=== PATIENT | male | born 1950 | race Caucasian/White ===

== ENCOUNTER 2023-10-20 10:54 | Outpatient (OUT) | payer MEDICARE, SELFPAY ==
--- NOTE | 2023-10-20 11:55 | XR_ITS ---
The [address] [address] Patient Name: TOMAS CHÁVEZ MRN: [id number] date: 1950 Sex: M Assigned Patient Location: [facility] Current Patient Location: Accession/Order Number: [id number] Exam Date: 10/20/2023 11:50 Report Date: 10/21/2023 09:54 At the request of: KEN SILVA Procedure: XR chest 2V PROCEDURE: XR chest 2V DATE: 10/20/2023 10:50 AM CDT COMPARISONS: None. CLINICAL INDICATION: 73 years Male Preop exam FINDINGS: The heart is upper normal in size accentuated in size somewhat by the elevated right hemidiaphragm. The pulmonary vasculature does not appear congested. There is moderate elevation the right hemidiaphragm with some right infrahilar atelectasis. The lungs are otherwise clear. There is no evidence of pleural effusion or pneumothorax. XR/XR chest 2V IMPRESSION: 1. No previous radiographs for comparison 2. Elevated right hemidiaphragm with associated atelectasis 3. Heart upper normal in size. Electronically authenticated by: RICKIE ARVIZU Date: 10/21/2023 09:54
--- NOTE | 2023-10-20 12:05 | P.GSHP_ITS ---
History of Present Illness History of Present Illness Chief complaint: elevated psa Narrative: Patient presents for preadmission testing. The patient states he had an elevated PSA. He states he does have frequency with urination and an intermittent weak urine stream. He denies dysuria, hematuria, abdominal pain, nausea, vomiting, or any other complaints. Review of Systems ROS Narrative REVIEW OF SYSTEMS: Negative except as stated in HPI, ten or more systems reviewed. Constitutional: No fever, chills, weakness ENT: No sore throat or epistaxis Cardiovascular: No edema, chest pain, palpitations, or activity intolerance Respiratory: No shortness of breath, cough, or wheezing Musculoskeletal: No joint pain or swelling Gastrointestinal: No abdominal pain, constipation, diarrhea, or vomiting Genitourinary: No dysuria or hematuria Neurological: No numbness, tingling, weakness, or headache Psychiatric: No mood changes PFSH PFS Medical History (Updated 10/20/23 @ 11:37 by Janet Elliott NP) Coronary artery disease ?I25.10 - Atherosclerotic heart disease of [place] coronary artery without angina pectoris (ICD-10) Arthritis ?M19.90 - Unspecified osteoarthritis, unspecified site (ICD-10) Heartburn ?R12 - Heartburn (ICD-10) Heart murmur ?R01.1 - Cardiac murmur, unspecified (ICD-10) Hypertension ?I10 - Essential (primary) hypertension (ICD-10) Myocardial infarction ?I21.9 - Acute myocardial infarction, unspecified (ICD-10) High cholesterol ?E78.00 - Pure hypercholesterolemia, unspecified (ICD-10) Diabetes ?E11.9 - Type 2 diabetes mellitus without complications (ICD-10) BPH (benign prostatic hyperplasia) ?N40.0 - Benign prostatic hyperplasia without lower urinary tract symptoms (ICD-10) Elevated PSA ?R97.20 - Elevated prostate specific antigen [PSA] (ICD-10) Hypothyroidism ?E03.9 - Hypothyroidism, unspecified (ICD-10) Surgical History (Updated 10/20/23 @ 11:37 by Janet Elliott NP) History of tonsillectomy and adenoidectomy ?Z90.89 - Acquired absence of other organs (ICD-10) H/O angioplasty (1996) ?Z98.62 - Peripheral vascular angioplasty status (ICD-10) History of cardiac catheterization ?Z98.890 - Other specified postprocedural states (ICD-10) History of total hip arthroplasty ?Z96.649 - Presence of unspecified artificial hip joint (ICD-10) Family History (Updated 10/20/23 @ 11:37 by Janet Elliott NP) Other Family history of hypertension Multiple myeloma Social History (Updated 10/20/23 @ 11:29 by Janet Elliott NP) Within the past year, how often did you have a drink containing alcohol: 4 or more times a week Within the past year, how many standard drinks containing alcohol did you have on a typical day: 1 or 2 Total score: 0 Score interpretation: A score less than 4 is consistent with normal alcohol consumption. 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 Highest level of school completed/degree received: high school graduate Meds Home Medications and Allergies Home Medications ?Medication ?Instructions ?Recorded ?Confirmed ?Type amlodipine 5 mg tablet 5 mg PO DAILY 10/20/23 10/20/23 History aspirin 325 mg capsule 325 mg PO DAILY 10/20/23 10/20/23 History atorvastatin 20 mg tablet 20 mg PO DAILY 10/20/23 10/20/23 History cholecalciferol (vitamin D3) 125 5,000 unit PO DAILY 10/20/23 10/20/23 History mcg (5,000 unit) capsule hydroxyzine HCl 25 mg tablet 25 mg PO QPM 10/20/23 10/20/23 History insulin aspart U-100 100 unit/mL 1 sliding scale dose subcut TID 10/20/23 10/20/23 History (3 mL) subcutaneous pen (Novolog FlexPen U-100 Insulin aspart) insulin detemir U-100 100 unit/mL unit subcut BID 10/20/23 History (3 mL) subcutaneous pen (Levemir FlexPen) levothyroxine 75 mcg tablet 75 mcg PO DAILY 10/20/23 10/20/23 History lisinopril 20 1 tab PO BID 10/20/23 10/20/23 History mg-hydrochlorothiazide 12.5 mg tablet magnesium oxide 400 mg (241.3 mg 400 mg PO BID 10/20/23 10/20/23 History magnesium) tablet metoprolol tartrate 50 mg tablet 50 mg PO Q12H 10/20/23 10/20/23 History montelukast 10 mg tablet 10 mg PO DAILY 10/20/23 10/20/23 History multivitamin (Daily Multi-Vitamin 1 tab PO DAILY 10/20/23 10/20/23 History tablet) nitroglycerin 0.4 mg sublingual 0.4 mg sublingual Q5M 10/20/23 10/20/23 History tablet trazodone 50 mg tablet 50 mg PO QPM 10/20/23 10/20/23 History Allergies Allergy/AdvReac Type Severity Reaction Status Date / Time No Known Drug Allergies Allergy Verified 10/20/23 11:16 Exam Narrative Exam Narrative: Constitutional: Awake, alert, comfortable, well-appearing, nontoxic, interactive, vital signs as charted Head: Normocephalic, atraumatic Neck: Supple, normal appearance, normal range of motion, no meningeal signs, no lymphadenopathy Respiratory: No respiratory distress, breath sounds clear Cardiovascular: Regular rate and rhythm, strong and regular heart tones Abdomen: Nontender, normal bowel sounds, soft, no CVA tenderness Musculoskeletal: Normal gait, no swelling or edema Skin: No rashes or induration, no lesions, only visible skin inspected Neuro: No neurological deficits, normal sensation Psychiatric: Oriented ?3, normal affect Assessment and Plan Assessment and Plan (1) Elevated PSA: (2) BPH (benign prostatic hyperplasia): Plan MRI fusion transperineal prostate biopsy scheduled with Dr. Arguello November 03, 2023.
[2023-10-20 14:05] LABS: Basophils Absolute Auto 0.1 10^3/uL (0.0-0.1); Basophils Percent Auto 0.7 % (0.2-2.0); Eosinophils Absolute Auto 0.2 10^3/uL (0.0-0.7); Eosinophils Percent Auto 2.6 % (0.9-7.0); Hematocrit 41.3 % (42.0-54.0); Hemoglobin 13.5 g/dL (14.0-18.0); Lymphocytes Absolute Auto 1.2 10^3/uL (1.2-3.8); Lymphocytes Percent Auto 17.8 % (20.5-60.0); Mean Corpuscular HGB Conc 32.7 g/dL (29.9-35.2); Mean Corpuscular Hemoglobin 29.2 pg (25.9-34.0); Mean Corpuscular Volume 89.2 fL (80.0-94.0); Mean Platelet Volume 10.5 fL (9.5-13.5); Monocytes Absolute Auto 0.7 10^3/uL (0.3-0.8); Monocytes Percent Auto 10.7 % (1.7-12.0); Neutrophils Absolute Auto 4.7 10^3/uL (1.4-6.5); Neutrophils Percent Auto 68.2 % (43.0-75.0); Platelet Count 233 10^3/uL (150-450); Red Blood Count 4.63 10^6/uL (4.70-6.10); Red Cell Distribution Width 14.3 % (11.0-15.0); White Blood Count 6.9 10^3/uL (4.0-11.0)
[2023-10-20 14:58] LABS: INR 1.04; Partial Thromboplastin Time 25.9 sec (22.3-36.2)
== END 2023-10-20 10:55 | disposition home or self-care (01) ==
LOC: PST 10:59
PROVIDERS: PCP Family Medicine; Visit Provider Urology
DX: Z01.810 Encounter for preprocedural cardiovascular examination (principal); Z01.812 Encounter for preprocedural laboratory examination; Z01.818 Encounter for other preprocedural examination; R97.20 Elevated prostate specific antigen [PSA]; N40.1 Benign prostatic hyperplasia with lower urinary tract symptoms
CPT/HCPCS: 71046; 80048; 85025; 85610; 85730; G0463

== ENCOUNTER 2023-11-03 06:53 | Day surgery (SDC) | payer MEDICARE, SELFPAY ==
[2023-10-20 11:59] VITALS: BP 158/84; PULSE 56; TEMP 36.3; O2SAT 98; BMI 32.5
--- OUTSIDE RECORDS SUMMARY | 2023-11-03 06:56 | XMS_ITS | CCD ---
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 Odilon Barrientos Attending Ashley Kessler, Dr. Odilon Barrientos Referring Liliamva Teto Landaverde Primary Care Chaitanya Kessler, Dr. Odilon Barrientos Attending Ashley Kessler, Dr. Odilon Barrientos Referring Liliamva ilTeto Morales DO Primary Care Provider Teto Shea DO Unavailable [phone] Teto Shea DO Primary Care Provider Teto SHEA Primary Care Physician [phone] Teto Shea DO Primary Care Provider Teto Shea DO Unavailable ODILON KESSLER Attending Unavailable TETO SHEA Primary Care LORI Bueno Referring Unavailable TETO SHEA Primary Care Unavailable Teto Shea DO Primary Care Provider KEKE HERNANDEZ Attending Unavailable TETO SHEA Primary Care Unavailable KEKE HERNANDEZ Referring Unavailable TETO SHEA Primary Care Unavailable KEKE HERNANDEZ Attending Unavailable TETO SHEA Primary Care Unavailable TETO SHEA Primary Care Unavailable KEKE HERNANDEZ Referring Unavailable LOUISEMORALESLEXUS Attending Unavailable MONSE, TETO Arias Primary Care Unavailable MONSE, TETO Arias Primary Care Unavailable NOLAN GARCIA Referring Unavailable MONSE, TETO Arias Primary Care Unavailable LORI ANSARI Referring Unavailable Sabrina Arguello Attending Unavailable Sabrina Arguello Admitting Unavailable Sabrina Arguello Attending Unavailable Sabrina Arguello Admitting Unavailable Sabrina Arguello Attending Unavailable Brayan DSOUZA Admitting Unavailable Brayan DSOUZA Attending Unavailable Sabrina Arguello Attending Unavailable Sabrina Arguello Attending Unavailable Sabrina Arguello Admitting Unavailable Sabrina Arguello Attending Unavailable DO Teto Shea Primary Care Provider MD Sabrina Arguello Attending Provider Sabrina Arguello Admitting Unavailable Sabrina Arguello Attending Unavailable Teto Shea Primary Care Unavailable Medications Current Medications Medication Drug Class(es) Dates Sig (Normalized) Sig (Original) acetaminophen 500 mg oral tablet (18 sources) Start: 04-18-2019 take 2 tablets by mouth every eight hours acetaminophen (TYLENOL) 500 mg tablet Take 2 tablets by mouth every 8 hours. 0 04/18/2019 Active Comment on above: Take 2 tablets by mo [facility] every 8 hours. ALPRAZolam 0.25 mg oral tablet (1 source) Benzodiazepine Start: 08-04-2018 Alprazolam Active 0.25 MG PO EVERY 12-24 HOURS 15 August 04, 2018 12:00am amLODIPine 5 mg oral tablet (20 sources) Dihydropyridine Calcium Channel Marlene Start: 08-04-2018 take 1 tablet by mouth twice daily amLODIPine 5 mg Tab 5 mg = 1 tab(s), Oral, BID, # 180 tab(s), Refills(s) 1, Pharmacy: [id number], 178, cm, 02/12/22 8:19:00 EST, Height/Length Dosing, 107.8, kg, 02/12/22 8:19:00 EST, Weight Dosing Start Date: 04/02/22 Status: Ordered Comment on above: Take 5 mg by mouth t wice daily. aspirin 325 mg delayed release oral tablet (20 sources) Platelet Aggregation Inhibitor, Nonsteroidal Anti-inflammatory Drug Start: 04-18-2019 take 1 tablet by mouth twice daily aspirin, enteric coated (ASPIRIN, ENTERIC COATED) 325 mg EC tablet TAKE 1 TABLET BY MOUTH TWICE DAILY. 84 tablet 0 04/18/2019 Active Start: 08-03-2018 take 1 tablet by allison th once daily Aspirin (Aspir-81) 81 mg Tablet,Delayed Release (Dr/Ec) Active 81 MG PO Daily August 03, 2018 12:00am Start: 08-24-2009 take 1 tablet by allison th once daily aspirin 325 mg oral tablet 325 mg = 1 tab(s), Oral, Daily, Refills(s) 0 Start Date: 08/24/09 Status: Ordered Comment on above: TAKE 1 TABLET BY ALLISON TH TWICE DAILY. atorvastatin 10 mg oral tablet (20 sources) HMG-CoA Reductase Inhibitor Start: 9 take 2 tablets by mouth once daily Atorvastatin (Lipitor) 10 mg Tablet Active 20 MG PO Daily August 03, 2018 12:00am Start: 08-24-2009 take 1 tablet by allison th once daily at bedtime Lipitor 20 mg Tab 20 mg = 1 tab(s), Oral, Once a day (at bedtime), # 90 tab(s), Refills(s) 1, Pharmacy: [id number], 178, cm, 02/12/22 8:19:00 EST, Height/Length Dosing, 107.8, kg, 02/12/22 8:19:00 EST, Weight Dosing Start Date: 04/02/22 Status: Ordered Comment on above: Take 20 mg by mouth once daily. Blood-Glucose Meter,Continuous (FREESTYLE MAKAYLA 3 READER) misc (4 sources) Start: 07-28-2023 Blood-Glucose Meter,Continuous (FREESTYLE MAKAYLA 3 READER) misc Dispense one reader kit. E11.9, multiple insulin injections. 1 Each 0 07/28/2023 Active Start: 07-15-2023 End: 07-28-2023 Blood-Glucose Meter,Continuo us (FREESTYLE MAKAYLA 3 READER) misc Dispense one reader kit. E11.9, multiple insulin injections. 1 Each 0 07/15/2023 07/28/2023 Discontinued Start: 07-15-2023 Blood-Glucose Meter,Continuous (FREESTYLE MAKAYLA 3 READER) misc Dispense one reader kit. E11.9, multiple insulin injections. 1 Each 0 07/15/2023 Active Blood-Glucose Sensor (FREEST YLE MAKAYLA 3 SENSOR) santino (11 sources) Start: 07-28-2023 Blood-Glucose Sensor (FREESTYLE MAKAYLA 3 SENSOR) santino Change sensor every 14 days. USE FOR CONTINUOUS GLUCOSE MONITORING. Multiple insulin injections. E11.9 6 Each 3 07/28/2023 Active Start: 07-15-2023 End: 07-28-2023 Blood-Glucose Sensor (FREEST YLE MAKAYLA 3 SENSOR) santino Change sensor every 14 days. USE FOR CONTINUOUS GLUCOSE MONITORING. Multiple insulin injections. E11.9 6 Each 3 07/15/2023 07/28/2023 Discontinued Start: 07-15-2023 Blood-Glucose Sensor (FREESTYLE MAKAYLA 3 SENSOR) santino Change sensor every 14 days. USE FOR CONTINUOUS GLUCOSE MONITORING. Multiple insulin injections. E11.9 6 Each 3 07/15/2023 Active Start: 05-28-2022 End: 01-14-2023 Blood-Glucose Sensor (FREEST YLE MAKAYLA 3 SENSOR) santino Change sensor every 14 days. USE FOR CONTINOUS GLUCOSE MONITORING. MULTIPLE INSULIN INJECTIONS. E11.9 PeerReach 7 Each 3 05/28/2022 01/14/2023 Discontinued Start: 05-28-2022 Blood-Glucose Sensor (FREESTYLE MAKAYLA 3 SENSOR) santino Change sensor every 14 days. USE FOR CONTINOUS GLUCOSE MONITORING. MULTIPLE INSULIN INJECTIONS. E11.9 [employer]ach 7 Each 3 05/28/2022 Active Comment on above: Change sensor every 14 days. USE FOR CONTINOUS GLUCOSE MONITORING. MULTIPLE INSULIN INJECTIONS. E11.9 [employer]ach cholecalciferol 0.125 mg oral tablet (20 sources) Vitamin D Start: 08-03-2018 cholecalciferol (VITAMIN D-3) 5,000 unit tab Take by mouth once daily. 0 08/10/2018 Active Vitamin D3 125 M CG (5000 UT) Oral Capsule TAKE DIRECTED. Quantity: 0 Refills: 0 Ordered: 24-Oct-2021 DO Active Comment on above: Take by mouth once d aily. diazePAM 10 mg oral tablet (1 source) Benzodiazepine Start: 10-07-2023 Valium 10 mg Tab 10 mg = 1 tab(s), Oral, As Directed, PRN for anxiety, Take 30 minutes prior to MRI for anxiety/claustrophob ia, # 1 tab(s), Refills(s) 0, Pharmacy: [facility] #[id number], 178, cm, 10/07/23 8:08:00 EDT, Height/Length Dosing, 105.1, kg, 10/07/23 8:08:00 EDT, Weight Dosing Start Date: 10/07/23 Status: Ordered flash glucose sensor (FREESTYLE MAKAYLA 2 SENSOR) kit (6 sources) Start: 01-14-2023 flash glucose sensor (FREESTYLE MAKAYLA 2 SENSOR) kit Change sensor every 14 days. USE FOR CONTINUOUS GLUCOSE MONITORING. Multiple insulin injections. E11.9 7 Each 3 01/14/2023 Active Comment on above: Change sensor every 14 days. USE FOR CONTINUOUS GLUCOSE MONITORING. Multiple insulin injections. E11.9 hydroCHLOROthiazide 12.5 mg / lisinopril 20 mg oral tablet (20 sources) Thiazide Diuretic, Angiotensin Converting Enzyme Inhibitor Start: 08-25-2021 End: 08-20-2022 hydrochlorothiazide- lisinopril 25 mg-20 mg Tab 1 tab(s), Oral, BID for 90 day(s), 180 tab(s), Refill(s) 3, [facility] #[id number], 178, cm, 02/18/21 10:27:00 EST, Height/Length Dosing, 105.1, kg, 02/18/21 10:27:00 EST, Weight Dosing Start Date: 08/25/21 Stop Date: 08/20/22 Status: Ordered Start: 03-27-2019 take 1 tablet by allison th once daily hydrochlorothiazide-lisinopril 12.5 mg-2 0 mg Tab tab(s), Oral, Daily, Refill(s) 0 Start Date: 02/12/22 Status: Ordered Start: 08-03-2018 take 2 tablets by mouth twice daily Lisinopril-Hydrochlorothiazide Active 2 TAB PO Twice daily August 03, 2018 12:00am Comment on above: Take 1 tablet by allison th once daily. Takes 1 tablet twice a day hydrOXYzine (1 source) Antihistamine Start: hydrOXYzine 25 mg Start Date: 10/07/23 Status: Ordered ibuprofen 200 mg oral tablet (20 sources) Nonsteroidal Anti-inflammatory Drug Start: 9 take 1 tablet by mouth every six hours Ibuprofen (Advil) 200 mg Tablet Active 200 MG PO Q6H August 03, 2018 12:00am take 1 tablet by allison th once daily as needed ibuprofen (ADVIL) 200 mg tablet Take 200 mg by mouth as needed. Take 1-2 tabs 1-2x daily as needed 0 Active Advil 200 MG Ora l Tablet as needed Quantity: 0 Refills: 0 Ordered: 24-Oct-2021 DO Active Comment on above: Take 200 mg by mouth as needed. Take 1-2 tabs 1-2x daily as needed 3 ml insulin aspart, human 100 unt/ml pen injector (20 sources) Insulin Analog Start: 02-26-2023 insulin aspart U-100 (NOVOLOG FLEXPEN U-100 INSULIN) 100 unit/mL (3 mL) Indications: Controlled type 2 diabetes mellitus without complication, with long-term current use of insulin (HCC) Inject 6 units breakfast, 8-10 with lunch 18 with dinner and (4 units with nightly bowl of ice cream) 45 mL 3 02/26/2023 Active Start: 01-14-2023 End: 01-14-2023 insulin aspart U-100 (NOVOLO G FLEXPEN U-100 INSULIN) 100 unit/mL (3 mL) Inject 6 units breakfast, 8-10 with lunch 18 with dinner and (4 units with nightly bowl of ice cream) 45 mL 3 01/14/2023 Active Start: 08-29-2022 End: 01-14-2023 insulin aspart U-100 (NOVOLO G FLEXPEN U-100 INSULIN) 100 unit/mL (3 mL) Indications: Controlled type 2 diabetes mellitus without complication, with long-term current use of insulin (HCC) Inject 10 units breakfast, 14 with lunch 16 with dinner and (4 units with nightly bowl of ice cream). TDD~ 34 units. DX: E11.9, insulin dependent. 15 mL 3 08/29/2022 01/14/2023 Discontinued Start: 05-28-2022 End: 01-14-2023 insulin aspart U-100 (NOVOLO G FLEXPEN U-100 INSULIN) 100 unit/mL (3 mL) Inject 8 units breakfast, 12 with lunch 16 with dinner and (4 units with nightly bowl of ice cream) 15 Each 3 08/29/2022 01/14/2023 Discontinued (Adjust Sig - Block E-Cancel) Start: 02-15-2022 End: 05-28-2022 insulin aspart U-100 (NOVOLO G FLEXPEN U-100 INSULIN) 100 unit/mL (3 mL) Inject 10 units breakfast, 14 with lunch 16 with dinner and (4 units with nightly bowl of ice cream) 15 Each 3 02/15/2022 05/28/2022 Discontinued (Adjust Sig - Block E-Cancel) Start: 10-06-2021 End: 02-13-2022 insulin aspart U-100 (NOVOLO G FLEXPEN U-100 INSULIN) 100 unit/mL (3 mL) Inject 10 units breakfast, 14 with lunch 16 with dinner and (4 units with nightly bowl of ice cream) 15 Each 3 11/27/2021 02/13/2022 Discontinued Start: 05-15-2021 End: 10-04-2021 insulin aspart U-100 (NOVOLO G FLEXPEN U-100 INSULIN) 100 unit/mL (3 mL) Inject 10 units breakfast, 14 with lunch 16 with dinner 15 Pen 3 05/15/2021 10/04/2021 Discontinued Start: 10-18-2020 apply 10 [IU] by sub cutaneous injection once daily at breakfast as needed, then apply 14 [IU] by subcutaneous injection at lunch as needed, then apply 16 [IU] by subcutaneous injection once daily as needed, then apply 4 [IU] by subcutaneous injection once daily as needed, then apply 44 [IU] by subcutaneous injection once daily as needed NovoLOG FlexPen 100 units/mL injectable solution Inject 10 units sub-q daily at breakfast, inject 14 units sub-q with lunch & inject 16 units sub- daily with dinnerand 4 units with nightly bowel of ice cream plus Sliding Scale as needed ( 44 units daily) Start Date: 10/18/20 Status: Ordered Start: 10-18-2020 inject 4 [IU] by sub cutaneous injection once daily at breakfast as needed, then inject 8 [IU] by subcutaneous injection at lunch as needed, then inject 10 [IU] by subcutaneous injection once daily at dinner as needed, then inject 35 [IU] by subcutaneous injection once daily as needed NovoLOG FlexPen 100 units/mL injectable solution Inject 4 units sub-q daily at breakfast, inject 8 units sub-q with lunch & inject 10 units sub- daily with dinner plus Sliding Scale as needed ( 35 units daily) Start Date: 10/18/20 Status: Ordered Start: 08-03-2018 Insulin Aspart U-100 (Novolog Flexpen U-100 Insulin) 100 unit/mL (3 mL) Insulin Pen Active 0 unit SUBCUT Three times daily August 03, 2018 12:00am NovoLOG 100 UNIT /ML Injection Solution as directed Quantity: 0 Refills: 0 Ordered: 24-Oct-2021 DO Active Comment on above: Inject 10 units becca kfast, 14 with lunch 16 with dinner Inject 10 units becca kfast, 14 with lunch 16 with dinner and (4 units with nightly bowl of ice cream) Inject 8 units break fast, 12 with lunch 16 with dinner and (4 units with nightly bowl of ice cream) Inject 10 units becca kfast, 14 with lunch 16 with dinner and (4 units with nightly bowl of ice cream). TDD~ 34 units. DX: E11.9, insulin dependent. Inject 6 units break fast, 8-10 with lunch 18 with dinner and (4 units with nightly bowl of ice cream) 3 ml insulin detemir 100 unt/ml pen injector (20 sources) Insulin Analog Start: inject 62 [IU] by subcutaneous injection once daily in the morning, then inject 60 [IU] by subcutaneous injection in the evening insulin detemir U-100 (LEVEMIR FLEXPEN) 100 unit/mL (3 mL) injection pen Indications: Controlled type 2 diabetes mellitus without complication, with long-term current use of insulin (HCC) INJECT 62 UNITS SUB-Q DAILY IN THE MORNING AND INJECT 60 UNITS IN THE EVENING 120 mL 3 09/16/2023 Active Start: 01-14-2023 End: 09-16-2023 insulin detemir U-100 (LEVEM IR FLEXTOUCH U-100 INSULIN) 100 unit/mL (3 mL) injection pen inject 62 units SUBCUTANEOUSLY IN THE MORNING and 60 IN THE EVENING 120 mL 3 07/15/2023 09/16/2023 Discontinued Start: 04-07-2022 End: 01-14-2023 insulin detemir U-100 (LEVEM IR FLEXTOUCH U-100 INSULIN) 100 unit/mL (3 mL) injection pen inject 64 units SUBCUTANEOUSLY IN THE MORNING and 66 IN THE EVENING 120 mL 3 01/04/2023 01/14/2023 Discontinued (Adjust Sig - Block E-Cancel) Start: 10-06-2021 insulin detemi r U-100 (LEVEMIR) 100 unit/mL (3 mL) injection pen Inject 64 units in am and 66 units at night 20 Pen 3 10/06/2021 Active Start: 05-15-2021 End: 10-04-2021 insulin detemir U-100 (LEVEM IR) 100 unit/mL (3 mL) injection pen Inject 64 units in am and 66 units at night 20 Pen 3 05/15/2021 10/04/2021 Discontinued Start: 09-21-2018 inject 64 [IU] by carreon bcutaneous injection in the morning, then inject 66 [IU] by subcutaneous injection twice daily at bedtime Levemir FlexTouch 100 units/mL subcutaneous solution 64 unit(s) in AM and 66 units at HS, SubCutaneous, BID, # 15 mL, Refills(s) 3, Pharmacy: [id number] Start Date: 09/21/18 Status: Ordered Start: 09-21-2018 Levemir FlexTo uch 100 units/mL subcutaneous solution 70 unit(s), SubCutaneous, Bedtime, # 4 box(es), Refills(s) 3, Pharmacy: [id number] Start Date: 09/21/18 Status: Ordered Start: 08-03-2018 Insulin Detemi r U-100 (Levemir Flextouch U100 Insulin) 100 unit/mL (3 mL) Insulin Pen Active 72 UNIT SUBCUT Twice daily August 03, 2018 12:00am Levemir 100 UNIT /ML Subcutaneous Solution as directed Quantity: 0 Refills: 0 Ordered: 24-Oct-2021 DO Active Comment on above: Inject 64 units in a m and 66 units at night inject 64 units SUBC UTANEOUSLY IN THE MORNING and 66 IN THE EVENING inject 62 units SUBC UTANEOUSLY IN THE MORNING and 64 IN THE EVENING levothyroxine sodium 0.075 mg oral tablet (20 sources) l-Thyroxine Start: 12-18-19 End: 06-09-19 24 take 1 tablet by mouth once daily levothyroxine (SYNTHROID) 75 mcg tablet Indications: Unspecified hypothyroidism take 1 tablet by mouth daily 90 tablet 3 06/09/2023 Active Start: 05-28-2022 take 1 tablet by allison once daily levothyroxine (SYNTHROID) 75 mcg tablet Take 1 tablet by mouth once daily. 30 tablet 5 05/28/2022 Active Start: 02-12-2022 levothyroxine 75 mcg, Daily, 2 tabs on Wednesday and ., Refills(s) 0 Start Date: 02/12/22 Status: Ordered Start: 02-12-2022 levothyroxine 50 mcg, Daily, 2 tabs on Wednesday and ., Refills(s) 0 Start Date: 02/12/22 Status: Ordered Start: 05-15-2021 End: 05-28-2022 levothyroxine (SYNTHROID) 50 mcg tablet Take 1 tab daily EXCEPT Wed and take 2 tabs. 38 tablet 11 11/27/2021 05/28/2022 Discontinued Start: 10-18-2020 take 1 tablet by allison th once daily before breakfast levothyroxine 25 mcg (0.025 mg) Tab TAKE 1 TABLET BY MOUTH EVERY DAY before breakfast on empty stomach Start Date: 10/18/20 Status: Ordered Comment on above: Take 1 tablet by allison once daily. Take 1 tab daily EXC EPT Wed and take 2 tabs. take 1 tablet by allison th daily magnesium oxide 400 mg oral tablet (20 sources) Start: 10-07-2023 take 1 tablet by mouth twice daily magnesium oxide 400 mg Tab 400 mg = 1 tab(s), Oral, BID Start Date: 10/07/23 Status: Ordered Start: 03-27-2019 take 1 capsule by mo [facility] twice daily magnesium oxide 400 mg magnesium cap Take 1 capsule by mouth twice daily. 0 03/27/2019 Active Start: 08-04-2018 End: 08-21-2022 take 1 tablet by mouth twice daily magnesium oxide 400 mg Tab 400 mg = 1 tab(s), Oral, BID, X 90 day(s), # 180 tab(s), Refills(s) 3, Pharmacy: [id number], 178, cm, 02/18/21 10:27:00 EST, Height/Length Dosing, 105.1, kg, 02/18/21 10:27:00 EST, Weight Dosing Start Date: 08/26/21 Stop Date: 08/21/22 Status: Ordered Comment on above: Take 1 capsule by [facility] twice daily. metoprolol tartrate 50 mg oral tablet (20 sources) beta-Adrenergic Marlene Start: 04-02-2022 Metoprolol tartrate 50 mg Tab 25 mg = 0.5 tab(s), Oral, BID, # 90 tab(s), Refills(s) 1, Pharmacy: [id number], 178, cm, 02/12/22 8:19:00 EST, Height/Length Dosing, 107.8, kg, 02/12/22 8:19:00 EST, Weight Dosing Start Date: 04/02/22 Status: Ordered Start: 08-26-2021 Metoprolol tar trate 50 mg Tab 25 mg = 0.5 tab(s), Oral, BID, # 90 tab(s), Refills(s) 1, Pharmacy: [id number], 178, cm, 02/18/21 10:27:00 EST, Height/Length Dosing, 105.1, kg, 02/18/21 10:27:00 EST, Weight Dosing Start Date: 08/26/21 Status: Ordered Start: 08-04-2018 take 25 mg by mouth twice daily Metoprolol Tartrate Active 25 MG PO Twice daily 60 August 04, 2018 12:00am Start: 08-03-2018 End: 08-04-2018 take 50 mg by mouth twice daily Metoprolol Tartrate Discontinued 50 MG PO Twice daily August 03, 2018 12:00am August 04, 2018 4:48pm Start: 08-24-2009 metoprolol tar trate, short acting, (LOPRESSOR) 50 mg tablet Take by mouth twice daily. 0 08/24/2009 Active Comment on above: Take by mouth twice daily. montelukast 10 mg oral tablet (20 sources) Leukotriene Receptor Antagonist Start: 0 take 1 tablet by mouth once daily in the evening Montelukast (Singulair) 10 mg Tablet Active 10 MG PO Every evening August 03, 2018 12:00am Comment on above: Take 10 mg by mouth daily at bedtime. Multiple Vitamins Tab (8 sources) Start: 0 take 1 tablet by mouth once daily Multiple Vitamins Tab 1 tab(s), Oral, Daily, Refill(s) 0 Start Date: 08/24/09 Status: Ordered Start: 08-24-2009 Multiple Vitam ins Tab 1 tab(s), Oral, Daily, 0 Start Date: 08/24/09 Status: Ordered Multivit, Min No.92-[id number] (1 source) Start: 08-03-2018 take 1 tablet by mouth once daily Multivit, Min No.88-Fpuw-Vnlhr Active 1 TAB PO Daily August 03, 2018 12:00am multivit-min/ferrous fumarate (MULTI VITAMIN ORAL) (18 sources) Start: 08-03-2018 multivit-min/ferrous fumarate (MULTI VITAMIN ORAL) Take by mouth once daily. 0 08/03/2018 Active Comment on above: Take by mouth once d aily. nitroglycerin 0.4 mg sublingual tablet (20 sources) Nitrate Vasodilator Start: 08-24-2009 Nitroglycerin Active 0.4 MG SUBLINGUAL every 5 to 15 minutes August 03, 2018 12:00am Comment on above: Dissolve 0.4 mg unde r the tongue as needed. omeprazole 40 mg delayed release oral capsule (8 sources) Proton Pump Inhibitor Start: 09-12-2019 omeprazole 40 mg Cap-DR 40 mg = 1 cap(s), Oral, Daily, on for 2 weeks daily then wean over the following 2 weeks., # 30 cap(s), Refills(s) 0, Pharmacy: [id number], 178, cm, 09/12/19 10:32:00 EDT, Height/Length Measured, 102.1, kg, 09/12/19 10:32:00 EDT, Weight Measured Start Date: 09/12/19 Status: Ordered traZODone hydrochloride 50 mg oral tablet (20 sources) Serotonin Reuptake Inhibitor Start: 04-02-2022 traZODONE 50 mg Tab 25 mg = 0.5 tab(s), Oral, Once a day (at bedtime), # 45 tab(s), Refills(s) 1, Pharmacy: [facility], 178, cm, 02/12/22 8:19:00 EST, Height/Length Dosing, 107.8, kg, 02/12/22 8:19:00 EST, Weight Dosing Start Date: 04/02/22 Status: Ordered Start: 08-26-2021 traZODONE 50 m g Tab 25 mg = 0.5 tab(s), Oral, Once a day (at bedtime), # 45 tab(s), Refills(s) 1, Pharmacy: [id number], 178, cm, 02/18/21 10:27:00 EST, Height/Length Dosing, 105.1, kg, 02/18/21 10:27:00 EST, Weight Dosing Start Date: 08/26/21 Status: Ordered Start: 11-28-2018 traZODone (BAY YREL) 50 mg tablet Take by mouth daily at bedtime. 0 11/28/2018 Active take 0.5 tablet by m outh at bedtime traZODone HCl - 50 MG Oral Tablet TAKE 1/2 TABLET AT BEDTIME. Quantity: 0 Refills: 0 Ordered: 24-Oct-2021 DO Active Comment on above: Take by mouth daily at bedtime. vit A/vit C/bioflav/Zn/Herb25 (ECHINACEA ACZ ORAL) (18 sources) vit A/vit C/bioflav/Zn/Herb25 (ECHINACEA ACZ ORAL) Take by mouth. 0 Active Comment on above: Take by mouth. Completed/Discontinued Medications Medication Drug Class(es) Dates Sig (Normalized) Sig (Original) flash glucose scanning reader (FREESTYLE MAKAYLA 14 DAY READER) (6 sources) Start: 07-15-2021 End: 05-28-2022 flash glucose scanning reader (FREESTYLE MAKAYLA 14 DAY READER) Dispense one reader kit. E11.9 - multiple insulin injections, checks blood sugar 4x daily 1 Each 0 07/15/2021 05/28/2022 Discontinued Start: 07-15-2021 flash glucose scanning reader (FREESTYLE MAKAYLA 14 DAY READER) Dispense one reader kit. E11.9 - multiple insulin injections, checks blood sugar 4x daily 1 Each 0 07/15/2021 Active Comment on above: Dispense one reader kit. E11.9 - multiple insulin injections, checks blood sugar 4x daily flash glucose scanning reader (FREESTYLE MAKAYLA 14 DAY READER) [facility] [place] (1 source) Start: 03-28-2019 flash glucose scanning reader (FREESTYLE MAKAYLA 14 DAY READER) [facility] [place] Dispense one reader kit. E11.9 - multiple insulin injections, checks blood sugar 4x daily 1 Each 0 03/28/2019 Active Comment on above: Dispense one reader kit. E11.9 - multiple insulin injections, checks blood sugar 4x daily flash glucose sensor (FREESTYLE MAKAYLA 14 DAY SENSOR) kit (7 sources) Start: 07-15-2021 End: 05-28-2022 flash glucose sensor (FREESTYLE MAKAYLA 14 DAY SENSOR) kit Change sensor every 14 days E11.9 - multiple insulin injections, checks blood sugar 4x daily 6 Each 3 07/15/2021 05/28/2022 Discontinued Start: 07-15-2021 flash glucose sensor (FREESTYLE MAKAYLA 14 DAY SENSOR) kit Change sensor every 14 days E11.9 - multiple insulin injections, checks blood sugar 4x daily 6 Each 3 07/15/2021 Active Start: 08-08-2019 flash glucose sensor (FREESTYLE MAKAYLA 14 DAY SENSOR) kit Change sensor every 14 days E11.9 - multiple insulin injections, checks blood sugar 4x daily 6 Each 3 08/08/2019 Active Comment on above: Change sensor every 14 days E11.9 - multiple insulin injections, checks blood sugar 4x daily Mens Multi Vitamin & Mineral TABS (3 sources) Mens Multi Vitamin & Mineral TABS TAKE 1 TABLET DAILY. Quantity: 0 Refills: 0 Ordered: 24-Oct-2021 DO Active Vitamin D3 5000 intl units oral capsule (8 sources) Start: 08-10-2018 take 1 capsule by mouth once daily at mealtime Vitamin D3 5000 intl units oral capsule 5,000 [employer] t = 1 cap(s), Oral, Daily, with food, # 100 cap(s), Refills(s) 0 Start Date: 08/10/18 Status: Ordered Problems Active Problems Problem Classification Problem Date Documented Date Episodic/Chronic Abdominal pain (1 source) Epigastric pain; Translations: [Epigastric pain] Onset: 09-29-2023 Episodic Anxiety disorders (8 sources) Anxiety disorder 10-20-2020 Chronic Cardiac dysrhythmias (5 sources) Atrial fibrillation; Translations: [Atrial fibrillation] 02-17-2023 Chronic Cardiac dysrhythmias (2 sources) Palpitations; Translations: [Palpitations] 02-17-2023 Episodic Coronary atherosclerosis and other heart disease (20 sources) Coronary arteriosclerosis; Translations: [Coronary atherosclerosis of unspecified type of vessel, [place] or graft] Onset: 04-17-2019 04-17-2019 Chronic Coronary atherosclerosis and other heart disease (2 sources) Coronary angioplasty status; Translations: [Coronary angioplasty status] Onset: 02-03-2023 Episodic Diabetes mellitus without complication (20 sources) Diabetes mellitus; Translations: [Diabetes mellitus without mention of complication, type II or unspecified type, not stated as uncontrolled] Onset: 04-17-2019 04-17-2019 Chronic Disorders of lipid metabolism (20 sources) Hyperlipidemia; Translations: [Other and unspecified hyperlipidemia] Onset: 04-17-2019 04-17-2019 Chronic Essential hypertension (20 sources) Benign essential hypertension; Translations: [Benign essential hypertension] Onset: 04-17-2019 04-17-2019 Chronic Genitourinary symptoms and ill-defined conditions (8 sources) Poor stream of urine 02-13-2020 Episodic Hyperplasia of prostate (11 sources) Benign prostatic hypertrophy with outflow obstruction; Translations: [Benign prostatic hyperplasia with lower urinary tract symptoms] Onset: 09-16-2021 01-31-2019 Chronic Nutritional deficiencies (9 sources) Vitamin D deficiency; Translations: [Vitamin D deficiency, unspecified] Onset: 02-12-2022 08-10-2018 Chronic Osteoarthritis (20 sources) Osteoarthritis of right hip joint; Translations: [Unilateral primary osteoarthritis, right hip] Onset: 04-17-2019 04-17-2019 Chronic Other aftercare (2 sources) Long-term current use of aspirin; 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] Onset: 04-08-2023 Episodic Other aftercare (1 source) retirement (current) use of insulin; Translations: [Controlled type 2 diabetes mellitus without complication, with long-term current use of insulin (HCC)] Onset: 07-09-2023 Episodic Other connective tissue disease (18 sources) History of repair of hip joint; Translations: [Presence of right artificial hip joint] Onset: 05-10-2019 05-10-2019 Chronic Other connective tissue disease (8 sources) Olecranon bursitis 09-22-2018 Episodic Other connective tissue disease (1 source) Pain in right lower leg; Translations: [Pain in right lower leg] Onset: 03-09-2023 Episodic Other diseases of kidney and ureters (2 sources) Urinary tract obstruction; Translations: [Other obstructive and reflux uropathy] Onset: 09-11-2021 Episodic Other liver diseases (1 source) Abnormal levels of other serum enzymes; Translations: [Abnormal levels of other serum enzymes] Onset: 09-29-2023 Episodic Other male genital disorders (5 sources) Male erectile dysfunction, unspecified; Translations: [Erectile dysfunction] Onset: 04-08-2023 Chronic Other nutritional; endocrine; and metabolic disorders (5 sources) Obesity; Translations: [Obesity, unspecified] Onset: 02-12-2022 Chronic Other nutritional; endocrine; and metabolic disorders (19 sources) Obese class I; Translations: [Obesity, unspecified] Onset: 04-14-2019 04-14-2019 Chronic Other nutritional; endocrine; and metabolic disorders (3 sources) Body mass index 30+ - obesity 04-08-2023 Chronic Other screening for suspected conditions (not mental disorders or infectious disease) (17 sources) Raised prostate specific antigen; Translations: [Elevated prostate specific antigen [PSA]] Onset: 09-16-2021 12-21-2018 Episodic Residual codes; unclassified (9 sources) Sleep disorder; Translations: [Sleep disorder, unspecified] Onset: 02-12-2022 08-10-2018 Episodic Residual codes; unclassified (1 source) Refused procedure - parent's wish; Translations: [Procedure and treatment not carried out because of patient's decision for unspecified reasons] Onset: 02-12-2022 Episodic Spondylosis; intervertebral disc disorders; other back problems (8 sources) Spinal stenosis of lumbar region 12-26-2018 Episodic Thyroid disorders (16 sources) Hypothyroidism; Translations: [Hypothyroidism, unspecified] Onset: 02-12-2022 10-20-2020 Chronic Unclassified (8 sources) Colon cancer screening declined 09-12-2019 Unclassified (8 sources) Long-term current use of aspirin 02-13-2020 Unclassified (3 sources) Non-smoker 04-08-2023 Unclassified (1 source) Acute cough; Translations: [Acute cough] Onset: 03-30-2023 Past or Other Problems Problem Classification Problem Date Documented Date Episodic/Chronic Diabetes mellitus with complications (9 sources) Type II diabetes mellitus uncontrolled; Translations: [Type 2 diabetes mellitus with peripheral angiopathy] Onset: 02-12-2022 Resolved: 08-10-2018 09-22-2018 Chronic Immunity disorders (8 sources) Primary immune deficiency disorder Resolved: 08-10-2018 08-10-2018 Chronic Malaise and fatigue (18 sources) Asthenia; Translations: [Weakness] Onset: 04-20-2019 04-20-2019 Episodic Other circulatory disease (1 source) Other specified symptoms and signs involving the circulatory and respiratory systems; Translations: [Other specified symptoms and signs involving the circulatory and respiratory systems] Onset: 03-30-2023 Episodic Other nervous system disorders (18 sources) Abnormal gait; Translations: [Unspecified abnormalities of gait and mobility] Onset: 04-20-2019 04-20-2019 Episodic Other nutritional; endocrine; and metabolic disorders (8 sources) Hypolipidemia Resolved: 08-10-2018 09-22-2018 Chronic Unclassified (8 sources) Without (attribute) 08-24-2009 Unclassified (3 sources) Never smoked tobacco; Translations: [Never a smoker] Results Test Name Value Interpretation Reference Range Facility MR prostate wo/w conon 10-26 MR prostate wo/w con [facility] [place] [address] MRI Report Signed Patient: Tomas Martinez MR#: [id number] : 1950 Acct:[id number] Age/Sex: 73 / M ADM Date: 10/26/23 Loc: Room: Type: [facility] Attending Dr: Sabrina Arguello MD Copies to: Sabrina Arguello MD Ordering Provider: Sabrina Arguello MD Date of Service: 10/26/23 MR/MR prostate wo/w con: R97.20 EXAMINATION: MR prostate wo/w con HISTORY: Elevated PSA. COMPARISON: NONE TECHNIQUE: Multiparametric imaging of the prostate gland was performed with IV contrast. FINDINGS: The examination is suboptimal due to blooming artifact from the patient's right hip prosthesis. Prostate Dimensions: 6.3 x 4.7 x 5.9 cm. Prostate Volume: 91 mL. Peripheral Zone: Heterogenous inT2 signal suggestive of prior prostatitis. A focal area of T2 hypointensity is seen involving the posterior aspect of the left peripheral zone at the level of the mid gland measuring 6 x 6 mm with associated restricted diffusion and low ADC value. No gross extracapsular extension is seen. Please see series 4 image 15, series 650 image 14 and series 600 image 14. Central/Transitional Zone: BPH changes. Seminal Vesicles: Unremarkable Neurovascular bundles: Unremarkable. Lymphadenopathy: No evidence of lymphadenopathy. Bladder: No focal lesion. Bowel: Diverticulosis. Peritoneal Cavity: No free fluid. Bones: No suspicious bony lesion. Presumed partially visualized left hip joint effusion versus iliopsoas bursitis. MR/MR prostate wo/w con IMPRESSION: 1. Suboptimal evaluation due to blooming artifact from the patient's right hip prosthesis. 2. A focal area of T2 hypointensity is seen involving the posterior aspect of the left peripheral zone at the level of the mid gland measuring 6 x 6 mm with associated restricted diffusion and low ADC value. No gross extracapsular extension is seen. Please see series 4 image 15, series 650 image 14 and series 600 image 14. PI-RADS 4. Targeting of this area on biopsy is recommended. 3. Presumed partially visualized left hip joint effusion versus iliopsoas bursitis. Impression dictated by: Pola Chong Jr., D.ORaf10/27/2023 12:20 PM Dictation Location: [place] [address] Transcribed By: [facility] 10/27/23 1220 Dictated By: Pola Chong Jr, DO 10/27/23 1214 Signed By: 10/27/23 1220 Normal [facility] ISTAT XRay CREon 10-26-2023 ISTAT GFR > 60.0 Normal [facility] Comment on above: Result Comment: PERF ORMED BY: [place] [address] PATHOLOGIST LABEL PRESS OPERATOR JOEY JERONIMO M.D. Performed By: #### I SCRE #### [address] No Panel InformationOrdered By: Sabrina Arguello on 10-26-2023 Bedside Estimated GFR (eGFR) > 60.0 [facility] Whole blood creatinine measu rementOrdered By: Sabrina Arguelol on 10-26-2023 Creatinine [Mass/Vol] 0.9 mg/dL Normal 0.6-1.3 [facility] Comment on above: ER/ESD physician is notified/shown all ISTAT results.Critical values may be confirmed by laboratory testing ifdeemed necessary by ER attending doctor. Result Comment: ER/E SD physician is notified/shown all ISTAT results. Critical values may be confirmed by laboratory testing if deemed necessary by ER attending doctor. Performed By: #### I SCRE #### [address] Comprehensive Metabolic Pane kenneth 10-11-2023 Albumin [Mass/Vol] 3.8 g/dL Normal 3.5-4.6 [facility] Comment on above: Performed By: #### C MP #### [facility] [address] [place] [address] ALP [Catalytic activity/Vol] 207 U/L Critically high 35-104 [facility] Comment on above: Performed By: #### C MP #### [facility] [address] [place] [address] ALT [Catalytic activity/Vol] 65 U/L Critically high 0-41 [facility] Comment on above: Performed By: #### C MP #### [facility] [address] [place] [address] Anion gap [Moles/Vol] 9 mmol/L Normal 9-15 [facility] Comment on above: Performed By: #### C MP #### [facility] [address] [place] [address] AST [Catalytic activity/Vol] 34 U/L Normal 0-40 [facility] Comment on above: Performed By: #### C MP #### [facility] [address] [place] [address] Bilirubin [Mass/Vol] 0.9 mg/dL Critically high 0.2-0.7 [facility] Comment on above: Performed By: #### C MP #### [facility] [address] [place] [address] Calcium [Mass/Vol] 9.8 mg/dL Normal 8.5-9.9 [facility] Comment on above: Performed By: #### C MP #### [facility] [address] [place] [address] Chloride [Moles/Vol] 103 mmol/L Normal 95-107 [facility] Comment on above: Performed By: #### C MP #### [facility] [address] [place] [address] CO2 [Moles/Vol] 30 mmol/L Normal 20-31 [facility] Comment on above: Performed By: #### C MP #### [facility] [address] [place] [address] Creatinine [Mass/Vol] 0.96 mg/dL Normal 0.70-1.20 [facility] Comment on above: Performed By: #### C MP #### [facility] [address] [place] [address] GFR 82.4 Normal >60 [facility] Comment on above: Result Comment: Carla atric calculator link https://www.kidney.org/professionals/kdoqi/gfr_calculatorped Effective Dec 08, 2021 These results are not intended for use in patients <18 years of age. eGFR results are calculated without a race factor using the 2020 CKD-EPI equation. Careful clinical correlation is recommended, particularly when comparing to results calculated using previous equations. The CKD-EPI equation is less accurate in patients with extremes of muscle mass, extra-renal metabolism of creatinine, excessive creatinine ingestion, or following therapy that affects renal tubular secretion. Performed By: #### C MP #### [facility] [address] [place] [address] Globulin (S) [Mass/Vol] 3.2 g/dL Normal 2.3-3.5 [facility] Comment on above: Performed By: #### C MP #### [facility] [address] [place] [address] Glucose [Mass/Vol] 139 mg/dL Critically high 70-99 M [facility] Comment on above: Performed By: #### C MP #### [facility] [address] [place] [address] Potassium [Moles/Vol] 4.7 mmol/L Normal 3.4-4.9 [facility] Comment on above: Performed By: #### C MP #### [facility] [address] [place] [address] Protein [Mass/Vol] 7.0 g/dL Normal 6.3-8.0 [facility] Comment on above: Performed By: #### C MP #### [facility] [address] [place] [address] Sodium [Moles/Vol] 142 mmol/L Normal 135-144 [facility] Comment on above: Performed By: #### C MP #### [facility] [address] [place] [address] Urea nitrogen [Mass/Vol] 21 mg/dL Normal 8-23 [facility] Comment on above: Performed By: #### C MP #### [facility] [address] [place] [address] Urology Office/Clinic Noteon 10-07-2023 Urology Office/Clinic Note Urology Office/Clinic Note Chief Complaint 6 month with PSA HPI Staff 72 year old male here for 6 month F/U. Previous DX: elevated PSA, BPH w/LUTS, ED and aspirin long-term use. PSA: 04/01/19 - 4.8 & 19% 02/11/21 - 5.0 & 22% 09/11/21 - 4.8 & 21% 11/03/22 - 5.7 & 20% 10/05/23 - 8.6 & 14% Dysuria: no Incomplete bladder emptying: no Hematuria: no Frequency: 2-3 hours Urgency: no Nocturia: 2x's Stream: occasionally weak Post void dripping: no Wearing pads/ Depends: no Urge incontinence: no Stress incontinence: no Incontinence without Sensory Awareness: no Abdominal pain: no Flank pain: no History of Present Illness Tests reviewed: reviewed UA and PSA. I have reviewed the previous health record information and history for this patient from Dr. Arguello. I have reviewed and verified the staff HPI to be accurate for this encounter. Review of Systems PHQ Score Initial Depression Screen Score: 0 SCORE ROS - Provider Constitutional: denies weight loss, denies hot flashes. Eyes: denies eye problems. Gastrointestinal: denies nausea, denies vomiting. Cardiovascular: denies chest pain or angina. Integumentary: no dryness Musculoskeletal: denies musculoskeletal symptoms. ENMT: denies otolaryngeal symptoms. Respiratory: no shortness of breath. Heme/Lymph: denies easy bleeding tendency, denies easy bruising tendency. Psychiatric: no confusion, no anxiety. Genitourinary: See HPI. Physical Exam Vitals & Measurements HT: 70 in HT: 178 cm WT: 105.1 kg WT: 231.22 lb BMI: 33.17 General Appearance: alert, no distress, well nourished, well developed male. Assessment/Plan Tomas is a 72 yo male here for 6 month follow up for history of elevated PSA. Former RWR pt. Hx of MT 27 years ago. ASA. 1. Elevated PSA (R97.20: Elevated prostate specific antigen [PSA]) Denies family hx of prostate, colon or breast cancer. PSA: 04/01/19 - 4.8 & 19% 02/11/21 - 5.0 & 22% 09/11/21 - 4.8 & 21% 11/03/22 - 5.7 & 20% 10/05/23 - 8.6 & 14% He has an elevated PSA, which could indicate prostate cancer, prostate infection, prostate inflammation without infection, prostate manipulation, or benign prostate enlargement (BPH). The importance of the rate of PSA rise has also been discussed. The options for management have been discussed, including prostate biopsy versus close monitoring of the PSA over time. Due to rise and lower % free, recommending prostate MRI and prostate biopsy. Advised pt that regardless of MRI results, will still proceed with biopsy due to unfavorable PSA. We discussed risks of MRI fusion prostate biopsy approaches including transrectal and transperineal. Risks of the procedure were discussed to include but not be limited to bleeding, pain, infection (higher, including sepsis with transrectal approach), difficulties with urination, injury to the urethra, prostate or bladder or surrounding tissues, injury from positioning on the table, swelling and bruising of the skin, and need for further procedures. Pt elects to transperineal approach, hx hip replacement, takes prophy abx for dental procedures, would like to minimize infection risk -Will schedule Prostate MRI (Valium sent to pt's pharmacy for pt's claustrophobia) -Will schedule transperineal prostate biopsy +/- MRI fusion based on MRI results. The procedural risks, benefits, details, and treatment alternatives have been discussed with the patient. These include minimal to severe bleeding, infection, blood in the semen, inability to urinate, and severe infection requiring hospitalization and IV antibiotics, among others. Full informed consent has been obtained. Will order Mac anesthesia. 2. BPH with obstruction/lower urinary tract symptoms (N40.1: Benign prostatic hyperplasia with lower urinary tract symptoms) ESTELA 04/08/23: moderately enlarged, no nodules. IPSS 5 (5). Not taking any BPH meds. UA today is negative for blood or infections. No urinary complaints today. CT 09/29/[address] [facility] for urologic issues 3. Erectile dysfunction (N52.9: Male erectile dysfunction, unspecified) MACARENA 2 (11). Declined tx at last OV. 4. Aspirin long-term use (Z79.82: retirement (current) use of aspirin) Hx of MT 27 years ago. ASA. Elevated risk for periop complications. Follow-up With When Contact Information Sabrina Arguello MD, URL, URO Additional Instructions: Sched MRI & TRUS Bx Patient Education Transurethral Resection of the Prostate, Care After Transurethral Resection of the Prostate Prostate Cancer Screening Vaibhav He, personally scribed for Dr. Arguello on 10/07/2023 08:47:58. . Documentation recorded by the Vaibhav do , accurately reflects the services(s) I performed and decisions made by me. Authenticated by Dr. Arguello on 10/07/2023 09:23:41. Problem List/Past Medical History Ongoing Anxiety Aspirin long-term use BMI 34.0-34.9,adult BPH with obstruction/ (more content not included)... Normal [place] Comment on above: Result Comment: Elec tronically Signed By: Sabrina Arguello MD\.br\Date and Time Signed: 10/07/23 09:24 EDT\.br\Electronically Co-Signed By: Vaibhav Ware\.br\Date and Time Co-Signed: 10/07/23 08:48 EDT CHEMISTRYOrdered By: SYSTEM SYSTEM on 10-05-2023 Free PSA [Mass/Vol] 1.2 ng/mL Invalid Interpretation Code [facility] Comment on above: Interpretive Data: T he concentration of free PSA and total PSA determined with assays from different manufacturers can vary due to differences in assay methods and specificity. Values obtained with different arcade technician's assays cannot be used interchangeably. The methodology used to obtain this result was chemiluminescence using [employer]'s Access Hybritech PSA reagent and Access Hybritech free PSA reagent. Free PSA/Total PSA [Mass fraction] 14.0 % Low >=25.0% [facility] Prostate specific Ag [Mass/Vol] 8.6 ng/mL High 0.1 - 3.5 ng/mL [facility] Comment on above: Interpretive Data: T he concentration of PSA determined by different manufacturers can vary due to differences in assay methods and reagent specificity. Values obtained from different assay methods cannot be used interchangeably. The methodology used for this result was chemiluminescence using [employer]'s Access Hybritech PSA reagent. Hepatitis Acute Panelon 09-06 Hep A Ab,IgM Non-Reactive Normal NR [facility] Comment on above: Result Comment: Perf ormed at [facility], [address] [place] [address] . Hep B Core Ab,IgM Non-Reactive Normal NR [facility] Hep B Surf Ag Non-Reactive Normal NR [facility] Hep C Ab Non-Reactive Normal NR [facility] Comment on above: Result Comment: The hepatitis C procedure used in our laboratory is a Chemiluminescent test specific for three recombinant HCV antigens. A negative anti-HCV result indicates that the antibodies to hepatitis C virus are not present at this time. Individuals with reactive anti-HCV should be considered infected and infectious until proven otherwise. Confirmation of all equivocal or reactive results is recommended by ordering HCV RNA by PCR. CBC With Platelet and Differ entialon 09-29-2023 Basophils (Bld) [#/Vol] 0.0 10*3/uL Normal 0.0-0.2 [facility] Comment on above: Performed By: #### C BCWD #### [facility] [address] [place] [address] Basophils/100 WBC (Bld) 0.1 % Normal [facility] Comment on above: Performed By: #### C BCWD #### [facility] [address] [place] [address] Eosinophils (Bld) [#/Vol] 0.0 10*3/uL Normal 0.0-0.7 [facility] Comment on above: Performed By: #### C BCWD #### [facility] [address] [place] [address] Eosinophils/100 WBC (Bld) 0.0 % Normal [facility] Comment on above: Performed By: #### C BCWD #### [facility] [address] [place] [address] Erythrocyte distribution width (RBC) [Ratio] 14.3 % Normal 11.5-14.5 [facility] Comment on above: Performed By: #### C BCWD #### [facility] [address] [place] [address] Hematocrit (Bld) [Volume fraction] 42.9 % Normal 42.0-52.0 [facility] Comment on above: Performed By: #### C BCWD #### [facility] [address] [place] [address] Hemoglobin (Bld) [Mass/Vol] 14.1 g/dL Normal 14.0-18.0 [facility] Comment on above: Performed By: #### C BCWD #### [facility] [address] [place] [address] Lymphocytes (Bld) [#/Vol] 0.3 10*3/uL Low 1.0-4.8 [facility] Comment on above: Performed By: #### C BCWD #### [facility] [address] [place] [address] Lymphocytes/100 WBC (Bld) 1.6 % Normal [facility] Comment on above: Performed By: #### C BCWD #### [facility] [address] [place] [address] MCH (RBC) [Entitic mass] 28.7 pg Normal 27.0-31.3 [facility] Comment on above: Performed By: #### C BCWD #### [facility] [address] [place] [address] MCHC 32.9 % Low 33.0-37.0 [facility] Comment on above: Performed By: #### C BCWD #### [facility] [address] [place] [address] MCV (RBC) [Entitic vol] 87.4 fL Normal 79.0-92.2 [facility] Comment on above: Performed By: #### C BCWD #### [facility] [address] [place] [address] Monocytes (Bld) [#/Vol] 1.1 10*3/uL Critically high 0.2-0.8 [facility] Comment on above: Performed By: #### C BCWD #### [facility] [address] [place] [address] Monocytes/100 WBC (Bld) 6.7 % Normal [facility] Comment on above: Performed By: #### C BCWD #### [facility] [address] [place] [address] Neutrophils (Bld) [#/Vol] 15.0 10*3/uL Critically high 1.4-6.5 [facility] Comment on above: Performed By: #### C BCWD #### [facility] [address] [place] [address] Neutrophils/100 WBC (Bld) 91.2 % Normal [facility] Comment on above: Performed By: #### C BCWD #### [facility] [address] [place] [address] Platelets (Bld) [#/Vol] 254 10*3/uL Normal 130-400 [facility] Comment on above: Performed By: #### C BCWD #### [facility] [address] [place] [address] RBC (Bld) [#/Vol] 4.91 10*6/uL Normal 4.70-6.10 [facility] Comment on above: Performed By: #### C BCWD #### [facility] [address] [place] [address] WBC (Bld) [#/Vol] 16.4 10*3/uL Critically high 4.8-10.8 [facility] Comment on above: Performed By: #### C BCWD #### [facility] [address] [place] [address] CT ABDOMEN PELVIS W IV CONTR Shahid 09-29-2023 CT ABDOMEN PELVIS W IV CONTRAST EXAM: CT Abdomen and Pelvis With Intravenous Contrast EXAM DATE/TIME: 09/29/2023 6:37 pm CLINICAL HISTORY: ORDERING SYSTEM PROVIDED HISTORY: RUQ abd pain TECHNOLOGIST PROVIDED HISTORY: Additional Contrast?->None Reason for exam:->RUQ abd pain Decision Support Exception - unselect if not a suspected or confirmed emergency medical condition->Emergency Medical Condition (MA) What reading provider will be dictating this exam?->CRC TECHNIQUE: Axial computed tomography images of the abdomen and pelvis with intravenous contrast. This CT exam was performed using one or more of the following dose reduction techniques: automated exposure control, adjustment of the mA and/or kV according to patient size, and/or use of iterative reconstruction technique. COMPARISON: No relevant prior studies available. FINDINGS: Lung bases: No acute findings. No mass. No consolidation. Mediastinum: Calcified right hilar and subcarinal lymph nodes suggesting prior granulomatous disease. ABDOMEN: Liver: Scattered small calcified granulomas within the liver. Gallbladder and bile ducts: There may be some minimal debris within the dependent gallbladder but otherwise no CT evidence of cholecystitis. No ductal dilation. Pancreas: No acute findings. No mass. No ductal dilation. Spleen: Calcified granulomas within an otherwise unremarkable appearing spleen are noted. Adrenals: No acute findings. No mass. Kidneys and ureters: No acute findings. No solid mass. No hydronephrosis. Stomach and bowel: Diverticulosis without evidence of definite acute diverticulitis. Otherwise nonspecific bowel gas pattern. No obstruction. PELVIS: Appendix: A normal appearing appendix is noted. Bladder: No acute findings. No mass. Reproductive: Unremarkable as visualized. ABDOMEN and PELVIS: Intraperitoneal space: No acute findings. No free air. No significant fluid collection. Bones/joints: Right hip prosthesis with artifact obscuring the adjacent structures. Multilevel degenerative changes of the spine. No definite acute bony abnormality is noted. No dislocation. Soft tissues: Fat containing left inguinal hernia. Increased density in the immediately subdermal subcutaneous fat the lateral aspect of the mid to lower abdomen bilaterally. This could be related to sites of subcutaneous injection though cellulitis or other etiology is not excluded. Vasculature: Scattered calcified atherosclerotic plaque is noted within the arterial system. No abdominal aortic aneurysm. Lymph nodes: See above. IMPRESSION: 1. There may be some minimal debris within the dependent gallbladder but otherwise no CT evidence of cholecystitis. 2. Diverticulosis without evidence of definite acute diverticulitis. Otherwise nonspecific bowel gas pattern. 3. A normal appearing appendix is noted. 4. Fat containing left inguinal hernia. 5. Increased density in the immediately subdermal subcutaneous fat the lateral aspect of the mid to lower abdomen bilaterally. This could be related to sites of subcutaneous injection though cellulitis or other etiology is not excluded. 6. Otherwise no acute pathology noted. Interpreted by: Harshal Pandey MD Signed by: Harshal Pandey MD 09/29/23 Final result Normal [facility] Comprehensive Metabolic Pane kenneth 09-29-2023 Albumin [Mass/Vol] 3.8 g/dL Normal 3.5-4.6 [facility] Comment on above: Performed By: #### C MP #### [facility] [address] [place] [address] ALP [Catalytic activity/Vol] 468 U/L Critically high 35-104 [facility] Comment on above: Performed By: #### C MP #### [facility] [address] [place] [address] ALT [Catalytic activity/Vol] 660 U/L Critically high 0-41 [facility] Comment on above: Performed By: #### C MP #### [facility] [address] [place] [address] Anion gap [Moles/Vol] 10 mmol/L Normal 9-15 [facility] Comment on above: Performed By: #### C MP #### [facility] [address] [place] [address] AST [Catalytic activity/Vol] 564 U/L Critically high 0-40 [facility] Comment on above: Performed By: #### C MP #### [facility] [address] [place] [address] Bilirubin [Mass/Vol] 2.7 mg/dL Critically high 0.2-0.7 [facility] Comment on above: Performed By: #### C MP #### [facility] [address] [place] [address] Calcium [Mass/Vol] 10.0 mg/dL Critically high 8.5-9.9 M [facility] Comment on above: Performed By: #### C MP #### [facility] [address] [place] [address] Chloride [Moles/Vol] 101 mmol/L Normal 95-107 [facility] Comment on above: Performed By: #### C MP #### [facility] [address] [place] [address] CO2 [Moles/Vol] 28 mmol/L Normal 20-31 [facility] Comment on above: Performed By: #### C MP #### [facility] [address] [place] [address] Creatinine [Mass/Vol] 0.84 mg/dL Normal 0.70-1.20 [facility] Comment on above: Performed By: #### C MP #### [facility] [address] [place] [address] GFR >90.0 Normal >60 [facility] Comment on above: Result Comment: Carla atric calculator link https://www.kidney.org/professionals/kdoqi/gfr_calculatorped Effective Dec 08, 2021 These results are not intended for use in patients <18 years of age. eGFR results are calculated without a race factor using the 2020 CKD-EPI equation. Careful clinical correlation is recommended, particularly when comparing to results calculated using previous equations. The CKD-EPI equation is less accurate in patients with extremes of muscle mass, extra-renal metabolism of creatinine, excessive creatinine ingestion, or following therapy that affects renal tubular secretion. Performed By: #### C MP #### [facility] [address] [place] [address] Globulin (S) [Mass/Vol] 3.1 g/dL Normal 2.3-3.5 [facility] Comment on above: Performed By: #### C MP #### [facility] [address] [place] [address] Glucose [Mass/Vol] 225 mg/dL Critically high 70-99 M [facility] Comment on above: Performed By: #### C MP #### [facility] [address] [place] [address] Potassium [Moles/Vol] 4.5 mmol/L Normal 3.4-4.9 [facility] Comment on above: Performed By: #### C MP #### [facility] [address] [place] [address] Protein [Mass/Vol] 6.9 g/dL Normal 6.3-8.0 [facility] Comment on above: Performed By: #### C MP #### [facility] [address] [place] [address] Sodium [Moles/Vol] 139 mmol/L Normal 135-144 [facility] Comment on above: Performed By: #### C MP #### [facility] [address] [place] [address] Urea nitrogen [Mass/Vol] 21 mg/dL Normal 8-23 [facility] Comment on above: Performed By: #### C MP #### [facility] [address] [place] [address] Lactic Acidon 09-29-2023 Lactate [Moles/Vol] 1.7 mmol/L Normal 0.5-2.2 [facility] Comment on above: Performed By: #### L ACID #### [facility] [address] [place] [address] Lipaseon 09-29-2023 Lipase [Catalytic activity/Vol] 13 U/L Normal 12-95 [facility] Comment on above: Performed By: #### L IPAS #### [facility] [address] [place] [address] POCT Venouson 09-29-2023 Creatinine [Mass/Vol] 1.0 mg/dL Normal 0.8-1.3 [facility] Comment on above: Performed By: #### P SAMUEL #### [facility] [address] [place] [address] GFR 79 Normal >60 [facility] Comment on above: Result Comment: Carla atric calculator link https://www.kidney.org/professionals/kdoqi/gfr_calculatorped Effective Dec 08, 2021 These results are not intended for use in patients <18 years of age. eGFR results are calculated without a race factor using the 2020 CKD-EPI equation. Careful clinical correlation is recommended, particularly when comparing to results calculated using previous equations. The CKD-EPI equation is less accurate in patients with extremes of muscle mass, extra-renal metabolism of creatinine, excessive creatinine ingestion, or following therapy that affects renal tubular secretion. Performed By: #### P SAMUEL #### [facility] [address] [place] [address] POC Performed on SEE BELOW Normal [facility] Comment on above: Result Comment: Perf ormed on POC Performed By: #### P SAMUEL #### [facility] [address] [place] [address] POC Sample Type SAMUEL Normal [facility] Comment on above: Performed By: #### P SAMUEL #### [facility] [address] [place] [address] Partial Thromboplastin Timeo n 09-29-2023 aPTT Coag (Bld) [Time] 24.2 s Low 24.4-36.8 [facility] Comment on above: Result Comment: Effe ctive 01/10/2020: Heparin Therapeutic Range: 64.0 ? 98.0 seconds. Performed By: #### P TT #### [facility] [address] [place] [address] Prothrombin Timeon 4 INR Coag (PPP) [Relative time] 1.1 {INR} Normal [facility] Comment on above: Performed By: #### P T #### [facility] [address] [place] [address] PT Coag (PPP) [Time] 14.3 s Normal 12.3-14.9 [facility] Comment on above: Performed By: #### P T #### [facility] [address] [place] [address] Type and Screen Capture 3 sc rn cellon 09-29-2023 Type and Screen Capture 3 scrn cell PATIENT: SAIRA MARIN LOC: [facility] BILL# : [id number] : 1950 SEX: M ORDERED BY: ORDERED : 09/29/2023 17:07 COLLECTED: 09/29/2023 17:13 ORDER : [id number] RECEIVED : 09/29/2023 17:18 TEST NAME RESULT UNITS RANGES ABN FL ST ABORH Capture A NEG F Antibody 3 Cell Scrn Captu NEG F Normal [facility] Comment on above: Performed By: #### T S3C #### [facility] [address] [place] [address] US GALLBLADDER RUQon 024 US GALLBLADDER RUQ EXAMINATION: RIGHT UPPER QUADRANT ULTRASOUND 09/29/2023 1:09 pm COMPARISON: None. HISTORY: ORDERING SYSTEM PROVIDED HISTORY: Epigastric pain TECHNOLOGIST PROVIDED HISTORY: This procedure can be scheduled via [employer]. Reason for exam:->episgastric pain What reading provider will be dictating this exam?->CRC FINDINGS: Study is limited due to patient body habitus, bowel gas and acoustical windows. LIVER: The liver demonstrates normal generalized echogenicity without evidence of mass. BILIARY SYSTEM: Gallbladder is normal. There is no wall thickening, stones or pericholecystic fluid. Sonographic Jhaveri sign is negative. There are multiple linear train track echogenic foci within the liver which may reflect dilated intrahepatic bile ducts.. Common bile duct is distended measuring 10 mm. RIGHT KIDNEY: The right kidney is grossly unremarkable without evidence of hydronephrosis. It measures 12.7 x 5.7 cm PANCREAS: Not well visualized. OTHER: No evidence of right upper quadrant ascites. IMPRESSION: 1. Multiple train track linear echogenic foci within the liver which may reflect dilated intrahepatic bile ducts. Common bile duct is distended measuring [address] scan upper abdomen without and post contrast 2. No evidence of cholelithiasis or acute cholecystitis. Interpreted by: Robert Kaur MD Signed by: Robert Kaur MD 09/29/23 Final result Normal [facility] Comprehensive Metabolic Pane l Fastingon 07-30-2023 Albumin [Mass/Vol] 3.8 g/dL Normal 3.5-4.6 [facility] Comment on above: Performed By: #### C MPF #### [facility] [address] [place] [address] ALP [Catalytic activity/Vol] 133 U/L Critically high 35-104 [facility] Comment on above: Performed By: #### C MPF #### [facility] [address] [place] [address] ALT [Catalytic activity/Vol] 64 U/L Critically high 0-41 [facility] Comment on above: Performed By: #### C MPF #### [facility] [address] [place] [address] Anion gap [Moles/Vol] 6 mmol/L Low 9-15 [facility] Comment on above: Performed By: #### C MPF #### [facility] [address] [place] [address] AST [Catalytic activity/Vol] 30 U/L Normal 0-40 [facility] Comment on above: Performed By: #### C MPF #### [facility] [address] [place] [address] Bilirubin [Mass/Vol] 0.7 mg/dL Normal 0.2-0.7 [facility] Comment on above: Performed By: #### C MPF #### [facility] [address] [place] [address] Calcium [Mass/Vol] 9.6 mg/dL Normal 8.5-9.9 [facility] Comment on above: Performed By: #### C MPF #### [facility] [address] [place] [address] Chloride [Moles/Vol] 103 mmol/L Normal 95-107 [facility] Comment on above: Performed By: #### C MPF #### [facility] [address] [place] [address] CO2 [Moles/Vol] 32 mmol/L Critically high 20-31 [facility] Comment on above: Performed By: #### C MPF #### [facility] [address] [place] [address] Creatinine [Mass/Vol] 0.89 mg/dL Normal 0.70-1.20 [facility] Comment on above: Performed By: #### C MPF #### [facility] [address] [place] [address] GFR 89.5 Normal >60 [facility] Comment on above: Result Comment: Carla atric calculator link https://www.kidney.org/professionals/kdoqi/gfr_calculatorped Effective Dec 08, 2021 These results are not intended for use in patients <18 years of age. eGFR results are calculated without a race factor using the 2020 CKD-EPI equation. Careful clinical correlation is recommended, particularly when comparing to results calculated using previous equations. The CKD-EPI equation is less accurate in patients with extremes of muscle mass, extra-renal metabolism of creatinine, excessive creatinine ingestion, or following therapy that affects renal tubular secretion. Performed By: #### C MPF #### [facility] [address] [place] [address] Globulin (S) [Mass/Vol] 3.0 g/dL Normal 2.3-3.5 [facility] Comment on above: Performed By: #### C MPF #### [facility] [address] [place] [address] Glucose [Mass/Vol] 157 mg/dL Critically high 70-99 M [facility] Comment on above: Performed By: #### C MPF #### [facility] [address] [place] [address] Potassium [Moles/Vol] 4.6 mmol/L Normal 3.4-4.9 [facility] Comment on above: Performed By: #### C MPF #### [facility] [address] [place] [address] Protein [Mass/Vol] 6.8 g/dL Normal 6.3-8.0 [facility] Comment on above: Performed By: #### C MPF #### [facility] [address] [place] [address] Sodium [Moles/Vol] 141 mmol/L Normal 135-144 [facility] Comment on above: Performed By: #### C MPF #### [facility] [address] [place] [address] Urea nitrogen [Mass/Vol] 20 mg/dL Normal 8-23 [facility] Comment on above: Performed By: #### C MPF #### [facility] [address] [place] [address] ALBUMIN/CREATININE RATIO, UR INEon 07-09-2023 Albumin DL <= 20 mg/L (U) [Mass/Vol] mg/dL Normal [facility] Comment on above: Order Comment: Speci men Type: BLOOD SPECIMEN Ordering Facility: [facility] Address: [address] [place] [address] Performed By: #### 3 024-7, LIPNF, 14903-0, 6-3 #### [facility] CLIA [id number] [address] [place] [address] [place] Albumin/Creatinine (U) [Mass ratio] <7 Normal <30 [facility] Comment on above: Order Comment: Speci men Type: BLOOD SPECIMEN Ordering Facility: [facility] Address: [address] [place] [address] Result Comment: Adul t Male and Female Nephrotic Criteria: <30 mg/g is considered normal to mildly increased 30-300 mg/g is considered moderately increased >300 mg/g is considered severely increased KDIGO. (2013). KDIGO 2012 Clinical Practice Guideline for the Evaluation and Management of Chronic Kidney Disease. Official Journal of the International Society of Nephrology, 3(1), 1-150. Performed By: #### 3 024-7, LIPNF, 44592-2, 6-3 #### [facility] CLIA [id number] [address] [place] [address] [place] Creatinine (U) [Mass/Vol] 164.0 mg/dL Normal 20.0-300.0 [facility] Comment on above: Order Comment: Speci men Type: BLOOD SPECIMEN Ordering Facility: [facility] Address: [address] [place] [address] Performed By: #### 3 024-7, LIPNF, 21842-1, 6-3 #### [facility] CLIA [id number] [address] [place] [address] [place] Comprehensive metabolic 2000 panelon 07-09-2023 Albumin [Mass/Vol] 3.6 g/dL Low 3.9-4.9 [facility] Comment on above: Order Comment: Speci men Type: BLOOD SPECIMEN Ordering Facility: [facility] Address: [address] [place] [address] Performed By: #### 3 024-7, LIPNF, 66707-2, 6-3 #### [facility] CLIA [id number] [address] [place] [address] [place] ALP [Catalytic activity/Vol] 204 U/L High 38-113 [facility] Comment on above: Order Comment: Speci men Type: BLOOD SPECIMEN Ordering Facility: [facility] Address: [address] [place] [address] Performed By: #### 3 024-7, LIPNF, 99076-1, 6-3 #### [facility] CLIA [id number] [address] [place] [address] [place] ALT [Catalytic activity/Vol] 287 U/L High 10-54 [facility] Comment on above: Order Comment: Speci men Type: BLOOD SPECIMEN Ordering Facility: [facility] Address: [address] [place] [address] Performed By: #### 3 024-7, LIPNF, 45389-1, 6-3 #### [facility] CLIA [id number] [address] [place] [address] [place] Anion gap [Moles/Vol] 10 mmol/L Normal 9-18 [facility] Comment on above: Order Comment: Speci men Type: BLOOD SPECIMEN Ordering Facility: [facility] Address: [address] [place] [address] Performed By: #### 3 024-7, LIPNF, 77066-5, 6-3 #### [facility] CLIA [id number] [address] [place] [address] [place] AST [Catalytic activity/Vol] 69 U/L High 14-40 [facility] Comment on above: Order Comment: Speci men Type: BLOOD SPECIMEN Ordering Facility: [facility] Address: [address] [place], [place] [address] Performed By: #### 3 024-7, LIPNF, 06322-7, 3016-3 #### [facility] CLIA [id number] [address] [place] [address] [place] Bilirubin [Mass/Vol] 0.7 mg/dL Normal 0.2-1.3 [facility] Comment on above: Order Comment: Speci men Type: BLOOD SPECIMEN Ordering Facility: [facility] Address: [address] [place] [address] Performed By: #### 3 024-7, LIPNF, 00704-7, 3016-3 #### [facility] CLIA [id number] [address] [place] [address] [place] Calcium [Mass/Vol] 9.6 mg/dL Normal 8.5-10.2 [facility] Comment on above: Order Comment: Speci men Type: BLOOD SPECIMEN Ordering Facility: [facility] Address: [address] [place] [address] Performed By: #### 3 024-7, LIPNF, 15744-9, 3016-3 #### [facility] CLIA [id number] [address] [place] [address] [place] Chloride [Moles/Vol] 106 mmol/L High 97-105 [facility] Comment on above: Order Comment: Speci men Type: BLOOD SPECIMEN Ordering Facility: [facility] Address: [address] [place] [address] Performed By: #### 3 024-7, LIPNF, 64872-3, 3016-3 #### [facility] CLIA [id number] [address] [place] [address] [place] CO2 [Moles/Vol] 29 mmol/L Normal 22-30 [facility] Comment on above: Order Comment: Speci men Type: BLOOD SPECIMEN Ordering Facility: [facility] Address: [address] [place] [address] Performed By: #### 3 024-7, LIPNF, 66488-4, 6-3 #### [facility] CLIA [id number] [address] [place] [address] [place] Creatinine [Mass/Vol] 0.98 mg/dL Normal 0.73-1.22 [facility] Comment on above: Order Comment: Annmarie donohue Type: BLOOD SPECIMEN Ordering Facility: [facility] Address: [address] [place] [address] Performed By: #### 3 024-7, LIPASTRID, 86662-0, 3015-3 #### [facility] CLIA [id number] [address] [place] [address] [place] Creatinine and Glomerular filtration rate.predicted panel (S/P/Bld) 81 mL/min/1.73m??? Normal >=60 [facility] Comment on above: Order Comment: Annmarie donohue Type: BLOOD SPECIMEN Ordering Facility: [facility] Address: [address] [place] [address] Result Comment: Laquita mated Glomerular Filtration Rate (eGFR) is calculated using the 2020 CKD-EPI creatinine equation. This equation utilizes serum creatinine, sex, and age as parameters. The creatinine assay has traceable calibration to isotope dilution-mass spectrometry. Refer to KDIGO guidelines for clinical interpretation. In patients with unstable renal function, e.g. those with acute kidney injury, the eGFR may not accurately reflect actual GFR. Performed By: #### 3 024-7, LIPASTRID, 82323-7, 3015-3 #### [facility] CLIA [id number] [address] [place] [address] [place] Glucose [Mass/Vol] 125 mg/dL High 74-99 [facility] Comment on above: Order Comment: Annmarie donohue Type: BLOOD SPECIMEN Ordering Facility: [facility] Address: [address] [place] [address] Result Comment: The [place] Diabetes Association (ADA) provides guidance for cutoff values for fasting glucose and random glucose. The ADA defines fasting as no caloric intake for at least 8 hours. Fasting plasma glucose results between 100 to 125 mg/dL indicate increased risk for diabetes (prediabetes). Fasting plasma glucose results greater than or equal to 126 mg/dL meet the criteria for diagnosis of diabetes. In the absence of unequivocal hyperglycemia, results should be confirmed by repeat testing. In a patient with classic symptoms of hyperglycemia or hyperglycemic crisis, random plasma glucose results greater than or equal to 200 mg/dL meet the criteria for diagnosis of diabetes. Reference: Standards of Medical Care in Diabetes 2016, [place] [employer]. Diabetes Care. 2016.39(Suppl 1). Performed By: #### 3 024-7, LIPNF, 87111-5, 3016-3 #### [facility] CLIA [id number] [address] [place] [address] [place] Potassium [Moles/Vol] 4.4 mmol/L Normal 3.7-5.1 [facility] Comment on above: Order Comment: Speci men Type: BLOOD SPECIMEN Ordering Facility: [facility] Address: [address] [place] [address] Performed By: #### 3 024-7, LIPNF, 35438-0, 3016-3 #### [facility] CLIA [id number] [address] [place] [address] [place] Protein [Mass/Vol] 6.2 g/dL Low 6.3-8.0 [facility] Comment on above: Order Comment: Speci men Type: BLOOD SPECIMEN Ordering Facility: [facility] Address: [address] [place] [address] Performed By: #### 3 024-7, LIPNF, 03790-2, 3016-3 #### [facility] CLIA [id number] [address] [place] [address] [place] Sodium [Moles/Vol] 145 mmol/L High 136-144 [facility] Comment on above: Order Comment: Speci men Type: BLOOD SPECIMEN Ordering Facility: [facility] Address: [address] [place] [address] Performed By: #### 3 024-7, LIPNF, 74054-1, 3 #### [facility] CLIA [id number] [address] [place] [address] [place] Urea nitrogen [Mass/Vol] 24 mg/dL Normal 9-24 [facility] Comment on above: Order Comment: Annmarie donohue Type: BLOOD SPECIMEN Ordering Facility: [facility] Address: [address] [place] [address] Performed By: #### 3 024-7, MICAELA, , 3 #### [facility] CLIA [id number] [address] [place] [address] [place] HbA1c (Bld)on 07-09-2023 Average glucose Estimated from glycated hemoglobin (Bld) [Mass/Vol] 171 mg/dL Normal [facility] Comment on above: Order Comment: [facility] Type: BLOOD SPECIMEN Ordering Facility: [facility] Address: [address] [place] [address] Result Comment: eAG: (Estimated average glucose) is a calculated value from HgbA1c and is customer success representative of the average blood glucose level in the last 2-3 month period. Performed By: #### 3 024-7, MICAELA, , 3015-05 #### [facility] CLIA [id number] [address] [place] [address] [place] HbA1c (Bld) [Mass fraction] 7.6 % High 4.3-5.6 [facility] Comment on above: Order Comment: Annmarie donohue Type: BLOOD SPECIMEN Ordering Facility: [facility] Address: [address] [place] [address] Result Comment: Amer [place] Diabetes Association guidelines indicate that patients with HgbA1c in the range 5.7-6.4% are at increased risk for development of diabetes, and intervention by lifestyle modification may be beneficial. HgbA1c greater or equal to 6.5% is considered diagnostic of diabetes. Performed By: #### 3 024-7, LIPASTRID, 61694-9, 3 #### [facility] CLIA [id number] [address] [place] [address] [place] LIPID PANEL, NONFASTINGon Cholesterol [Mass/Vol] 103 mg/dL Normal <200 [facility] Comment on above: Order Comment: Speci men Type: BLOOD SPECIMEN Ordering Facility: [facility] Address: [address] [place] [address] Result Comment: <200 mg/dL, Desirable 200-239 mg/dL, Borderline high >239 mg/dL, High Performed By: #### 3 024-7, LIPNF, 64753-7, 3016-3 #### [facility] CLIA [id number] [address] [place] [address] [place] HDL CHOLESTEROL, NF 29 mg/dL Low >39 [facility] Comment on above: Order Comment: Speci men Type: BLOOD SPECIMEN Ordering Facility: [facility] Address: [address] [place] [address] Result Comment: 40-5 9 mg/dL, Acceptable >59 mg/dL, High: Negative risk factor for coronary heart disease <40 mg/dL, Low: Positive risk factor for coronary heart disease Performed By: #### 3 024-7, LIPNF, 68527-3, 3016-3 #### [facility] CLIA [id number] [address] [place] [address] [place] LDL CHOLESTEROL, NF 45 mg/dL Normal <100 [facility] Comment on above: Order Comment: Speci men Type: BLOOD SPECIMEN Ordering Facility: [facility] Address: [address] [place] [address] Result Comment: <100 mg/dL, Optimal 100-129 mg/dL, Near optimal/above optimal 130-159 mg/dL, Borderline high 160-189 mg/dL, High >189 mg/dL, Very high Secondary prevention optimal LDL Cholesterol levels are recommended to be < 70 mg/dL Performed By: #### 3 024-7, LIPNF, 17113-4, 3016-3 #### [facility] CLIA [id number] [address] [place] [address] [place] LDL/HDL RATIO, NF 1.55 mg/dL Normal <2.54 [facility] Comment on above: Order Comment: Annmarie donohue Type: BLOOD SPECIMEN Ordering Facility: [facility] Address: [address] [place] [address] Result Comment: Yasmin myles: 1. National Cholesterol Education Program ATP III Guideline At-A-Glance Quick Desk Reference: National Heart, Lung, and Blood [place]. National Institutes of Health. 2001: NIH Publication No. 01-3305. 2. An International Atherosclerosis Society position paper: global recommendations for the management of dyslipidemia: executive summary, Atherosclerosis. 2014: 232(2):410-413. Performed By: #### 3 024-7, LIPNF, 58488-1, 3015-3 #### [facility] CLIA [id number] [address] [place] [address] [place] NON HDL CHOL, NF 74 mg/dL Normal <130 [facility] Comment on above: Order Comment: Annmarie donohue Type: BLOOD SPECIMEN Ordering Facility: [facility] Address: [address] [place] [address] Result Comment: <130 mg/dL, Optimal 130-159 mg/dL, Near optimal/above optimal 160-189 mg/dL, Borderline high 190-219 mg/dL, High >219 mg/dL, Very high Secondary prevention optimal non HDL Cholesterol levels are recommended to be <100 mg/dL Performed By: #### 3 024-7, LIPNF, 19269-7, 6-3 #### [facility] CLIA [id number] [address] [place] [address] [place] T CHOL/HDL RATIO NF 3.55 mg/dL Normal <5.10 [facility] Comment on above: Order Comment: Annmarie donohue Type: BLOOD SPECIMEN Ordering Facility: [facility] Address: [address] [place] [address] Performed By: #### 3 024-7, LIPNF, 70108-5, 6-3 #### [facility] CLIA [id number] [address] [place] [address] [place] TRIGLYCERIDES, NF 146 mg/dL Normal <150 [facility] Comment on above: Order Comment: Speci men Type: BLOOD SPECIMEN Ordering Facility: [facility] Address: [address] [place] [address] Result Comment: <150 mg/dL, Normal 150-199 mg/dL, Borderline high 200-499 mg/dL, High >499 mg/dL, Very high Performed By: #### 3 024-7, LIPNF, 15970-1, 3016-3 #### [facility] CLIA [id number] [address] [place] [address] [place] VLDL CHOLESTEROL, NF 29 mg/dL Normal <30 [facility] Comment on above: Order Comment: Speci men Type: BLOOD SPECIMEN Ordering Facility: [facility] Address: [address] [place] [address] Performed By: #### 3 024-7, LIPNF, 76697-8, 3016-3 #### [facility] CLIA [id number] [address] [place] [address] [place] T4 Free SerPl-mCncon 024 Free T4 [Mass/Vol] 1.1 ng/dL Normal 0.9-1.7 [facility] Comment on above: Order Comment: Speci men Type: BLOOD SPECIMEN Ordering Facility: [facility] Address: [address] [place] [address] Performed By: #### 3 024-7, LIPNF, 21088-1, 3016-3 #### [facility] CLIA [id number] [address] [place] [address] [place] TSH SerPl-aCncon 07-09-2023 TSH Qn 1.790 m[IU]/L Normal 0.270-4.200 [facility] Comment on above: Order Comment: Speci men Type: BLOOD SPECIMEN Ordering Facility: [facility] Address: [address] [place] [address] Performed By: #### 3 024-7, LIPNF, 77770-7, 3016-3 #### [facility] CLIA [id number] [address] [place] [address] [place] [address] [place] Screenson 04-09-2023 Screens [id number]#1.00 TIFF Normal [place] Screens [id number] 50 [id number]#1.00 TIFF Normal [place] Ambulatory Visit Summaryon 0 04-08-2023 Ambulatory Visit Summary TOMAS MARTINEZ :1950 Visit Date:04/08/2023 Ambulatory Visit Instructions Your Diagnosis Elevated PSA BPH with obstruction/lower urinary tract symptoms Aspirin long-term use Erectile dysfunction Your Care Team Attending Physician - Sabrina Arguello MD Primary Care Physician - Teto SHEA DO This Is Your Medications List Contact prescribing physician if questions or concerns amlodipine (amLODIPine 5 mg Tab) aspirin (aspirin 325 mg oral tablet) atorvastatin (Lipitor 20 mg Tab) cholecalciferol (Vitamin D3 5000 intl units oral capsule) hydrochlorothiazide-li sinopril (hydrochlorothiazide-l isinopril 12.5 mg-20 mg Tab) insulin aspart (NovoLOG FlexPen 100 units/mL injectable solution) insulin detemir (Levemir FlexTouch 100 units/mL subcutaneous solution) levothyroxine metoprolol (Metoprolol tartrate 50 mg Tab) montelukast (Singulair 10 mg Tab) multivitamin (Multiple Vitamins Tab) nitroglycerin (nitroglycerin 0.4 mg sublingual Tab) omeprazole (omeprazole 40 mg Cap-DR) trazodone (traZODONE 50 mg Tab) Procedures Performed Hip replacement (04/17/2018), Tonsil (1953), Angioplasty. Discharge Vitals Heart Rate (Peripheral) 61 Blood Pressure 126/65 Height 178.0 cm Height 70 in Weight 105.1 kg Weight 231.22 lb BMI 33.17 What to do next Scheduled Follow-Up Appointments 2023 8:00 AM EDT With: Sabrina Arguello MD Where: [facility] Ambulatory Visit Summary TOMAS MARTINEZ :1950 Visit Date:04/08/2023 Ambulatory Visit Instructions Your Diagnosis Elevated PSA BPH with obstruction/lower urinary tract symptoms Aspirin long-term use Erectile dysfunction Your Care Team Attending Physician - Sabrina Arguello MD Primary Care Physician - Teto SHEA DO This Is Your Medications List Contact prescribing physician if questions or concerns amlodipine (amLODIPine 5 mg Tab) aspirin (aspirin 325 mg oral tablet) atorvastatin (Lipitor 20 mg Tab) cholecalciferol (Vitamin D3 5000 intl units oral capsule) hydrochlorothiazide-li sinopril (hydrochlorothiazide-l isinopril 12.5 mg-20 mg Tab) insulin aspart (NovoLOG FlexPen 100 units/mL injectable solution) insulin detemir (Levemir FlexTouch 100 units/mL subcutaneous solution) levothyroxine metoprolol (Metoprolol tartrate 50 mg Tab) montelukast (Singulair 10 mg Tab) multivitamin (Multiple Vitamins Tab) nitroglycerin (nitroglycerin 0.4 mg sublingual Tab) omeprazole (omeprazole 40 mg Cap-DR) trazodone (traZODONE 50 mg Tab) Procedures Performed Hip replacement (04/17/2018), Tonsil (1953), Angioplasty. Discharge Vitals Heart Rate (Peripheral) 61 Blood Pressure 126/65 Height 178.0 cm Height 70 in Weight 105.1 kg Weight 231.22 lb BMI 33.17 What to do next Scheduled Follow-Up Appointments 2023 8:00 AM EDT With: Sabrina Arguello MD Where: [facility] Patient Educationon 04-08-19 Patient Education Oncology Prostate Cancer Screening Prostate cancer screening is testing that is done to check for the presence of prostate cancer in men. The prostate gland is a walnut-sized gland that is located below the bladder and in front of the rectum in males. The function of the prostate is to add fluid to semen during ejaculation. Prostate cancer is one of the most common types of cancer in men. Who should have prostate cancer screening? Screening recommendations vary based on age and other risk factors, as well as between the professional organizations who make the recommendations. In general, screening is recommended if: ? You are age 50 to 70 and have an average risk for prostate cancer. You should talk with your health care provider about your need for screening and how often screening should be done. Because most prostate cancers are slow growing and will not cause , screening in this age group is generally reserved for men who have a 10- to 15-year life expectancy. ? You are younger than age 50, and you have these risk factors: ? Having a father, brother, or uncle who has been diagnosed with prostate cancer. The risk is higher if your family member's cancer occurred at an early age or if you have multiple family members with prostate cancer at an early age. ? Being a male who is Black or is of [place] or sub-Saharan descent. In general, screening is not recommended if: ? You are younger than age 40. ? You are between the ages of 40 and 49 and you have no risk factors. ? You are 70 years of age or older. At this age, the risks that screening can cause are greater than the benefits that it may provide. If you are at high risk for prostate cancer, your health care provider may recommend that you have screenings more often or that you start screening at a younger age. How is screening for prostate cancer done? The recommended prostate cancer screening test is a blood test called the prostate-specific antigen (PSA) test. PSA is a protein that is made in the prostate. As you age, your prostate naturally produces more PSA. Abnormally high PSA levels may be caused by: ? Prostate cancer. ? An enlarged prostate that is not caused by cancer (benign prostatic hyperplasia, or BPH). This condition is very common in older men. ? A prostate gland infection (prostatitis) or urinary tract infection. ? Certain medicines such as male hormones (like testosterone) or other medicines that raise testosterone levels. A rectal exam may be done as part of prostate cancer screening to help provide information about the size of your prostate gland. When a rectal exam is performed, it should be done after the PSA level is drawn to avoid any effect on the results. Depending on the PSA results, you may need more tests, such as: ? A physical exam to check the size of your prostate gland, if not done as part of screening. ? Blood and imaging tests. ? A procedure to remove tissue samples from your prostate gland for testing (biopsy). This is the only way to know for certain if you have prostate cancer. What are the benefits of prostate cancer screening? ? Screening can help to identify cancer at an early stage, before symptoms start and when the cancer can be treated more easily. ? There is a small chance that screening may lower your risk of dying from prostate cancer. The chance is small because prostate cancer is a slow-growing cancer, and most men with prostate cancer from a different cause. What are the risks of prostate cancer screening? The main risk of prostate cancer screening is diagnosing and treating prostate cancer that would never have caused any symptoms or problems. This is called overdiagnosisand overtreatment. PSA screening cannot tell you if your PSA is high due to cancer or a different cause. A prostate biopsy is the only procedure to diagnose prostate cancer. Even the results of a biopsy may not tell you if your cancer needs to be treated. Slow-growing prostate cancer may not need any treatment other than monitoring, so diagnosing and treating it may cause unnecessary stress or other side effects. Questions to ask your health care provider ? When should I start prostate cancer screening? ? What is my risk for prostate cancer? ? How often do I need screening? ? What type of screening tests do I need? ? How do I get my test results? ? What do my results mean? ? Do I need treatment? Where to find more information ? The [place] Cancer Society: www.cancer.org ? [place] [employer]: www.auanet.org Contact a health care provider if: ? You have difficulty urinating. ? You have pain when you urinate or ejaculate. ? You have blood in your urine or semen. ? You have pain in your back or in the area of your prostate. Summary ? Prostate cancer is a common type of cancer in men. The prostate gland is located below the bladder and in front of the rectum. This gland adds flu (more content not included)... Normal Raman [facility] Urology Office/Clinic Noteon 04-08-2023 Urology Office/Clinic Note Chief Complaint 19 month fu HPI Staff Previous Dr. Dsouza patient. 72 year old male here for 1 year follow up with psa Previous Dx:Bph with luts, Elevated psa Current psa 5.7 and 20.0% from 11/03/22 Previously 4.8 and 21% on 09/11/21 Dysuria: no Incomplete bladder emptying: no Hematuria:no Frequency: no Urgency: no Nocturia: 1x Stream: good stream Leaking: no Post void dripping: no Wearing pads/ Depends:no Urge incontinence: no Stress incontinence: no Incontinence without Sensory Awareness: no Abdominal pain: no Flank pain: no Sexual complaints: no History of Present Illness Tests reviewed: Reviewed UA & PSA FT, external notes I have reviewed the previous health record information and history for this patient from Dr. Dsouza and external provider PCP I have reviewed and verified the staff HPI to be accurate for this encounter. There have been no associated fever, chills, flank pain, or blood in the urine. Denies any urinary infections since last encounter. Review of Systems PHQ Score Initial Depression Screen Score: 0 SCORE ROS - Provider Constitutional: denies weight loss, denies hot flashes. Eyes: denies eye problems. Gastrointestinal: denies nausea, denies vomiting. Cardiovascular: denies chest pain or angina. Integumentary: no dryness Musculoskeletal: denies musculoskeletal symptoms. ENMT: denies otolaryngeal symptoms. Respiratory: no shortness of breath. Heme/Lymph: denies easy bleeding tendency, denies easy bruising tendency. Psychiatric: no confusion, no anxiety. Genitourinary: See HPI Physical Exam Vitals & Measurements HR: 61(Peripheral) BP: 126/65 HT: 70 in HT: 178.0 cm WT: 105.1 kg WT: 231.22 lb BMI: 33.17 General Appearance: alert, no distress, well nourished, well developed male. Genitourinary: Flank Pain: none. Bladder: nonpalpable. Prostate: moderately enlarged, no nodules, nontender, smooth, symmetric Assessment/Plan Tomas is a 72 yo male here for 1 year follow up. Former RWR pt. Hx of MT 27 years ago. ASA. Portions of this record may have been created with voice recognition artificial intelligence software, specifically Nintu Oy, Wedivite and or [employer]. Substitutions may have occurred due to the inherent limitations of voice recognition and artificial intelligence software. 1. Elevated PSA (R97.20: Elevated prostate specific antigen [PSA]) PSA: 04/01/19 - 4.8 & 19% 02/11/21 - 5.0 & 22% 09/11/21 - 4.8 & 21% 11/03/22 - 5.7 & 20% Small rise in PSA, favorable percent free. No prior bx's or MRIs. Denies family hx of prostate, colon or breast cancer. Today I reviewed the patients past history including voiding symptoms, PSA history and any prior prostate biopsy information that is available. We discussed the controversies that exist in the field of PSA based cancer testing and the absence of exact correlation of PSA data to the presence or absence of prostate cancer on biopsy. I discussed the production of PSA by the prostate gland as well as common causes of elevated serum PSA including infection, inflammation, BPH and prostate cancer. He understood that his PSA level may also be falsely elevated due to any manipulation/instrumen tation around the time of a PSA draw. I discussed the absolute value of PSA as well as PSA velocity and age specific PSA and the implications with the patient. The OP risk calculator estimates his risk of prostate cancer to be 15% including a 3% risk of clinically significant cancer risk. I gave the patient management options moving forward and explained the risks/benefits of each one: -Continue monitoring PSA with repeat in 6-12 months -Obtain additional biomarkers such as select MDX -Obtain prostate MRI to evaluate for suspicious lesions. He understands MRIs may miss malignancy in 12-16% of patients. ESTELA benign. Plan: -Repeat PSA FT in 6 months, obtain MRI prostate if PSA continues to rise -The patient was urged not to ride his bike, masturbate, have sex or undergo a ESTELA for at least 4 days prior to any repeat PSA testing. -Follow up in 6 months 2. BPH with obstruction/lower urinary tract symptoms (N40.1: Benign prostatic hyperplasia with lower urinary tract symptoms) IPSS 5 (3) Not taking any BPH meds. UA today negative. Denies urinary changes or concerns. ESTELA: moderately enlarged, no nodules. -Continue symptomatic monitoring 3. Aspirin long-term use (Z79.82: retirement (current) use of aspirin) Hx of MT 27 years ago. ASA. Elevated risk for periop complications. 4. Erectile dysfunction (N52.9: Male erectile dysfunction, unspecified) MACARENA 11 Discussed risk/ benefits of treatment options for ED. Nitroglycerin is on pt's med list, however pt states he has never taken it. Discussed the risk of taking Nitro and oral ED meds. Taking Metoprolol -contribute to ED along with cardiovascular health -Heart healthy lifestyle -Declines tx at this time I spent 30 minutes today with the p (more content not included)... Normal [place] Comment on above: Result Comment: Elec tronically Signed By: Sabrina Arguello MD\.br\Date and Time Signed: 04/08/23 12:46 EST\.br\Electronically Co-Signed By: Tram Smith\.br\Date and Time Co-Signed: 04/08/23 12:31 EST XR CHEST (2 VW)on 03-30-2023 XR CHEST (2 VW) EXAMINATION: TWO XRAY VIEWS OF THE CHEST 03/30/2023 10:37 am COMPARISON: None. HISTORY: ORDERING SYSTEM PROVIDED HISTORY: Chest congestion, Acute cough TECHNOLOGIST PROVIDED HISTORY: Reason for exam:->rule out pneumonia What reading provider will be dictating this exam?->CRC FINDINGS: The lungs are without acute focal process. There is no effusion or pneumothorax. The cardiomediastinal silhouette is without acute process. The osseous structures are without acute process. Small calcified granuloma right lower lung. IMPRESSION: No acute process. Mild cardiomegaly. Mildly elevated right hemidiaphragm. Interpreted by: Thom Ro MD Signed by: Thom Ro MD 03/30/23 Final result Normal [facility] 01-15-2023 [facility] Telephone (STED) TOMAS MARTINEZ ([id number]) 1950 M Date Time Provider Department 01/15/23 KEKE HERNANDEZ During your visit today, we recorded the following information about you: Sal Smith MA 01/15/2023 1:22 PM Signed Printed last office notes and faxed to [facility] so they could complete processing the order. BELEN Frias Klaudia, OCCA 04/21/2023 1:36 PM Addendum Sent to scanning the CGM request from [facility] which was faxed back to them on 01/15/2023. SHANTA Panda Allergies As of Date: 01/15/2023 (No Known Allergies) Date Reviewed: 08/08/2019 Reviewed by: Laura Catalan (Rn), RN - Fully Assessed Reason for Visit: [facility] Order [Other] Cmt: Makayla 2 Prescriptions as of 04/21/2023 - insulin aspart U-100 (NOVOLOG FLEXPEN U-100 INSULIN) 100 unit/mL (3 mL) Inject 6 units breakfast, 8-10 with lunch 18 with dinner and (4 units with nightly bowl of ice cream) - insulin detemir U-100 (LEVEMIR FLEXTOUCH U-100 INSULIN) 100 unit/mL (3 mL) injection pen inject 62 units SUBCUTANEOUSLY IN THE MORNING and 64 IN THE EVENING - flash glucose sensor (PFI AcquisitionSTYLE MAKAYLA 2 SENSOR) kit Change sensor every 14 days. USE FOR CONTINUOUS GLUCOSE MONITORING. Multiple insulin injections. E11.9 - Insulin [place], Disposable, (BD ULTRAFINE III MINI PEN) 31 gauge x 3/16 USE WITH INSULIN PENS 5 TIMES DAILY. E11.9 - levothyroxine (SYNTHROID) 75 mcg tablet Take 1 tablet by mouth once daily. - acetaminophen (TYLENOL) 500 mg tablet Take 2 tablets by mouth every 8 hours. - aspirin, enteric coated (ASPIRIN, ENTERIC COATED) 325 mg EC tablet TAKE 1 TABLET BY MOUTH TWICE DAILY. - vit A/vit C/bioflav/Zn/Herb25 (ECHINACEA ACZ ORAL) Take by mouth. - lisinopril-hydrochloro thiazide (PRINZIDE,ZESTORETIC) 20-12.5 mg per tablet Take 1 tablet by mouth once daily. Takes 1 tablet twice a day - magnesium oxide 400 mg magnesium cap Take 1 capsule by mouth twice daily. - multivit-min/ferrous fumarate (MULTI VITAMIN ORAL) Take by mouth once daily. - metoprolol tartrate, short acting, (LOPRESSOR) 50 mg tablet Take by mouth twice daily. - cholecalciferol (VITAMIN D-3) 5,000 unit tab Take by mouth once daily. - atorvastatin (LIPITOR) 20 mg tablet Take 20 mg by mouth once daily. - montelukast (SINGULAIR) 10 mg tablet Take 10 mg by mouth daily at bedtime. - nitroglycerin sublingual (NITROQUICK) 0.4 mg SL tablet Dissolve 0.4 mg under the tongue as needed. - traZODone (DESYREL) 50 mg tablet Take by mouth daily at bedtime. - ibuprofen (ADVIL) 200 mg tablet Take 200 mg by mouth as needed. Take 1-2 tabs 1-2x daily as needed - amLODIPine (NORVASC) 5 mg tablet Take 5 mg by mouth twice daily. Problem List As Of Date 01/15/2023 Noted Resolved Obesity, Class I, BMI 30-34.9 [E66.9] 04/14/2019 Diabetes mellitus, insulin dependent (IDDM), co*04/17/2019 Primary osteoarthritis of right hip [M16.11] 04/17/2019 CAD (coronary artery disease) [I25.10] 04/17/2019 History of MT (myocardial infarction) [I25.2] 04/17/2019 HTN (hypertension) [I10] 04/17/2019 HLD (hyperlipidemia) [E78.5] 04/17/2019 Abnormality of gait [R26.9] 04/20/2019 Weakness [R53.1] 04/20/2019 Status post right hip replacement [Z96.641] 05/10/2019 Encounter Status:Closed by SAL SMITH on 01/15/23 Normal [facility] ALBUMIN/CREAT RATIO RND URojuanita 11-06-2022 Albumin DL <= 20 mg/L (U) [Mass/Vol] mg/dL Normal [facility] Comment on above: Order Comment: Speci men Type: URINE SPECIMEN Ordering Facility: [facility] Address: [address] [place] [address] Performed By: #### U ACR #### [facility] CLIA [id number] [address] [facility] [id number] [address] [place] Albumin/Creatinine (U) [Mass ratio] <7 Normal <30 [facility] Comment on above: Order Comment: Speci men Type: URINE SPECIMEN Ordering Facility: [facility] Address: [address] [place] [address] Result Comment: Adul t Male and Female Nephrotic Criteria: <30 mg/g is considered normal to mildly increased 30-300 mg/g is considered moderately increased >300 mg/g is considered severely increased KDIGO. (2013). KDIGO 2012 Clinical Practice Guideline for the Evaluation and Management of Chronic Kidney Disease. Official Journal of the International Society of Nephrology, 3(1), 1-150. Performed By: #### U ACR #### [facility] CLIA [id number] [address] [place] [address] [place] Creatinine (U) [Mass/Vol] 172.3 mg/dL Normal 20.0-300.0 [facility] Comment on above: Order Comment: Speci men Type: URINE SPECIMEN Ordering Facility: [facility] Address: [address] [place] [address] Performed By: #### U ACR #### [facility] CLIA [id number] [address] [place] [address] [place] Comprehensive metabolic 2000 panelon 11-06-2022 Albumin [Mass/Vol] 3.8 g/dL Low 3.9-4.9 [facility] Comment on above: Order Comment: Speci men Type: BLOOD SPECIMEN Ordering Facility: [facility] Address: [address] [place] [address] Performed By: #### 3 016-3, 57328-7, 3024-7, LIPNF #### [facility] CLIA [id number] [address] [place] [address] [place] ALP [Catalytic activity/Vol] 72 U/L Normal 38-113 [facility] Comment on above: Order Comment: Speci men Type: BLOOD SPECIMEN Ordering Facility: [facility] Address: [address] [place] [address] Performed By: #### 3 016-3, 91064-0, 3024-7, LIPNF #### [facility] CLIA [id number] [address] [place] [address] [place] ALT [Catalytic activity/Vol] 30 U/L Normal 10-54 [facility] Comment on above: Order Comment: Speci men Type: BLOOD SPECIMEN Ordering Facility: [facility] Address: [address] [place], [place] [phone] Performed By: #### 3 016-3, 31187-0, 3024-7, LIPNF #### [facility] CLIA [id number] [facility] [place] [address] [place] Anion gap [Moles/Vol] 10 mmol/L Normal 9-18 [facility] Comment on above: Order Comment: Speci men Type: BLOOD SPECIMEN Ordering Facility: [facility] Address: [address] [place] [address] Performed By: #### 3 016-3, 10040-7, 302-7, LIPNF #### [facility] CLIA [id number] [address] [place] [address] [place] AST [Catalytic activity/Vol] 33 U/L Normal 14-40 [facility] Comment on above: Order Comment: Speci men Type: BLOOD SPECIMEN Ordering Facility: [facility] Address: [address] [place] [address] Performed By: #### 3 016-3, 55049-0, 302-7, LIPNF #### [facility] CLIA [id number] [address] [place] [address] [place] Bilirubin [Mass/Vol] 1.1 mg/dL Normal 0.2-1.3 [facility] Comment on above: Order Comment: Speci men Type: BLOOD SPECIMEN Ordering Facility: [facility] Address: [address] [place] [address] Performed By: #### 3 016-3, 64324-6, 3024-7, LIPNF #### [facility] CLIA [id number] [address] [place] [address] [place] Calcium [Mass/Vol] 9.9 mg/dL Normal 8.5-10.2 [facility] Comment on above: Order Comment: Speci men Type: BLOOD SPECIMEN Ordering Facility: [facility] Address: [address] [place] [address] Performed By: #### 3 016-3, 47387-7, 3024-7, LIPNF #### [facility] CLIA [id number] [address] [place] [address] [place] Chloride [Moles/Vol] 99 mmol/L Normal 97-105 [facility] Comment on above: Order Comment: Speci men Type: BLOOD SPECIMEN Ordering Facility: [facility] Address: [address] [place] [address] Performed By: #### 3 016-3, 47148-1, 302-7, LIPNF #### [facility] CLIA [id number] [address] [place] [address] [place] CO2 [Moles/Vol] 29 mmol/L Normal 22-30 [facility] Comment on above: Order Comment: Speci men Type: BLOOD SPECIMEN Ordering Facility: [facility] Address: [address] [place] [address] Performed By: #### 3 016-3, 80835-0, 302-7, LIPNF #### [facility] CLIA [id number] [address] [place] [address] [place] Creatinine [Mass/Vol] 0.95 mg/dL Normal 0.73-1.22 [facility] Comment on above: Order Comment: Speci men Type: BLOOD SPECIMEN Ordering Facility: [facility] Address: [address] [place], [place] [phone] Performed By: #### 3 016-3, 30373-0, 3024-7, LIPNF #### [facility] CLIA [id number] [address] [place] [address] [place] Creatinine and Glomerular filtration rate.predicted panel (S/P/Bld) 84 mL/min/1.73m??? Normal >=60 [facility] Comment on above: Order Comment: Annmarie donohue Type: BLOOD SPECIMEN Ordering Facility: [facility] Address: [address] [place], [place] [id number] Result Comment: Laquita mated Glomerular Filtration Rate (eGFR) is calculated using the 2020 CKD-EPI creatinine equation. This equation utilizes serum creatinine, sex, and age as parameters. The creatinine assay has traceable calibration to isotope dilution-mass spectrometry. Refer to KDIGO guidelines for clinical interpretation. In patients with unstable renal function, e.g. those with acute kidney injury, the eGFR may not accurately reflect actual GFR. Performed By: #### 3 016-3, 55198-1, 3024-7, LIPNF #### [facility] CLIA [id number] [address] [place] [address] [place] Glucose [Mass/Vol] 242 mg/dL High 74-99 [facility] Comment on above: Order Comment: Annmarie donohue Type: BLOOD SPECIMEN Ordering Facility: [facility] Address: [address] [place], [place] [phone] Result Comment: The [place] Diabetes Association (ADA) provides guidance for cutoff values for fasting glucose and random glucose. The ADA defines fasting as no caloric intake for at least 8 hours. Fasting plasma glucose results between 100 to 125 mg/dL indicate increased risk for diabetes (prediabetes). Fasting plasma glucose results greater than or equal to 126 mg/dL meet the criteria for diagnosis of diabetes. In the absence of unequivocal hyperglycemia, results should be confirmed by repeat testing. In a patient with classic symptoms of hyperglycemia or hyperglycemic crisis, random plasma glucose results greater than or equal to 200 mg/dL meet the criteria for diagnosis of diabetes. Reference: Standards of Medical Care in Diabetes 2016, [place] Diabetes Association. Diabetes Care. 2016.39(Suppl 1). Performed By: #### 3 016-3, 05714-6, 3024-7, LIPNF #### [facility] CLIA [id number] [address] [place] [id number] [place] Potassium [Moles/Vol] 4.5 mmol/L Normal 3.7-5.1 [facility] Comment on above: Order Comment: Speci men Type: BLOOD SPECIMEN Ordering Facility: [facility] Address: [address] [place] [address] Performed By: #### 3 016-3, 31755-0, 3024-7, LIPNF #### [facility] CLIA [id number] [address] [place] [address] [place] Protein [Mass/Vol] 6.6 g/dL Normal 6.3-8.0 [facility] Comment on above: Order Comment: Speci men Type: BLOOD SPECIMEN Ordering Facility: [facility] Address: [address] [place] [address] Performed By: #### 3 016-3, 21746-6, 3024-7, LIPNF #### [facility] CLIA [id number] [address] [place] [address] [place] Sodium [Moles/Vol] 138 mmol/L Normal 136-144 [facility] Comment on above: Order Comment: Speci men Type: BLOOD SPECIMEN Ordering Facility: [facility] Address: [address] [place] [address] Performed By: #### 3 016-3, 80118-8, 3024-7, LIPNF #### [facility] CLIA [id number] [address] [place] [address] [place] Urea nitrogen [Mass/Vol] 24 mg/dL Normal 9-24 [facility] Comment on above: Order Comment: Speci men Type: BLOOD SPECIMEN Ordering Facility: [facility] Address: [address] [place] [address] Performed By: #### 3 016-3, 81398-9, 3024-7, LIPNF #### [facility] CLIA [id number] [address] [place] [address] [place] HbA1c (Bld)on 11-06-2022 Average glucose Estimated from glycated hemoglobin (Bld) [Mass/Vol] 166 mg/dL Normal [facility] Comment on above: Order Comment: Annmarie donohue Type: BLOOD SPECIMEN Ordering Facility: [facility] Address: [address] [place] [address] Result Comment: eAG: (Estimated average glucose) is a calculated value from HgbA1c and is customer success representative of the average blood glucose level in the last 2-3 month period. Performed By: #### 5 5454-3 #### [facility] CLIA [id number] [address] [place] [address] [place] HbA1c (Bld) [Mass fraction] 7.4 % High 4.3-5.6 [facility] Comment on above: Order Comment: Annmarie donohue Type: BLOOD SPECIMEN Ordering Facility: [facility] Address: [address] [place] [address] Result Comment: [place] Diabetes Association guidelines indicate that patients with HgbA1c in the range 5.7-6.4% are at increased risk for development of diabetes, and intervention by lifestyle modification may be beneficial. HgbA1c greater or equal to 6.5% is considered diagnostic of diabetes. Performed By: #### 5 5454-3 #### [facility] CLIA [id number] [address] [place] LIPID PANEL, NONFASTINGon Cholesterol [Mass/Vol] 101 mg/dL Normal <200 [facility] Comment on above: Order Comment: Annmarie donohue Type: BLOOD SPECIMEN Ordering Facility: [facility] Address: [address] [place] [address] Result Comment: <200 mg/dL, Desirable 200-239 mg/dL, Borderline high >239 mg/dL, High Performed By: #### 3 016-3, 81948-7, 3024-7, LIPNF #### [facility] CLIA [id number] [address] [place] HDL CHOLESTEROL, NF 33 mg/dL Low >39 [facility] Comment on above: Order Comment: Pasqualeree donohue Type: BLOOD SPECIMEN Ordering Facility: [facility] Address: [address] [place] [address] Result Comment: 40-5 9 mg/dL, Acceptable >59 mg/dL, High: Negative risk factor for coronary heart disease <40 mg/dL, Low: Positive risk factor for coronary heart disease Performed By: #### 3 016-3, 82486-7, 302-7, LIPNF #### [facility] CLIA [id number] [address] [place] [address] LDL CHOLESTEROL, NF 54 mg/dL Normal <100 [facility] Comment on above: Order Comment: Annmarie charanjit Type: BLOOD SPECIMEN Ordering Facility: [facility] Address: [address] [place] [address] Result Comment: <100 mg/dL, Optimal 100-129 mg/dL, Near optimal/above optimal 130-159 mg/dL, Borderline high 160-189 mg/dL, High >189 mg/dL, Very high Secondary prevention optimal LDL Cholesterol levels are recommended to be < 70 mg/dL Performed By: #### 3 016-3, 70527-3, 302-7, LIPNF #### [facility] CLIA [id number] [address] [place] [address] LDL/HDL RATIO, NF 1.64 mg/dL Normal <2.54 [facility] Comment on above: Order Comment: Pasqualeree donohue Type: BLOOD SPECIMEN Ordering Facility: [facility] Address: [address] [place] [address] Result Comment: Refe rence: 1. National Cholesterol Education Program ATP III Guideline At-A-Glance Quick Desk Reference: National Heart, Lung, and Blood [place]. National Institutes of Health. 2001: NIH Publication No. 01-3305. 2. An International Atherosclerosis Society position paper: global recommendations for the management of dyslipidemia: executive summary, Atherosclerosis. 2014: 232(2):410-413. Performed By: #### 3 016-3, 23752-2, 302-7, LIPNF #### [facility] CLIA [id number] [address] [place] [address] [place] NON HDL CHOL, NF 68 mg/dL Normal <130 [facility] Comment on above: Order Comment: Speci men Type: BLOOD SPECIMEN Ordering Facility: [facility] Address: [address] [place] [address] Result Comment: <130 mg/dL, Optimal 130-159 mg/dL, Near optimal/above optimal 160-189 mg/dL, Borderline high 190-219 mg/dL, High >219 mg/dL, Very high Secondary prevention optimal non HDL Cholesterol levels are recommended to be <100 mg/dL Performed By: #### 3 016-3, 29900-9, 7, LIPNF #### [facility] CLIA [id number] [address] [place] [address] [place] T CHOL/HDL RATIO NF 3.06 mg/dL Normal <5.10 [facility] Comment on above: Order Comment: Speci men Type: BLOOD SPECIMEN Ordering Facility: [facility] Address: [address] [place] [address] Performed By: #### 3 016-3, 49382-9, 7, LIPNF #### [facility] CLIA [id number] [address] [place] [address] [place] TRIGLYCERIDES, NF 72 mg/dL Normal <150 [facility] Comment on above: Order Comment: Speci men Type: BLOOD SPECIMEN Ordering Facility: [facility] Address: [address] [place] [address] Result Comment: <150 mg/dL, Normal 150-199 mg/dL, Borderline high 200-499 mg/dL, High >499 mg/dL, Very high Performed By: #### 3 016-3, 74483-2, 7, LIPNF #### [facility] CLIA [id number] [address] [place] [address] [place] VLDL CHOLESTEROL, NF 14 mg/dL Normal <30 [facility] Comment on above: Order Comment: Speci men Type: BLOOD SPECIMEN Ordering Facility: [facility] Address: [address] [place] [address] Performed By: #### 3 016-3, 48004-1, 3024-7, LIPNF #### [facility] CLIA [id number] [address] [place] [address] [place] T4 Free SerPl-mCncon 023 Free T4 [Mass/Vol] 1.3 ng/dL Normal 0.9-1.7 [facility] Comment on above: Order Comment: Speci men Type: BLOOD SPECIMEN Ordering Facility: [facility] Address: [address] [place] [address] Performed By: #### 3 016-3, 64133-1, 3024-7, LIPNF #### [facility] CLIA [id number] [address] [place] [address] [place] TSH SerPl-aCncon 11-06-2022 TSH Qn 1.500 m[IU]/L Normal 0.270-4.200 [facility] Comment on above: Order Comment: Speci men Type: BLOOD SPECIMEN Ordering Facility: [facility] Address: [address] [place] [address] Performed By: #### 3 016-3, 88679-9, 3024-7, LIPNF #### [facility] CLIA [id number] [address] [place] [address] [place] CHEMISTRYOrdered By: SYSTEM SYSTEM on 11-03-2022 Free PSA [Mass/Vol] 1.1 ng/mL Invalid Interpretation Code [facility] Free PSA/Total PSA [Mass fraction] 20.0 % Low >=25.0% [facility] Prostate specific Ag [Mass/Vol] 5.7 ng/mL High 0.1 - 3.5 ng/mL [facility] Consent for Treatmenton 10-07 Consent for Treatment [id number] 3080 [id number]#1.0 0CD:127 Normal [facility] PSA Free & Totalon 3 Free PSA [Mass/Vol] 1.1 ng/mL Invalid Interpretation Code [facility] Comment on above: Result Comment: The concentration of free PSA and total PSA determined with assays from different manufacturers can vary due to differences in assay methods and specificity. Values obtained with different arcade technician's assays cannot be used interchangeably. The methodology used to obtain this result was chemiluminescence using [employer]'s Access Hybritech PSA reagent and Access Hybritech free PSA reagent. Performed By: #### 1 [id number] #### [facility] [address] [place] [address] Free PSA/Total PSA [Mass fraction] 20.0 % Low >=25.0 [facility] Comment on above: Result Comment: The percentage of free PSA is lower in serum samples from patients with prostate cancer than in serum samples from patients with normal prostate or benign disease. Low percentages of free PSA are established as indicators of prostate cancer. The 25% free PSA cutoff detected 95% of cancers while avoiding 20% of Unnecessary biopsies. EDER, 1998; 279:1542-7 Performed By: #### 1 [id number] #### [facility] [address] [place] [address] Prostate specific Ag [Mass/Vol] 5.7 ng/mL High 0.1-3.5 [facility] Comment on above: Result Comment: The concentration of PSA determined by different manufacturers can vary due to differences in assay methods and reagent specificity. Values obtained from different assay methods cannot be used interchangeably. The methodology used for this result was chemiluminescence using [employer]'s Access Hybritech PSA reagent. Performed By: #### 1 [id number] #### [facility] [address] [place] [address] Henry 09-15-2022 CHIO Telephone (AMBROSE) TOMAS MARTINEZ ([id number]) 1950 M Date Time Provider Department 09/15/22 KEKE HERNANDEZ During your visit today, we recorded the following information about you: Kallie Meyers MA 09/15/2022 12:19 PM Signed Received Certificate of Medical Necessity Order form from [facility] for Freestyle Makayla 2 Sensor kit. Faxed completed and signed forms and last visit luciebrett. Received confirmation fax and placed in file. BELEN Wahl Kathy, MA 10/23/2022 12:17 PM Signed Sent to scanning request for CGM supplies Sabrina Huerta MA Allergies As of Date: 09/15/2022 (No Known Allergies) Date Reviewed: 08/08/2019 Reviewed by: Laura Catalan (Rn), RN - Fully Assessed Reason for Visit: [facility] Order form [Other] Cmt: Freestyle Makayla 2 Prescriptions as of 10/23/2022 - insulin aspart U-100 (NOVOLOG FLEXPEN U-100 INSULIN) 100 unit/mL (3 mL) Inject 8 units breakfast, 12 with lunch 16 with dinner and (4 units with nightly bowl of ice cream) - insulin aspart U-100 (NOVOLOG FLEXPEN U-100 INSULIN) 100 unit/mL (3 mL) Inject 10 units breakfast, 14 with lunch 16 with dinner and (4 units with nightly bowl of ice cream). TDD~ 34 units. DX: E11.9, insulin dependent. - levothyroxine (SYNTHROID) 75 mcg tablet Take 1 tablet by mouth once daily. - Blood-Glucose Sensor (FREESTYLE MAKAYLA 3 SENSOR) santino Change sensor every 14 days. USE FOR CONTINOUS GLUCOSE MONITORING. MULTIPLE INSULIN INJECTIONS. E11.9 [employer] SUPPLY [employer] Water - insulin detemir U-100 (LEVEMIR FLEXTOUCH U-100 INSULIN) 100 unit/mL (3 mL) injection pen inject 64 units SUBCUTANEOUSLY IN THE MORNING and 66 IN THE EVENING - Insulin [place], Disposable, (BD ULTRAFINE III MINI PEN) 31 gauge x 3/16 USE WITH INSULIN PENS 5 TIMES DAILY. E11.9 - aspirin, enteric coated (ASPIRIN, ENTERIC COATED) 325 mg EC tablet TAKE 1 TABLET BY MOUTH TWICE DAILY. - acetaminophen (TYLENOL) 500 mg tablet Take 2 tablets by mouth every 8 hours. - vit A/vit C/bioflav/Zn/Herb25 (ECHINACEA ACZ ORAL) Take by mouth. - lisinopril-hydrochloro thiazide (PRINZIDE,ZESTORETIC) 20-12.5 mg per tablet Take 1 tablet by mouth once daily. Takes 1 tablet twice a day - magnesium oxide 400 mg magnesium cap Take 1 capsule by mouth twice daily. - multivit-min/ferrous fumarate (MULTI VITAMIN ORAL) Take by mouth once daily. - metoprolol tartrate, short acting, (LOPRESSOR) 50 mg tablet Take by mouth twice daily. - cholecalciferol (VITAMIN D-3) 5,000 unit tab Take by mouth once daily. - atorvastatin (LIPITOR) 20 mg tablet Take 20 mg by mouth once daily. - montelukast (SINGULAIR) 10 mg tablet Take 10 mg by mouth daily at bedtime. - nitroglycerin sublingual (NITROQUICK) 0.4 mg SL tablet Dissolve 0.4 mg under the tongue as needed. - traZODone (DESYREL) 50 mg tablet Take by mouth daily at bedtime. - ibuprofen (ADVIL) 200 mg tablet Take 200 mg by mouth as needed. Take 1-2 tabs 1-2x daily as needed - amLODIPine (NORVASC) 5 mg tablet Take 5 mg by mouth twice daily. Problem List As Of Date 09/15/2022 Noted Resolved Obesity, Class I, BMI 30-34.9 [E66.9] 04/14/2019 Diabetes mellitus, insulin dependent (IDDM), co*04/17/2019 Primary osteoarthritis of right hip [M16.11] 04/17/2019 CAD (coronary artery disease) [I25.10] 04/17/2019 History of MT (myocardial infarction) [I25.2] 04/17/2019 HTN (hypertension) [I10] 04/17/2019 HLD (hyperlipidemia) [E78.5] 04/17/2019 Abnormality of gait [R26.9] 04/20/2019 Weakness [R53.1] 04/20/2019 Status post right hip replacement [Z96.641] 05/10/2019 Encounter Status:Closed by KALLIE MEYERS on 09/15/22 Normal [facility] CHEMISTRYOrdered By: SYSTEM SYSTEM on 03-04-2022 AST [Catalytic activity/Vol] 30 [iU]/d Normal 5 - 43 Int._Unit/L [facility] Cholesterol in HDL [Mass/Vol] 33 mg/dL Invalid Interpretation Code [facility] Cholesterol in LDL [Mass/Vol] 57 mg/dL Normal <=129mg/dL [facility] Cholesterol in VLDL [Mass/Vol] 10 mg/dL Normal 7 - 40 mg/dL [facility] Triglyceride [Mass/Vol] 50 mg/dL Normal <=149mg/dL [facility] Laboratory - Chemistry and C hemistry - challengeOrdered By: SYSTEM SYSTEM on 03-04-2022 Cholesterol [Mass/Vol] 106 mg/dL below low threshold 120-200 [facility] Laboratory - Chemistry and C hemistry - challengeon 03-04-2022 Cholesterol [Mass/Vol] 57 mg/dL Normal <=129 [facility] y 250 DO Work Phone: Cholesterol in LDL [Mass/Vol] 10 mg/dL Normal 7-40 [facility] DO Work Phone: No Panel Informationon 03-04 30 {Int._Unit/L} Normal 5-43 [facility] y 250 DO Work Phone: 50 mg/dL Normal <=149 [facility] y 250 DO Work Phone: 33 mg/dL [facility] 250 DO Work Phone: Comment on above: HDL > or equal to 60 mg/dL: Low cardiovascular riskHDL < 40 mg/dL : High cardiovascular risk Office Visit (Cardiology)on 01-22-2022 Follow-up visit Diagnoses/Problems Assessed History of MT (myocardial infarction) (412) (I25.2) Diabetes mellitus (250.00) (E11.9) Atrial fibrillation (427.31) (I48.91) Essential hypertension, benign (401.1) (I10) ASHD (arteriosclerotic heart disease) (414.00) (I25.10) History of PTCA (V45.82) (Z98.61) Never a smoker Class 1 obesity with body mass index (BMI) of 34.0 to 34.9 in adult (278.00,V85.34) (E66.9,Z68.34) Orders ASHD (arteriosclerotic heart disease) Renew: Aspirin 325 MG Oral Tablet Delayed Release; 1 daily Class 1 obesity with body mass index (BMI) of 34.0 to 34.9 in adult Healthy Weight Tips; Status:Complete - Retrospective Authorization; Done: 22Jan2022 AST; Status:Active - Retrospective Authorization; Requested for:22Jan2022; Some eating tips that can help you lose weight.; Status:Complete - Retrospective Authorization; Done: 22Jan2022 Lipid Panel; Status:Active - Retrospective Authorization; Requested for:22Jan2022; Essential hypertension, benign Renew: Metoprolol Tartrate 50 MG Oral Tablet; TAKE 1 TABLET TWICE DAILY Hyperlipidemia Renew: Atorvastatin Calcium 20 MG Oral Tablet; TAKE 1 TABLET DAILY SocHx: Never a smoker Tobacco Use Screening; Status:Complete; Done: 22Jan2022 Patient Instructions Please bring all medicines, vitamins, and herbal supplements with you when you come to the office. Prescriptions will not be filled unless you are compliant with your follow up appointments or have a follow up appointment scheduled as per instruction of your physician. Refills should be requested at the time of your visit. Follow up in 1 year with labs Chief Complaint TMOAS MARTINEZ is being seen for a 3 month follow-up of. 71-year-old gentleman returns for follow-up and is doing very well. He had inferior MT back in 1996 with revascularization, stress testing last year was normal. He has underlying diabetes and essential hypertension. He remains asymptomatic, with no hospitalizations or nitrate usage. Recommendations, obtain lipid panel we will follow-up in 1 year Surgical History Problems Denied: History of Complete colonoscopy History of Hip replacement History of Percutaneous transluminal coronary angioplasty History of Tonsillectomy Current Meds Medication NameInstruction Advil 200 MG Oral Tabletas needed amLODIPine Besylate 5 MG Oral TabletTAKE 1 TABLET TWICE DAILY. Aspirin 325 MG Oral Tablet Delayed Release1 daily Atorvastatin Calcium 20 MG Oral TabletTAKE 1 TABLET DAILY. Levemir 100 UNIT/ML Subcutaneous Solutionas directed Levothyroxine Sodium 50 MCG Oral TabletTAKE 1 TABLET DAILY. except on Mondays and take 2 tablets on those days Lisinopril-hydroCHLORO thiazide 20-25 MG Oral TabletTAKE 1 TABLET TWICE DAILY. Magnesium Oxide 400 MG CAPS1 tab twice daily Mens Multi Vitamin AND Mineral TABSTAKE 1 TABLET DAILY. Metoprolol Tartrate 50 MG Oral TabletTAKE 1 TABLET TWICE DAILY. Nitroglycerin 0.4 MG Sublingual Tablet SublingualDISSOLVE 1 TABLET UNDER THE TONGUE NEEDED FOR CHEST PAIN. NovoLOG 100 UNIT/ML Injection Solutionas directed Singulair 10 MG Oral TabletTAKE 1 TABLET AT BEDTIME. traZODone HCl - 50 MG Oral TabletTAKE 1/2 TABLET AT BEDTIME. Vitamin D3 125 MCG (5000 UT) Oral CapsuleTAKE DIRECTED. Patient did not bring medication list or bottles. Updated verbally with patient Allergies Medication No Known Drug Allergies Recorded By: Ayla Steele; 12/02/2020 11:55:10 AM Social History Problems Consumes alcohol (V49.89) (Z78.9) GLASS OF WINE DAILY Daily caffeine consumption 1/2 A POP A DAY Never a smoker No illicit drug use Review of Systems Constitutional: not feeling tired. Cardiovascular: no intermittent leg claudication and as noted in HPI. Respiratory: no cough and no shortness of breath. Gastrointestinal: no change in bowel habits and no blood in stools. Integumentary: no skin rashes. Neurological: no seizures and no frequent falls. All other systems have been reviewed and are negative for complaint. Vitals Vital Signs Recorded: 22Jan2022 08:58AM Heart Rate60, L Radial [id number], LUE, Sitting [id number], LUE, Sitting Height5 ft 10 in [id number] lb 2 oz BMI Unfxiuvkvd29.17 kg/m2 BSA Calculated2.25 Tobacco Useb) No Falls Screening (Age 18+)a) No falls within the last year Physical Exam Constitutional: alert and in no acute distress. Neck: neck is supple, symmetric, trachea midline, no masses and no thyromegaly . Pulmonary: no increased work of breathing or signs of respiratory distress and lungs clear to auscultation. Cardiovascular: carotid pulses 2+ bilaterally with no bruit , JVP was normal, no thrills , regular rhythm, normal S1 and S2, no murmurs , pedal pulses 2+ bilaterally and no edema . Abdomen: abdomen non-tender, no masses and no hepatomegaly . Skin: skin warm and dry, normal skin turgor . Psychiatric judgment and insight is normal and oriented to person, place and time . Signatures (more content not included)... Normal [employer] Tobacco Screening.on 022 Fall risk assessment a) No falls within the last year [facility] DO Work Phone: Tobacco use status CP b) No [facility] DO Work Phone: Office Visit (Cardiology)on 10-24-2021 Follow-up visit Patient Instructions Please bring all medicines, vitamins, and herbal supplements with you when you come to the office. Prescriptions will not be filled unless you are compliant with your follow up appointments or have a follow up appointment scheduled as per instruction of your physician. Refills should be requested at the time of your visit. Patient was not seen today and did rescheduled his office visit due to Dr. Odilon Kessler DO having an emergency case at [facility]. Chief Complaint TOMAS MARTINEZ is being seen for an annual follow-up of. Surgical History Problems Denied: History of Complete colonoscopy History of Hip replacement History of Percutaneous transluminal coronary angioplasty History of Tonsillectomy Current Meds Medication NameInstruction Advil 200 MG Oral Tabletas needed amLODIPine Besylate 5 MG Oral TabletTAKE 1 TABLET TWICE DAILY. Aspirin 325 MG Oral Tablet Delayed Release1 daily Atorvastatin Calcium 20 MG Oral TabletTAKE 1 TABLET DAILY. Levemir 100 UNIT/ML Subcutaneous Solutionas directed Levothyroxine Sodium 50 MCG Oral TabletTAKE 1 TABLET DAILY. Lisinopril-hydroCHLORO thiazide 20-25 MG Oral TabletTAKE 1 TABLET TWICE DAILY. Magnesium Oxide 400 MG CAPS1 tab twice daily Mens Multi Vitamin AND Mineral TABSTAKE 1 TABLET DAILY. Metoprolol Tartrate 50 MG Oral TabletTAKE 1 TABLET TWICE DAILY. Nitroglycerin 0.4 MG Sublingual Tablet SublingualDISSOLVE 1 TABLET UNDER THE TONGUE NEEDED FOR CHEST PAIN. NovoLOG 100 UNIT/ML Injection Solutionas directed Singulair 10 MG Oral TabletTAKE 1 TABLET AT BEDTIME. traZODone HCl - 50 MG Oral TabletTAKE 1/2 TABLET AT BEDTIME. Vitamin D3 125 MCG (5000 UT) Oral CapsuleTAKE DIRECTED. Patient did not bring medication list or bottles. Updated verbally with patient Allergies Medication No Known Drug Allergies Recorded By: Ayla Steele; 12/02/2020 11:55:10 AM Social History Problems Consumes alcohol (V49.89) (Z72.89) GLASS OF WINE DAILY Daily caffeine consumption 1/2 A POP A DAY Never a smoker No illicit drug use Review of Systems Constitutional: not feeling tired. Cardiovascular: no intermittent leg claudication and as noted in HPI. Respiratory: no cough and no shortness of breath. Gastrointestinal: no change in bowel habits and no blood in stools. Integumentary: no skin rashes. Neurological: no seizures and no frequent falls. All other systems have been reviewed and are negative for complaint. Vitals Vital Signs Recorded: 24Oct2021 09:21AM Heart Rate60, R Radial Nwipmvte748, RUE, Sitting Ghtmruzjv99, RUE, Sitting Height5 ft 10 in Hhcaqt697 lb BMI Nsyajaidua53.43 kg/m2 BSA Calculated2.23 Tobacco Useb) No PHQ-2 #1. Over the last 2 weeks have you felt down, depressed or hopeless? (If yes, answer PHQ-9 below)No PHQ-2 #2. Over the last 2 weeks have you felt little interest or pleasure in doing things? (If yes, answer PHQ-9 below)No Falls Screening (Age 18+)a) No falls within the last year Signatures Electronically signed by : Odilon Kessler DO; Oct 24 2021 11:13AM EST Normal [employer] Tobacco Screening.on 022 Adult depression screening assessment No [facility] DO Work Phone: Fall risk assessment a) No falls within the last year [facility] DO Work Phone: Tobacco use status CP b) No [facility] DO Work Phone: CHEMISTRYOrdered By: SYSTEM SYSTEM on 09-11-2021 Free PSA [Mass/Vol] 1.0 ng/mL Invalid Interpretation Code [facility] Remisol Free PSA/Total PSA [Mass fraction] 21.0 % Low >=25.0% [facility] Remisol Prostate specific Ag [Mass/Vol] 4.8 ng/mL High 0.1 - 3.5 ng/mL [facility] Remisol Cardiac Stress Teston 2020 Cardiac Stress Test [address], [address], [place] [address] Exercise Stress Test Patient Name: TOMAS MARTINEZ Ordering Physician: [id number] Odilon Kessler DO Study Date: 12/17/2020 Reading Physician: [id number] Odilon Kessler DO MRN/PID: [id number] Supervising Physician: Accession/Order#: [id number] Referring Physician: Teto Shea MD Date of : 1950 PCP: Gender: M Fellow: Height: 70.00 cm Nurse: Enriqueta Valentine RN Weight: 109.00 kg High Speed Warper Tender: Enriqueta Valentine RN BSA: 1.15 m2 Technologist: BMI: 222.45 kg/m2 Additional Staff: Age: 70 years cc report to: Patient Location: cc report to: [id number] Odilon Kessler DO Study Type: Cardiac Stress Test Diagnosis/ICD: I25.10-Atherosclerotic heart disease; I25.2-Old myocardial infarction; I25.5-Ischemic cardiomyopathy Indication: Cardiomyopathy Procedure/CPT: Stress Test Supervision-[id number] Falls Risk: Low: Patient has low risk for sustaining a fall; environmental safety interventions in place. Study Details: Correct procedure and correct patient verified with ID Band checked. Patient History: Coronary artery disease, dyslipidemia and atrial fibrillation. Allergies: None. Patient Performance: The peak heart rate achieved was 113 bpm, which was 76 % of the age predicted target heart rate of 148 bpm. The resting blood pressure was 144/70 mmHg with a heart rate of 69 bpm. The standing blood pressure was 134/74 mmHg with a heart rate of 80 bpm. The patient's functional capacity was average. The patient developed no symptoms during the stress exam. The blood pressure response was normal. The test was terminated due to: fatigue. Baseline ECG: Resting ECG showed normal sinus rhythm with prior inferior infarct, prior septal infarct and prior lateral infarct. Baseline ECG reveals sinus rhythm with previous inferior and anteroseptal Q wave infarction pattern and intraventricular conduction delay consistent with abnormal baseline ECG. Stress ECG: Stress ECG showed normal sinus rhythm, with sinus tachycardia. Stress Stage Data: + +--- +------+-------+ HR Sys BP Milligan BP + +--- +------+-------+ Baseline Resting 69 144 70 + +--- +------+-------+ Baseline Standing 80 134 74 + +--- +------+-------+ Stage I 97 150 70 + +--- +------+-------+ Stage II 107 154 70 + +--- +------+-------+ Stage III 113 + +--- +------+-------+ + +---+---- --+-------+ HR Sys BP Milligan BP + +---+---- --+-------+ Recovery I 110 170 64 + +---+---- --+-------+ Recovery II 95 160 70 + +---+---- --+-------+ Recovery III 83 140 74 + +---+---- --+-------+ Recovery IV 75 130 78 + +---+---- --+-------+ Summary: 1. 1. Nondiagnostic graded exercise stress test due to baseline ECG abnormalities and inadequate heart rate response to exercise. 2. 2. Good workload capacity. 3. 3. No clinical evidence of angina. [id number] Odilon Kessler DO Electronically signed on 01/07/2021 at 5:52:41 PM Final Normal [facility] Cardiac Stress Test [facility] [place] [facility] [place] Work Phone: Basic Metabolic Panlon 04-18 Anion gap [Moles/Vol] 8 mmol/L Low 9-18 [facility] Calcium [Mass/Vol] 8.9 mg/dL Normal 8.5-10.2 [facility] Chloride [Moles/Vol] 98 mmol/L Normal 97-105 [facility] CO2 [Moles/Vol] 29 mmol/L Normal 22-30 [facility] Creatinine [Mass/Vol] 0.79 mg/dL Normal 0.73-1.22 [facility] eGFR- Amer. >60 Normal [facility] GFR/1.73 sq M predicted among non-blacks MDRD (S/P/Bld) [Vol rate/Area] mL/min/{1.73_m2} Normal [facility] Comment on above: Result Comment: eGFR (Estimated GFR) Units of measure: mL/min/1.73 meters squared eGFR is derived from the reexpressed MDRD Study equation using the following parameters: serum creatinine, age, gender and race. The creatinine assay has been calibrated to be traceable to IDMS. An eGFR <60 mL/min/1.73m2 for >3 months is consistent with chronic kidney disease. Refer to KDOQI guidelines for clinical interpretation. In patients with unstable renal function, e.g. those with acute kidney injury, the eGFR may not accurately reflect actual GFR. Glucose [Mass/Vol] 173 mg/dL High 74-99 [facility] Comment on above: Result Comment: The [place] Diabetes Association (ADA) provides guidance for cutoff values for fasting glucose and random glucose. The ADA defines fasting as no caloric intake for at least 8 hours. Fasting plasma glucose results between 100 to 125 mg/dL indicate increased risk for diabetes (prediabetes). Fasting plasma glucose results greater than or equal to 126 mg/dL meet the criteria for diagnosis of diabetes. In the absence of unequivocal hyperglycemia, results should be confirmed by repeat testing. In a patient with classic symptoms of hyperglycemia or hyperglycemic crisis, random plasma glucose results greater than or equal to 200 mg/dL meet the criteria for diagnosis of diabetes. Reference: Standards of Medical Care in Diabetes 2016, [place] [employer] Association. Diabetes Care. 2016.39(Suppl 1). Potassium [Moles/Vol] 4.3 mmol/L Normal 3.7-5.1 [facility] Sodium [Moles/Vol] 135 mmol/L Low 136-144 [facility] Urea nitrogen [Mass/Vol] 16 mg/dL Normal 9-24 [facility] CBCon 04-18-2019 Absolute nRBC <0.01 Normal <0.01 [facility] Erythrocyte distribution width (RBC) [Ratio] 13.9 % Normal 11.5-15.0 [facility] Hematocrit (Bld) [Volume fraction] 36.6 % Low 39.0-51.0 [facility] Hemoglobin (Bld) [Mass/Vol] 11.9 g/dL Low 13.0-17.0 [facility] MCH (RBC) [Entitic mass] 28.9 pG Normal 26.0-34.0 [facility] MCHC (RBC) [Mass/Vol] 32.5 g/dL Normal 30.5-36.0 [facility] MCV (RBC) [Entitic vol] 88.8 fL Normal 80.0-100.0 [facility] Platelet mean volume (Bld) [Entitic vol] 10.1 fL Normal 9.0-12.7 [facility] l Platelets (Bld) [#/Vol] 198 10*3/uL Normal 150-400 [facility] RBC (Bld) [#/Vol] 4.12 10*6/uL Low 4.20-6.00 [facility] WBC (Bld) [#/Vol] 9.90 10*3/uL Normal 3.70-11.00 [facility] NURSING PROGon 04-18-2019 NURSING PROG HNO ID: [id number] Author: Anum (Rn) Rani RN Service: Nursing Author Type: Registered Nurse Type: Nursing Progress Note Filed: 04/18/2019 12:34 PM Note Text: Nursing Progress Note Patient Name: Tomas Martinez Patient Location: -/ __ Daily Note:assumed care of pt, pt awake alert x 3, up in chair, medicated for pain 06/15, applied desiree hose, fresh ice pack applied, call light in reach will continue to monitor pt [id number] discharge instructions completed with pt and , pt medicated for pain has 1 hour ride home, eating lunch now This note was completed by: Anum Saravia RN [facility] PLAN OF CAREon 04-18-2019 PLAN OF CARE HNO ID: [id number] Author: Parvin Pak (Oil Change Technician) Service: ? Author Type: Bulb Sorter Type: Plan of Care Filed: 04/18/2019 3:06 PM Note Text: PHARMACY BEDSIDE DELIVERY SERVICE Patient Name: Tomas Martinez The marked outpatient medications were Filled at: [facility] and delivered to the patient's bedside to patient Medication List START taking these medications acetaminophen 500 mg tablet Commonly known as: TYLENOL Take 2 tablets by mouth every 8 hours. aspirin, enteric coated 325 mg EC tablet Commonly known as: ASPIRIN, ENTERIC COATED Take 1 tablet by mouth twice daily. Replaces: aspirin 325 mg tablet X docusate sodium 100 mg capsule Commonly known as: COLACE Take 1 capsule by mouth twice daily. X oxyCODONE IR 5 mg immediate release tablet Commonly known as: ROXICODONE Take 1-2 tablets by mouth every 4 hours as needed for up to 7 days. CONTINUE taking these medications AdviL 200 mg tablet Generic drug: ibuprofen amLODIPine 5 mg tablet Commonly known as: NORVASC ECHINACEA ACZ ORAL FREESTYLE MAKAYLA 14 DAY READER Misc Generic drug: flash glucose scanning reader Dispense one reader kit. E11.9 - multiple insulin injections, checks blood sugar 4x daily FREESTYLE MAKAYLA 14 DAY SENSOR Kit Generic drug: flash glucose sensor Change sensor every 14 days E11.9 - multiple insulin injections, checks blood sugar 4x daily insulin detemir U-100 100 unit/mL injection Commonly known as: LEVEMIR U-100 INSULIN 64 Units twice daily. Take 72 units BID Taking differently: takes 64 units in am and 66 units at night insulin lispro 100 unit/mL Inpn Commonly known as: HumaLOG KwikPen Insulin Inject 4 Units subcutaneously daily with breakfast AND 8 Units daily with lunch AND 8 Units daily with dinner. Take 8 units TID at meals Taking 4 units with breakfast and 8 units adjusted on a sliding scale with lunch and dinner. LIPITOR 20 mg tablet Generic drug: atorvastatin lisinopril-hydrochloro thiazide 20-12.5 mg per tablet Commonly known as: PRINZIDE,ZESTORETIC Take 1 tablet by mouth once daily. Takes 1 tablet twice a day magnesium oxide 400 mg magnesium Cap Take 1 capsule by mouth twice daily. metoprolol tartrate (short acting) 50 mg tablet Commonly known as: LOPRESSOR montelukast 10 mg tablet Commonly known as: SINGULAIR MULTI VITAMIN ORAL nitroglycerin sublingual 0.4 mg SL tablet Commonly known as: NITROQUICK traZODone 50 mg tablet Commonly known as: DESYREL Vitamin D-3 5,000 unit Tab Generic drug: cholecalciferol You might also be taking other medications not listed above. If you have questions about any of your other medications, talk to the person who prescribed them or your Primary Care Provider. STOP taking these medications aspirin 325 mg tablet Replaced by: aspirin, enteric coated 325 mg EC tablet Parvin Pak ([employer]) PAGER: dennis April 18, 2019 3:06 PM [facility] PLAN OF CARE HNO ID: [id number] Author: Parvin [employer]) Service: ? Author Type: Bulb Sorter Type: Plan of Care Filed: 04/18/2019 11:43 AM Note Text: Pharmacy Discharge Medication Service: This patient has elected to receive their discharge prescriptions through the [facility] Bedside Prescription Delivery program. The prescriptions are currently being processed. A follow-up note will be entered once the prescriptions have been filled and delivered to the patient. Please contact me with any questions or updates to the patient's discharge medications. Parvin Pak ([employer]) DCT Contact Info: [facility] PLAN OF CARE HNO ID: [id number] Author: Parvin [employer]) Service: ? Author Type: Bulb Sorter Type: Plan of Care Filed: 04/18/2019 11:43 AM Note Text: SUPERVISOR VENDOR QUALITY BEDSIDE DELIVERY SURVEY 1. Patient to use [facility] Bedside Delivery - YES Insurance Information as follows: 2. Insurance card on file - YES 3. Credit card for payment - NO Normal [facility] PROGRESSon 04-18-2019 PROGRESS HNO ID: [id number] Author: Rahat Briones Service: ? Author Type: Physician Publication Specialist Type: Progress Notes Filed: 04/18/2019 9:22 AM Note Text: ORTHOPAEDIC POSTOP PROGRESS NOTE SERVICE DATE: 04/18/2019 SERVICE TIME: 9:21 AM Subjective Patient states that they are comfortable Well Controlled hip pain. Mild incisional pain. No fevers or chills. No chest pain. No shortness of breath. No numbness or paresthesias. Objective VITAL SIGNS: BP 125/62 Pulse 75 Temp 36.8 ?C (98.2 ?F) (Oral) Resp 16 Ht 177.8 cm (5' 10 ) Wt 103.1 kg (227 lb 4.7 oz) SpO2 94% BMI 32.61 kg/m? INTAKE AND OUTPUT: Intake/Output Summary (Last 24 hours) at 04/18/2019 0921 Last data filed at 04/18/2019 0800 Gross per 24 hour Intake 1800 ml Output 1450 ml Net 350 ml PHYSICAL EXAMINATION: Right Lower Extremity: Dorsalis pedis pulses palpable. Posterior tibial pulses palpable. Dorsi flexion 5/5. Plantar flexion 5/5. Extensor hallucis extension: 5/5. Sensory intact to light touch L1-S1. Dressing clean, dry and intact. Surgical site no drainage and Aquacell intact. Calves soft and non tender, Vera's is negative. Problem Review and Assessment: Patient monitored, no new events overnight. LABS: Recent Labs 04/18/19 0411 04/17/19 1131 HB 11.9* 12.8* HCT 36.6* 38.8* DATA: Diagnostic tests reviewed for today's visit: Most recent labs and imaging results. Assessment/Plan S/P Procedure(s) (LRB): ARTHROPLASTY HIP (Right) on 04/17/2019 POSTOP PLAN: Physical Therapy evaluation DVT prophylaxis: with aspirin, additional anticoagulant is contraindicated due to bleeding risk, Graduated compression stockings (GCS) and Intermittent pneumatic compression device (IPCD) Pain control-oxy ir Discussed with the patient the benefits and risks regarding opioid pain medication. This patient underwent major orthopedic surgery which will require the dose of daily narcotic pain medication to exceed the 30 MED/day regulation and non-opioid pain medication alone will not be enough to control pain in the immediate post operative period. This patient will require 1-2 tablets every 4-6 hours short-term postoperatively (7 days) for pain control. Will taper as tolerated thereafter. Case Management for discharge planning-plan for DC home today with [facility] if independent with physical therapy ACTIVE PROBLEM LIST Obesity, Class I, Bmi 30-34.9 Diabetes Mellitus, Insulin Dependent (Iddm), Controlled (Hcc) Primary Osteoarthritis of Right Hip Cad (Coronary Artery Disease) History of MT (Myocardial Infarction) Htn (Hypertension) Hld (Hyperlipidemia) Medication and Non-Pharmacologic VTE Prophylaxis/Anticoagul ants 04/17/19 1145 pneumatic compression stockings ([place]) 04/17/19 1145 graduated compression stockings ([place] 04/17/19 1145 graduated compression stockings ([place] 04/17/19 1145 activity - mobilize patient ([place]) VTE Prophylaxis: VTE prophylaxis appropriate POST OPERATIVE COMPLICATIONS: Complicated by: uneventful/none SIGNATURE: Rahat Briones PA-C PATIENT NAME: Tomas Martinez DATE: April 18, 2019 TIME: 9:21 AM PAGER/CONTACT #: ETX#[id number] [facility] THERAPY NTon 04-18-2019 THERAPY NT HNO ID: [id number] Author: Enriqueta (Zehra/L) Marshall Service: Occupational Therapy Author Type: Occupational Therapist Type: Therapy (PT/OT/Speech/Resp) Filed: 04/18/2019 3:01 PM Note Text: Occupational Therapy Evaluation SERVICE DATE: 04/18/2019 SERVICE TIME: 1007 to 1102 ROOM: [place] [address] Recommended Discharge Disposition: Home Recommended Discharge Equipment: No equipment needs anticipated OT Recommendations to Nursing: To Bathroom for ADL?s /and or Toileting;OOB for meals;With assist of 1 person Equipment: Standard Walker OT 6 Clicks Score: 23 Precautions/Activity Restrictions: Total Hip Replacement;Hip Precautions - Posterior Dislocation;Weight Bearing Restrictions(S/P R SARITA ([place])) Extremity With Weight Bearing Restricted: Right Lower Extremity Right Lower Extremity Weight Bearing Status: WBAT Total Hip Replacement Precautions: Posterior ASSESSMENT: Pt. Presents with impaired balance, strength, activity tolerance, ADLs and mobility/transfers. Pt. Moving well during session. Pt. Required Min A for LB dressing and SBA for functional transfers/mobility. Pt. Will have support from upon DC. Pt's present during session and appears to be supportive. Pt. Denies any homegoing concerns at this time. Instructed pt to ambulate once every hour when awake. Pt. Is safe and cleared from OT standpoint to go home, when cleared by medical. Patient Disposition at Start of Session: OOB in Chair;Call Vanessa in Reach;SCDs;Family Present(pt's and two dtrs present) Patient Disposition at End of Session: OOB in Chair;Call Vanessa in Reach;SCDs;Family Present(pt's and two daughters present) Tolerated Full Session Occupational Therapy Problem List: Impaired Self Care;Decreased Activity Tolerance;Decreased Range Of Motion;Decreased Strength;Functional Mobility Impairment;Balance Impaired Patient /Caregiver Goals: Go Home Goals for Plan of Care: PLAN: Treatment Frequency (times per week): Discontinue Therapy Services Reasons Therapy Services Discontinued: Discharged from facility Plan of Care developed with: Patient;Family(pt's and two dtrs present) TREATMENT INTERVENTIONS: Therapy Diagnosis: Reduced mobility-other;Decreas ed activities of daily living (ADL);Muscle Weakness (generalized);Unsteadi ness on feet;General symptoms and signs-other Interventions Provided: Evaluation;Self Shelter Management (74551) $ Evaluation-Low (51347) Billed Units: 1 unit Self Shelter Management (58763) Treatment Minutes: 38 3 units Skilled Intervention(s): Provided cuing for hand/oral hygiene including brushing hair, brushing teeth and washing hands while standing at sink. Cuing required for safety and sequencing. Pt completed toileting task while standing at toilet in bathroom. Cuing required for safety, sequencing and clothing management. Provided instruction, cuing and facilitation for upper body dressing including safety and to don/doff UB clothing while sitting. Provided instruction, cuing and facilitation for lower body dressing including sequencing (with cues for technique of donning clothing onto the surgical lower extremity first and to doff last.). Educated pt. In importance of threading LB clothing while sitting down and then standing to pull up LB clothing with solid surface directly behind them (a chair or EOB for example). Also educated pt on importance of not twisting surgical leg to don/doff LB clothing. Pt verbalized understanding. Instructions and demonstration with a information assoc, sock aide, dressing stick and long handled shoe horn were used to gonzalez/doff socks, underwear and pants. Instructions were given to wear shoes/slippers/socks over desiree hose when ambulating to prevent slipping. Patient was instructed in use of long handled sponge for safe independent LB bathing. Pt educated on safe household mobility with use of SW. Cuing required for safety, sequencing and hand placement. Educated pt. On hip precautions, including WB status; explanation and demonstration. Pt. Verbalized understanding. Educated pt. In hip precautions, relating to: -functional transfers (use of leg airline operations agent to assist surgical leg in/out of bed, pushing up from stable surfaces, reaching back for stable surface when sitting, and to sleep on pt.'s back) -dressing (threading surgical leg first when donning LB clothing, using AE as needed and to not cross legs when getting dressed) -self care (using recommended method when transferring into and out of tub/shower, benefit of tub or shower seat/bench w/ leg airline operations agent, importance of grab bars and not bathing alone) -toileting (sitting on elevated toilet seat, and supporting self during transfers w/ stable surface close by) -proper technique for transferring into and out of a car (sliding seat all the way back and reclining seat all the way back to increase space in order to clear the dashboard along w/ proper adherence to surgical precautions) -home management (sliding items across countertop instead of carrying items, standing directly in front of the object while holding onto stable surface when reaching for items, not picking up items from low surfaces, not carrying items while using walker, use of a walker bag and not leaving throw rugs on the floor). Explanation, demonstration and handout provided. Pt. Verbalized understanding. Education provided for role of Occupational Therapy including POC and discharge planning. Education in importance of functional mobility and transfers and participation in ADL activities for increased independence for safe discharge. Pt. Verbalized understanding. ?? Education provided to call for assistance when needing to get up with call vanessa and phone within patients reach. Pt. Verbalized understanding. Total Timed Code Treatment Minutes: 38 Total Treatment Time (minutes): 55 SUBJECTIVE: Current Hospital Course: Chart reviewed; Pt with increased R hip pain/weakness and elected to have R SARITA 04/17 (SALIMA) Reason for Occupational Therapy Consult: s/p R SARITA Relevant Past Medical History: CAD, DM, OA, spinal stenosis Patient Report: I am much better than I was yesterday. Pt pleasant, agreeable to participation in therapy. 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 OBJECTIVE: Cognition/Communicatio n Deficits Responsiveness: Alert;Awake Follows Commands: 3-step Commands CURRENT FUNCTIONAL STATUS: Current Activities of Daily Living Assist Level Feeding Set Up Grooming Stand By Assistance(while standing at sink) Bathing Upper Body Set Up(seated) Bathing Lower Body Stand By Assistance Dressing Upper Body Set Up(seated) Dressing Lower Body Minimal Assistance(with LB AE) Toileting Stand By Assistance Instrumental Activities of Daily Living Assist Level Meal/Beverage Prep Light Cleaning Laundry Medication Management with Strategies Functional Mobility Assist Level Rolling Supine to Sit Sit to Supine Scooting Sit to Stand Stand By Assistance Stand to Sit Stand By Assistance Bed to Chair Toilet/Commode Functional Mobility Stand By Assistance Standard Walker Additional personnel present during visit: Nichol Zambrano I reviewed and agree with the documentation corresponding to this therapy visit. SIGNATURE: Enriqueta Marshall OT/Aneta DATE: April 18, 2019 TIME: 3:00 PM Please see discipline specific clinical documentation flowsheet for complete details for this therapy evaluation/treatment. SIGNATURE: Hugo Quintanilla/ZEHRA PATIENT NAME: Tomas Martinez DATE: April 18, 2019 TIME: 1:34 PM [facility] THERAPY NT HNO ID: [id number] Author: Sandy New (Pt) James Service: Physical Therapy Author Type: Physical Therapist Type: Therapy (PT/OT/Speech/Resp) Filed: 04/18/2019 3:53 PM Note Text: Physical Therapy Treatment SERVICE DATE: 04/18/2019 SERVICE TIME: 909 to 949 ROOM: [place] [id number] Recommended Discharge Disposition: Outpatient Physical Therapy Recommended Discharge Equipment: No equipment needs anticipated PT Recommendations to Nursing: Ambulate with device;To bathroom;In halls;OOB for Meals;With assist of 1 person Device: Standard Walker PT 6 Clicks Score: 24 Precautions/Activity Restrictions: Total Hip Replacement;Hip Precautions - Posterior Dislocation;Weight Bearing Restrictions(S/P R SARITA ([place])) Extremity With Weight Bearing Restricted: Right Lower Extremity Right Lower Extremity Weight Bearing Status: WBAT Total Hip Replacement Precautions: Posterior ASSESSMENT : Patient presents with decreased ROM, strength, and mobility s/p R SARITA. Pt was issued a total joint packet and instructed on anti-embolics. Pt was instructed on HEP including supine and seated exercises to be completed on their own 2x/day as tolerated. Instructed pt on bed mobility from the R side using a sheet or their non-operative LE to A themselves and patient was able to complete SBA in and out of bed using the sheet. Pt was able to ambulate with STEP-TO gait using a SW with SBA- VC to keep R LE from ER and closer to midline. Pt was also instructed on steps using 1 HR and cane and was able to demonstrate with SBA. Pt was encouraged to get up and ambulate every hour on their own once at home. Pt is cleared for DC home from PT standpoint with OP PT once cleared by medical. Patient Disposition at Start of Session: OOB in Chair Patient Disposition at End of Session: OOB in Chair Tolerated Full Session Physical Therapy Problem List: Functional Mobility Impairment;Decreased Strength;Balance Impaired;Decreased Range Of Motion Patient /Caregiver Goals: Go Home Goals for Plan of Care: Able to perform HEP with: Supervision Transfer supine to/from sit with: Stand By Assistance Transfer sit to/from stand with: Stand By Assistance Ambulate with: Stand By Assistance Distance: 100 Device: Standard Walker Ambulate up and down steps with: Stand By Assistance Number of steps: 4 Device: Rail;Cane ROM: 0-90 R hip Progress Toward Goals: Progressing as expected Rehab Potential: Good PLAN: Treatment Frequency (times per week): 7 Current admission Treatment Interventions: Education;Joint Mobility;Strengthening ;Functional Mobility Training Plan of Care developed with: Patient TREATMENT INTERVENTIONS: Therapy Diagnosis: Reduced mobility-other Interventions Provided: Gait Training (41935);Therapeutic Exercise (88894) Therapeutic Exercise (04572) Treatment Minutes: 20 2 units Skilled Intervention(s): Instruction in therapeutic exercise Verbal and tactile cuing provided Pt performed in supine position: AP, QS, GS x 10 B LE, pt instructed to do every hour while awake on their own. HS, HIP ABD X10 B LE Pt instructed on using a sheet to A with R . Instructed pt on using a plastic bag to A R LE with sliding. Pt performed in seated position: LAQ X10 B LE All exercises are to be completed at home 3x/day, 2 sets for 10 Instructed patient in supine to sit pushing with upper extremities to sit up Instructed patient in sit to supine using safe, effective technique Instructed pt on bed mobility from the R side using a sheet or their non-operative LE to A themselves and patient was able to complete with SBA in and out of bed. Gait Training (99224) Treatment Minutes: 20 1 unit Skilled Intervention(s): Instruction in sit to stand technique with proper hand placement and body positioning at edge of bed/chair, Instruction in stand to sit technique with LE's touching chair/bed and reaching back for surface, Instruction in sequencing, gait pattern, Instruction in correction of gait deviations and Instruction in use of equipment, cues for sequence and pattern Total Timed Code Treatment Minutes: 40 Total Treatment Time (minutes): 40 SUBJECTIVE: Current Hospital Course: Chart reviewed and no significant medical updates relevant to therapy were noted Reason for Physical Therapy Consult : s/p R SARITA Relevant Past Medical History: CAD, DM, OA, spinal stenosis Patient Report: Pt in the chair I feel better today Home Environment Patient Lives With: Spouse Assistance Available: 24 Hour(spouse off this week, normally works WED/WED) Entry To Home: Stairs;With Rail Number Of Stairs Into Home: 4 Number Of Stairs To Bed/Bath: 1ST FLOOR bed and bath Tub/Shower Type: WIS- with grab bar, built in seats Laundry: 1st floor Equipment Owned: Cane;Standard Walker;Sock Aide;[employer];Long Handled Shoe Horn;Long Handled Sponge;Grab Bars-Shower;Elevated Toilet Seat Prior Functional Level: Within Functional Limits Prior Functional Level Comments: IND ADLs and amb with cane, + drive, 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 OBJECTIVE: CURRENT FUNCTIONAL STATUS: Current Functional Mobility Assist Level Additional Information Rolling Supine to Sit Stand By Assistance(HOB flat, OOB to R using sheet to A R LE) Sit to Supine Stand By Assistance(HOB flat, into bed on R using sheet to A R LE) Scooting Contact Guard Assistance Sit to Stand Stand By Assistance Stand to Sit Stand By Assistance Bed to Chair Toilet/Commode Gait Stand By Assistance Gait Device: Standard Walker Gait Distance (feet): 100X2 Stairs Stand By Assistance Stairs Device: Rail;Cane Number of Stairs: 4 Curb Step Car Transfer Gait Deviations Right Lower Extremity: Weight bearing decreased;Stance time decreased;Heel strike during initial stance decreased;Push-off during terminal stance decreased JH-HLM: 7: Walk 25 feet or more Please see discipline specific clinical documentation flowsheet for complete details for this therapy evaluation/treatment. SIGNATURE: Sandy Ramirez, PT PATIENT NAME: Tomas Martinez DATE: April 18, 2019 TIME: 3:48 PM [facility] ANES PRE-OPon 04-17-2019 ANES PRE-OP HNO ID: [id number] Author: Amol Paulson Service: ? Author Type: Physician Type: Anesthesia Preprocedure Evaluation Filed: 04/17/2019 7:09 AM Note Text: ANESTHESIOLOGY DAY OF SURGERY NOTE : 1950 Procedure(s) (LRB): ARTHROPLASTY HIP (Right) Surgeon(s): Jim Borrego Estimated body mass index is 33.09 kg/m? as calculated from the following: Height as of 03/31/19: 177.8 cm (5' 10 ). Weight as of 03/31/19: 104.6 kg (230 lb 9.6 oz). Most recent hematocrit and potassium results: Hematocrit 42.9 03/31/2019 Potassium 4.6 03/31/2019 Relevant Problems No relevant active problems I - PHYSICAL EVALUATION AIRWAY Patient intubated: No. Mallampati: II. TM distance: >3 FB. Neck ROM: full. Mouth opening: adequate. Short neck: no. DENTAL Normal dental observations. Dental findings: teeth intact. Additional exam findings: no. II - ANESTHESIA PLAN ASA Score: 3 Anesthetic plan: spinal. Anesthetic plan additional comments: + MAC Sedation. Monitoring plan: Standard ASA. Postoperative analgesic plan: parenteral or oral opioids. Anesthetic Risks, Benefits, Alternatives, Personnel Discussed. Consent obtained from: patient. Patient / Surrogate agrees to blood products: blood products not planned NPO Status: adequate. Significant changes in the patient condition since the History and Physical, not otherwise documented in primary service progress note: no. Potential Anesthesia issues that may suggest increased risk of complications or contractions to planned procedure: none. I have interviewed and examined the patient. I have reviewed the medical record and/or the pre-anesthesia evaluation, pertinent labs, and test results. This contains updated information obtained within 48 hours of Surgery/Procedure. 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 Last discharge within 30 days: No Advance Directive: Health LiteracyHow often do you need to have someone help you when you read instructions, pamphlets, or other written material from your doctor or pharmacy? : 1 - Never How confident are you filling out medical forms by yourself?: 1 - Extremely If Patient scores > 3 on either question, the following interventions were put into place:: Patient did not score > 3 on either question. Prior to Admission: Baseline Mental Status: Alert AND Oriented Prior to this illness, has anyone described the patient having any of the following behaviors? Not Applicable Relationship of the information to the patient:: Self Functional Status: Independent Equipment Prior to Admission: Walker SOCIAL: Living Arrangements: Home Financial Resources: RetiredPrimary Contact: Extended Emergency Contact Information Primary Emergency Contact: maxien martinez Mobile Relation: Spouse Supportive Patient Contact:: Yes Contact Resources: Family Social Needs Food insecurity Worry: Not on file Inability: Not on file Resources Needed: No Social Needs Financial resource strain: Not on file n/a Social Needs Transportation needs Medical: Not on file Non-medical: Not on file Caregiver AssessmentCaregiver is ready, willing and able to meet the patient's needs as recommended by the inter-professional team:: Yes Does the patient have an acute stroke diagnosis, or has the patient had a stroke during this admission?: No Family Name/Phone: Natalie () Patient's perception of need for this admission: Admitted for scheduled ortho surgery Medication Adherance I am convinced of the importance of my prescription medication: 0 - Agree Completely I worry that my prescription medication will do more harm than good to me : 0 - Diagree Completely I feel financially burdened by my [id number] expenses for my prescription medication:: 0 - Diagree Completely Risk Score: 0 Patient is categorized as: Low risk < 2 Are you interested in bedside delivery of your medications? Yes Is Patient Psychosocially Complex?: No ASSESSMENT AND PLAN: Medical Needs: Psychosocial Needs: Psychosocial Needs: None FREEDOM OF CHOICE EXPLAINED: POTENTIAL TRANSITION PLANS Pt is a 68 yo male admitted to the hospital for scheduled ortho surgery. Pt lives with his in their home in [place]. He is scheduled for out patient therapy at the [place] office first visit is 04/20 at 9:45 am Pt does not anticipate any additional dc needs at this time SIGNATURE: CAROLYNN Jackson PATIENT NAME: Tomas Martinez DATE: April 17, 2019 TIME: 3:34 PM PAGER/CONTACT #: [phone] Normal [facility] CBCon 04-17-2019 Absolute nRBC <0.01 Normal <0.01 [facility] Erythrocyte distribution width (RBC) [Ratio] 13.8 % Normal 11.5-15.0 [facility] Hematocrit (Bld) [Volume fraction] 38.8 % Low 39.0-51.0 [facility] Hemoglobin (Bld) [Mass/Vol] 12.8 g/dL Low 13.0-17.0 [facility] MCH (RBC) [Entitic mass] 29.1 pG Normal 26.0-34.0 [facility] MCHC (RBC) [Mass/Vol] 33.0 g/dL Normal 30.5-36.0 [facility] MCV (RBC) [Entitic vol] 88.2 fL Normal 80.0-100.0 [facility] Platelet mean volume (Bld) [Entitic vol] 9.9 fL Normal 9.0-12.7 [facility] l Platelets (Bld) [#/Vol] 221 10*3/uL Normal 150-400 [facility] RBC (Bld) [#/Vol] 4.40 10*6/uL Normal 4.20-6.00 [facility] WBC (Bld) [#/Vol] 10.63 10*3/uL Normal 3.70-11.00 [facility] CONSULTon 04-17-2019 CONSULT HNO ID: [id number] Author: Heidi Esposito, PETRA Service: Hospital Medicine Author Type: Nurse Practitioner Type: Consults Filed: 04/17/2019 1:39 PM Note Text: DEPARTMENT OF HOSPITAL MEDICINE INITIAL CONSULT SERVICE DATE: 04/17/2019 SERVICE TIME: 1:31 PM Primary Care Physician: Teto Shea DO NIGHT AND WEEKEND COVERAGE: Days: [phone], please page me for patient issues. Nights: [phone], please page [facility] Hospitalist Night coverage pager [phone] REASON FOR CONSULT: Medical Management REQUESTING PHYSICIAN: Dr. Jim Borrego Subjective CHIEF COMPLAINT: Right hip pain HPI: This is a 68 year old male with a past medical history of DM, CAD, OA (right hip), and spinal stenosis who presents post-op day #0, right total hip replacement. Patient reports that his right hip pain has been present for years ; it was affecting his ADLs. He was taking advil for the pain prior to his procedure today. Patient denies pain at present. He is anxious to get out of bed and work with PT. He denies any fever, chills, or shortness of breath. Is the Patient Experiencing Pain: No: 0 on a scale of 0 to 10 PAST MEDICAL HISTORY Diagnosis Date - CAD (coronary artery disease) Dr. Checo BEAVERS - DM (diabetes mellitus) (HCC) - Nocturia frequent urination - OA (osteoarthritis) Rt hip - Sleep disorder - Spinal stenosis Multiple levels PAST SURGICAL HISTORY Procedure Laterality Date - ANGIOPLASTY - PAST SURGICAL HISTORY OF 195 tonsil FAMILY HISTORY Problem Relation Age of Onset - other (lymphoma) Father Social History Tobacco Use - Smoking status: Never Smoker - Smokeless tobacco: Never Used Substance Use Topics - Alcohol use: Yes Alcohol/week: 5.0 standard drinks Types: 2 Mixed Drinks per week Comment: 2/week - Drug use: Not on file MEDICATIONS: Reviewed vit A/vit C/bioflav/Zn/Herb25 (ECHINACEA ACZ ORAL), Take by mouth., Disp: , Rfl: , Past Week at Unknown time flash glucose sensor (FREESTYLE MAKAYLA 14 DAY SENSOR) kit, Change sensor every 14 days E11.9 - multiple insulin injections, checks blood sugar 4x daily, Disp: 6 Each, Rfl: 3, Unknown at Unknown time flash glucose scanning reader (FREESTYLE MAKAYLA 14 DAY READER) [facility] [place], Dispense one reader kit. E11.9 - multiple insulin injections, checks blood sugar 4x daily, Disp: 1 Each, Rfl: 0, Unknown at Unknown time insulin detemir U-100 (LEVEMIR U-100 INSULIN) 100 unit/mL injection, 64 Units twice daily. Take 72 units BID Taking differently: takes 64 units in am and 66 units at night, Disp: , Rfl: , 04/16/2019 at 2300 lisinopril-hydrochloro thiazide (PRINZIDE,ZESTORETIC) 20-12.5 mg per tablet, Take 1 tablet by mouth once daily. Takes 1 tablet twice a day, Disp: , Rfl: , 04/16/2019 insulin lispro (HUMALOG KWIKPEN INSULIN) 100 unit/mL inpn, Inject 4 Units subcutaneously daily with breakfast AND 8 Units daily with lunch AND 8 Units daily with dinner. Take 8 units TID at meals Taking 4 units with breakfast and 8 units adjusted on a sliding scale with lunch and dinner., Disp: , Rfl: , 04/16/2019 magnesium oxide 400 mg magnesium cap, Take 1 capsule by mouth twice daily., Disp: , Rfl: , Past Week at Unknown time multivit-min/ferrous fumarate (MULTI VITAMIN ORAL), Take by mouth once daily., Disp: , Rfl: , Past Week at Unknown time aspirin 325 mg tablet, Take by mouth once daily., Disp: , Rfl: , Past Week at Unknown time metoprolol tartrate, short acting, (LOPRESSOR) 50 mg tablet, Take by mouth twice daily., Disp: , Rfl: , 04/17/2019 at Unknown time cholecalciferol (VITAMIN D-3) 5,000 unit tab, Take by mouth once daily., Disp: , Rfl: , Past Week at Unknown time atorvastatin (LIPITOR) 20 mg tablet, Take 20 mg by mouth once daily., Disp: , Rfl: , 04/16/2019 at 2100 montelukast (SINGULAIR) 10 mg tablet, Take 10 mg by mouth daily at bedtime., Disp: , Rfl: , 04/16/2019 nitroglycerin sublingual (NITROQUICK) 0.4 mg SL tablet, Dissolve 0.4 mg under the tongue as needed., Disp: , Rfl: , Unknown at Unknown time traZODone (DESYREL) 50 mg tablet, Take by mouth daily at bedtime., Disp: , Rfl: , 04/16/2019 ibuprofen (ADVIL) 200 mg tablet, Take 200 mg by mouth as needed. Take 1-2 tabs 1-2x daily as needed, Disp: , Rfl: , Past Week at Unknown time amLODIPine (NORVASC) 5 mg tablet, Take 5 mg by mouth twice daily., Disp: , Rfl: , 04/17/2019 at 600 Current Facility-Administered Medications Medication Dose Route Frequency - lactated ringers infusion 100 mL/hr INTRAVENOUS CONTINUOUS - NaCl 0.9% 2-10 mL 2-10 mL INTRAVENOUS q 12 H - morphine 2 mg injection 2 mg INTRAVENOUS q 2 H PRN - oxyCODONE IR 5-10 mg tab(s) (ROXICODONE) 5-10 mg ORAL q 3 H PRN - oxyCODONE IR 5 mg tab(s) (ROXICODONE) 5 mg ORAL q 6 H PRN - acetaminophen 1,000 mg tab(s) (TYLENOL) 1,000 mg ORAL q 8 H - ondansetron 4 mg tab(s) (ZOFRAN) 4 mg ORAL q 6 H PRN Or - ondansetron (PF) 4 mg injection (ZOFRAN) 4 mg INTRAVENOUS q 6 H PRN - [START ON 04/18/2019] magnesium hydroxide 400 mg/5 mL 30 mL (MOM) 30 mL ORAL DAILY PRN - [START ON 04/19/2019] bisacodyl EC 10 mg tab(s) (DULCOLAX) 10 mg ORAL DAILY - diphenhydrAMINE 25 mg (BENADRYL) 25 mg ORAL q 4 H PRN - aluminum-magnesium hydroxide-simethicone 200-200-20 mg/5 mL 30 mL (MAALOX,MYLANTA,MAG-AL PLUS) 30 mL ORAL q 2 H PRN - [START ON 04/18/2019] ascorbic acid (vitamin C) 500 mg tab(s) (VITAMIN C) 500 mg ORAL BID w MEALS - [START ON 04/18/2019] docusate sodium 100 mg cap(s) (COLACE) 100 mg ORAL BID - ceFAZolin iv piggyback 2 g in D5W (iso-osmotic) 100 mL (ANCEF) 2 g INTRAVENOUS q 8 H - [START ON 04/18/2019] aspirin, enteric coated 325 mg tab(s) 325 mg ORAL BID - [START ON 04/18/2019] lisinopril-hydrochloro thiazide 20-12.5 mg 1 tablet (PRINZIDE,ZESTORETIC) 1 tablet ORAL DAILY - atorvastatin 20 mg tab(s) (LIPITOR) 20 mg ORAL DAILY - metoprolol tartrate (short acting) 25 mg tab(s) (LOPRESSOR) 25 mg ORAL BID - amLODIPine 5 mg tab(s) (NORVASC) 5 mg ORAL BID - [START ON 04/18/2019] insulin glargine 64 Units pen (long acting) (LANTUS SOLOSTAR, BASAGLAR KWIKPEN) 64 Units SUBCUTANEOUS DAILY (8 AM) - insulin glargine 66 Units pen (long acting) (LANTUS SOLOSTAR, BASAGLAR KWIKPEN) 66 Units SUBCUTANEOUS AT BEDTIME - [START ON 04/18/2019] insulin lispro 4 Units injection (rapid acting) (HumaLOG) 4 Units SUBCUTANEOUS DAILY WITH BREAKFAST - insulin lispro 8 Units injection (rapid acting) (HumaLOG) 8 Units SUBCUTANEOUS DAILY wLUNCH - insulin lispro 8 Units injection (rapid acting) (HumaLOG) 8 Units SUBCUTANEOUS DAILY wDINNER - montelukast 10 mg tab(s) (SINGULAIR) 10 mg ORAL AT BEDTIME - traZODone 25 mg tab(s) (DESYREL) 25 mg ORAL AT BEDTIME - dextrose 40 % 15 g 15 g ORAL PRN Or - glucagon 1 mg injection (GLUCAGEN) 1 mg INTRAMUSCULAR PRN Or - dextrose 50% in water 25 mL syringe 12.5 g INTRAVENOUS PRN - insulin lispro injection (rapid acting) (HumaLOG) SUBCUTANEOUS w MEALS - insulin lispro injection (rapid acting) (HumaLOG) SUBCUTANEOUS AT BEDTIME . ALLERGIES No Known Allergies REVIEW OF SYSTEMS: JEWEL HOLE ROUGH OPENER: no history of JEWEL HOLE ROUGH OPENER disease RESP: no history of pulmonary disease CARD: history of CAD, HTN, HLD GI: no history of GI disease RENAL: no history of renal disease ENDO: history of diabetes without secondary complications HEME: no history of hematologic disease RHEUM: no history of rheumatologic disease PSYCHIATRIC: no history of psychiatric disease Objective PHYSICAL EXAM: BP 141/69 Pulse 71 Temp (Src) 97.7 (Oral) Resp 16 Ht 5' 10 (1.78m) Wt 227 lb 4.7 oz (103.1kg) SpO2 92% BMI 32.61 kg/(m2). O2 Therapy: Room Air, Liters: 6 Physical Exam Performed: GENERAL: Alert, appears WDWN in no acute distress, cooperative. HEAD: Normocephalic, atraumatic. EYES: PERRLA, EOMI NECK: No jugulovenous distention, supple BACK: Back symmetric, normal curvature, ROM normal, no CVAT. LUNGS: Lungs clear to auscultation, no adventitious lung sounds. Good diaphragmatic excursion CARDIAC: Normal S1 and S2; no rubs, murmurs, or gallops ABDOMEN: Abdomen soft, non-distended, non-tender, BS present x 4. No masses or organomegaly EXTREMITIES: Initial post-op dressing to right lateral hip; CDI. Trev wrap to RLE. LLE with DESIREE hose present. Good capillary refill. NEURO: Alert and oriented x3. Grossly normal cognition, motor function, and cranial nerves II-XII intact. Gait normal. Sensation grossly intact. Normal strength UE + LE. PULSES: 2+ radial, 2+ dorsalis pedis Lines, Drains, and Airways Line Peripheral 04/17/19 Short Left Wrist 20 Gauge less than 1 day Reviewed lines and needs to be continued: REASONS: Intravenous fluids and Intravenous antibiotics DATA: Diagnostic tests reviewed for today's visit: Most recent labs and imaging results. Impression/Recommendat ions Principal Problem: Primary osteoarthritis of right hip POA: Unknown Assessment AND Plan: S/P Right total hip replacement - post-op day #0 No pain at present -IVF per primary team -IV cefazolin per primary team -Pain management per primary team -Bowel regimen per primary team -DVT prophylaxis (ASA, early ambulation, and IPCs) per primary team -PT eval and treat Active Problems: Obesity, Class I, BMI 30-34.9 POA: Unknown Assessment AND Plan: F/U with PCP as outpatient Diabetes mellitus, insulin dependent (IDDM), controlled (HCC) POA: Unknown Assessment AND Plan: Chronic On lantus: 64 units in AM and 66 units HS Humalog 4 units with breakfast, 8 units with lunch and dinner plus SSI Some recent hypoglycemic events; patient gets weak and shaky -Continue lantus -Continue meal time humalog with SSI-Scale 1 -Hypoglycemic protocol -AC/HS accuchecks -HH/CC diet CAD (coronary artery disease) POA: Unknown History of MT (myocardial infarction) POA: Unknown Assessment AND Plan: Takes 325 mg ASA daily; increased to BID by surgical team for prophylaxis Continue home dose statin and BB HTN (hypertension) POA: Unknown Assessment AND Plan: Chronic Patient Vitals for the past 24 hrs: BP 04/17/19 1142 141/69 04/17/19 1120 141/75 04/17/19 1110 150/81 04/17/19 1100 158/79 04/17/19 1050 140/79 04/17/19 1037 139/76 04/17/19 0711 139/67 -Continue home medications HLD (hyperlipidemia) POA: Unknown Assessment AND Plan: Chronic -Continue home medications Resolved Problems: * No resolved hospital problems. * VTE PROPHYLAXIS: Pneumatic Compression Device, Early Ambulation and Other ASA, per primary team Disposition: Home Plan of care discussed with: Provider, RN, Patient SIGNATURE: Heidi Esposito APRN.CNP PATIENT NAME: Tomas Martinez DATE: April 17, 2019 TIME: 1:31 PM PAGER/CONTACT #: [phone] [facility] Confirm Blood Typeon 020 ABO/RH(D) Negative [facility] NURSING PROGon 04-17-2019 NURSING PROG HNO ID: [id number] Author: Ashley LewisRn) PETRA Gann Service: ? Author Type: Registered Nurse Type: Nursing Progress Note Filed: 04/17/2019 2:23 PM Note Text: Nursing Progress Note Patient Name: Tomas Martinez Patient [facility]: [facility] __ Transfer Note: Patient transferred into room/unit 519 in stable condition. Actions taken: No futher actions taken at this time. Will continue to monitor and check with patient. Patient belongings with patient. This note was completed by: Ashley Gann RN [facility] OPERATIVE NOon 04-17-2019 OPERATIVE NO HNO ID: [id number] Author: Jim Borrego Service: Orthopaedic Surgery Author Type: Physician Type: Operative Report Filed: 04/17/2019 10:20 AM Note Text: [facility] OPERATIVE REPORT PATIENT NAME: Tomas Martinez AGE: [age] year old LOG ID: [id number] Surgery Date: 04/17/2019 SURGEON: Jim Borrego MD SENIOR COST ANALYST: Adriana Diehl PA-C, SA, her assistance consisted of assistance with retraction, positioning and closing of the wound No resident physicians were available to participate in the case. PROCEDURE: RIGHT TOTAL HIP REPLACEMENT Procedure(s) (LRB): ARTHROPLASTY HIP (Right) Anesthesia: Spinal Preop Diagnosis: Pre-Op Diagnosis Codes: * Primary osteoarthritis of right hip [M16.11] * Hip arthritis [M16.10] Postop Diagnosis: Same as Pre-Op Diagnosis Codes: * Primary osteoarthritis of right hip [M16.11] * Hip arthritis [M16.10] BMI: Estimated body mass index is 33.09 kg/m? as calculated from the following: Height as of 03/31/19: 177.8 cm (5' 10 ). Weight as of 03/31/19: 104.6 kg (230 lb 9.6 oz). OPERATIVE INDICATIONS: This is a 68 year old year old male with osteoarthritis of the right hip. He was having severe pain in the groin/thigh. Nonoperative management has been exhausted. The decision was made to proceed with a right total hip arthroplasty. Risks, benefits, and alternatives were discussed. He expressed understanding and consented to the procedure as outlined above. The patient was seen by [facility] Medicine for pre-operative optimization. Yesi-operative blood management and the potential for blood transfusion were discussed with risks and options clearly outlined. The patient has consented to the use of banked allogenic blood if medically necessary. IMPLANTS: [employer]edic[employer] Caddies Total Hip System SIZE TYPE Acetabulum 58mm Trident 2 Screws 0 Polyethylene 46mm Dual mobility Femur 5 standard Accolade 2 Femoral Head 28 Metal OPERATIVE FINDINGS: There was complete loss of cartilaginous surface from the femoral head and acetabular surface with lipping osteophytes. OPERATIVE PROCEDURE: The patient was identified and brought into the Operating Room by the anesthesia and nursing team. Anesthesia was successfully performed. The patient was then positioned supine on the operating room table with a bump under the right hip. Intravenous antibiotic prophylaxis dosing was confirmed. The right lower extremity was then prepped and draped in the usual sterile fashion with Chloraprep scrub. Tranexamic acid was given for blood conservation. A surgical time-out was performed immediately preceding the incision with all personnel in the operating room; the patient identity was again confirmed, the surgical site and extremity were identified and confirmed, X-rays were reviewed, and availability of the appropriate surgical equipment was established. The hip was approached through a modified Acuna-Garcia approach. Dissection was carried down onto the anterior hip capsule, which was opened in an H fashion and excised. The neck of the femur was identified. Large osteophytes were osteotomized and removed from the anterior portion of the acetabulum. We then osteotomized the neck of the femur at a 45- degree angle of the AP plane approximately half a fingerbreadth above the lesser trochanter. The head was then brought out in pieces. We then did a total capsulectomy along with a release of the short external rotators allowing us to expose the acetabulum in our standard 4 quadrant retraction method. We reamed the acetabulum to a 58 mm size. We got into good cancellous bone with good circumferential cortical bone. We removed osteophytes from the rim of the acetabulum. A 58 mm shell Trident 2 cup was then put into the acetabulum at a 60-degree angle to the AP plane with 15 degrees of anteversion. The hip was then adducted and externally rotated and the proximal femur was brought into the wound and we rasped the stem of the femur to size 5. A Accolade 2 stem was tapped into place with excellent fit. We chose a -4 neck and a 28 mm inner diameter, and a 46 mm outer diameter poly ball. The hip was reduced, we had excellent abductor and iliopsoas tone. Wound was then copiously irrigated. We injected circumferentially about the incisional area with our Exparel pericapsular block. Instrument and sponge count was completed and confirmed correct. The would was then closed in layers and a sterile dressing was applied. The patient was stable to PACU. POSTOPERATIVE MANAGEMENT: Patient is weightbearing as tolerated. They will receive appropriate DVT prophylaxis, appropriate pain medications and 24 hours of appropriate antibiotic for infection prophylaxis. SPECIMENS: The femoral head, neck and synovium. EBL: 50 cc DRAINS: None. COUNTS: Correct. COMPLICATIONS: None. Operative Time: * Missing case tracking time(s) * Incision Start: 8:34 AM Incision Stop: 10:19 AM SIGNATURE: Jim Borrego II, MD DATE: April 17, 2019 TIME: 9:48 AM [facility] PROGRESSon 04-17-2019 PROGRESS HNO ID: [id number] Author: Sudhakar Lew () Anant CRUZ Service: Radiology Author Type: Bulb Sorter Type: Progress Notes Filed: 04/17/2019 11:10 AM Note Text: Radiology Service Progress Note PATIENT NAME: Tomas Martinez DATE OF SERVICE: April 17, 2019 TIME: 11:10 AM PATIENT IDENTITY VERIFICATION COMPLETED USING TWO (2) IDENTIFIERS: Name and Date of confirmed by patient verbally and Name and Date of confirmed by identification band. PATIENT GENDER DATA: Male PATIENT RELEVANT IMPLANT DATA REVIEWED: Not Applicable RADIOLOGY DEPARTMENT: General X-ray: Exam(s) Completed: Pelvis X-Ray: Pelvis General AP PERIPHERAL IV DATA: Not applicable SIGNED BY: RT Miranda II April 17, 2019 11:10 AM [facility] PT EDon 04-17-2019 PT ED HNO ID: [id number] Author: Nancy (Rn) Trish RN Service: Nursing Author Type: Registered Nurse Type: Patient Education Filed: 04/17/2019 7:16 AM Note Text: PRE OP LEARNING ASSESSMENT PROCEDURE/SURGERY: SURGERY: right hip surgery READINESS TO LEARN COGNITIVE ABILITY: Alert and oriented MOTIVATION TO LEARN: Eager FAMILY SUPPORT: High - Very involved in pt care PATIENT LEARNS BEST BY: Verbal Instruction FACTORS AFFECTING LEARNING: None PHYSICAL LIMITATIONS AFFECTING LEARNING: None Electronically Signed By: Nancy Chambers, RN In Department: [facility] SURGERY Normal [facility] SURGICAL PATHOLOGYon 020 SURGICAL PATHOLOGY Specimen originated from [facility] Specimen #: [id number] Submitting Physician: JIM BORREGO M.D. FINAL DIAGNOSIS Right femoral head, arthroplasty - Degenerative joint disease. JDR/klw/04/19/2019 Rudy Palacio M.D. (Electronic Signature) _ SPECIMEN SUBMITTED A: RIGHT HIP FEMORAL HEAD CLINICAL DATA PRIMARY OSTEOARTHRITIS OF RIGHT HIP HIP ARTHRITIS GROSS DESCRIPTION A. Received in formalin, labeled right femoral head is a femoral head measuring 5.5 x 5.0 x 3.0 cm. The articular surface shows areas of cartilage roughening, eburnation and osteophyte formation. The femoral head is cut with a band saw revealing heard trabecular bone beneath the areas of eburnation. Additionally submitted are multiple irregular fragments of brown-greene tissue and bone measuring 9.5 x 9.5 x 2.5 cm in aggregate. [employer]frame [employer] Mechanic sections are submitted in one cassette following decalcification. KSZ/glwaldo 04/17/2019 Gross examination performed at [facility], [address] [place] [id number] Date of Report: 04/20/2019 Date of Procedure: 04/17/2019 Date of Receipt: 04/17/2019 Submitted by: JIM BORREGO M.D. Location: [facility] Diagnostic interpretation performed at [facility], [address] [place], [place] [id number]. CLIA Number: [id number] Normal [facility] Reference Lab Comment on above: Performed By: #### S #### See report for performing lab information. THERAPY NTon 04-17-2019 THERAPY NT HNO ID: [id number] Author: Sandy New (Pt) James Service: Physical Therapy Author Type: Physical Therapist Type: Therapy (PT/OT/Speech/Resp) Filed: 04/17/2019 3:28 PM Note Text: Physical Therapy Evaluation SERVICE DATE: 04/17/2019 SERVICE TIME: 1325 to 1405 ROOM: [place] [address] Recommended Discharge Disposition: Outpatient Physical Therapy Recommended Discharge Equipment: No equipment needs anticipated PT Recommendations to Nursing: Ambulate with device;To bathroom;In halls;OOB for Meals;With assist of 1 person Device: Standard Walker PT 6 Clicks Score: 18 Precautions/Activity Restrictions: Total Hip Replacement;Hip Precautions - Posterior Dislocation;Weight Bearing Restrictions(S/P R SARITA (Salima)) Extremity With Weight Bearing Restricted: Right Lower Extremity Right Lower Extremity Weight Bearing Status: WBAT Total Hip Replacement Precautions: Posterior ASSESSMENT : Patient presents with decreased ROM, strength, and mobility s/p R SARITA. 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 Reviewed hip precautions- pt able to recall 2/3 on his own. Pt was issued a total joint packet and instructed on anti-embolics and supine exercises. Pt with difficulty lifting his R LE on his own today, able to use a sheet to A with bed mobility and exercises. CGA for transfers and amb ~80 ft with SW, no LOB or dizziness reported. Pt plans to return home with OP PT. Plan to progress ambulation and practice steps as pt is able to tolerate. Patient Disposition at Start of Session: Supine in Bed;Bed Alarm Patient Disposition at End of Session: OOB in Chair Tolerated Full Session Physical Therapy Problem List: Functional Mobility Impairment;Decreased Strength;Balance Impaired;Decreased Range Of Motion Patient /Caregiver Goals: Go Home Goals for Plan of Care: Able to perform HEP with: Supervision Transfer supine to/from sit with: Stand By Assistance Transfer sit to/from stand with: Stand By Assistance Ambulate with: Stand By Assistance Distance: 100 Device: Standard Walker Ambulate up and down steps with: Stand By Assistance Number of steps: 4 Device: Rail;Cane ROM: 0-90 R hip Rehab Potential: Good PLAN: Treatment Frequency (times per week): 7 Current admission Treatment Interventions: Education;Strengthenin g;Functional Mobility Training Plan of Care developed with: Patient TREATMENT INTERVENTIONS: Therapy Diagnosis: Reduced mobility-other Interventions Provided: Evaluation;Therapeutic Exercise (09323);Gait Training (95512) $ Evaluation-Low (19951) Billed Units: 1 unit Therapeutic Exercise (95692) Treatment Minutes: 10 1 unit Skilled Intervention(s): Instruction in therapeutic exercise Verbal and tactile cuing provided Pt performed in supine position: AP, QS, GS x 10 B LE, pt instructed to do every hour while awake on their own. HS, HIP ABD X10 B LE Pt instructed on using a sheet to A with R LE Instructed pt on using a plastic bag to A R LE with sliding. Gait Training (70169) Treatment Minutes: 15 1 unit Skilled Intervention(s): Instruction in sit to stand technique with proper hand placement and body positioning at edge of bed/chair, Instruction in stand to sit technique with LE's touching chair/bed and reaching back for surface, Instruction in sequencing, gait pattern, Instruction in correction of gait deviations and Instruction in use of equipment, cues for sequence and pattern Total Timed Code Treatment Minutes: 25 Total Treatment Time (minutes): 40 SUBJECTIVE: Current Hospital Course: Chart reviewed; Pt with increased R hip pain/weakness and elected to have R SARITA 04/17 (SALIMA) Reason for Physical Therapy Consult : s/p R SARITA PAST MEDICAL HISTORY Diagnosis Date - CAD (coronary artery disease) Dr. Checo BEAVERS - DM (diabetes mellitus) ([facility]) - Nocturia frequent urination - OA (osteoarthritis) Rt hip - Sleep disorder - Spinal stenosis Multiple levels Patient Report: Pt in bed, pleasant, no complaints, ready to get out of bed Home Environment Patient Lives With: Spouse Assistance Available: 24 Hour(spouse off this week, normally works TUE/WED) Entry To Home: Stairs;With Rail Number Of Stairs Into Home: 4 Number Of Stairs To Bed/Bath: 1ST FLOOR bed and bath Tub/Shower Type: WIS- with grab bar, built in seats Laundry: 1st floor Equipment Owned: Cane;Standard Walker;Grab Bars-Shower(2 handicapp toilets at home) Prior Functional Level: Within Functional Limits Prior Functional Level Comments: IND ADLs and amb with cane, + drive, 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 OBJECTIVE: CURRENT FUNCTIONAL STATUS: Current Functional Mobility Assist Level Additional Information Rolling Supine to Sit Contact Guard Assistance Sit to Supine Scooting Contact Guard Assistance Sit to Stand Contact Guard Assistance Stand to Sit Contact Guard Assistance Bed to Chair Toilet/Commode Gait Contact Guard Assistance Gait Device: Standard Walker Gait Distance (feet): 80x1, 10x1 Stairs Curb Step Car Transfer Gait Deviations Right Lower Extremity: Weight bearing decreased;Stance time decreased;Heel strike during initial stance decreased;Push-off during terminal stance decreased Range of Motion: WFL Except(R hip AA flexion ~60 deg) Strength: WFL Except(R hip <3/5) -M: 7: Walk 25 feet or more Please see discipline specific clinical documentation flowsheet for complete details for this therapy evaluation/treatment. SIGNATURE: Sandy Ramirez, PT PATIENT NAME: Tomas Martinez DATE: April 17, 2019 TIME: 3:24 PM [facility] XR PELVIS 1V APon 04-17-2019 XR PELVIS 1V AP * * *Final Report* * * DATE OF EXAM: Apr 17 2019 11:10AM VHX 5239 - XR PELVIS 1V AP / PROCEDURE REASON: Post-operative / post-procedure assessment, symptomatic * * * * Physician Interpretation * * * * TECHNIQUE: Portable AP abdomen CLINICAL DATA: Postop. COMPARISON: 12/28/2018. RESULT: There are new postsurgical changes from a right hip arthroplasty. The overall appearance of the prosthesis is satisfactory in this single portable AP examination. There is subcutaneous air. IMPRESSION: Interval right hip arthroplasty. Ambulatory Nurse: SUZANNE Transcribe Date/Time: Apr 17 2019 11:12A Dictated by : BHANU CUMMINGS MD This examination was interpreted and the report reviewed and electronically signed by: BHANU CUMMINGS MD on Apr 17 2019 11:13AM EST [id number] [facility] NURSING PROGon 03-31-2019 NURSING PROG HNO ID: [id number] Author: Brooke (Rn) PETRA Arias Service: Nursing Author Type: Registered Nurse Type: Nursing Progress Note Filed: 04/03/2019 8:32 AM Note Text: PACC Nurse Progress Note History AND Physical: PACC Visit Date: 03-31-2019 Original HANDP Date: N/A ED visit Date: N/A Outside HANDP Scanned Date: N/A Labs Within Last 6 Months: CBC: Date 03-31-2019 BMP/CMP: Date 03-31-2019 HBA1C: Date 03-31-2019 UA: Date 03-31-2019 Urine C+S: Date STAAMP: Date 02-17-19 neg TYPE AND SCREEN: Date 03-31-2019 Imaging Within Last 12 Months: N/A Cardiac Testing: EKG in last 12 Months: Yes: Date: 03-22-2019, Comment: scanned 2019 ECHO is scanned BMI Percentile (PEDS): N/A Risk Assessment: N/A Anesthesia Review: N/A Narrative: N/A Pre-op Considerations: diabetic Chart Check: Completed. Brooke Arias RN March 31, 2019 12:28 PM [facility] Type and SCR (30D)on 020 ABO/RH(D) Negative [facility] HOSPon 02-21-2019 HOSP Patient:Jacki Martinez MRN: Height:5' 10 (1.778 m) Weight:230 lb 9.6 oz (104.599 kg) Outpatient Medications as of 04/17/19: vit A/vit C/bioflav/Zn/Herb25 (ECHINACEA ACZ ORAL) flash glucose sensor (FREESTYLE MAKAYLA 14 DAY SENSOR) kit flash glucose scanning reader (FREESTYLE MAKAYLA 14 DAY READER) misc insulin detemir U-100 (LEVEMIR U-100 INSULIN) 100 unit/mL injection lisinopril-hydrochloro thiazide (PRINZIDE,ZESTORETIC) 20-12.5 mg per tablet insulin lispro (HUMALOG KWIKPEN INSULIN) 100 unit/mL inpn magnesium oxide 400 mg magnesium cap multivit-min/ferrous fumarate (MULTI VITAMIN ORAL) aspirin 325 mg tablet metoprolol tartrate, short acting, (LOPRESSOR) 50 mg tablet cholecalciferol (VITAMIN D-3) 5,000 unit tab atorvastatin (LIPITOR) 20 mg tablet montelukast (SINGULAIR) 10 mg tablet nitroglycerin sublingual (NITROQUICK) 0.4 mg SL tablet traZODone (DESYREL) 50 mg tablet ibuprofen (ADVIL) 200 mg tablet amLODIPine (NORVASC) 5 mg tablet Admission/Clinic Administered Medications as of 04/17/19: lidocaine 10 mg/mL (1 %) 1-2 mg injection (XYLOCAINE) lactated ringers infusion ceFAZolin iv piggyback 2 g in D5W (iso-osmotic) 100 mL (ANCEF) tranexamic acid irrigation 3000 mg in NaCl 0.9% 100 mL (CYKLOKAPRON) Problem List: Obesity, Class I, BMI 30-34.9 [E66.9] Allergies: No Known Allergies Date Verified:04/17/19 Lab Values Lab Value Units Date High Low POTA* 4.6 mmol/L 03/31/2019 5.1 3.7 DAVE* 42.9 % 03/31/2019 51.0 39.0 Progress Notes ([facility]): Dina Brown MAGNETIC OBSERVER 04/12/2019 5:00 PM Signed Pt called Insurance denied makayla sensor Asking what next step is for patient Please call [phone] Ok to leave a message Keke Hernandez APRN.CHIEF CATALYST OPERATOR 04/14/2019 6:46 AM Signed He needs to check his blood sugars 4 times daily, for a period of at least 3 mos and we can try to get FREESTYLE approved again. Gary Garcia Wroten MAGNETIC OBSERVER 04/14/2019 9:18 AM Signed Called contact number and spoke with Tomas. Gave him Keke message in detail and he voiced understanding. Progress Notes ([facility]): Laura Catalan, RN, RN 03/28/2019 4:52 PM Signed Medicare DWO for Freestyle makayla reader and sensor form completed Faxed to [place] [id number] along with TITI note, Rxs, AND pt's demographic info Rec'd faxed confirmation [facility] Vital Signs Date Time Vital Sign Value Performing Clinician Facility 04-08-2023 11:52-0500 Blood Pressure Location Sabrina Lue [facility] 04-08-2023 11:52-0500 Diastolic blood pressure 65 mm[Hg] Sabrina Lue [facility] 04-08-2023 11:52-0500 Heart rate 61 /min Sabrina Lue [facility] 04-08-2023 11:52-0500 Systolic blood pressure 126 mm[Hg] Sabrina Lue [facility] 03-04-2022 12:49-0500 57 1 Teto Shea Work Phone: [facility] 250 DO Work Phone: Comment on above: [facility] 02-12-2022 08:04-0500 Blood Pressure Location Teto [facility] 02-12-2022 08:04-0500 Diastolic blood pressure 76 mm[Hg] [facility] 02-12-2022 08:04-0500 Heart rate 64 /min [facility] 02-12-2022 08:04-0500 Respiratory rate 16 /min [facility] 02-12-2022 08:04-0500 SaO2% (BldA) [Mass fraction] 98 % [facility] 02-12-2022 08:04-0500 Systolic blood pressure 138 mm[Hg] Teto SHEA [facility] [place] 01-22-2022 08:58-0500 Body height 177.8 cm Teto Shea Work Phone: [facility] 250 DO Work Phone: 01-22-2022 08:58-0500 Body mass index (BMI) [Ratio] 34.17 kg/m2 Teto Shea Work Phone: [facility] 250 DO Work Phone: 01-22-2022 08:58-0500 Body surface area Derived from formula 2.25 m2 Teto Shea Work Phone: [facility] 250 DO Work Phone: 01-22-2022 08:58-0500 Body weight 108.02 kg Teto Shea Work Phone: [facility] 250 DO Work Phone: 01-22-2022 08:58-0500 Diastolic blood pressure 68 mm[Hg] Teto Shea Work Phone: [facility] 250 DO Work Phone: 01-22-2022 08:58-0500 Heart rate 60 /min Teto Shea Work Phone: [facility] 250 DO Work Phone: 01-22-2022 08:58-0500 Systolic blood pressure 140 mm[Hg] Teto Shea Work Phone: [facility] 250 DO Work Phone: 10-24-2021 09:21-0400 Body height 177.8 cm Teto Shea Work Phone: [facility] 250 DO Work Phone: 10-24-2021 09:21-0400 Body mass index (BMI) [Ratio] 33.43 kg/m2 Teto Shea Work Phone: [facility] 250 DO Work Phone: 10-24-2021 09:21-0400 Body surface area Derived from formula 2.23 m2 Teto Shea Work Phone: [facility] 250 DO Work Phone: 10-24-2021 09:21-0400 Body weight 105.69 kg Teto Shea Work Phone: [facility] 250 DO Work Phone: 10-24-2021 09:21-0400 Diastolic blood pressure 70 mm[Hg] Teto Shea Work Phone: [facility] 250 DO Work Phone: 10-24-2021 09:21-0400 Heart rate 60 /min Teto Shea Work Phone: [facility] 250 DO Work Phone: 10-24-2021 09:21-0400 Systolic blood pressure 150 mm[Hg] Teto Shea Work Phone: [facility] 250 DO Work Phone: 09-16-2021 10:35-0400 Blood Pressure Location Brayan MEET [facility] 09-16-2021 10:35-0400 Diastolic blood pressure 58 mm[Hg] Brayan DSOUZA [facility] 09-16-2021 10:35-0400 Heart rate 58 /min Brayan RICE [facility] 09-16-2021 10:35-0400 Respiratory rate 16 /min Brayan RICE [facility] 09-16-2021 10:35-0400 Systolic blood pressure 101 mm[Hg] Brayan DSOUZA [facility] Encounters Encounter Date Encounter Type Care Provider Facility Start: 11-03-2023 ambulatory Sabrina M. Lue Facility:[facility] Start: 10-26-2023 End: 10-26-2023 ambulatory DO Teto Shea Work Phone: [facility] Work Phone: Start: 10-26-2023 End: 10-26-2023 Patient encounter procedure DO Teto Monse Work Phone: [facility] [place] Work Phone: Start: 10-07-2023 End: 10-07-2023 ambulatory Sabrina M. Lue Facility:[facility] [place] Start: 10-07-2023 End: 10-07-2023 Patient encounter procedure Sabrina M. Lue [facility] Start: 10-05-2023 End: 10-05-2023 ambulatory Sabrina M. Lue [facility] Start: 10-05-2023 End: 10-05-2023 Patient encounter procedure Sabrina M. Lue [facility] Start: 10-04-2023 ambulatory Sabrina M. Lue Facility:[facility] Start: 09-29-2023 End: 09-29-2023 Emergency department patient visit CLIF GIL [facility] Start: 09-29-2023 End: 10-01-2023 ambulatory TETO SHEA [facility] Start: 09-16-2023 Refill Keke Hernandez EVP [employer]ATEGY.CHIEF CATALYST OPERATOR Work Phone: Endocrinology Comment on above: Refill Request Start: 07-27-2023 ambulatory Keke C Cioce EVP [employer].CHIEF CATALYST OPERATOR Work Phone: Endocrinology Comment on above: Insurance Coverage Start: 07-15-2023 End: 07-15-2023 ambulatory Keke C Cioce EVP [employer]ATEGY.CHIEF CATALYST OPERATOR Work Phone: Endocrinology Comment on above: Controlled type 2 di abetes mellitus without complication, with long-term current use of insulin (HCC) (Primary Dx); Hypothyroidism, unspecified type Start: 07-15-2023 End: 07-15-2023 Telemedicine consultation with patient Keke C Cioce EVP [employer]GY.CHIEF CATALYST OPERATOR Work Phone: Endocrinology Start: 07-09-2023 End: 07-10-2023 ambulatory KEKE C CIOCE Facility:[facility] Start: 06-09-2023 Refill Keke C Cioce EVP [employer].CHIEF CATALYST OPERATOR Work Phone: Endocrinology Comment on above: Refill Request Start: 06-08-2023 Refill Keke C Cioce EVP [employer].CHIEF CATALYST OPERATOR Work Phone: Endocrinology Comment on above: Refill Request Start: 04-08-2023 End: 04-08-2023 ambulatory Sabrina Arguello Facility:[facility] Start: 04-08-2023 End: 04-08-2023 Patient encounter procedure Sabrina Arguello [facility] Start: 03-30-2023 End: 03-30-2023 ambulatory TETO Arias [facility] Start: 03-09-2023 End: 03-12-2023 ambulatory [facility] Start: 02-23-2023 ambulatory Sabrina Arguello Facility:[facility] Start: 02-17-2023 End: 02-17-2023 ambulatory [facility] Ambulatory Start: 01-14-2023 End: 01-14-2023 ambulatory KEKE C CIOCE Facility:[facility] Start: 01-14-2023 End: 01-14-2023 ambulatory Keke C Cioce EVP [employer].CHIEF CATALYST OPERATOR Work Phone: Endocrinology Comment on above: Controlled type 2 di abetes mellitus without complication, with long-term current use of insulin (HCC) (Primary Dx); Hypothyroidism, unspecified type Start: 01-14-2023 End: 01-14-2023 Telemedicine consultation with patient Keke C Cioce EVP [employer]GY.CHIEF CATALYST OPERATOR Work Phone: [facility] Start: 01-04-2023 Refill Keke C Cioce EVP [employer].CHIEF CATALYST OPERATOR Work Phone: Endocrinology Comment on above: Refill Request Start: 11-06-2022 End: 11-07-2022 ambulatory TETO SHEA Facility:[facility] Start: 11-03-2022 End: 11-03-2022 ambulatory Brayan DSOUZA [facility] Start: 11-03-2022 End: 11-03-2022 Patient encounter procedure Brayan DSOUZA [facility] Start: 09-15-2022 Telephone encounter Keke C C ioce EVP [employer].CHIEF CATALYST OPERATOR Work Phone: Endocrinology Comment on above: MCS Order form (Free style Makayla 2 ) Start: 08-28-2022 Refill Keke C Cioce EVP [employer].CHIEF CATALYST OPERATOR Work Phone: Endocrinology Comment on above: Refill Request Start: 08-28-2022 Refill Keke C Cioce EVP [employer].CHIEF CATALYST OPERATOR Work Phone: Endocrinology Comment on above: Refill Request Start: 06-12-2022 Telephone encounter Keke C C ioce EVP [employer]ATEGY.CHIEF CATALYST OPERATOR Work Phone: Endocrinology Comment on above: MSC Request Start: 05-28-2022 End: 05-28-2022 ambulatory Keke C Cioce [employer]P [employer].CHIEF CATALYST OPERATOR Work Phone: Endocrinology Comment on above: Controlled type 2 di abetes mellitus without complication, with long-term current use of insulin (HCC) (Primary Dx); Hypothyroidism, unspecified type Start: 05-28-2022 End: 05-28-2022 Telemedicine consultation with patient Keke C Cioce EVP [employer].CHIEF CATALYST OPERATOR Work Phone: [facility] Start: 04-04-2022 Refill Keke C Cioce EVP [employer].CHIEF CATALYST OPERATOR Work Phone: Endocrinology Comment on above: Refill Request Start: 03-17-2022 Chart Update Teto post Work Phone: [facility] 250 DO Work Phone: Start: 03-04-2022 End: 03-04-2022 Patient encounter procedure ODILON KESSLER [facility] Start: 02-13-2022 Refill Keke C Cioce EVP [employer].CHIEF CATALYST OPERATOR Work Phone: Endocrinology Comment on above: Refill Request Start: 02-12-2022 End: 02-12-2022 Patient encounter procedure Teto SHEA [facility] Start: 02-12-2022 End: 02-12-2022 Well adult monitoring check done Teto SHEA [facility] Start: 01-22-2022 Office outpatient vi sit 15 minutes Teto Shea Work Phone: [facility] 250 DO Work Phone: Start: 01-22-2022 ambulatory Teto Shea Facility: Start: 11-27-2021 End: 11-27-2021 ambulatory Keke Mello Cioce EVP [employer].CHIEF CATALYST OPERATOR Work Phone: Endocrinology Comment on above: Controlled type 2 di abetes mellitus without complication, with long-term current use of insulin (HCC) (Primary Dx); Hypothyroidism, unspecified type Start: 11-27-2021 End: 11-27-2021 Telemedicine consultation with patient Keke C Cioce EVP [employer].CHIEF CATALYST OPERATOR Work Phone: [facility] Start: 10-24-2021 Patient encounter procedure Teto Shea Work Phone: [facility] 250 DO Work Phone: Start: 10-24-2021 ambulatory Teto Friend [place] Facility: Start: 10-04-2021 Refill Keke C Cioce EVP [employer].CHIEF CATALYST OPERATOR Work Phone: Endocrinology Comment on above: Refill Request (leve derick) Start: 09-16-2021 End: 09-16-2021 Patient encounter procedure Brayan DSOUZA [facility] Start: 09-11-2021 End: 09-11-2021 Patient encounter procedure Brayan DSOUZA [facility] Start: 07-15-2021 Telephone encounter Keke Sarkar ioce EVP [employer].CHIEF CATALYST OPERATOR Work Phone: Endocrinology Comment on above: CGM Order ([facility] Diabe lyly Service Makayla) Start: 07-03-2021 Refill Keke Sarkar Cioce EVP [employer].CHIEF CATALYST OPERATOR Work Phone: Endocrinology Comment on above: Refill Request; Refi ll Request Start: 01-08-2021 Chart Update Teto post Work Phone: [facility] 250A [place] Work Phone: Procedures Date Procedure Procedure Detail Performing Clinician Start: 03-31-2019 Antibody screen Start: 04-17-2018 Prosthetic arthropla sty of the hip Brayan DSOUZA Comment on above: Right hip replacemen t by Dr. Marrero with [facility]. Start: 03-08-1955 Tonsillar structure (palatine) (body structure) Brayan MEET History of percutane ous transluminal coronary angioplasty History of PTCA Teto Shea Work Phone: Percutaneous transluminal coronary angioplasty Teto Shea Work Phone: Prosthetic arthropla sty of the hip Teto Shea Work Phone: Repair of blood vessel Augusto DSOUZA Tonsillectomy Teto post Work Phone: Total replacement of hip Gre michelle Shea Work Phone: NEGATED: Highlighted row has not occurred! Total colonoscopy Teto Shea Work Phone: Plan of Treatment Date Care Activity Detail Author Start: 11-13-2031 Urine microalbumin profile [facility] Start: 07-08-2024 Hepatitis B screening Urine Albumin:Creatinine Ratio [facility] Start: 07-08-2024 Hepatitis B surface antibody level LDL Cholesterol [facility] Start: 01-09-2024 Hemoglobin A1c measurement HbA1C [facility] Start: 11-07-2023 Hepatitis B screening Urine Albumin:Creatinine Ratio [facility] Start: 11-07-2023 Hepatitis B surface antibody level LDL Cholesterol [facility] Start: 11-07-2023 Influenza vaccination [facility] Start: 10-26-2023 MR Prostate WO and W contrast IV [facility] Start: 10-26-2023 MR prostate wo/w con MR prostate wo/ w con [facility] Start: 07-07-2023 End: 10-06-2023 ALBUMIN/CREAT RATIO RND UR ALBUMIN/CREAT RATIO RND UR Lab Routine Controlled type 2 diabetes mellitus without complication, with long-term current use of insulin (HCC) Expected: 07/07/2023, Expires: 10/06/2023 [facility] Work Phone: Comment on above: Expected: 07/07/2023 , Expires: 10/06/2023 Start: 07-07-2023 End: 10-06-2023 Comprehensive metabolic 2000 panel - Serum or Plasma COMP METABOLIC PANEL Lab Routine Controlled type 2 diabetes mellitus without complication, with long-term current use of insulin (HCC) Expected: 07/07/2023, Expires: 10/06/2023 [facility] Work Phone: Comment on above: Expected: 07/07/2023 , Expires: 10/06/2023 Start: 07-07-2023 End: 10-06-2023 Hemoglobin A1c in Blood HGB A1C Lab Routine Controlled type 2 diabetes mellitus without complication, with long-term current use of insulin (HCC) Expected: 07/07/2023, Expires: 10/06/2023 [facility] Work Phone: Comment on above: Expected: 07/07/2023 , Expires: 10/06/2023 Start: 07-07-2023 End: 10-06-2023 LIPID PANEL, NONFASTING LIPID PANEL, NONFASTING Lab Routine Controlled type 2 diabetes mellitus without complication, with long-term current use of insulin (HCC) Expected: 07/07/2023, Expires: 10/06/2023 [facility] Work Phone: Comment on above: Expected: 07/07/2023 , Expires: 10/06/2023 Start: 07-07-2023 End: 10-06-2023 Thyrotropin [Units/volume] in Serum or Plasma TSH BLD Lab Routine Controlled type 2 diabetes mellitus without complication, with long-term current use of insulin (HCC) Hypothyroidism, unspecified type Expected: 07/07/2023, Expires: 10/06/2023 [facility] Work Phone: Comment on above: Expected: 07/07/2023 , Expires: 10/06/2023 Start: 07-07-2023 End: 10-06-2023 Thyroxine (T4) free [Mass/volume] in Serum or Plasma T4 FREE/FREE THYROX Lab Routine Controlled type 2 diabetes mellitus without complication, with long-term current use of insulin (HCC) Hypothyroidism, unspecified type Expected: 07/07/2023, Expires: 10/06/2023 [facility] Work Phone: Comment on above: Expected: 07/07/2023 , Expires: 10/06/2023 Start: 05-13-2023 Hepatitis B screening URINE ALBUMIN:CREATININE RATIO [facility] Start: 05-13-2023 Hepatitis B surface antibody level LDL CHOLESTEROL [facility] Start: 05-07-2023 Hemoglobin A1c measurement HbA1C [facility] Start: 05-07-2023 Hemoglobin A1c/Hemoglobin.total in Blood HbA1C [facility] Start: 03-08-2023 Advance Directive Discussion Advance Directive Discussion [facility] Start: 03-08-2023 Behavioral Health Screening Behavioral Health Screening [facility] Start: 03-08-2023 Depression Assessment Depression Ass essment [facility] Start: 01-27-2023 FUV, Provider: Odilon Kessler, Status: Pen, Time: 9:00 AM FUV, Provider: Odilon Kessler, Status: Pen, Time: 9:[address] [facility] 250 DO Work Phone: Start: 11-21-2022 Hepatitis B screening URINE ALBUMIN:CREATININE RATIO [facility] Start: 11-21-2022 Hepatitis B surface antibody level LDL CHOLESTEROL [facility] Start: 11-12-2022 Hemoglobin A1c/Hemoglobin.total in Blood HBA1C [facility] Start: 11-06-2022 End: 01-06-2023 ALBUMIN/CREAT RATIO RND UR ALBUMIN/CREAT RATIO RND UR Lab Routine Controlled type 2 diabetes mellitus without complication, with long-term current use of insulin (HCC) Expected: 11/06/2022, Expires: 01/06/2023 [facility] Work Phone: Comment on above: Expected: 11/06/2022 , Expires: 01/06/2023 Start: 11-06-2022 End: 01-06-2023 Comprehensive metabolic 2000 panel - Serum or Plasma COMP METABOLIC PANEL Lab Routine Controlled type 2 diabetes mellitus without complication, with long-term current use of insulin (HCC) Expected: 11/06/2022, Expires: 01/06/2023 [facility] Work Phone: Comment on above: Expected: 11/06/2022 , Expires: 01/06/2023 Start: 11-06-2022 Covid-19 Vaccine () Covid-19 Vaccine () [facility] Start: 11-06-2022 End: 01-06-2023 Hemoglobin A1c in Blood HGB A1C Lab Routine Controlled type 2 diabetes mellitus without complication, with long-term current use of insulin (HCC) Expected: 11/06/2022, Expires: 01/06/2023 [facility] Work Phone: Comment on above: Expected: 11/06/2022 , Expires: 01/06/2023 Start: 11-06-2022 Influenza vaccination [facility] Start: 11-06-2022 End: 01-06-2023 LIPID PANEL, NONFASTING LIPID PANEL, NONFASTING Lab Routine Controlled type 2 diabetes mellitus without complication, with long-term current use of insulin (HCC) Expected: 11/06/2022, Expires: 01/06/2023 [facility] Work Phone: Comment on above: Expected: 11/06/2022 , Expires: 01/06/2023 Start: 11-06-2022 End: 01-06-2023 Thyrotropin [Units/volume] in Serum or Plasma TSH BLD Lab Routine Controlled type 2 diabetes mellitus without complication, with long-term current use of insulin (HCC) Hypothyroidism, unspecified type Expected: 11/06/2022, Expires: 01/06/2023 [facility] Work Phone: Comment on above: Expected: 11/06/2022 , Expires: 01/06/2023 Start: 11-06-2022 End: 01-06-2023 Thyroxine (T4) free [Mass/volume] in Serum or Plasma T4 FREE/FREE THYROX Lab Routine Controlled type 2 diabetes mellitus without complication, with long-term current use of insulin (HCC) Hypothyroidism, unspecified type Expected: 11/06/2022, Expires: 01/06/2023 [facility] Work Phone: Comment on above: Expected: 11/06/2022 , Expires: 01/06/2023 Start: 05-21-2022 Hemoglobin A1c/Hemoglobin.total in Blood HBA1C [facility] Start: 05-06-2022 End: 07-06-2022 ALBUMIN/CREAT RATIO RND UR ALBUMIN/CREAT RATIO RND UR Lab Routine Controlled type 2 diabetes mellitus without complication, with long-term current use of insulin (HCC) Expected: 05/06/2022, Expires: 07/06/2022 [facility] Work Phone: Comment on above: Expected: 05/06/2022 , Expires: 07/06/2022 Start: 05-06-2022 End: 07-06-2022 Comprehensive metabolic 2000 panel - Serum or Plasma COMP METABOLIC PANEL Lab Routine Controlled type 2 diabetes mellitus without complication, with long-term current use of insulin (HCC) Expected: 05/06/2022, Expires: 07/06/2022 [facility] Work Phone: Comment on above: Expected: 05/06/2022 , Expires: 07/06/2022 Start: 05-06-2022 End: 07-06-2022 Hemoglobin A1c in Blood HGB A1C Lab Routine Controlled type 2 diabetes mellitus without complication, with long-term current use of insulin (HCC) Expected: 05/06/2022, Expires: 07/06/2022 [facility] Work Phone: Comment on above: Expected: 05/06/2022 , Expires: 07/06/2022 Start: 05-06-2022 End: 07-06-2022 LIPID PANEL, NONFASTING LIPID PANEL, NONFASTING Lab Routine Controlled type 2 diabetes mellitus without complication, with long-term current use of insulin (HCC) Expected: 05/06/2022, Expires: 07/06/2022 [facility] Work Phone: Comment on above: Expected: 05/06/2022 , Expires: 07/06/2022 Start: 05-06-2022 End: 07-06-2022 Thyrotropin [Units/volume] in Serum or Plasma TSH BLD Lab Routine Controlled type 2 diabetes mellitus without complication, with long-term current use of insulin (HCC) Hypothyroidism, unspecified type Expected: 05/06/2022, Expires: 07/06/2022 [facility] Work Phone: Comment on above: Expected: 05/06/2022 , Expires: 07/06/2022 Start: 05-06-2022 End: 07-06-2022 Thyroxine (T4) free [Mass/volume] in Serum or Plasma T4 FREE/FREE THYROX Lab Routine Controlled type 2 diabetes mellitus without complication, with long-term current use of insulin (HCC) Hypothyroidism, unspecified type Expected: 05/06/2022, Expires: 07/06/2022 [facility] Work Phone: Comment on above: Expected: 05/06/2022 , Expires: 07/06/2022 Start: 05-01-2022 Hepatitis B screening URINE ALBUMIN:CREATININE RATIO [facility] Start: 03-08-2022 ADVANCE DIRECTIVE DISCUSSION ADVANCE DIRECTIVE DISCUSSION [facility] Start: 03-08-2022 DEPRESSION ASSESSMENT DEPRESSION ASS ESSMENT [facility] Start: 03-05-2022 Glaucoma screening Dilated Retinal E xam [facility] Start: 03-05-2022 Hepatitis C antibody , confirmatory test DILATED RETINAL EXAM [facility] Start: 11-06-2021 Influenza vaccination INFLUENZA (#1) [facility] Start: 10-29-2021 Hemoglobin A1c/Hemoglobin.total in Blood HBA1C [facility] Start: 10-16-2021 FUV, Provider: Odilon Kessler, Status: Pen, Time: 9:15 AM FUV, Provider: Odilon Kessler, Status: Pen, Time: 9:15 AM [place] [id number] Work Phone: Start: 06-25-2021 COVID-19 VACCINE (4 - Booster for Moderna series) COVID-19 VACCINE (4 - Booster for Moderna series) [facility] Start: 04-21-2021 COVID-19 VACCINE (4 - Booster for Moderna series) COVID-19 VACCINE (4 - Booster for Moderna series) [facility] Start: 04-21-2021 COVID-19 VACCINE (6 - Booster for Moderna series) COVID-19 VACCINE (6 - Booster for Moderna series) [facility] Start: 04-21-2021 COVID-19 VACCINE (6 - Moderna series) COVID-19 VACCINE (6 - Moderna series) [facility] Start: 03-08-2021 ADVANCE DIRECTIVE DISCUSSION ADVANCE DIRECTIVE DISCUSSION [facility] Start: 03-08-2021 DEPRESSION ASSESSMENT DEPRESSION ASS ESSMENT [facility] Start: 02-07-2021 3 comp foot exam completed DIABETIC FOOT EXAM [facility] Start: 02-07-2021 BP CONTROLLED (<130/80) BP CONTROLLE D (<130/80) [facility] Start: 02-07-2021 Diabetic foot examination Diabetic Foot Exam [facility] Start: 12-18-2020 Hepatitis B surface antibody level LDL CHOLESTEROL [facility] Start: 08-14-2020 ANNUAL PCP TEAM RECEIVER STOCKER BRITTNEE DISEASE VISIT ANNUAL PCP TEAM CHRONIC DISEASE VISIT [facility] Start: 11-06-2018 Urine microalbumin profile DTAP,TDAP,TD (2 - Td or Tdap) [facility] Start: 12-25-2017 SHINGRIX VACCINE (3 of 3) SHINGRIX VACCINE (3 of 3) [facility] Start: 2008 Hepatitis B Vaccine (1 of 3 - Risk 3-dose series) Hepatitis B Vaccine (1 of 3 - Risk 3-dose series) [facility] Start: 2008 RSV Vaccine (1 - 1-d ose 60+ series) RSV Vaccine (1 - 1-dose 60+ series) [facility] Start: 1993 COLOGUARD (FIT-DNA) COLOGUARD (FIT-D NA) [facility] Start: 1993 Colonoscopy COLONOSCOPY [facility] Start: 1993 COLORECTAL CANCER SCREENING COLORECTAL CANCER SCREENING [facility] Start: [address] COLONOGRAPHY [facility] Start: 1993 FECAL OCCULT BLOOD FECAL OCCULT BLOO D [facility] Start: 1993 Screening for malign ant neoplasm of colon [facility] Start: 1993 SIGMOIDOSCOPY SIGMOIDOSCOPY [facility] Start: 1966 HEPATITIS C SCREENING HEPATITIS C [facility] Start: 1966 Hepatitis C screening Hepatitis C [facility] Start: 1960 Adult depression screening assessment DEPRESSION SCREENING [facility] Start: 1954 PNEUMOCOCCAL: 65+ (1 - PCV) PNEUMOCOCCAL: 65+ (1 - PCV) [facility] Immunizations Immunization Date Immunization Notes Care Provider Michael wagner 01-21-2023 influenza virus vacc ine, unspecified formulation Keke Hernandez APRN.CNP Work Phone: [facility] 01-27-2022 influenza virus vacc ine, unspecified formulation Teto SHEA [facility] [place] Comment on above: Result Comment: 2021: VIS DATE: 10/11/2020 12-31-2021 Fluzone High-Dose Quadrivalent 0.7 ML Intramuscular Suspension Prefilled Syringe Teto Shea Work [facility]: [facility] Work Phone: 12-31-2021 influenza virus vacc ine, unspecified formulation Teto SHEA [facility] 12-23-2021 influenza virus vacc ine, unspecified formulation Teto SHEA [facility] 12-23-2021 influenza, seasonal, injectable Teto Shea Work Phone: [facility] DO Work Phone: Comment on above: Series: 11-12-2021 tetanus toxoid, redu sana diphtheria toxoid, and acellular pertussis vaccine, adsorbed Tteo SHEA [facility] 02-24-2021 Moderna COVID-19 Vac cine 100 MCG/0.5ML Intramuscular Suspension Teto Shea Work Phone: [facility] 01-03-2021 Fluzone High-Dose Quadrivalent 0.7 ML Intramuscular Suspension Prefilled Syringe Tteo Shea Work Phone: [facility] [employer] [facility] [place] Work Phone: 01-03-2021 influenza virus vacc ine, unspecified formulation [facility] 12-20-2020 influenza virus vacc ine, unspecified formulation [facility] Comment on above: Result Comment: 2021: VIS DATE: 10/20/2018 05-30-2020 SARS-CoV-2 (COVID-19 ) mRNA BNT-162b2 pamx [facility] 05-09-2020 SARS-CoV-2 (COVID-19 ) mRNA BNT-162b2 pamx [facility] 04-30-2020 Moderna COVID-19 Vac cine 100 MCG/0.5ML Intramuscular Suspension Teto Hugo Shea Work Phone: [facility] [address] [place] Work Phone: 03-30-2020 Moderna COVID-19 Vac cine 100 MCG/0.5ML Intramuscular Suspension Teto [facility]a [facility] [place] Work Phone: Comment on above: Reason for Medicatio n: Other (see comment) 03-14-2020 influenza virus vacc ine, unspecified formulation [facility] Comment on above: Result Comment: 2021: VIS DATE: 10/20/2018 11-07-2019 influenza virus vacc ine, unspecified formulation [facility] 11-07-2019 influenza, high dose seasonal, preservative-free Teto S Monse Work Phone: [facility] [address] [place] Work Phone: 01-24-2019 influenza virus vacc ine, unspecified formulation [facility] Comment on above: Result Comment: 2021: VIS DATE: 10/20/2018 01-06-2019 influenza virus vacc ine, unspecified formulation Brayan DSOUZA [facility] 12-22-2018 influenza virus vacc ine, unspecified formulation [facility] 12-22-2018 influenza, high dose seasonal, preservative-free Teto S [facility]onse [facility] [place] Work Phone: 12-06-2018 influenza virus vacc ine, unspecified formulation Teto Shea Work Phone: [facility] [employer] [employer] [facility] [place] Work Phone: 01-06-2018 influenza virus vacc ine, unspecified formulation Teto Shea Work Phone: [facility] [place] Work Phone: 12-09-2017 influenza virus vacc ine, unspecified formulation [facility] Comment on above: Result Comment: 2021: VIS DATE: 10/12/2014 01-06-2017 influenza, high dose seasonal, preservative-free Teto Hugo Monse [facility] Work Phone: 12-14-2016 influenza virus vacc ine, unspecified formulation Tetokeiko [facility] Comment on above: Result Comment: 2021: VIS DATE: 10/12/2014 12-25-2015 influenza virus vacc ine, unspecified formulation Tetokeiko [facility] 09-26-2015 pneumococcal conjuga te vaccine, 13 valent Teto S Monse Work Phone: [facility] 250 DO Work Phone: 08-12-2015 pneumococcal conjuga te vaccine, 13 valent [facility]eto [facility] 12-06-2014 influenza virus vacc ine, unspecified formulation Teto S Monse Work [facility]: [facility] Work Phone: 08-02-2014 pneumococcal polysaccharide vaccine, 23 valent Teto [facility] 12-06-2013 influenza virus vacc ine, unspecified formulation Teto Shea Work Phone: [facility] 250 DO Work Phone: 01-05-2013 influenza virus vacc ine, unspecified formulation [facility] 01-05-2013 influenza, seasonal, injectable Teto Shea Work Phone: [facility] [address] [place] Work Phone: 07-18-2012 tetanus toxoid, redu sana diphtheria toxoid, and acellular pertussis vaccine, adsorbed [facility]eto [facility] 12-07-2011 pneumococcal polysaccharide vaccine, 23 valent Teto Shea Work Phone: [place] [address] [place] Work Phone: 08-24-2009 tetanus toxoid, redu sana diphtheria toxoid, and acellular pertussis vaccine, adsorbed Brayan RICE [facility] 2008 pneumococcal polysaccharide vaccine, 23 valent [facility] 01-07-2008 pneumococcal polysaccharide vaccine, 23 valent Teto Shea Work Phone: [place] [address] [place] Work Phone: 12-05-2001 pneumococcal polysaccharide vaccine, 23 valent [facility] 03-09-1981 Td(adult) unspecifie d formulation Teto [facility] 08-06-1970 poliovirus vaccine, unspecified formulation [facility] 09-05-1965 Td(adult) unspecifie d formulation [facility] 05-06-1962 poliovirus vaccine, unspecified formulation [facility] 02-05-1962 poliovirus vaccine, unspecified formulation Teto [facility] 11-06-1961 poliovirus vaccine, unspecified formulation [facility] 08-06-1954 DTaP, unspecified formulation [facility] influenza virus vacc ine, unspecified formulation Teto Shea Work Phone: [facility] 250 DO Work Phone: Comment on above: 2012Dec [id number] 2009 Payers Date Payer Category Payer Self-pay [id number] 2018 Medicare MEDICARE MEDICAR E A AND B [id number] 2018-Present [phone] [place] [address] Medicare [id number] 2018 Medicare MEDICARE MEDICAR E A AND B [id number] 2018-Present [phone] [place] [address] Medicare [id number] 2018 Private Health Insurance [employer] A ETNA MEDICARE SUPPLEMENT [id number] 2018-Present [phone] [place] [id number] Indemnity [id number] 2018 Private Health Insurance [employer] A ETNA MEDICARE SUPPLEMENT [id number] 2018-Present [phone] [place] [id number] Indemnity [id number] 2018 Private Health Insurance [facility] [id number] 2013 Medicare [id number] 1948 Unknown [id number]. 2.356 1948 Unknown [id number] [id number]. 2.356 1948 Unknown [id number] [id number]. 2.1244 1948 Unknown [id number] [id number]. 2.185 1948 Unknown [id number] 2.16.840.1.855659.3.579. 2.182 1948 Unknown [id number] [id number]. 2.182 1948 Unknown [id number] 2.16.840.1.653209.3.579. 2.182 1948 Unknown [id number] [id number]. 2.727 1948 Unknown [id number] 2.16.840.1.917612.3.579. 2.727 1948 Unknown [id number] [id number]. 2.727 1948 Unknown [id number] [id number]. 2.727 1948 Unknown [id number] 2.16.840.1.808612.3.579. 2.727 1948 Unknown [id number] [id number]. 2.727 Unknown Unknown [id number]. 2.531 Social History Date Type Detail Facility Start: 08-08-2019 End: 01-14-2023 No alcohol use No alcohol use [facility] [place] Work Phone: Comment on above: GLASS OF WINE DAILY; 1/2 A POP A DAY; Start: 08-03-2018 End: 01-04-2019 Tobacco smoking status NHIS Never smoked tobacco [facility] Start: 01-04-2019 Tobacco use and exposure Smokeless tobacco non-user [facility] Start: 08-08-2019 Alcohol intake Current drinke r of alcohol (finding) [facility] Start: 03-30-2019 History SDOH Alcohol Comment 2/week [facility] Start: 1950 Sex Assigned At Male [facility] Start: 06-28-2021 End: 07-08-2021 Exposure to SARS-CoV-2 (event) Unable to assess [facility] Tobacco smoking status Never [facility] Start: 04-04-2022 End: 01-14-2023 Sex Assigned At Male [facility] Start: 02-03-2019 Gender identity Identifies as male gender (finding) [facility] Start: 02-03-2019 Sexual orientation Heterosexual (richard lang) [facility] Medical Equipment Procedure Code Equipment Code Equipment Origin al Text Equipment Identifier Dates Liner 46mm F Radha r Acetabular Modular Dual Mobility Primary Hip - [id number] Start: 04-17-2019 Insert Adm Mobil e Bearing Hip Zoroastrianism 52mm 28mm 0d X3 8.9mm Acetabular - [id number] Start: 04-17-2019 Shell Trident Ii 58mm F Tritanium Acetabular 5 Screw Hole Cluster Sterile - [id number] Start: 04-17-2019 Head V40 Lfit 28 mm -4mm Offset Taper Cocr Femoral Primary Hip - [id number] Start: 04-17-2019 Stem Accolade Ii 5 132d Femoral - [id number] Start: 04-17-2019 USE WITH INSULIN PENS 5 TIMES DAILY. E11.9 [id number] Start: 05-15-2021 End: 01-14-2023 Comment on above: USE WITH INSULIN PEN S 5 TIMES DAILY. E11.9 Functional Status Date Assessment Result Facility 10-07-2023 Functional Status N[facility]A [facility]23 Functional Status N/A [facility] 02-12-2022 Functional Status N/A [facility] 09-16-2021 Functional Status N/A [facility] Clinical Notes 07-14-2021 to 10-07-2023 Telephone Encounter - Enriqueta George RN - 09/16/2023 12:16 PM EDTTelephone Encounter - Enriqueta George RN - 09/16/2023 12:16 PM Keke Shields APRN.DANIEL - 07/15/2023 5:00 PM EDTLaboratory Note Date & Type Note Facility 10-07-2023 Hospital Discharge instructions Patient Education 10/07/2023 08:47:04 Transurethral Resection of the Prostate, Care After Transurethral Resection of the Prostate, Care After The following information offers guidance on how to care for yourself after your procedure. Your health care provider may also give you more specific instructions. If you have problems or questions, contact your health care provider. What can I expect after the procedure? After the procedure, it is common to have: Mild pain in your lower abdomen. Soreness or mild discomfort in your penis or when you urinate. This is from having the catheter inserted during the procedure. A sudden urge to urinate (urgency). A need to urinate often. A small amount of blood in your urine. You may notice some small blood clots in your urine. These are normal. Follow these instructions at home: Medicines Take abox-fgd-yojzgei and prescription medicines only as told by your health care provider. If you were prescribed an antibiotic medicine, take it as told by your health care provider. Do not stop taking the antibiotic even if you start to feel better. Activity Rest as told by your health care provider. Avoid sitting for a long time without moving. Get up to take short walks every 1 2 hours. This is important to improve blood flow and breathing. Ask for help if you feel weak or unsteady. You may increase your physical activity gradually as you start to feel better. Do not drive or operate machinery until your health care provider says that it is safe. Do not ride in a car for long periods of time, or as told by your health care provider. Avoid intense physical activity for as long as told by your health care provider. Do not lift anything that is heavier than 10 lb (4.5 kg), or the limit that you are told, until your health care provider says that it is safe. Do not have sex until your health care provider approves. Return to your normal activities as told by your health care provider. Ask your health care provider what activities are safe for you. Preventing constipation You may need to take these actions to prevent or treat constipation: Drink enough fluid to keep your urine pale yellow. Take cheq-xnc-zscbqjp or prescription medicines. Eat foods that are high in fiber, such as beans, whole grains, and fresh fruits and vegetables. Limit foods that are high in fat and processed sugars, such as fried or sweet foods. General instructions Do not strain when you have a bowel movement. Straining may lead to bleeding from the prostate. This may cause blood clots and trouble urinating. Do not use any products that contain nicotine or tobacco. These products include cigarettes, chewing tobacco, and vaping devices, such as e-cigarettes. If you need help quitting, ask your health care provider. If you go home with a tube draining your urine (urinary catheter), care for the catheter as told by your health care provider. Wear compression stockings as told by your health care provider. These stockings help to prevent blood clots and reduce swelling in your legs. Keep all follow-up visits. This is important. Contact a health care provider if: You have signs of infection, such as: ?Fever or chills. ?Urine that smells very bad. ?Swelling around your urethra that is getting worse. ?Swelling in your penis or testicles. You have difficulty urinating. You have pain that gets worse or does not improve with medicine. You have blood in your urine that does not go away after 1 week of resting and drinking more fluids. You have trouble having a bowel movement. You have trouble having or keeping an erection. No semen comes out during orgasm (dry ejaculation). You have a urinary catheter in place, and you have: ?Spasms or pain. ?Problems with your catheter or your catheter is blocked. Get help right away if: You are unable to urinate. You are having more blood clots in your urine instead of fewer. You have: ?Large blood clots. ?A lot of blood in your urine. ?Pain in your back or lower abdomen. You have difficulty breathing or shortness of breath. You develop swelling or pain in your leg. These symptoms may be an emergency. Get help right away. Call 911. Do not wait to see if the symptoms will go away. Do not drive yourself to the hospital. Summary After the procedure, it is common to have a small amount of blood in your urine. Follow restrictions about lifting and sexual activity as told by your health care provider. Ask what activities are safe for you. Keep all follow-up visits. This is important. This information is not intended to replace advice given to you by your health care provider. Make sure you discuss any questions you have with your health care provider. Document Revised: 11/18/2021 Document Reviewed: 11/18/2021 [employer] Patient Education 2022 [email or web address]. 10/07/2023 08:47:03 Transurethral Resection of the Prostate Transurethral Resection of the Prostate Transurethral resection of the prostate (TURP) is the removal, or resection, of part of the prostate tissue. This procedure is done to treat an enlarged prostate gland (benign prostatic hyperplasia). The goal of TURP is to remove enough prostate tissue to allow for a normal flow of urine. The procedure will allow you to empty your bladder more completely when you urinate so that you can urinate less often. In a transurethral resection, a thin telescope with a light, a camera, and an electric cutting edge (resectoscope) is passed through the urethra and into the prostate. The opening of the urethra is at the end of the penis. Tell a health care provider about: Any allergies you have. All medicines you are taking, including vitamins, herbs, eye drops, creams, and drbb-nja-wjnjpac medicines. Any problems you or family members have had with anesthetic medicines. Any bleeding problems you have. Any surgeries you have had. Any medical conditions you have. Any prostate infections you have had. What are the risks? Generally, this is a safe procedure. However, problems may occur, including: Infection. Bleeding. Allergic reactions to medicines. Blood in the urine (hematuria). Damage to nearby structures or organs. Other problems may occur, but they are rare. They include: Dry ejaculation, or having no semen come out during orgasm. Erectile dysfunction, or being unable to have or keep an erection. Scarring that leads to narrowing of the urethra. This narrowing may block the flow of urine. Inability to control when you urinate (incontinence). Deep vein thrombosis. This is a blood clot that can develop in your leg. TURP syndrome. This can happen when you lose too much sodium during or after the procedure. Some signs and symptoms of this condition include: ?Weakness. ?Headaches. ?Nausea or vomiting. ?Muscle cramping. What happens before the procedure? When to stop eating and drinking Follow instructions from your health care provider about what you may eat and drink before your procedure. These may include: 8 hours before your procedure ?Stop eating most foods. Do not eat meat, fried foods, or fatty foods. ?Eat only light foods, such as toast or crackers. ?All liquids are okay except energy drinks and alcohol. 6 hours before your procedure ?Stop eating. ?Drink only clear liquids, such as water, clear fruit juice, black coffee, plain tea, and sports drinks. ?Do not drink energy drinks or alcohol. 2 hours before your procedure ?Stop drinking all liquids. ?You may be allowed to take medicines with small sips of water. If you do not follow your health care provider's instructions, your procedure may be delayed or canceled. Medicines Ask your health care provider about: Changing or stopping your regular medicines. This is especially important if you are taking diabetes medicines or blood thinners. Taking medicines such as aspirin and ibuprofen. These medicines can thin your blood. Do not take these medicines unless your health care provider tells you to take them. Taking vkrl-loi-umblsxh medicines, vitamins, herbs, and supplements. Surgery safety Ask your health care provider what steps will be taken to help prevent infection. These steps may include: Removing hair at the surgery site. Washing skin with a germ-killing soap. Taking antibiotic medicine. General instructions Do not use any products that contain nicotine or tobacco for at least 4 weeks before the procedure. These products include cigarettes, chewing tobacco, and vaping devices, such as e-cigarettes. If you need help quitting, ask your health care provider. If you will be going home right after the procedure, plan to have a responsible adult: ?Take you home from the hospital or clinic. You will not be allowed to drive. ?Care for you for the time you are told. What happens during the procedure? An IV will be inserted into one of your veins. You will be given one or more of the following: ?A medicine to help you relax (sedative). ?A medicine to make you fall asleep (general anesthetic). ?A medicine that is injected into your spine to numb the area below and slightly above the injection site (spinal anesthetic). Your legs will be placed in foot rests (stirrups) so that your legs are apart and your knees are bent. The resectoscope will be passed through your urethra to your prostate. Parts of your prostate will be resected using the cutting edge of the resectoscope. Fluid will be passed to rinse out the cut tissues (irrigation). The resectoscope will be removed. A small, thin tube (catheter) will be passed through your urethra and into your bladder. The catheter will drain urine into a bag outside of your body. The procedure may vary among health care providers and hospitals. What happens after the procedure? Your blood pressure, heart rate, breathing rate, and blood oxygen level will be monitored until you leave the hospital or clinic. You will be given fluids through the IV. The IV will be removed when you start eating and drinking normally. You may have some pain. Pain medicine will be available to help you. You will have a catheter draining your urine. ?You may have blood in your urine. Your catheter may be kept in until your urine is clear. ?Your urinary drainage will be monitored. If necessary, your bladder may be rinsed out (irrigated) through your catheter. You will be encouraged to walk around as soon as possible. You may have to wear compression stockings. These stockings help to prevent blood clots and reduce swelling in your legs. If you were given a sedative during the procedure, it can affect you for several hours. Do not drive or operate machinery until your health care provider says that it is safe. Summary Transurethral resection of the prostate (TURP) is the removal (resection) of part of the prostate tissue. The goal of this procedure is to remove enough prostate tissue to allow for a normal flow of urine. Follow instructions from your health care provider about taking medicines and about eating and drinking before the procedure. This information is not intended to replace advice given to you by your health care provider. Make sure you discuss any questions you have with your health care provider. Document Revised: 11/18/2021 Document Reviewed: 11/18/2021 [employer] Patient Education 2022 [email or web address]. 10/07/2023 08:46:59 Prostate Cancer Screening Prostate Cancer Screening Prostate cancer screening is testing that is done to check for the presence of prostate cancer in men. The prostate gland is a walnut-sized gland that is located below the bladder and in front of the rectum in males. The function of the prostate is to add fluid to semen during ejaculation. Prostate cancer is one of the most common types of cancer in men. Who should have prostate cancer screening? Screening recommendations vary based on age and other risk factors, as well as between the professional organizations who make the recommendations. In general, screening is recommended if: You are age 50 to 70 and have an average risk for prostate cancer. You should talk with your health care provider about your need for screening and how often screening should be done. Because most prostate cancers are slow growing and will not cause , screening in this age group is generally reserved for men who have a 10- to 15-year life expectancy. You are younger than age 50, and you have these risk factors: ?Having a father, brother, or uncle who has been diagnosed with prostate cancer. The risk is higher if your family member's cancer occurred at an early age or if you have multiple family members with prostate cancer at an early age. ?Being a male who is Black or is of [place] or sub-Saharan descent. In general, screening is not recommended if: You are younger than age 40. You are between the ages of 40 and 49 and you have no risk factors. You are 70 years of age or older. At this age, the risks that screening can cause are greater than the benefits that it may provide. If you are at high risk for prostate cancer, your health care provider may recommend that you have screenings more often or that you start screening at a younger age. How is screening for prostate cancer done? The recommended prostate cancer screening test is a blood test called the prostate-specific antigen (PSA) test. PSA is a protein that is made in the prostate. As you age, your prostate naturally produces more PSA. Abnormally high PSA levels may be caused by: Prostate cancer. An enlarged prostate that is not caused by cancer (benign prostatic hyperplasia, or BPH). This condition is very common in older men. A prostate gland infection (prostatitis) or urinary tract infection. Certain medicines such as male hormones (like testosterone) or other medicines that raise testosterone levels. A rectal exam may be done as part of prostate cancer screening to help provide information about the size of your prostate gland. When a rectal exam is performed, it should be done after the PSA level is drawn to avoid any effect on the results. Depending on the PSA results, you may need more tests, such as: A physical exam to check the size of your prostate gland, if not done as part of screening. Blood and imaging tests. A procedure to remove tissue samples from your prostate gland for testing (biopsy). This is the only way to know for certain if you have prostate cancer. What are the benefits of prostate cancer screening? Screening can help to identify cancer at an early stage, before symptoms start and when the cancer can be treated more easily. There is a small chance that screening may lower your risk of dying from prostate cancer. The chance is small because prostate cancer is a slow-growing cancer, and most men with prostate cancer from a different cause. What are the risks of prostate cancer screening? The main risk of prostate cancer screening is diagnosing and treating prostate cancer that would never have caused any symptoms or problems. This is called overdiagnosisand overtreatment. PSA screening cannot tell you if your PSA is high due to cancer or a different cause. A prostate biopsy is the only procedure to diagnose prostate cancer. Even the results of a biopsy may not tell you if your cancer needs to be treated. Slow-growing prostate cancer may not need any treatment other than monitoring, so diagnosing and treating it may cause unnecessary stress or other side effects. Questions to ask your health care provider When should I start prostate cancer screening? What is my risk for prostate cancer? How often do I need screening? What type of screening tests do I need? How do I get my test results? What do my results mean? Do I need treatment? Where to find more information The [place] [employer]: www.cancer.org [place] [employer]: www.auanet.org Contact a health care provider if: You have difficulty urinating. You have pain when you urinate or ejaculate. You have blood in your urine or semen. You have pain in your back or in the area of your prostate. Summary Prostate cancer is a common type of cancer in men. The prostate gland is located below the bladder and in front of the rectum. This gland adds fluid to semen during ejaculation. Prostate cancer screening may identify cancer at an early stage, when the cancer can be treated more easily and is less likely to have spread to other areas of the body. The prostate-specific antigen (PSA) test is the recommended screening test for prostate cancer, but it has associated risks. Discuss the risks and benefits of prostate cancer screening with your health care provider. If you are age 70 or older, the risks that screening can cause are greater than the benefits that it may provide. This information is not intended to replace advice given to you by your health care provider. Make sure you discuss any questions you have with your health care provider. Document Revised: 08/18/2021 Document Reviewed: 08/18/2021 [employer] Patient Education 2022 [id number]. Follow Up Care 04/08/2023 12:34:53 With:Jos AGUILERA, Sabrina Vazquez URAneta, URO Address: When: Unknown Comments:Sched MRI & TRUS Bx [facility] 10-07-2023 Note Patient Education Oncology Prostate Cancer Screening Prostate cancer screening is testing that is done to check for the presence of prostate cancer in men. The prostate gland is a walnut-sized gland that is located below the bladder and in front of the rectum in males. The function of the prostate is to add fluid to semen during ejaculation. Prostate cancer is one of the most common types of cancer in men. Who should have prostate cancer screening? Screening recommendations vary based on age and other risk factors, as well as between the professional organizations who make the recommendations. In general, screening is recommended if: ? You are age 50 to 70 and have an average risk for prostate cancer. You should talk with your health care provider about your need for screening and how often screening should be done. Because most prostate cancers are slow growing and will not cause , screening in this age group is generally reserved for men who have a 10- to 15-year life expectancy. ? You are younger than age 50, and you have these risk factors: ? Having a father, brother, or uncle who has been diagnosed with prostate cancer. The risk is higher if your family member's cancer occurred at an early age or if you have multiple family members with prostate cancer at an early age. ? Being a male who is Black or is of [place] or sub-Saharan descent. In general, screening is not recommended if: ? You are younger than age 40. ? You are between the ages of 40 and 49 and you have no risk factors. ? You are 70 years of age or older. At this age, the risks that screening can cause are greater than the benefits that it may provide. If you are at high risk for prostate cancer, your health care provider may recommend that you have screenings more often or that you start screening at a younger age. How is screening for prostate cancer done? The recommended prostate cancer screening test is a blood test called the prostate-specific antigen (PSA) test. PSA is a protein that is made in the prostate. As you age, your prostate naturally produces more PSA. Abnormally high PSA levels may be caused by: ? Prostate cancer. ? An enlarged prostate that is not caused by cancer (benign prostatic hyperplasia, or BPH). This condition is very common in older men. ? A prostate gland infection (prostatitis) or urinary tract infection. ? Certain medicines such as male hormones (like testosterone) or other medicines that raise testosterone levels. A rectal exam may be done as part of prostate cancer screening to help provide information about the size of your prostate gland. When a rectal exam is performed, it should be done after the PSA level is drawn to avoid any effect on the results. Depending on the PSA results, you may need more tests, such as: ? A physical exam to check the size of your prostate gland, if not done as part of screening. ? Blood and imaging tests. ? A procedure to remove tissue samples from your prostate gland for testing (biopsy). This is the only way to know for certain if you have prostate cancer. What are the benefits of prostate cancer screening? ? Screening can help to identify cancer at an early stage, before symptoms start and when the cancer can be treated more easily. ? There is a small chance that screening may lower your risk of dying from prostate cancer. The chance is small because prostate cancer is a slow-growing cancer, and most men with prostate cancer from a different cause. What are the risks of prostate cancer screening? The main risk of prostate cancer screening is diagnosing and treating prostate cancer that would never have caused any symptoms or problems. This is called overdiagnosisand overtreatment. PSA screening cannot tell you if your PSA is high due to cancer or a different cause. A prostate biopsy is the only procedure to diagnose prostate cancer. Even the results of a biopsy may not tell you if your cancer needs to be treated. Slow-growing prostate cancer may not need any treatment other than monitoring, so diagnosing and treating it may cause unnecessary stress or other side effects. Questions to ask your health care provider ? When should I start prostate cancer screening? ? What is my risk for prostate cancer? ? How often do I need screening? ? What type of screening tests do I need? ? How do I get my test results? ? What do my results mean? ? Do I need treatment? Where to find more information ? The [place] [employer]: www.cancer.org ? [place] [employer]: www.auanet.org Contact a health care provider if: ? You have difficulty urinating. ? You have pain when you urinate or ejaculate. ? You have blood in your urine or semen. ? You have pain in your back or in the area of your prostate. Summary ? Prostate cancer is a common type of cancer in men. The prostate gland is located below the bladder and in front of the rectum. (more content not included)... [place] 09-16-2023 Telephone encounter Note Requester: Pharmacy Patients last Endocrinology visit occurred 07/15/2023. Follow-up evaluation has been established none. Upcoming Endocrinology Appointments - Next 365 Days No appointments to display . Requested Prescriptions Pending Prescriptions Disp Refills insulin detemir U-100 (LEVEMIR FLEXPEN) 100 unit/mL (3 mL) injection pen [Pharmacy Med Name: LEVEMIR FLEXPEN INJECTION 3ML] 120 mL 3 Sig: INJECT 62 UNITS SUB-Q DAILY IN THE MORNING AND INJECT 60 UNITS IN THE EVENING If patient is due for an appointment please route to provider for refill consideration and also to the endo scheduling pool. PSS NOTE: Patient needs scheduled appointment Yes, with Keke Hernandez CNP for follow up for Type 2 diabetes. [facility] 09-16-2023 Miscellaneous Notes Requester: Pharmacy Patients last Endocrinology visit occurred 07/15/2023. Follow-up evaluation has been established none. Upcoming Endocrinology Appointments - Next 365 Days No appointments to display . Requested Prescriptions Pending Prescriptions Disp Refills insulin detemir U-100 (LEVEMIR FLEXPEN) 100 unit/mL (3 mL) injection pen [Pharmacy Med Name: LEVEMIR FLEXPEN INJECTION 3ML] 120 mL 3 Sig: INJECT 62 UNITS SUB-Q DAILY IN THE MORNING AND INJECT 60 UNITS IN THE EVENING If patient is due for an appointment please route to provider for refill consideration and also to the endo scheduling pool. PSS NOTE: Patient needs scheduled appointment Yes, with Keke Hernandez CNP for follow up for Type 2 diabetes. documented in this encounter [facility] 07-28-2023 Telephone encounter Note Patient's request for medication is as follows Requested Prescriptions Signed Prescriptions Disp Refills Blood-Glucose Meter,Continuous (FREESTYLE MAKAYLA 3 READER) misc 1 Each 0 Sig: Dispense one reader kit. E11.9, multiple insulin injections. Blood-Glucose Sensor (FREESTYLE MAKAYLA 3 SENSOR) santino 6 Each 3 Sig: Change sensor every 14 days. USE FOR CONTINUOUS GLUCOSE MONITORING. Multiple insulin injections. E11.9 Order entered - please phone pharmacy and notify patient. Keke Hernandez APRN.CNP [facility] 07-28-2023 Miscellaneous Notes Patient's request for medication is as follows Requested Prescriptions Signed Prescriptions Disp Refills Blood-Glucose Meter,Continuous (FREESTYLE MAKAYLA 3 READER) misc 1 Each 0 Sig: Dispense one reader kit. E11.9, multiple insulin injections. Blood-Glucose Sensor (FREESTYLE MAKAYLA 3 SENSOR) santino 6 Each 3 Sig: Change sensor every 14 days. USE FOR CONTINUOUS GLUCOSE MONITORING. Multiple insulin injections. E11.9 Order entered - please phone pharmacy and notify patient. Keke Hernandez APRN.CNP documented in this encounter [facility] 07-15-2023 Note HNO ID: [id number] Author: KEKE HERNANDEZ APRN.CHIEF CATALYST OPERATOR Service: ? Author Type: Nurse Practitioner Type: Progress Notes Filed: 07/15/2023 17:28 Note Text: VIRTUAL VISIT PROGRESS NOTE This is a virtual visit using [employer] Zoom Video Visit. It required patient-provider interaction for the medical decision making as documented below. I have communicated my name and active licensure. The patient's identity and physical location were verified at the time of this visit. Either the patient or their legal customer success representative has been informed of the risks and benefits of -- and alternatives to -- treatment through a remote evaluation and consents to proceed with the evaluation remotely. DALTON Martinez is a 72 year old male who presents today for blood sugar review, insulin dosing adjust HPI: Diagnosed with diabetes mellitus type II, uncontrolled ~ 2006 Last endocrine OV 01/14/2023 Some elements copied from my note 01/14/2023 which have been updated where appropriate, and all reflect current medical decision making from date of this visit. HPI 01/14/2023 Sts his blood sugars have been variable Noticed 7-9 pm tends to run high 1030-11 am occ low Eats same foods pretty much all the time Walks every day in the morning after waking up Then will eat breakfast Breakfast is 2 slices toast with milk poured and OJ Lunch leftovers from dinner OR lunch meat sandwich 1 piece of bread and 1/2 coke (regular) Dinner: 1/2 regular coke, cheese burgers w airfried lithuanian fries, noodles/potatoes and fruit OR dessert, Or will eat out occ Snacks bowl of ice cream at night HPI 07/15/2023 CURRENT DM MEDS LEVEMIR 62-0-0-64 (pt using 64 BID) HUMALOG 6-(8-10)-18 and 4 units with evening bowl of ice cream 8-12-(14-15) - 4-5 CURRENT THYROID SYNTHROID 75 mcg 1 tab daily SMBG Type of Monitor: Other FREESTYLE MAKAYLA 2 Hypoglycemia: Rare if overcompensates Diet: No specific diet regimen - more veggies, no processed/fried foods Exercise: walking 1 mile to 1-1/2 miles daily DM REVIEW OF SYSTEMS Last Eye Exam : 02/2023 (outside provider) Last Podiatry Exam: Date: 2020 Cardiorespiratory: negative, denies chest pain, pressure Claudication: no Dyslipidemia: Yes, controlled on medication High Blood Pressure: Yes, controlled on medication CURRENT LABS Latest Ref Rng 11/06/2022 07/09/2023 Glucose 74 - 99 mg/dL 125 (H) BUN 9 - 24 mg/dL 24 Creatinine 0.73 - 1.22 mg/dL 0.98 Sodium 136 - 144 mmol/L 145 (H) Potassium 3.7 - 5.1 mmol/L 4.4 Chloride 97 - 105 mmol/L 106 (H) CO2 22 - 30 mmol/L 29 Anion Gap 9 - 18 mmol/L 10 eGFR >=60 mL/min/1.73m? 81 Total Cholesterol, Nonfasting <200 mg/dL 103 Triglycerides, Nonfasting <150 mg/dL 146 HDL Cholesterol, Nonfasting >39 mg/dL 29 (L) LDL Cholesterol, Nonfasting <100 mg/dL 45 Non HDL Cholesterol, Nonfasting <130 mg/dL 74 VLDL Cholesterol, Nonfasting <30 mg/dL 29 Total Chol/HDL Ratio, Nonfasting <5.10 mg/dL 3.55 LDL/HDL Ratio, Nonfasting <2.54 mg/dL 1.55 Creatinine, Ur Random (UCRR) 20.0 - 300.0 mg/dL 164.0 Albumin, Urine Random mg/L <12.0 Albumin/Creat Ratio <30 mg/g <7 Hemoglobin A1C 4.3 - 5.6 % 7.4 (H) 7.6 (H) Estimated Average Glucose mg/dL 166 171 TSH 0.270 - 4.200 mIU/L 1.790 Free T4 0.9 - 1.7 ng/dL 1.1 Legend: (H) High (L) Low Component Latest Ref Rng AND Units 05/12/2022 11/06/2022 Glucose 74 - 99 mg/dL 242 (H) BUN 9 - 24 mg/dL 24 Creatinine 0.73 - 1.22 mg/dL 0.95 Sodium 136 - 144 mmol/L 138 Potassium 3.7 - 5.1 mmol/L 4.5 Chloride 97 - 105 mmol/L 99 CO2 22 - 30 mmol/L 29 Anion Gap 9 - 18 mmol/L 10 eGFR >=60 mL/min/1.73mA? 84 Total Cholesterol, Nonfasting <200 mg/dL 101 Triglycerides, Nonfasting <150 mg/dL 72 HDL Cholesterol, Nonfasting >39 mg/dL 33 (L) LDL Cholesterol, Nonfasting <100 mg/dL 54 Non HDL Cholesterol, Nonfasting <130 mg/dL 68 VLDL Cholesterol, Nonfasting <30 mg/dL 14 Total Chol/HDL Ratio, Nonfasting <5.10 mg/dL 3.06 LDL/HDL Ratio, Nonfasting <2.54 mg/dL 1.64 Creatinine, Ur Random (UCRR) 20.0 - 300.0 mg/dL 172.3 Albumin, Urine Random mg/L <12.0 Albumin/Creat Ratio <30 mg/g <7 Hemoglobin A1C 4.3 - 5.6 % 7.6 (H) 7.4 (H) Estimated Average Glucose mg/dL 171 166 TSH 0.270 - 4.200 mIU/L 2.230 1.500 Free T4 0.9 - 1.7 ng/dL 1.1 1.3 PAST MEDICAL HISTORY Diagnosis Date CAD (coronary artery disease) Dr. Checo BEAVERS DM (diabetes mellitus) (HCC) Nocturia frequent urination OA (osteoarthritis) Rt hip Sleep disorder Spinal stenosis Multiple levels PAST SURGICAL HISTORY Procedure Laterality Date ANGIOPLASTY PAST SURGICAL HISTORY OF 1953 tonsil FAMILY HISTORY Problem Relation Age of Onset other (lymphoma) Father Social History Tobacco Use Smoking status: Never Smokeless tobacco: Never Vaping Use Vaping Use: Never used Substance Use Topics Alcohol use: Yes Alcohol/week: 2.6 standard drinks of alcohol Types: 2 Mixed Drinks per week Comment: 2/week Current Outpat (more content not included)... [facility] 07-15-2023 Note HNO ID: [id number] Author: VEENA MOON MA Service: ? Author Type: Unloader Type: Progress Notes Filed: 07/15/2023 17:28 Note Text: Veena Moon MA [facility] 07-15-2023 History of Present illness Narrative Images from the original note were not included. VIRTUAL VISIT PROGRESS NOTE This is a virtual visit using [employer] Video Visit. It required patient-provider interaction for the medical decision making as documented below. I have communicated my name and active licensure. The patient's identity and physical location were verified at the time of this visit. Either the patient or their legal customer success representative has been informed of the risks and benefits of -- and alternatives to -- treatment through a remote evaluation and consents to proceed with the evaluation remotely. DALTON Martinez is a 72 year old male who presents today for blood sugar review, insulin dosing adjust HPI: Diagnosed with diabetes mellitus type II, uncontrolled ~ 2006 Last endocrine OV 01/14/2023 Some elements copied from my note 01/14/2023 which have been updated where appropriate, and all reflect current medical decision making from date of this visit. HPI 01/14/2023 Sts his blood sugars have been variable Noticed 7-9 pm tends to run high 1030-11 am occ low Eats same foods pretty much all the time Walks every day in the morning after waking up Then will eat breakfast Breakfast is 2 slices toast with milk poured and OJ Lunch leftovers from dinner OR lunch meat sandwich 1 piece of bread and 1/2 coke (regular) Dinner: 1/2 regular coke, cheese burgers w airfried lithuanian fries, noodles/potatoes and fruit OR dessert, Or will eat out occ Snacks bowl of ice cream at night HPI 07/15/2023 CURRENT DM MEDS LEVEMIR 62-0-0-64 (pt using 64 BID) HUMALOG 6-(8-10)-18 and 4 units with evening bowl of ice cream 8-12-(14-15) - 4-5 CURRENT THYROID SYNTHROID 75 mcg 1 tab daily SMBG Type of Monitor: Other FREESTYLE MAKAYLA 2 Hypoglycemia: Rare if overcompensates Diet: No specific diet regimen - more veggies, no processed/fried foods Exercise: walking 1 mile to 1-1/2 miles daily DM REVIEW OF SYSTEMS Last Eye Exam : 02/2023 (outside provider) Last Podiatry Exam: Date: 2020 Cardiorespiratory: negative, denies chest pain, pressure Claudication: no Dyslipidemia: Yes, controlled on medication High Blood Pressure: Yes, controlled on medication CURRENT LABS Latest Ref Rng 11/06/2022 07/09/2023 Glucose 74 - 99 mg/dL 125 (H) BUN 9 - 24 mg/dL 24 Creatinine 0.73 - 1.22 mg/dL 0.98 Sodium 136 - 144 mmol/L 145 (H) Potassium 3.7 - 5.1 mmol/L 4.4 Chloride 97 - 105 mmol/L 106 (H) CO2 22 - 30 mmol/L 29 Anion Gap 9 - 18 mmol/L 10 eGFR >=60 mL/min/1.73m 81 Total Cholesterol, Nonfasting <200 mg/dL 103 Triglycerides, Nonfasting <150 mg/dL 146 HDL Cholesterol, Nonfasting >39 mg/dL 29 (L) LDL Cholesterol, Nonfasting <100 mg/dL 45 Non HDL Cholesterol, Nonfasting <130 mg/dL 74 VLDL Cholesterol, Nonfasting <30 mg/dL 29 Total Chol/HDL Ratio, Nonfasting <5.10 mg/dL 3.55 LDL/HDL Ratio, Nonfasting <2.54 mg/dL 1.55 Creatinine, Ur Random (UCRR) 20.0 - 300.0 mg/dL 164.0 Albumin, Urine Random mg/L <12.0 Albumin/Creat Ratio <30 mg/g <7 Hemoglobin A1C 4.3 - 5.6 % 7.4 (H) 7.6 (H) Estimated Average Glucose mg/dL 166 171 TSH 0.270 - 4.200 mIU/L 1.790 Free T4 0.9 - 1.7 ng/dL 1.1 Legend: (H) High (L) Low Component Latest Ref Rng & Units 05/12/2022 11/06/2022 Glucose 74 - 99 mg/dL 242 (H) BUN 9 - 24 mg/dL 24 Creatinine 0.73 - 1.22 mg/dL 0.95 Sodium 136 - 144 mmol/L 138 Potassium 3.7 - 5.1 mmol/L 4.5 Chloride 97 - 105 mmol/L 99 CO2 22 - 30 mmol/L 29 Anion Gap 9 - 18 mmol/L 10 eGFR >=60 mL/min/1.73m 84 Total Cholesterol, Nonfasting <200 mg/dL 101 Triglycerides, Nonfasting <150 mg/dL 72 HDL Cholesterol, Nonfasting >39 mg/dL 33 (L) LDL Cholesterol, Nonfasting <100 mg/dL 54 Non HDL Cholesterol, Nonfasting <130 mg/dL 68 VLDL Cholesterol, Nonfasting <30 mg/dL 14 Total Chol/HDL Ratio, Nonfasting <5.10 mg/dL 3.06 LDL/HDL Ratio, Nonfasting <2.54 mg/dL 1.64 Creatinine, Ur Random (UCRR) 20.0 - 300.0 mg/dL 172.3 Albumin, Urine Random mg/L <12.0 Albumin/Creat Ratio <30 mg/g <7 Hemoglobin A1C 4.3 - 5.6 % 7.6 (H) 7.4 (H) Estimated Average Glucose mg/dL 171 166 TSH 0.270 - 4.200 mIU/L 2.230 1.500 Free T4 0.9 - 1.7 ng/dL 1.1 1.3 PAST MEDICAL HISTORY Diagnosis Date CAD (coronary artery disease) Dr. Checo [facility]ERS DM (diabetes mellitus) ([facility]) Nocturia frequent urination OA (osteoarthritis) Rt hip Sleep disorder Spinal stenosis Multiple levels PAST SURGICAL HISTORY Procedure Laterality Date ANGIOPLASTY PAST SURGICAL HISTORY OF 89 tonsil FAMILY HISTORY Problem Relation Age of Onset other (lymphoma) Father Social History Tobacco Use Smoking status: Never Smokeless tobacco: Never Vaping Use Vaping Use: Never used Substance Use Topics Alcohol use: Yes Alcohol/week: 2.6 standard drinks of alcohol Types: 2 Mixed Drinks per week Comment: 2/week Current Outpatient Medications Medication Sig levothyroxine (SYNTHROID) 75 mcg tablet take 1 tablet by mouth daily insulin aspart U-100 (NOVOLOG FLEXPEN U-100 INSULIN) 100 unit/mL (3 mL) Inject 6 units breakfast, 8-10 with lunch 18 with dinner and (4 units with nightly bowl of ice cream) insulin detemir U-100 (LEVEMIR FLEXTOUCH U-100 INSULIN) 100 unit/mL (3 mL) injection pen inject 62 units SUBCUTANEOUSLY IN THE MORNING and 64 IN THE EVENING flash glucose sensor (FREESTYLE MAKAYLA 2 SENSOR) kit Change sensor every 14 days. USE FOR CONTINUOUS GLUCOSE MONITORING. Multiple insulin injections. E11.9 Insulin [place], Disposable, (BD ULTRAFINE III MINI PEN) 31 gauge x 3/16 USE WITH INSULIN PENS 5 TIMES DAILY. E11.9 acetaminophen (TYLENOL) 500 mg tablet Take 2 tablets by mouth every 8 hours. aspirin, enteric coated (ASPIRIN, ENTERIC COATED) 325 mg EC tablet TAKE 1 TABLET BY MOUTH TWICE DAILY. vit A/vit C/bioflav/Zn/Herb25 (ECHINACEA ACZ ORAL) Take by mouth. lisinopril-hydrochlorothiazide (PRINZIDE,ZESTORETIC) 20-12.5 mg per tablet Take 1 tablet by mouth once daily. Takes 1 tablet twice a day magnesium oxide 400 mg magnesium cap Take 1 capsule by mouth twice daily. multivit-min/ferrous fumarate (MULTI VITAMIN ORAL) Take by mouth once daily. metoprolol tartrate, short acting, (LOPRESSOR) 50 mg tablet Take by mouth twice daily. cholecalciferol (VITAMIN D-3) 5,000 unit tab Take by mouth once daily. atorvastatin (LIPITOR) 20 mg tablet Take 20 mg by mouth once daily. montelukast (SINGULAIR) 10 mg tablet Take 10 mg by mouth daily at bedtime. nitroglycerin sublingual (NITROQUICK) 0.4 mg SL tablet Dissolve 0.4 mg under the tongue as needed. traZODone (DESYREL) 50 mg tablet Take by mouth daily at bedtime. ibuprofen (ADVIL) 200 mg tablet Take 200 mg by mouth as needed. Take 1-2 tabs 1-2x daily as needed amLODIPine (NORVASC) 5 mg tablet Take 5 mg by mouth twice daily. No current facility-administered medications for this visit. ALLERGIES No Known Allergies REVIEW OF SYSTEMS - POSITIVES IN BOLD GENERAL:No weight loss, malaise or fevers HEENT:Negative for frequent or significant headaches, No changes in hearing or vision, no nose bleeds or other nasal problems NECK:Negative for lumps, goiter, pain and significant neck swelling RESPIRATORY: Negative for cough, hemoptysis, wheezing, COPD, dyspnea or shortness of breath CARDIOVASCULAR: Negative for chest pain, leg swelling, hypertension, CHF or palpitations VIDEO EXAM: (if completed, performed via video enabled technology) GENERAL: alert and appropriate, in no distress and well-hydrated, well nourished SKIN: no rash noted HEAD: normocephalic, no abnormality or lesion noted EYES: PERRL NECK: full ROM, no cervical LNs noted EXTREMITIES: not assessed NEUROLOGIC: no obvious deficit ASSESSMENT: (E11.9, Z79.4) Controlled type 2 diabetes mellitus without complication, with long-term current use of insulin (HCC) (primary encounter diagnosis) Comment: CGM downloaded and reviewed for VV Recommendations per review as follows: Basal to 62, morning 60 in the evening Inject 10 units with BF, 12 units with lunch, 18 units with dinner, (4-5) icecream at night RECOMMEND UPGRADE TO [employer] MAKAYLA 3 reader Discussed elevated AST/ALT and ALK PHOS levels, patient will notify his PCP of his lab results and follow up with him for further assessment for liver. Recommended diet: Low carbohydrate and Low saturated fat, low simple sugar, high fiber diet Exercise minimally 150 minutes per week, increase as tolerated. Adequate hydration - 1/2 body wgt in oz of water daily, unless fluid restriction applies. I instructed the patient to monitor blood sugars 4 times per day If blood sugars are persistently high or low, to call our office. Patient to continue to follow up with his PCP and with other consultants regarding his other medical problems. Plan: COMP METABOLIC PANEL, LIPID PANEL, NONFASTING, ALBUMIN/CREAT RATIO RND UR, HGB A1C, TSH BLD, T4 FREE/FREE THYROX (E03.9) Hypothyroidism, unspecified type Comment: well supplemented per current, no changes Plan: TSH BLD, T4 FREE/FREE THYROX Keke Hernandez CNP Answers submitted by the patient for this visit: Core Review of Systems (Submitted on 07/11/2023) Fever : No Night sweats: No Recent unintentional weight change: No Nasal Congestion: No Hearing Loss: No Vision Disturbance: No A cough: No Difficulty Breathing?: No Chest pain: No Irregular heartbeat: No Leg Swelling: No Nausea: No Diarrhea: No Black tarry stools: No Difficulty Urinating?: No Awaken at Night More Than Once to Urinate?: No Joint pain or stiffness: No Muscle aches: No Leg or Foot Discomfort at Night?: No A rash: No Dizziness: No Headaches: No Memory Loss: No Seizures: No Images from the original note were not included. Veena Moon MA documented in this encounter [facility] 06-08-2023 Miscellaneous Notes Requester: Patient Patients last Endocrinology visit occurred 01/14/2023. Follow-up evaluation has been established Upcoming Endocrinology Appointments - Next 365 Days No appointments to display . Requested Prescriptions Pending Prescriptions Disp Refills levothyroxine (SYNTHROID) 75 mcg tablet 30 tablet 5 Sig: Take 1 tablet by mouth once daily. If patient is due for an appointment please route to provider for refill consideration and also to the endo scheduling pool. PSS NOTE: Patient needs scheduled appointment No Veena Moon MA documented in this encounter [facility] 04-08-2023 Hospital Discharge instructions Patient Education 04/08/2023 12:28:45 Prostate Cancer Screening Prostate Cancer Screening Prostate cancer screening is testing that is done to check for the presence of prostate cancer in men. The prostate gland is a walnut-sized gland that is located below the bladder and in front of the rectum in males. The function of the prostate is to add fluid to semen during ejaculation. Prostate cancer is one of the most common types of cancer in men. Who should have prostate cancer screening? Screening recommendations vary based on age and other risk factors, as well as between the professional organizations who make the recommendations. In general, screening is recommended if: You are age 50 to 70 and have an average risk for prostate cancer. You should talk with your health care provider about your need for screening and how often screening should be done. Because most prostate cancers are slow growing and will not cause , screening in this age group is generally reserved for men who have a 10- to 15-year life expectancy. You are younger than age 50, and you have these risk factors: ?Having a father, brother, or uncle who has been diagnosed with prostate cancer. The risk is higher if your family member's cancer occurred at an early age or if you have multiple family members with prostate cancer at an early age. ?Being a male who is Black or is of [place] or sub-Saharan descent. In general, screening is not recommended if: You are younger than age 40. You are between the ages of 40 and 49 and you have no risk factors. You are 70 years of age or older. At this age, the risks that screening can cause are greater than the benefits that it may provide. If you are at high risk for prostate cancer, your health care provider may recommend that you have screenings more often or that you start screening at a younger age. How is screening for prostate cancer done? The recommended prostate cancer screening test is a blood test called the prostate-specific antigen (PSA) test. PSA is a protein that is made in the prostate. As you age, your prostate naturally produces more PSA. Abnormally high PSA levels may be caused by: Prostate cancer. An enlarged prostate that is not caused by cancer (benign prostatic hyperplasia, or BPH). This condition is very common in older men. A prostate gland infection (prostatitis) or urinary tract infection. Certain medicines such as male hormones (like testosterone) or other medicines that raise testosterone levels. A rectal exam may be done as part of prostate cancer screening to help provide information about the size of your prostate gland. When a rectal exam is performed, it should be done after the PSA level is drawn to avoid any effect on the results. Depending on the PSA results, you may need more tests, such as: A physical exam to check the size of your prostate gland, if not done as part of screening. Blood and imaging tests. A procedure to remove tissue samples from your prostate gland for testing (biopsy). This is the only way to know for certain if you have prostate cancer. What are the benefits of prostate cancer screening? Screening can help to identify cancer at an early stage, before symptoms start and when the cancer can be treated more easily. There is a small chance that screening may lower your risk of dying from prostate cancer. The chance is small because prostate cancer is a slow-growing cancer, and most men with prostate cancer from a different cause. What are the risks of prostate cancer screening? The main risk of prostate cancer screening is diagnosing and treating prostate cancer that would never have caused any symptoms or problems. This is called overdiagnosisand overtreatment. PSA screening cannot tell you if your PSA is high due to cancer or a different cause. A prostate biopsy is the only procedure to diagnose prostate cancer. Even the results of a biopsy may not tell you if your cancer needs to be treated. Slow-growing prostate cancer may not need any treatment other than monitoring, so diagnosing and treating it may cause unnecessary stress or other side effects. Questions to ask your health care provider When should I start prostate cancer screening? What is my risk for prostate cancer? How often do I need screening? What type of screening tests do I need? How do I get my test results? What do my results mean? Do I need treatment? Where to find more information The [place] [employer]: www.cancer.org [place] [employer]: www.auanet.org Contact a health care provider if: You have difficulty urinating. You have pain when you urinate or ejaculate. You have blood in your urine or semen. You have pain in your back or in the area of your prostate. Summary Prostate cancer is a common type of cancer in men. The prostate gland is located below the bladder and in front of the rectum. This gland adds fluid to semen during ejaculation. Prostate cancer screening may identify cancer at an early stage, when the cancer can be treated more easily and is less likely to have spread to other areas of the body. The prostate-specific antigen (PSA) test is the recommended screening test for prostate cancer, but it has associated risks. Discuss the risks and benefits of prostate cancer screening with your health care provider. If you are age 70 or older, the risks that screening can cause are greater than the benefits that it may provide. This information is not intended to replace advice given to you by your health care provider. Make sure you discuss any questions you have with your health care provider. Document Revised: 08/18/2021 Document Reviewed: 08/18/2021 [employer] Patient Education 2022 [id number]. Follow Up Care 09/16/2021 11:06:18 With:Jos AGUILERA, IVY Lezama, URO Address: When: Unknown [facility] 01-14-2023 Note HNO ID: [id number] Author: Keke Hernandez APRN.CHIEF CATALYST OPERATOR Service: ? Author Type: Nurse Practitioner Type: Progress Notes Filed: 01/14/2023 4:49 PM Note Text: VIRTUAL VISIT PROGRESS NOTE This is a virtual visit using [employer] Video Visit. It required patient-provider interaction for the medical decision making as documented below. I have communicated my name and active licensure. The patient's identity and physical location were verified at the time of this visit. Either the patient or their legal customer success representative has been informed of the risks and benefits of -- and alternatives to -- treatment through a remote evaluation and consents to proceed with the evaluation remotely. DALTON Martinez is a 72 year old male who presents today for blood sugar review, insulin dosing adjust HPI: Diagnosed with diabetes mellitus type II, uncontrolled ~ 2006 Last endocrine OV 05/28/2022 Some elements copied from my note 05/28/2022 which have been updated where appropriate, and all reflect current medical decision making from date of this visit. HPI 01/14/2023 Sts his blood sugars have been variable Noticed 7-9 pm tends to run high 1030-11 am occ low Eats same foods pretty much all the time Walks every day in the morning after waking up Then will eat breakfast Breakfast is 2 slices toast with milk poured and OJ Lunch leftovers from dinner OR lunch meat sandwich 1 piece of bread and 1/2 coke (regular) Dinner: 1/2 regular coke, cheese burgers w airfried lithuanian fries, noodles/potatoes and fruit OR dessert, Or will eat out occ Snacks bowl of ice cream at night CURRENT DM MEDS LEVEMIR 64-0-0-66 HUMALOG 8-12-16 and 4 units with evening bowl of ice cream CURRENT THYROID SYNTHROID 50 mcg 1 tab daily SMBG Type of Monitor: Other FREESTYLE MAKAYLA 2 Hypoglycemia: Rare if overcompensates Diet: No specific diet regimen - more veggies, no processed/fried foods Exercise: walking 1 mile to 1-1/2 miles daily DM REVIEW OF SYSTEMS Last Eye Exam : 02/2022 (outside provider) Last Podiatry Exam: Date: 2020 Cardiorespiratory: negative, denies chest pain, pressure Claudication: no Dyslipidemia: Yes, controlled on medication High Blood Pressure: Yes, controlled on medication CURRENT LABS Component Latest Ref Rng AND Units 05/12/2022 11/06/2022 Glucose 74 - 99 mg/dL 242 (H) BUN 9 - 24 mg/dL 24 Creatinine 0.73 - 1.22 mg/dL 0.95 Sodium 136 - 144 mmol/L 138 Potassium 3.7 - 5.1 mmol/L 4.5 Chloride 97 - 105 mmol/L 99 CO2 22 - 30 mmol/L 29 Anion Gap 9 - 18 mmol/L 10 eGFR >=60 mL/min/1.73mA? 84 Total Cholesterol, Nonfasting <200 mg/dL 101 Triglycerides, Nonfasting <150 mg/dL 72 HDL Cholesterol, Nonfasting >39 mg/dL 33 (L) LDL Cholesterol, Nonfasting <100 mg/dL 54 Non HDL Cholesterol, Nonfasting <130 mg/dL 68 VLDL Cholesterol, Nonfasting <30 mg/dL 14 Total Chol/HDL Ratio, Nonfasting <5.10 mg/dL 3.06 LDL/HDL Ratio, Nonfasting <2.54 mg/dL 1.64 Creatinine, Ur Random (UCRR) 20.0 - 300.0 mg/dL 172.3 Albumin, Urine Random mg/L <12.0 Albumin/Creat Ratio <30 mg/g <7 Hemoglobin A1C 4.3 - 5.6 % 7.6 (H) 7.4 (H) Estimated Average Glucose mg/dL 171 166 TSH 0.270 - 4.200 mIU/L 2.230 1.500 Free T4 0.9 - 1.7 ng/dL 1.1 1.3 PAST MEDICAL HISTORY Diagnosis Date CAD (coronary artery disease) Dr. Checo BEAVERS DM (diabetes mellitus) (HCC) Nocturia frequent urination OA (osteoarthritis) Rt hip Sleep disorder Spinal stenosis Multiple levels PAST SURGICAL HISTORY Procedure Laterality Date ANGIOPLASTY PAST SURGICAL HISTORY OF 89 tonsil FAMILY HISTORY Problem Relation Age of Onset other (lymphoma) Father Social History Tobacco Use Smoking status: Never Smokeless tobacco: Never Vaping Use Vaping Use: Never used Substance Use Topics Alcohol use: Yes Alcohol/week: 5.0 standard drinks of alcohol Types: 2 Mixed Drinks per week Comment: 2/week Current Outpatient Medications Medication Sig levothyroxine (SYNTHROID) 75 mcg tablet Take 1 tablet by mouth once daily. insulin aspart U-100 (NOVOLOG FLEXPEN U-100 INSULIN) 100 unit/mL (3 mL) Inject 8 units breakfast, 12 with lunch 16 with dinner and (4 units with nightly bowl of ice cream) insulin aspart U-100 (NOVOLOG FLEXPEN U-100 INSULIN) 100 unit/mL (3 mL) Inject 10 units breakfast, 14 with lunch 16 with dinner and (4 units with nightly bowl of ice cream). TDD~ 34 units. DX: E11.9, insulin dependent. Blood-Glucose Sensor (FREESTYLE MAKAYLA 3 SENSOR) santino Change sensor every 14 days. USE FOR CONTINOUS GLUCOSE MONITORING. MULTIPLE INSULIN INJECTIONS. E11.9 PeerReach insulin detemir U-100 (LEVEMIR FLEXTOUCH U-100 INSULIN) 100 unit/mL (3 mL) injection pen inject 64 units SUBCUTANEOUSLY IN THE MORNING and 66 IN THE EVENING Insulin [place], Disposable, (BD ULTRAFINE III MINI PEN) 31 gauge x 3/16 USE WITH INSULIN PENS 5 TIMES DAILY. E11.9 acetaminophen (TYLENOL) 500 mg tablet Take 2 tablets (more content not included)... [facility] 01-14-2023 Note HNO ID: [id number] Author: Sal Smith MA Service: ? Author Type: Unloader Type: Progress Notes Filed: 01/14/2023 4:49 PM Note Text: Sal Smith MA [facility] 01-14-2023 History of Present illness Narrative Images from the original note were not included. VIRTUAL VISIT PROGRESS NOTE This is a virtual visit using [employer] Zoom Video Visit. It required patient-provider interaction for the medical decision making as documented below. I have communicated my name and active licensure. The patient's identity and physical location were verified at the time of this visit. Either the patient or their legal customer success representative has been informed of the risks and benefits of -- and alternatives to -- treatment through a remote evaluation and consents to proceed with the evaluation remotely. CC Tomas Martinez is a 72 year old male who presents today for blood sugar review, insulin dosing adjust HPI: Diagnosed with diabetes mellitus type II, uncontrolled ~ 2006 Last endocrine OV 05/28/2022 Some elements copied from my note 05/28/2022 which have been updated where appropriate, and all reflect current medical decision making from date of this visit. HPI 01/14/2023 Sts his blood sugars have been variable Noticed 7-9 pm tends to run high 1030-11 am occ low Eats same foods pretty much all the time Walks every day in the morning after waking up Then will eat breakfast Breakfast is 2 slices toast with milk poured and OJ Lunch leftovers from dinner OR lunch meat sandwich 1 piece of bread and 1/2 coke (regular) Dinner: 1/2 regular coke, cheese burgers w airfried lithuanian fries, noodles/potatoes and fruit OR dessert, Or will eat out occ Snacks bowl of ice cream at night CURRENT DM MEDS LEVEMIR 64-0-0-66 HUMALOG 8-12-16 and 4 units with evening bowl of ice cream CURRENT THYROID SYNTHROID 50 mcg 1 tab daily SMBG Type of Monitor: Other FREESTYLE MAKAYLA 2 Hypoglycemia: Rare if overcompensates Diet: No specific diet regimen - more veggies, no processed/fried foods Exercise: walking 1 mile to 1-1/2 miles daily DM REVIEW OF SYSTEMS Last Eye Exam : 02/2022 (outside provider) Last Podiatry Exam: Date: 2020 Cardiorespiratory: negative, denies chest pain, pressure Claudication: no Dyslipidemia: Yes, controlled on medication High Blood Pressure: Yes, controlled on medication CURRENT LABS Component Latest Ref Rng & Units 05/12/2022 11/06/2022 Glucose 74 - 99 mg/dL 242 (H) BUN 9 - 24 mg/dL 24 Creatinine 0.73 - 1.22 mg/dL 0.95 Sodium 136 - 144 mmol/L 138 Potassium 3.7 - 5.1 mmol/L 4.5 Chloride 97 - 105 mmol/L 99 CO2 22 - 30 mmol/L 29 Anion Gap 9 - 18 mmol/L 10 eGFR >=60 mL/min/1.73m 84 Total Cholesterol, Nonfasting <200 mg/dL 101 Triglycerides, Nonfasting <150 mg/dL 72 HDL Cholesterol, Nonfasting >39 mg/dL 33 (L) LDL Cholesterol, Nonfasting <100 mg/dL 54 Non HDL Cholesterol, Nonfasting <130 mg/dL 68 VLDL Cholesterol, Nonfasting <30 mg/dL 14 Total Chol/HDL Ratio, Nonfasting <5.10 mg/dL 3.06 LDL/HDL Ratio, Nonfasting <2.54 mg/dL 1.64 Creatinine, Ur Random (UCRR) 20.0 - 300.0 mg/dL 172.3 Albumin, Urine Random mg/L <12.0 Albumin/Creat Ratio <30 mg/g <7 Hemoglobin A1C 4.3 - 5.6 % 7.6 (H) 7.4 (H) Estimated Average Glucose mg/dL 171 166 TSH 0.270 - 4.200 mIU/L 2.230 1.500 Free T4 0.9 - 1.7 ng/dL 1.1 1.3 PAST MEDICAL HISTORY Diagnosis Date CAD (coronary artery disease) Dr. Checo BE[facility]ERS DM (diabetes mellitus) (HCC) Nocturia frequent urination OA (osteoarthritis) Rt hip Sleep disorder Spinal stenosis Multiple levels PAST SURGICAL HISTORY Procedure Laterality Date ANGIOPLASTY PAST SURGICAL HISTORY OF [age] tonsil FAMILY HISTORY Problem Relation Age of Onset other (lymphoma) Father Social History Tobacco Use Smoking status: Never Smokeless tobacco: Never Vaping Use Vaping Use: Never used Substance Use Topics Alcohol use: Yes Alcohol/week: 5.0 standard drinks of alcohol Types: 2 Mixed Drinks per week Comment: 2/week Current Outpatient Medications Medication Sig levothyroxine (SYNTHROID) 75 mcg tablet Take 1 tablet by mouth once daily. insulin aspart U-100 (NOVOLOG FLEXPEN U-100 INSULIN) 100 unit/mL (3 mL) Inject 8 units breakfast, 12 with lunch 16 with dinner and (4 units with nightly bowl of ice cream) insulin aspart U-100 (NOVOLOG FLEXPEN U-100 INSULIN) 100 unit/mL (3 mL) Inject 10 units breakfast, 14 with lunch 16 with dinner and (4 units with nightly bowl of ice cream). TDD~ 34 units. DX: E11.9, insulin dependent. Blood-Glucose Sensor (FREESTYLE MAKAYLA 3 SENSOR) santino Change sensor every 14 days. USE FOR CONTINOUS GLUCOSE MONITORING. MULTIPLE INSULIN INJECTIONS. E11.9 PeerReach insulin detemir U-100 (LEVEMIR FLEXTOUCH U-100 INSULIN) 100 unit/mL (3 mL) injection pen inject 64 units SUBCUTANEOUSLY IN THE MORNING and 66 IN THE EVENING Insulin [place], Disposable, (BD ULTRAFINE III MINI PEN) 31 gauge x 3/16 USE WITH INSULIN PENS 5 TIMES DAILY. E11.9 acetaminophen (TYLENOL) 500 mg tablet Take 2 tablets by mouth every 8 hours. aspirin, enteric coated (ASPIRIN, ENTERIC COATED) 325 mg EC tablet TAKE 1 TABLET BY MOUTH TWICE DAILY. vit A/vit C/bioflav/Zn/Herb25 (ECHINACEA ACZ ORAL) Take by mouth. lisinopril-hydrochlorothiazide (PRINZIDE,ZESTORETIC) 20-12.5 mg per tablet Take 1 tablet by mouth once daily. Takes 1 tablet twice a day magnesium oxide 400 mg magnesium cap Take 1 capsule by mouth twice daily. multivit-min/ferrous fumarate (MULTI VITAMIN ORAL) Take by mouth once daily. metoprolol tartrate, short acting, (LOPRESSOR) 50 mg tablet Take by mouth twice daily. cholecalciferol (VITAMIN D-3) 5,000 unit tab Take by mouth once daily. atorvastatin (LIPITOR) 20 mg tablet Take 20 mg by mouth once daily. montelukast (SINGULAIR) 10 mg tablet Take 10 mg by mouth daily at bedtime. nitroglycerin sublingual (NITROQUICK) 0.4 mg SL tablet Dissolve 0.4 mg under the tongue as needed. traZODone (DESYREL) 50 mg tablet Take by mouth daily at bedtime. ibuprofen (ADVIL) 200 mg tablet Take 200 mg by mouth as needed. Take 1-2 tabs 1-2x daily as needed amLODIPine (NORVASC) 5 mg tablet Take 5 mg by mouth twice daily. No current facility-administered medications for this visit. ALLERGIES No Known Allergies REVIEW OF SYSTEMS - POSITIVES IN BOLD GENERAL:No weight loss, malaise or fevers HEENT:Negative for frequent or significant headaches, No changes in hearing or vision, no nose bleeds or other nasal problems NECK:Negative for lumps, goiter, pain and significant neck swelling RESPIRATORY: Negative for cough, hemoptysis, wheezing, COPD, dyspnea or shortness of breath CARDIOVASCULAR: Negative for chest pain, leg swelling, hypertension, CHF or palpitations VIDEO EXAM: (if completed, performed via video enabled technology) GENERAL: alert and appropriate, in no distress and well-hydrated, well nourished SKIN: no rash noted HEAD: normocephalic, no abnormality or lesion noted EYES: PERRL NECK: full ROM, no cervical LNs noted EXTREMITIES: not assessed NEUROLOGIC: no obvious deficit ASSESSMENT: (E11.9, Z79.4) Controlled type 2 diabetes mellitus without complication, with long-term current use of insulin (HCC) (primary encounter diagnosis) Comment: CGM DOWNLOADED AND REVIEWED FOR OV Recommendations per review as follows: LEVEMIR 62-0-0-64 NOVOLOG 6 -8- 18 plus 4 units with bowl icecream Recommended diet: Low carbohydrate and Low saturated fat, low simple sugar, high fiber diet Exercise minimally 150 minutes per week, increase as tolerated. Adequate hydration - 1/2 body wgt in oz of water daily, unless fluid restriction applies. I instructed the patient to monitor blood sugars 4 times per day If blood sugars are persistently high or low, to call our office. Patient to continue to follow up with his PCP and with other consultants regarding his other medical problems. Plan: COMP METABOLIC PANEL, LIPID PANEL, NONFASTING, ALBUMIN/CREAT RATIO RND UR, HGB A1C, TSH BLD, T4 FREE/FREE THYROX (E03.9) Hypothyroidism, unspecified type Comment: well supplemented per current, no changes Plan: TSH BLD, T4 FREE/FREE THYROX Keke Hernandez CNP Answers submitted by the patient for this visit: Core Review of Systems (Submitted on 01/10/2023) Fever : No Night sweats: No Recent unintentional weight change: No Nasal Congestion: No Hearing Loss: No Vision Disturbance: No A cough: No Difficulty Breathing?: No Chest pain: No Irregular heartbeat: No Leg Swelling: No Nausea: No Diarrhea: No Black tarry stools: No Difficulty Urinating?: No Awaken at Night More Than Once to Urinate?: No Joint pain or stiffness: No Muscle aches: No Leg or Foot Discomfort at Night?: No A rash: No Dizziness: No Headaches: No Memory Loss: No Seizures: No Images from the original note were not included. Sal Smith MA documented in this encounter [facility] 01-04-2023 Miscellaneous Notes Requester: Patient Patients last Endocrinology visit occurred 05/28/22 Follow-up evaluation has been established Yes Upcoming Endocrinology Appointments - Next 365 Days Visit Type Date Time Department VIDEO SPEC DIRECT SCHED 01/14/2023 4:30 PM [facility] . Requested Prescriptions Pending Prescriptions Disp Refills insulin detemir U-100 (LEVEMIR FLEXTOUCH U-100 INSULIN) 100 unit/mL (3 mL) injection pen 120 mL 3 Sig: inject 64 units SUBCUTANEOUSLY IN THE MORNING and 66 IN THE EVENING Sal Smith MA documented in this encounter [facility] 09-15-2022 Miscellaneous Notes Received Certificate of Medical Necessity Order form from [facility] for Freestyle Makayla 2 Sensor kit. Faxed completed and signed forms and last visit bridgett. Received confirmation fax and placed in file. Kallie Meyers MA documented in this encounter [facility] 08-28-2022 Miscellaneous Notes Requester: Pharmacy Patients last Endocrinology visit occurred 05/28/2022. Follow-up evaluation has been established none. Upcoming Endocrinology Appointments - Next 365 Days No appointments to display . Requested Prescriptions Pending Prescriptions Disp Refills insulin aspart U-100 (NOVOLOG FLEXPEN U-100 INSULIN) 100 unit/mL (3 mL) [Pharmacy Med Name: Novolog Flexpen U-100 Insulin aspart 100 unit/mL (3 mL) subcutaneous] 15 mL 3 Sig: Inject 10 units breakfast, 14 with lunch 16 with dinner and (4 units with nightly bowl of ice cream) If patient is due for an appointment please route to provider for refill consideration and also to the endo scheduling pool. PSS NOTE: Patient needs scheduled appointment Yes, with Keke Hernandez CNP on/after 11/28/2022 for Type 2 diabetes. documented in this encounter [facility] 08-28-2022 Miscellaneous Notes Patients last Endocrinology visit occurred Last encounter Visit on 05/28/2022 (with Keke Hernandez). Follow-up evaluation has been established Upcoming Endocrinology Appointments - Next 365 Days No appointments to display Requested Prescriptions Pending Prescriptions Disp Refills insulin aspart U-100 (NOVOLOG FLEXPEN U-100 INSULIN) 100 unit/mL (3 mL) 15 Each 3 Sig: Inject 8 units breakfast, 12 with lunch 16 with dinner and (4 units with nightly bowl of ice cream) If patient is due for an appointment please route to provider for refill consideration and also to the endo scheduling pool. documented in this encounter [facility] 06-12-2022 Miscellaneous Notes Received a request for last office notes, printed and had sign as Abbe is out today they are needed A.S.AP. to ship his order today. Put signed notes and conformation page in file Sal Smith MA documented in this encounter [facility] 05-28-2022 History of Present illness Narrative TELEPHONE VISIT PROGRESS NOTE This is a virtual visit using SmartCrowdzhart video visit. It required patient-provider interaction for the medical decision making as documented below. I have communicated my name and active licensure. The patient's identity and physical location were verified at the time of this visit. Either the patient or their legal customer success representative has been informed of the risks and benefits of -- and alternatives to -- treatment through a remote evaluation and consents to proceed with the evaluation remotely. Patient could not connect via audio for VV. CONVERTED TO TELEPHONE visit CC oTmas Martinez is a 71 year old male who presents today for blood sugar review, insulin dosing adjust HPI: Diagnosed with diabetes mellitus type II, uncontrolled ~ 2006 Last endocrine OV 11/27/2021 Some elements copied from my note 11/27/2021 which have been updated where appropriate, and all reflect current medical decision making from date of this visit. CURRENT DM MEDS LEVEMIR 64-0-0-66 HUMALOG 10-12-16 and 4 units with evening bowl of ice cream CURRENT THYROID SYNTHROID 50 mcg 1 tab daily SMBG Type of Monitor: Other FREESTYLE MAKAYLA Frequency of Monitorin-8 times a day BG Values: Breakfast: 140-150 Lunch: 70-100 Dinner: 82-140 Bed-time: 130-170 Values over past week: Highest ; Lowest Hypoglycemia: Rare if overcompensates Diet: No specific diet regimen - more veggies, no processed/fried foods Exercise: walking 1 mile to 1-1/2 miles daily DM REVIEW OF SYSTEMS Last Eye Exam : 02/2022 (outside provider) Last Podiatry Exam: Date: 2020 Cardiorespiratory: negative, denies chest pain, pressure Claudication: no Dyslipidemia: Yes, controlled on medication High Blood Pressure: Yes, controlled on medication CURRENT LABS Component Latest Ref Rng & Units 11/21/2021 05/12/2022 Glucose 74 - 99 mg/dL 165 (H) BUN 9 - 24 mg/dL 21 Creatinine 0.73 - 1.22 mg/dL 0.96 Sodium 136 - 144 mmol/L 141 Potassium 3.7 - 5.1 mmol/L 4.4 Chloride 97 - 105 mmol/L 102 CO2 22 - 30 mmol/L 31 (H) Anion Gap 9 - 18 mmol/L 8 (L) eGFR >=60 mL/min/1.73m 83 Total Cholesterol, Nonfasting <200 mg/dL 100 Triglycerides, Nonfasting <150 mg/dL 93 HDL Cholesterol, Nonfasting >39 mg/dL 31 (L) LDL Cholesterol, Nonfasting <100 mg/dL 50 Non HDL Cholesterol, Nonfasting <130 mg/dL 69 VLDL Cholesterol, Nonfasting <30 mg/dL 19 Total Chol/HDL Ratio, Nonfasting <5.10 mg/dL 3.23 LDL/HDL Ratio, Nonfasting <2.54 mg/dL 1.61 Creatinine, Ur Random (UCRR) 20.0 - 300.0 mg/dL 142.4 Albumin, Urine Random mg/L <12.0 Albumin/Creat Ratio <30 mg/g <8 Hemoglobin A1C 4.3 - 5.6 % 7.6 (H) 7.6 (H) Estimated Average Glucose mg/dL 171 171 TSH 0.270 - 4.200 mIU/L 2.230 Free T4 0.9 - 1.7 ng/dL 1.1 PAST MEDICAL HISTORY Diagnosis Date CAD (coronary artery disease) Dr. Checo BE[facility]ERS DM (diabetes mellitus) (HCC) Nocturia frequent urination OA (osteoarthritis) Rt hip Sleep disorder Spinal stenosis Multiple levels PAST SURGICAL HISTORY Procedure Laterality Date ANGIOPLASTY PAST SURGICAL HISTORY OF 1955 tonsil FAMILY HISTORY Problem Relation Age of Onset other (lymphoma) Father Social History Tobacco Use Smoking status: Never Smokeless tobacco: Never Vaping Use Vaping Use: Never used Substance Use Topics Alcohol use: Yes Alcohol/week: 5.0 standard drinks Types: 2 Mixed Drinks per week Comment: 2/week Current Outpatient Medications Medication Sig insulin detemir U-100 (LEVEMIR FLEXTOUCH U-100 INSULIN) 100 unit/mL (3 mL) injection pen inject 64 units SUBCUTANEOUSLY IN THE MORNING and 66 IN THE EVENING insulin aspart U-100 (NOVOLOG FLEXPEN U-100 INSULIN) 100 unit/mL (3 mL) Inject 10 units breakfast, 14 with lunch 16 with dinner and (4 units with nightly bowl of ice cream) levothyroxine (SYNTHROID) 50 mcg tablet Take 1 tab daily EXCEPT Wed and take 2 tabs. flash glucose sensor (FREESTYLE MAKAYLA 14 DAY SENSOR) kit Change sensor every 14 days E11.9 - multiple insulin injections, checks blood sugar 4x daily flash glucose scanning reader (FREESTYLE MAKAYLA 14 DAY READER) Dispense one reader kit. E11.9 - multiple insulin injections, checks blood sugar 4x daily Insulin [place], Disposable, (BD ULTRAFINE III MINI PEN) 31 gauge x 3/16 USE WITH INSULIN PENS 5 TIMES DAILY. E11.9 aspirin, enteric coated (ASPIRIN, ENTERIC COATED) 325 mg EC tablet TAKE 1 TABLET BY MOUTH TWICE DAILY. acetaminophen (TYLENOL) 500 mg tablet Take 2 tablets by mouth every 8 hours. vit A/vit C/bioflav/Zn/Herb25 (ECHINACEA ACZ ORAL) Take by mouth. lisinopril-hydrochlorothiazide (PRINZIDE,ZESTORETIC) 20-12.5 mg per tablet Take 1 tablet by mouth once daily. Takes 1 tablet twice a day magnesium oxide 400 mg magnesium cap Take 1 capsule by mouth twice daily. multivit-min/ferrous fumarate (MULTI VITAMIN ORAL) Take by mouth once daily. metoprolol tartrate, short acting, (LOPRESSOR) 50 mg tablet Take by mouth twice daily. cholecalciferol (VITAMIN D-3) 5,000 unit tab Take by mouth once daily. atorvastatin (LIPITOR) 20 mg tablet Take 20 mg by mouth once daily. montelukast (SINGULAIR) 10 mg tablet Take 10 mg by mouth daily at bedtime. nitroglycerin sublingual (NITROQUICK) 0.4 mg SL tablet Dissolve 0.4 mg under the tongue as needed. traZODone (DESYREL) 50 mg tablet Take by mouth daily at bedtime. ibuprofen (ADVIL) 200 mg tablet Take 200 mg by mouth as needed. Take 1-2 tabs 1-2x daily as needed amLODIPine (NORVASC) 5 mg tablet Take 5 mg by mouth twice daily. No current facility-administered medications for this visit. ALLERGIES No Known Allergies REVIEW OF SYSTEMS - POSITIVES IN BOLD GENERAL:No weight loss, malaise or fevers HEENT:Negative for frequent or significant headaches, No changes in hearing or vision, no nose bleeds or other nasal problems NECK:Negative for lumps, goiter, pain and significant neck swelling RESPIRATORY: Negative for cough, hemoptysis, wheezing, COPD, dyspnea or shortness of breath CARDIOVASCULAR: Negative for chest pain, leg swelling, hypertension, CHF or palpitations VIDEO EXAM: (if completed, performed via video enabled technology) GENERAL: alert and appropriate, in no distress and well-hydrated, well nourished SKIN: no rash noted HEAD: normocephalic, no abnormality or lesion noted EYES: PERRL NECK: full ROM, no cervical LNs noted EXTREMITIES: not assessed NEUROLOGIC: no obvious deficit ASSESSMENT: (E11.9, Z79.4) Controlled type 2 diabetes mellitus without complication, with long-term current use of insulin (HCC) (primary encounter diagnosis) Comment: Per reported blood sugar Recommend 8 units with breakfast, 12 with lunch and 16 with dinner, keep 4 units if having icecream Cont with Levemir 64-0-0-66 Recommended diet: Low carbohydrate and Low saturated fat, low simple sugar, high fiber diet Exercise minimally 150 minutes per week, increase as tolerated. Adequate hydration - 1/2 body wgt in oz of water daily, unless fluid restriction applies. I instructed the patient to monitor blood sugars 4 times per day If blood sugars are persistently high or low, to call our office. Patient to continue to follow up with his PCP and with other consultants regarding his other medical problems. Plan: COMP METABOLIC PANEL, LIPID PANEL, NONFASTING, ALBUMIN/CREAT RATIO RND UR, HGB A1C, TSH BLD, T4 FREE/FREE THYROX (E03.9) Hypothyroidism, unspecified type Comment: recommend increasing to 75 mcg daily tab. Plan: TSH BLD, T4 FREE/FREE THYROX Keke Hernandez CNP TELEPHONE VISIT: 23 minutes spent via telephone visit documented in this encounter [facility] 04-06-2022 Miscellaneous Notes Sent patient a my chart message regarding refills that he should have enough for one year and to check with the pharmacy. Sabrina Huerta MA documented in this encounter [facility] 02-13-2022 Miscellaneous Notes Requester: Patient Patients last Endocrinology visit occurred 11/27/221. Follow-up evaluation has been established none. Requested Prescriptions Pending Prescriptions Disp Refills insulin aspart U-100 (NOVOLOG FLEXPEN U-100 INSULIN) 100 unit/mL (3 mL) 15 Each 3 Sig: Inject 10 units breakfast, 14 with lunch 16 with dinner and (4 units with nightly bowl of ice cream) Please advise. If patient is due for an appointment please route to provider for refill consideration and also to the endo scheduling pool. PSS NOTE: Patient needs scheduled appointment Yes, with Keke hernandez CNP for Type 2 diabetes on/after 05/27/2022 documented in this encounter [facility] 02-12-2022 Hospital Discharge instructions Patient Education 02/12/2022 09:02:51 Preventive Care 65 Years and Older, Male Preventive Care 65 Years and Older, Male Preventive care refers to lifestyle choices and visits with your health care provider that can promote health and wellness. This includes: A yearly physical exam. This is also called an annual well check. Regular dental and eye exams. Immunizations. Screening for certain conditions. Healthy lifestyle choices, such as diet and exercise. What can I expect for my preventive care visit? Physical exam Your health care provider will check: Height and weight. These may be used to calculate body mass index (BMI), which is a measurement that tells if you are at a healthy weight. Heart rate and blood pressure. Your skin for abnormal spots. Counseling Your health care provider may ask you questions about: Alcohol, tobacco, and drug use. Emotional well-being. Home and relationship well-being. Sexual activity. Eating habits. History of falls. Memory and ability to understand (cognition). Work and work environment. What immunizations do I need? Influenza (flu) vaccine This is recommended every year. Tetanus, diphtheria, and pertussis (Tdap) vaccine You may need a Td booster every 10 years. Varicella (chickenpox) vaccine You may need this vaccine if you have not already been vaccinated. Zoster (shingles) vaccine You may need this after age 60. Pneumococcal conjugate (PCV13) vaccine One dose is recommended after age 65. Pneumococcal polysaccharide (PPSV23) vaccine One dose is recommended after age 65. Measles, mumps, and rubella (MMR) vaccine You may need at least one dose of MMR if you were born in 1957 or later. You may also need a second dose. Meningococcal conjugate (MenACWY) vaccine You may need this if you have certain conditions. Hepatitis A vaccine You may need this if you have certain conditions or if you travel or work in places where you may be exposed to hepatitis A. Hepatitis B vaccine You may need this if you have certain conditions or if you travel or work in places where you may be exposed to hepatitis B. Haemophilus influenzae type b (Hib) vaccine You may need this if you have certain conditions. You may receive vaccines as individual doses or as more than one vaccine together in one shot (combination vaccines). Talk with your health care provider about the risks and benefits of combination vaccines. What tests do I need? Blood tests Lipid and cholesterol levels. These may be checked every 5 years, or more frequently depending on your overall health. Hepatitis C test. Hepatitis B test. Screening Lung cancer screening. You may have this screening every year starting at age 55 if you have a 34-bgyh-sasg history of smoking and currently smoke or have quit within the past 15 years. Colorectal cancer screening. All adults should have this screening starting at age 50 and continuing until age 75. Your health care provider may recommend screening at age 45 if you are at increased risk. You will have tests every 1 10 years, depending on your results and the type of screening test. Prostate cancer screening. Recommendations will vary depending on your family history and other risks. Diabetes screening. This is done by checking your blood sugar (glucose) after you have not eaten for a while (fasting). You may have this done every 1 3 years. Abdominal aortic aneurysm (AAA) screening. You may need this if you are a current or former smoker. Sexually transmitted disease (STD) testing. Follow these instructions at home: Eating and drinking Eat a diet that includes fresh fruits and vegetables, whole grains, lean protein, and low-fat dairy products. Limit your intake of foods with high amounts of sugar, saturated fats, and salt. Take vitamin and mineral supplements as recommended by your health care provider. Do not drink alcohol if your health care provider tells you not to drink. If you drink alcohol: ?Limit how much you have to 0 2 drinks a day. ?Be aware of how much alcohol is in your drink. In the [place] one drink equals one 12 oz bottle of beer (355 mL), one 5 oz glass of wine (148 mL), or one 1 oz glass of hard liquor (44 mL). Lifestyle Take daily care of your teeth and gums. Stay active. Exercise for at least 30 minutes on 5 or more days each week. Do not use any products that contain nicotine or tobacco, such as cigarettes, e-cigarettes, and chewing tobacco. If you need help quitting, ask your health care provider. If you are sexually active, practice safe sex. Use a condom or other form of protection to prevent STIs (sexually transmitted infections). Talk with your health care provider about taking a low-dose aspirin or statin. What's next? Visit your health care provider once a year for a well check visit. Ask your health care provider how often you should have your eyes and teeth checked. Stay up to date on all vaccines. This information is not intended to replace advice given to you by your health care provider. Make sure you discuss any questions you have with your health care provider. Document Released: 03/20/2016 Document Revised: 02/16/2019 Document Reviewed: 02/16/2019 [employer] Patient Education 2020 [id number]. 02/12/2022 09:02:49 Preventing Diabetes Mellitus Complications Preventing Diabetes Mellitus Complications You can take action to prevent or slow down problems that are caused by diabetes (diabetes mellitus). Following your diabetes plan and taking care of yourself can reduce your risk of serious or life-threatening complications. What actions can I take to prevent diabetes complications? Manage your diabetes Follow instructions from your health care providers about managing your diabetes. Your diabetes may be managed by a team of health care providers who can teach you how to care for yourself and can answer questions that you have. Educate yourself about your condition so you can make healthy choices about eating and physical activity. Check your blood sugar (glucose) levels as often as directed. Your health care provider will help you decide how often to check your blood glucose level depending on your treatment goals and how well you are meeting them. Ask your health care provider if you should take low-dose aspirin daily and what dose is recommended for you. Taking low-dose aspirin daily is recommended to help prevent cardiovascular disease. Do not use nicotine or tobacco Do not use any products that contain nicotine or tobacco, such as cigarettes and e-cigarettes. If you need help quitting, ask your health care provider. Nicotine raises your risk for diabetes problems. If you quit using nicotine: You will lower your risk for heart attack, stroke, nerve disease, and kidney disease. Your cholesterol and blood pressure may improve. Your blood circulation will improve. Keep your blood pressure under control Your personal target blood pressure is determined based on: Your age. Your medicines. How long you have had diabetes. Any other medical conditions you have. To control your blood pressure: Follow instructions from your health care provider about meal planning, exercise, and medicines. Make sure your health care provider checks your blood pressure at every medical visit. Monitor your blood pressure at home as told by your health care provider. Keep your cholesterol under control To control your cholesterol: Follow instructions from your health care provider about meal planning, exercise, and medicines. Have your cholesterol checked at least once a year. You may be prescribed medicine to lower cholesterol (statin). If you are not taking a statin, ask your health care provider if you should be. Controlling your cholesterol may: Help prevent heart disease and stroke. These are the most common health problems for people with diabetes. Improve your blood flow. Schedule and keep yearly physical exams and eye exams Your health care provider will tell you how often you need medical visits depending on your diabetes management plan. Keep all follow-up visits as directed. This is important so possible problems can be identified early and complications can be avoided or treated. Every visit with your health care provider should include measuring your: ?Weight. ?Blood pressure. ?Blood glucose control. Your A1c (hemoglobin A1c) level should be checked: ?At least 2 times a year, if you are meeting your treatment goals. ?4 times a year, if you are not meeting treatment goals or if your treatment goals have changed. Your blood lipids (lipid profile) should be checked yearly. You should also be checked yearly for protein in your urine (urine microalbumin). If you have type 1 diabetes, get an eye exam 3 5 years after you are diagnosed, and then once a year after your first exam. If you have type 2 diabetes, get an eye exam as soon as you are diagnosed, and then once a year after your first exam. Keep your vaccines current It is recommended that you receive: A flu (influenza) vaccine every year. A pneumonia (pneumococcal) vaccine and a hepatitis B vaccine. If you are age 65 or older, you may get the pneumonia vaccine as a series of two separate shots. Ask your health care provider which other vaccines may be recommended. Take care of your feet Diabetes may cause you to have poor blood circulation to your legs and feet. Because of this, taking care of your feet is very important. Diabetes can cause: The skin on the feet to get thinner, break more easily, and heal more slowly. Nerve damage in your legs and feet, which results in decreased feeling. You may not notice minor injuries that could lead to serious problems. To avoid foot problems: Check your skin and feet every day for cuts, bruises, redness, blisters, or sores. Schedule a foot exam with your health care provider once every year. This exam includes: ?Inspecting of the structure and skin of your feet. ?Checking the pulses and sensation in your feet. Make sure that your health care provider performs a visual foot exam at every medical visit. Take care of your teeth People with poorly controlled diabetes are more likely to have gum (periodontal) disease. Diabetes can make periodontal diseases harder to control. If not treated, periodontal diseases can lead to tooth loss. To prevent this: [place] your teeth twice a day. Floss at least once a day. Visit your dentist 2 times a year. Drink responsibly Limit alcohol intake to no more than 1 drink a day for non women and 2 drinks a day for men. One drink equals 12 oz of beer, 5 oz of wine, or 1 oz of hard liquor. It is important to eat food when you drink alcohol to avoid low blood glucose (hypoglycemia). Avoid alcohol if you: Have a history of alcohol abuse or dependence. Are . Have liver disease, pancreatitis, advanced neuropathy, or severe hypertriglyceridemia. Lessen stress Living with diabetes can be stressful. When you are experiencing stress, your blood glucose may be affected in two ways: Stress hormones may cause your blood glucose to rise. You may be distracted from taking good care of yourself. Be aware of your stress level and make changes to help you manage challenging situations. To lower your stress levels: Consider joining a support group. Do planned relaxation or meditation. Do a hobby that you enjoy. Maintain healthy relationships. Exercise regularly. Work with your health care provider or a mental health professional. Summary You can take action to prevent or slow down problems that are caused by diabetes (diabetes mellitus). Following your diabetes plan and taking care of yourself can reduce your risk of serious or life-threatening complications. Follow instructions from your health care providers about managing your diabetes. Your diabetes may be managed by a team of health care providers who can teach you how to care for yourself and can answer questions that you have. Your health care provider will tell you how often you need medical visits depending on your diabetes management plan. Keep all follow-up visits as directed. This is important so possible problems can be identified early and complications can be avoided or treated. This information is not intended to replace advice given to you by your health care provider. Make sure you discuss any questions you have with your health care provider. Document Released: 11/10/2011 Document Revised: 05/23/2018 Document Reviewed: 11/21/2016 [employer] Patient Education 2020 [email or web address]. 02/12/2022 09:02:46 Obesity, Adult Obesity, Adult Obesity is the condition of having too much total body fat. Being overweight or obese means that your weight is greater than what is considered healthy for your body size. Obesity is determined by a measurement called BMI. BMI is an estimate of body fat and is calculated from height and weight. For adults, a BMI of 30 or higher is considered obese. Obesity can lead to other health concerns and major illnesses, including: Stroke. Coronary artery disease (CAD). Type 2 diabetes. Some types of cancer, including cancers of the colon, breast, uterus, and gallbladder. Osteoarthritis. High blood pressure (hypertension). High cholesterol. Sleep apnea. Gallbladder stones. Infertility problems. What are the causes? Common causes of this condition include: Eating daily meals that are high in calories, sugar, and fat. Being born with genes that may make you more likely to become obese. Having a medical condition that causes obesity, including: ?Hypothyroidism. ?Polycystic ovarian syndrome (PCOS). ?Binge-eating disorder. ?Yadi syndrome. Taking certain medicines, such as steroids, antidepressants, and seizure medicines. Not being physically active (sedentary lifestyle). Not getting enough sleep. Drinking high amounts of sugar-sweetened beverages, such as soft drinks. What increases the risk? The following factors may make you more likely to develop this condition: Having a family history of obesity. Being a woman of descent. Being a man of descent. Living in an area with limited access to: ?Cox, recreation centers, or sidewalks. ?Healthy food choices, such as grocery stores and [employer]. What are the signs or symptoms? The main sign of this condition is having too much body fat. How is this diagnosed? This condition is diagnosed based on: Your BMI. If you are an adult with a BMI of 30 or higher, you are considered obese. Your waist circumference. This measures the distance around your waistline. Your skinfold thickness. Your health care provider may gently pinch a fold of your skin and measure it. You may have other tests to check for underlying conditions. How is this treated? Treatment for this condition often includes changing your lifestyle. Treatment may include some or all of the following: Dietary changes. This may include developing a healthy meal plan. Regular physical activity. This may include activity that causes your heart to beat faster (aerobic exercise) and strength training. Work with your health care provider to design an exercise program that works for you. Medicine to help you lose weight if you are unable to lose 1 pound a week after 6 weeks of healthy eating and more physical activity. Treating conditions that cause the obesity (underlying conditions). Surgery. Surgical options may include gastric banding and gastric bypass. Surgery may be done if: ?Other treatments have not helped to improve your condition. ?You have a BMI of 40 or higher. ?You have life-threatening health problems related to obesity. Follow these instructions at home: Eating and drinking Follow recommendations from your health care provider about what you eat and drink. Your health care provider may advise you to: ?Limit fast food, sweets, and processed snack foods. ?Choose low-fat options, such as low-fat milk instead of whole milk. ?Eat 5 or more servings of fruits or vegetables every day. ?Eat at home more often. This gives you more control over what you eat. ?Choose healthy foods when you eat out. ?Learn to read food labels. This will help you understand how much food is considered 1 serving. ?Learn what a healthy serving size is. ?Keep low-fat snacks available. ?Limit sugary drinks, such as soda, fruit juice, sweetened iced tea, and flavored milk. Drink enough water to keep your urine pale yellow. Do not follow a fad diet. Fad diets can be unhealthy and even dangerous. Physical activity Exercise regularly, as told by your health care provider. ?Most adults should get up to 150 minutes of moderate-intensity exercise every week. ?Ask your health care provider what types of exercise are safe for you and how often you should exercise. Warm up and stretch before being active. Cool down and stretch after being active. Rest between periods of activity. Lifestyle Work with your health care provider and a dietitian to set a weight-loss goal that is healthy and reasonable for you. Limit your screen time. Find ways to reward yourself that do not involve food. Do not drink alcohol if: ?Your health care provider tells you not to drink. ?You are , may be , or are planning to become . If you drink alcohol: ?Limit how much you use to: ?0 1 drink a day for women. ?0 2 drinks a day for men. ?Be aware of how much alcohol is in your drink. In the [place] one drink equals one 12 oz bottle of beer (355 mL), one 5 oz glass of wine (148 mL), or one 1 oz glass of hard liquor (44 mL). General instructions Keep a weight-loss journal to keep track of the food you eat and how much exercise you get. Take trss-xix-rispeqa and prescription medicines only as told by your health care provider. Take vitamins and supplements only as told by your health care provider. Consider joining a support group. Your health care provider may be able to recommend a support group. Keep all follow-up visits as told by your health care provider. This is important. Contact a health care provider if: You are unable to meet your weight loss goal after 6 weeks of dietary and lifestyle changes. Get help right away if you are having: Trouble breathing. Suicidal thoughts or behaviors. Summary Obesity is the condition of having too much total body fat. Being overweight or obese means that your weight is greater than what is considered healthy for your body size. Work with your health care provider and a dietitian to set a weight-loss goal that is healthy and reasonable for you. Exercise regularly, as told by your health care provider. Ask your health care provider what types of exercise are safe for you and how often you should exercise. This information is not intended to replace advice given to you by your health care provider. Make sure you discuss any questions you have with your health care provider. Document Released: 04/01/2005 Document Revised: 10/27/2018 Document Reviewed: 10/27/2018 [employer] Patient Education 2020 [employer] 02/12/2022 09:02:45 Managing Your Hypertension Managing Your Hypertension Hypertension is commonly called high blood pressure. This is when the force of your blood pressing against the [place] of your arteries is too strong. Arteries are blood vessels that carry blood from your heart throughout your body. Hypertension forces the heart to work harder to pump blood, and may cause the arteries to become narrow or stiff. Having untreated or uncontrolled hypertension can cause heart attack, stroke, kidney disease, and other problems. What are blood pressure readings? A blood pressure reading consists of a higher number over a lower number. Ideally, your blood pressure should be below 120/80. The first ( top ) number is called the systolic pressure. It is a measure of the pressure in your arteries as your heart beats. The second ( bottom ) number is called the diastolic pressure. It is a measure of the pressure in your arteries as the heart relaxes. What does my blood pressure reading mean? Blood pressure is classified into four stages. Based on your blood pressure reading, your health care provider may use the following stages to determine what type of treatment you need, if any. Systolic pressure and diastolic pressure are measured in a unit called mm Hg. Normal Systolic pressure: below 120. Diastolic pressure: below 80. Elevated Systolic pressure: 120-129. Diastolic pressure: below 80. Hypertension stage 1 Systolic pressure: 130-139. Diastolic pressure: 80-89. Hypertension stage 2 Systolic pressure: 140 or above. Diastolic pressure: 90 or above. What health risks are associated with hypertension? Managing your hypertension is an important responsibility. Uncontrolled hypertension can lead to: A heart attack. A stroke. A weakened blood vessel (aneurysm). Heart failure. Kidney damage. Eye damage. Metabolic syndrome. Memory and concentration problems. What changes can I make to manage my hypertension? Hypertension can be managed by making lifestyle changes and possibly by taking medicines. Your health care provider will help you make a plan to bring your blood pressure within a normal range. Eating and drinking Eat a diet that is high in fiber and potassium, and low in salt (sodium), added sugar, and fat. An example eating plan is called the DASH (Dietary Approaches to Stop Hypertension) diet. To eat this way: ?Eat plenty of fresh fruits and vegetables. Try to fill half of your plate at each meal with fruits and vegetables. ?Eat whole grains, such as whole wheat pasta, brown rice, or whole grain bread. Fill about one quarter of your plate with whole grains. ?Eat low-fat diary products. ?Avoid fatty cuts of meat, processed or cured meats, and poultry with skin. Fill about one quarter of your plate with lean proteins such as fish, chicken without skin, beans, eggs, and tofu. ?Avoid premade and processed foods. These tend to be higher in sodium, added sugar, and fat. Reduce your daily sodium intake. Most people with hypertension should eat less than 1,500 mg of sodium a day. Limit alcohol intake to no more than 1 drink a day for non women and 2 drinks a day for men. One drink equals 12 oz of beer, 5 oz of wine, or 1 oz of hard liquor. Lifestyle Work with your health care provider to maintain a healthy body weight, or to lose weight. Ask what an ideal weight is for you. Get at least 30 minutes of exercise that causes your heart to beat faster (aerobic exercise) most days of the week. Activities may include walking, swimming, or biking. Include exercise to strengthen your muscles (resistance exercise), such as weight lifting, as part of your weekly exercise routine. Try to do these types of exercises for 30 minutes at least 3 days a week. Do not use any products that contain nicotine or tobacco, such as cigarettes and e-cigarettes. If you need help quitting, ask your health care provider. Control any long-term (chronic) conditions you have, such as high cholesterol or diabetes. Monitoring Monitor your blood pressure at home as told by your health care provider. Your personal target blood pressure may vary depending on your medical conditions, your age, and other factors. Have your blood pressure checked regularly, as often as told by your health care provider. Working with your health care provider Review all the medicines you take with your health care provider because there may be side effects or interactions. Talk with your health care provider about your diet, exercise habits, and other lifestyle factors that may be contributing to hypertension. Visit your health care provider regularly. Your health care provider can help you create and adjust your plan for managing hypertension. Will I need medicine to control my blood pressure? Your health care provider may prescribe medicine if lifestyle changes are not enough to get your blood pressure under control, and if: Your systolic blood pressure is 130 or higher. Your diastolic blood pressure is 80 or higher. Take medicines only as told by your health care provider. Follow the directions carefully. Blood pressure medicines must be taken as prescribed. The medicine does not work as well when you skip doses. Skipping doses also puts you at risk for problems. Contact a health care provider if: You think you are having a reaction to medicines you have taken. You have repeated (recurrent) headaches. You feel dizzy. You have swelling in your ankles. You have trouble with your vision. Get help right away if: You develop a severe headache or confusion. You have unusual weakness or numbness, or you feel faint. You have severe pain in your chest or abdomen. You vomit repeatedly. You have trouble breathing. Summary Hypertension is when the force of blood pumping through your arteries is too strong. If this condition is not controlled, it may put you at risk for serious complications. Your personal target blood pressure may vary depending on your medical conditions, your age, and other factors. For most people, a normal blood pressure is less than 120/80. Hypertension is managed by lifestyle changes, medicines, or both. Lifestyle changes include weight loss, eating a healthy, low-sodium diet, exercising more, and limiting alcohol. This information is not intended to replace advice given to you by your health care provider. Make sure you discuss any questions you have with your health care provider. Document Released: 11/16/2012 Document Revised: 06/16/2019 Document Reviewed: 01/20/2017 [employer] Patient Education 2020 [email or web address]. 02/12/2022 09:02:41 Hypertension, Adult Hypertension, Adult High blood pressure (hypertension) is when the force of blood pumping through the arteries is too strong. The arteries are the blood vessels that carry blood from the heart throughout the body. Hypertension forces the heart to work harder to pump blood and may cause arteries to become narrow or stiff. Untreated or uncontrolled hypertension can cause a heart attack, heart failure, a stroke, kidney disease, and other problems. A blood pressure reading consists of a higher number over a lower number. Ideally, your blood pressure should be below 120/80. The first ( top ) number is called the systolic pressure. It is a measure of the pressure in your arteries as your heart beats. The second ( bottom ) number is called the diastolic pressure. It is a measure of the pressure in your arteries as the heart relaxes. What are the causes? The exact cause of this condition is not known. There are some conditions that result in or are related to high blood pressure. What increases the risk? Some risk factors for high blood pressure are under your control. The following factors may make you more likely to develop this condition: Smoking. Having type 2 diabetes mellitus, high cholesterol, or both. Not getting enough exercise or physical activity. Being overweight. Having too much fat, sugar, calories, or salt (sodium) in your diet. Drinking too much alcohol. Some risk factors for high blood pressure may be difficult or impossible to change. Some of these factors include: Having chronic kidney disease. Having a family history of high blood pressure. Age. Risk increases with age. Race. You may be at higher risk if you are . Gender. Men are at higher risk than women before age 45. After age 65, women are at higher risk than men. Having obstructive sleep apnea. Stress. What are the signs or symptoms? High blood pressure may not cause symptoms. Very high blood pressure (hypertensive crisis) may cause: Headache. Anxiety. Shortness of breath. Nosebleed. Nausea and vomiting. Vision changes. Severe chest pain. Seizures. How is this diagnosed? This condition is diagnosed by measuring your blood pressure while you are seated, with your arm resting on a flat surface, your legs uncrossed, and your feet flat on the floor. The cuff of the blood pressure monitor will be placed directly against the skin of your upper arm at the level of your heart. It should be measured at least twice using the same arm. Certain conditions can cause a difference in blood pressure between your right and left arms. Certain factors can cause blood pressure readings to be lower or higher than normal for a short period of time: When your blood pressure is higher when you are in a health care provider's office than when you are at home, this is called white coat hypertension. Most people with this condition do not need medicines. When your blood pressure is higher at home than when you are in a health care provider's office, this is called masked hypertension. Most people with this condition may need medicines to control blood pressure. If you have a high blood pressure reading during one visit or you have normal blood pressure with other risk factors, you may be asked to: Return on a different day to have your blood pressure checked again. Monitor your blood pressure at home for 1 week or longer. If you are diagnosed with hypertension, you may have other blood or imaging tests to help your health care provider understand your overall risk for other conditions. How is this treated? This condition is treated by making healthy lifestyle changes, such as eating healthy foods, exercising more, and reducing your alcohol intake. Your health care provider may prescribe medicine if lifestyle changes are not enough to get your blood pressure under control, and if: Your systolic blood pressure is above 130. Your diastolic blood pressure is above 80. Your personal target blood pressure may vary depending on your medical conditions, your age, and other factors. Follow these instructions at home: Eating and drinking Eat a diet that is high in fiber and potassium, and low in sodium, added sugar, and fat. An example eating plan is called the DASH (Dietary Approaches to Stop Hypertension) diet. To eat this way: ?Eat plenty of fresh fruits and vegetables. Try to fill one half of your plate at each meal with fruits and vegetables. ?Eat whole grains, such as whole-wheat pasta, brown rice, or whole-grain bread. Fill about one fourth of your plate with whole grains. ?Eat or drink low-fat dairy products, such as skim milk or low-fat yogurt. ?Avoid fatty cuts of meat, processed or cured meats, and poultry with skin. Fill about one fourth of your plate with lean proteins, such as fish, chicken without skin, beans, eggs, or tofu. ?Avoid pre-made and processed foods. These tend to be higher in sodium, added sugar, and fat. Reduce your daily sodium intake. Most people with hypertension should eat less than 1,500 mg of sodium a day. Do not drink alcohol if: ?Your health care provider tells you not to drink. ?You are , may be , or are planning to become . If you drink alcohol: ?Limit how much you use to: ?0 1 drink a day for women. ?0 2 drinks a day for men. ?Be aware of how much alcohol is in your drink. In the [place] one drink equals one 12 oz bottle of beer (355 mL), one 5 oz glass of wine (148 mL), or one 1 oz glass of hard liquor (44 mL). Lifestyle Work with your health care provider to maintain a healthy body weight or to lose weight. Ask what an ideal weight is for you. Get at least 30 minutes of exercise most days of the week. Activities may include walking, swimming, or biking. Include exercise to strengthen your muscles (resistance exercise), such as Pilates or lifting weights, as part of your weekly exercise routine. Try to do these types of exercises for 30 minutes at least 3 days a week. Do not use any products that contain nicotine or tobacco, such as cigarettes, e-cigarettes, and chewing tobacco. If you need help quitting, ask your health care provider. Monitor your blood pressure at home as told by your health care provider. Keep all follow-up visits as told by your health care provider. This is important. Medicines Take piiv-onv-hosyhrg and prescription medicines only as told by your health care provider. Follow directions carefully. Blood pressure medicines must be taken as prescribed. Do not skip doses of blood pressure medicine. Doing this puts you at risk for problems and can make the medicine less effective. Ask your health care provider about side effects or reactions to medicines that you should watch for. Contact a health care provider if you: Think you are having a reaction to a medicine you are taking. Have headaches that keep coming back (recurring). Feel dizzy. Have swelling in your ankles. Have trouble with your vision. Get help right away if you: Develop a severe headache or confusion. Have unusual weakness or numbness. Feel faint. Have severe pain in your chest or abdomen. Vomit repeatedly. Have trouble breathing. Summary Hypertension is when the force of blood pumping through your arteries is too strong. If this condition is not controlled, it may put you at risk for serious complications. Your personal target blood pressure may vary depending on your medical conditions, your age, and other factors. For most people, a normal blood pressure is less than 120/80. Hypertension is treated with lifestyle changes, medicines, or a combination of both. Lifestyle changes include losing weight, eating a healthy, low-sodium diet, exercising more, and limiting alcohol. This information is not intended to replace advice given to you by your health care provider. Make sure you discuss any questions you have with your health care provider. Document Released: 02/22/2006 Document Revised: 11/02/2018 Document Reviewed: 11/02/2018 [employer] Patient Education 2020 [employer] 02/12/2022 09:02:40 Heart Disease Prevention Heart Disease Prevention Heart disease is the leading cause of in the world. Coronary artery disease is the most common cause of heart disease. This condition results when cholesterol and other substances (plaque) build up inside the [place] of the blood vessels that supply your heart muscle (arteries). This buildup in arteries is called atherosclerosis. You can take actions to lower your risk of heart disease. How can heart disease affect me? Heart disease can cause many unpleasant symptoms and complications, such as: Chest pain (angina). Reduced or blocked blood flow to your heart. This can cause: ?Irregular heartbeats (arrhythmias). ?Heart attack. ?Heart failure. What can increase my risk? The following factors may make you more likely to develop this condition: High blood pressure (hypertension). High cholesterol. Smoking. A diet high in saturated fats or trans fats. Lack of physical activity. Obesity. Drinking too much alcohol. Diabetes. Having a family history of heart disease. What actions can I take to prevent heart disease? Nutrition Eat a heart-healthy eating plan as told by your health care provider. Examples include the DASH (Dietary Approaches to Stop Hypertension) eating plan or the Mediterranean diet. Generally, it is recommended that you: ?Eat less salt (sodium). Ask your health care provider how much sodium is safe for you. Most people should have less than 2,300 mg each day. ?Limit unhealthy fats, such as saturated and trans fats, in your diet. You can do this by eating low-fat dairy products, eating less red meat, and avoiding processed foods. ?Eat healthy fats (omega-3 fatty acids). These are found in fish, such as mackerel or salmon. ?Eat more fruits and vegetables. You should try to fill one-half of your plate with fruits and vegetables at each meal. ?Eat more whole grains. ?Avoid foods and drinks that have added sugars. Lifestyle Get regular exercise. This is one of the most important things you can do for your health. Generally, it is recommended that you: ?Exercise for at least 30 minutes on most days of the week (150 minutes each week). The exercise should increase your heart rate and make you sweat (aerobic exercise). ?Add strength exercises on at least 2 days each week. Do not use any products that contain nicotine or tobacco, such as cigarettes and e-cigarettes. These can damage your heart and blood vessels. If you need help quitting, ask your health care provider. Alcohol use Do not drink alcohol if: ?Your health care provider tells you not to drink. ?You are , may be , or are planning to become . If you drink alcohol, limit how much you have: ?0 1 drink a day for women. ?0 2 drinks a day for men. Be aware of how much alcohol is in your drink. In the [place] one drink equals one typical bottle of beer (12 oz), one-half glass of wine (5 oz), or one shot of hard liquor (1 oz). Medicines Take titt-wwh-larkpdm and prescription medicines only as told by your health care provider. Ask your health care provider whether you should take an aspirin every day. Taking aspirin may help reduce your risk of heart disease and stroke. Depending on your risk factors, your health care provider may prescribe medicines to lower your risk of heart disease or to control related conditions. You may take medicine to: ?Lower cholesterol. ?Control blood pressure. ?Control diabetes. General information Keep your blood pressure under control, as recommended by your health care provider. For most healthy people, the upper number of your blood pressure (systolic) should be no higher than 120, and the lower number (diastolic) no higher than 80. Treatment may be needed if your blood pressure is higher than 130/80. Have your blood pressure checked at least every two years. Your health care provider may check your blood pressure more often if you have high blood pressure. After age 20, have your cholesterol checked every 4 6 years. If you have risk factors for heart disease, you may need to have it checked more frequently. Treatment may be needed if your cholesterol is high. Have your body mass index (BMI) checked every year. Your health care provider can calculate your BMI from your height and weight. Work with your health care provider to lose weight, if needed, or to maintain a healthy weight. Where to find more information: Centers for Disease Control and Prevention: www.cdc.gov/heartdisease [place] [employer]: www.heart.org ?Take a free online heart disease risk quiz to better understand your personal risk factors. Summary Heart disease is the leading cause of in the world. Heart disease can cause chest pain, abnormal heart rhythms, heart attack, and heart failure. High blood pressure, high cholesterol, and smoking are the main risk factors for heart disease, although other factors also contribute. You can take actions to lower your chances of developing heart disease. Work with your health care provider to reduce your risk by following a heart-healthy diet, being physically active, and controlling your weight, blood pressure, and cholesterol level. This information is not intended to replace advice given to you by your health care provider. Make sure you discuss any questions you have with your health care provider. Document Released: 10/06/2004 Document Revised: 03/09/2018 Document Reviewed: 03/09/2018 [employer] Patient Education 2020 [id number]. 02/12/2022 09:02:39 Healthy Eating Healthy Eating Following a healthy eating pattern may help you to achieve and maintain a healthy body weight, reduce the risk of chronic disease, and live a long and productive life. It is important to follow a healthy eating pattern at an appropriate calorie level for your body. Your nutritional needs should be met primarily through food by choosing a variety of nutrient-rich foods. What are tips for following this plan? Reading food labels Read labels and choose the following: ?Reduced or low sodium. ?Juices with 100% fruit juice. ?Foods with low saturated fats and high polyunsaturated and monounsaturated fats. ?Foods with whole grains, such as whole wheat, cracked wheat, brown rice, and wild rice. ?Whole grains that are fortified with folic acid. This is recommended for women who are or who want to become . Read labels and avoid the following: ?Foods with a lot of added sugars. These include foods that contain brown sugar, corn sweetener, corn syrup, dextrose, fructose, glucose, high-fructose corn syrup, honey, invert sugar, lactose, malt syrup, maltose, molasses, raw sugar, sucrose, trehalose, or turbinado sugar. ?Do not eat more than the following amounts of added sugar per day: 6 teaspoons (25 g) for women. 9 teaspoons (38 g) for men. ?Foods that contain processed or refined starches and grains. ?Refined grain products, such as white flour, degermed cornmeal, white bread, and white rice. Shopping Choose nutrient-rich snacks, such as vegetables, whole fruits, and nuts. Avoid high-calorie and high-sugar snacks, such as potato chips, fruit snacks, and candy. Use oil-based dressings and spreads on foods instead of solid fats such as butter, stick margarine, or cream cheese. Limit pre-made sauces, mixes, and instant products such as flavored rice, instant noodles, and ready-made pasta. Try more plant-protein sources, such as tofu, tempeh, black beans, edamame, lentils, nuts, and seeds. Explore eating plans such as the Mediterranean diet or vegetarian diet. Cooking Use oil to saut or stir-prieto foods instead of solid fats such as butter, stick margarine, or lard. Try baking, boiling, grilling, or broiling instead of frying. Remove the fatty part of meats before cooking. Steam vegetables in water or broth. Meal planning At meals, imagine dividing your plate into fourths: ?One-half of your plate is fruits and vegetables. ?One-fourth of your plate is whole grains. ?One-fourth of your plate is protein, especially lean meats, poultry, eggs, tofu, beans, or nuts. Include low-fat dairy as part of your daily diet. Lifestyle Choose healthy options in all settings, including home, work, school, restaurants, or stores. Prepare your food safely: ?Wash your hands after handling raw meats. ?Keep food preparation surfaces clean by regularly washing with hot, soapy water. ?Keep raw meats separate from [id number] foods, such as fruits and vegetables. ?environmental field professional, meat, poultry, and eggs to the recommended internal temperature. ?Store foods at safe temperatures. In general: ?Keep cold foods at 40 F (4.4 C) or below. ?Keep hot foods at 140 F (60 C) or above. ?Keep your freezer at 0 F (-17.8 C) or below. ?Foods are no longer safe to eat when they have been between the temperatures of 40 140 F (4.4 60 C) for more than 2 hours. What foods should I eat? Fruits Aim to eat 2 cup-equivalents of fresh, canned (in natural juice), or frozen fruits each day. Examples of 1 cup-equivalent of fruit include 1 small apple, 8 large strawberries, 1 cup canned fruit, cup dried fruit, or 1 cup 100% juice. Vegetables Aim to eat 2 3 cup-equivalents of fresh and frozen vegetables each day, including different varieties and colors. Examples of 1 cup-equivalent of vegetables include 2 medium carrots, 2 cups raw, leafy greens, 1 cup chopped vegetable (raw or cooked), or 1 medium baked potato. Grains Aim to eat 6 ounce-equivalents of whole grains each day. Examples of 1 ounce-equivalent of grains include 1 slice of bread, 1 cup eeasu-el-vod cereal, 3 cups popcorn, or cup cooked rice, pasta, or cereal. Meats and other proteins Aim to eat 5 6 ounce-equivalents of protein each day. Examples of 1 ounce-equivalent of protein include 1 egg, 1/2 cup nuts or seeds, or 1 tablespoon (16 g) peanut butter. A cut of meat or fish that is the size of a deck of cards is about 3 4 ounce-equivalents. Of the protein you eat each week, try to have at least 8 ounces come from seafood. This includes salmon, trout, krishnamurthy, and anchovies. Dairy Aim to eat 3 cup-equivalents of fat-free or low-fat dairy each day. Examples of 1 cup-equivalent of dairy include 1 cup (240 mL) milk, 8 ounces (250 g) yogurt, 1 ounces (44 g) natural cheese, or 1 cup (240 mL) fortified soy milk. Fats and oils Aim for about 5 teaspoons (21 g) per day. Choose monounsaturated fats, such as canola and olive oils, avocados, peanut butter, and most nuts, or polyunsaturated fats, such as sunflower, corn, and soybean oils, walnuts, pine nuts, sesame seeds, sunflower seeds, and flaxseed. Beverages Aim for six 8-oz glasses of water per day. Limit coffee to three to five 8-oz cups per day. Limit caffeinated beverages that have added calories, such as soda and energy drinks. Limit alcohol intake to no more than 1 drink a day for non women and 2 drinks a day for men. One drink equals 12 oz of beer (355 mL), 5 oz of wine (148 mL), or 1 oz of hard liquor (44 mL). Seasoning and other foods Avoid adding excess amounts of salt to your foods. Try flavoring foods with herbs and spices instead of salt. Avoid adding sugar to foods. Try using oil-based dressings, sauces, and spreads instead of solid fats. This information is based on general [place] nutrition guidelines. For more information, visit choosemyplate.gov. Exact amounts may vary based on your nutrition needs. Summary A healthy eating plan may help you to maintain a healthy weight, reduce the risk of chronic diseases, and stay active throughout your life. Plan your meals. Make sure you eat the right portions of a variety of nutrient-rich foods. Try baking, boiling, grilling, or broiling instead of frying. Choose healthy options in all settings, including home, work, school, restaurants, or stores. This information is not intended to replace advice given to you by your health care provider. Make sure you discuss any questions you have with your health care provider. Document Released: 06/06/2018 Document Revised: 06/06/2018 Document Reviewed: 06/06/2018 [employer] Patient Education 2020 [id number]. 02/12/2022 09:02:37 Exercising to Lose Weight Exercising to Lose Weight Exercise is structured, repetitive physical activity to improve fitness and health. Getting regular exercise is important for everyone. It is especially important if you are overweight. Being overweight increases your risk of heart disease, stroke, diabetes, high blood pressure, and several types of cancer. Reducing your calorie intake and exercising can help you lose weight. Exercise is usually categorized as moderate or vigorous intensity. To lose weight, most people need to do a certain amount of moderate-intensity or vigorous-intensity exercise each week. Moderate-intensity exercise Moderate-intensity exercise is any activity that gets you moving enough to burn at least three times more energy (calories) than if you were sitting. Examples of moderate exercise include: Walking a mile in 15 minutes. Doing light yard work. Biking at an easy pace. Most people should get at least 150 minutes (2 hours and 30 minutes) a week of moderate-intensity exercise to maintain their body weight. Vigorous-intensity exercise Vigorous-intensity exercise is any activity that gets you moving enough to burn at least six times more calories than if you were sitting. When you exercise at this intensity, you should be working hard enough that you are not able to carry on a conversation. Examples of vigorous exercise include: Running. Playing a team sport, such as football, basketball, and soccer. Jumping rope. Most people should get at least 75 minutes (1 hour and 15 minutes) a week of vigorous-intensity exercise to maintain their body weight. How can exercise affect me? When you exercise enough to burn more calories than you eat, you lose weight. Exercise also reduces body fat and builds muscle. The more muscle you have, the more calories you burn. Exercise also: Improves mood. Reduces stress and tension. Improves your overall fitness, flexibility, and endurance. Increases bone strength. The amount of exercise you need to lose weight depends on: Your age. The type of exercise. Any health conditions you have. Your overall physical ability. Talk to your health care provider about how much exercise you need and what types of activities are safe for you. What actions can I take to lose weight? Nutrition Make changes to your diet as told by your health care provider or diet and supervisor nutritional yeast (dietitian). This may include: ?Eating fewer calories. ?Eating more protein. ?Eating less unhealthy fats. ?Eating a diet that includes fresh fruits and vegetables, whole grains, low-fat dairy products, and lean protein. ?Avoiding foods with added fat, salt, and sugar. Drink plenty of water while you exercise to prevent dehydration or heat stroke. Activity Choose an activity that you enjoy and set realistic goals. Your health care provider can help you make an exercise plan that works for you. Exercise at a moderate or vigorous intensity most days of the week. ?The intensity of exercise may vary from person to person. You can tell how intense a workout is for you by paying attention to your breathing and heartbeat. Most people will notice their breathing and heartbeat get faster with more intense exercise. Do resistance training twice each week, such as: ?Push-ups. ?Sit-ups. ?Lifting weights. ?Using resistance bands. Getting short amounts of exercise can be just as helpful as long structured periods of exercise. If you have trouble finding time to exercise, try to include exercise in your daily routine. ?Get up, stretch, and walk around every 30 minutes throughout the day. ?Go for a walk during your lunch break. ?Park your car farther away from your destination. ?If you take public transportation, get off one stop early and walk the rest of the way. ?Make phone calls while standing up and walking around. ?Take the stairs instead of elevators or escalators. Wear comfortable clothes and shoes with good support. Do not exercise so much that you hurt yourself, feel dizzy, or get very short of breath. Where to find more information [place] Department of Health and Human Services: www.hhs.gov Centers for Disease Control and Prevention (CDC): www.cdc.gov Contact a health care provider: Before starting a new exercise program. If you have questions or concerns about your weight. If you have a medical problem that keeps you from exercising. Get help right away if you have any of the following while exercising: Injury. Dizziness. Difficulty breathing or shortness of breath that does not go away when you stop exercising. Chest pain. Rapid heartbeat. Summary Being overweight increases your risk of heart disease, stroke, diabetes, high blood pressure, and several types of cancer. Losing weight happens when you burn more calories than you eat. Reducing the amount of calories you eat in addition to getting regular moderate or vigorous exercise each week helps you lose weight. This information is not intended to replace advice given to you by your health care provider. Make sure you discuss any questions you have with your health care provider. Document Released: 03/27/2011 Document Revised: 03/07/2018 Document Reviewed: 03/07/2018 [employer] Patient Education 2020 [id number]. 02/12/2022 09:02:34 Diabetes Mellitus and Foot Care Diabetes Mellitus and Foot Care Foot care is an important part of your health, especially when you have diabetes. Diabetes may cause you to have problems because of poor blood flow (circulation) to your feet and legs, which can cause your skin to: Become thinner and soap drier tender. Break more easily. Heal more slowly. Peel and crack. You may also have nerve damage (neuropathy) in your legs and feet, causing decreased feeling in them. This means that you may not notice minor injuries to your feet that could lead to more serious problems. Noticing and addressing any potential problems early is the best way to prevent future foot problems. How to care for your feet Foot hygiene Wash your feet daily with warm water and mild soap. Do not use hot water. Then, pat your feet and the areas between your toes until they are completely dry. Do not soak your feet as this can dry your skin. Trim your toenails straight across. Do not dig under them or around the cuticle. File the edges of your nails with an emery board or nail file. Apply a moisturizing lotion or petroleum jelly to the skin on your feet and to dry, brittle toenails. Use lotion that does not contain alcohol and is unscented. Do not apply lotion between your toes. Shoes and socks Wear clean socks or stockings every day. Make sure they are not too tight. Do not wear knee-high stockings since they may decrease blood flow to your legs. Wear shoes that fit properly and have enough cushioning. Always look in your shoes before you put them on to be sure there are no objects inside. To break in new shoes, wear them for just a few hours a day. This prevents injuries on your feet. Wounds, scrapes, corns, and calluses Check your feet daily for blisters, cuts, bruises, sores, and redness. If you cannot see the bottom of your feet, use a mirror or ask someone for help. Do not cut corns or calluses or try to remove them with medicine. If you find a minor scrape, cut, or break in the skin on your feet, keep it and the skin around it clean and dry. You may clean these areas with mild soap and water. Do not clean the area with peroxide, alcohol, or iodine. If you have a wound, scrape, corn, or callus on your foot, look at it several times a day to make sure it is healing and not infected. Check for: ?Redness, swelling, or pain. ?Fluid or blood. ?Warmth. ?Pus or a bad smell. General instructions Do not cross your legs. This may decrease blood flow to your feet. Do not use heating pads or hot water bottles on your feet. They may burn your skin. If you have lost feeling in your feet or legs, you may not know this is happening until it is too late. Protect your feet from hot and cold by wearing shoes, such as at the beach or on hot pavement. Schedule a complete foot exam at least once a year (annually) or more often if you have foot problems. If you have foot problems, report any cuts, sores, or bruises to your health care provider immediately. Contact a health care provider if: You have a medical condition that increases your risk of infection and you have any cuts, sores, or bruises on your feet. You have an injury that is not healing. You have redness on your legs or feet. You feel burning or tingling in your legs or feet. You have pain or cramps in your legs and feet. Your legs or feet are numb. Your feet always feel cold. You have pain around a toenail. Get help right away if: You have a wound, scrape, corn, or callus on your foot and: ?You have pain, swelling, or redness that gets worse. ?You have fluid or blood coming from the wound, scrape, corn, or callus. ?Your wound, scrape, corn, or callus feels warm to the touch. ?You have pus or a bad smell coming from the wound, scrape, corn, or callus. ?You have a fever. ?You have a red line going up your leg. Summary Check your feet every day for cuts, sores, red spots, swelling, and blisters. Moisturize feet and legs daily. Wear shoes that fit properly and have enough cushioning. If you have foot problems, report any cuts, sores, or bruises to your health care provider immediately. Schedule a complete foot exam at least once a year (annually) or more often if you have foot problems. This information is not intended to replace advice given to you by your health care provider. Make sure you discuss any questions you have with your health care provider. Document Released: 02/19/2001 Document Revised: 04/06/2018 Document Reviewed: 03/26/2017 [employer] Patient Education 2020 [id number]. 02/12/2022 09:02:33 Diabetes Mellitus and Exercise Diabetes Mellitus and Exercise Exercising regularly is important for your overall health, especially when you have diabetes (diabetes mellitus). Exercising is not only about losing weight. It has many other health benefits, such as increasing muscle strength and bone density and reducing body fat and stress. This leads to improved fitness, flexibility, and endurance, all of which result in better overall health. Exercise has additional benefits for people with diabetes, including: Reducing appetite. Helping to lower and control blood glucose. Lowering blood pressure. Helping to control amounts of fatty substances (lipids) in the blood, such as cholesterol and triglycerides. Helping the body to respond better to insulin (improving insulin sensitivity). Reducing how much insulin the body needs. Decreasing the risk for heart disease by: ?Lowering cholesterol and triglyceride levels. ?Increasing the levels of good cholesterol. ?Lowering blood glucose levels. What is my activity plan? Your health care provider or certified nutritionist can help you make a plan for the type and frequency of exercise (activity plan) that works for you. Make sure that you: Do at least 150 minutes of moderate-intensity or vigorous-intensity exercise each week. This could be brisk walking, biking, or water aerobics. ?Do stretching and strength exercises, such as yoga or weightlifting, at least 2 times a week. ?Spread out your activity over at least 3 days of the week. Get some form of physical activity every day. ?Do not go more than 2 days in a row without some kind of physical activity. ?Avoid being inactive for more than 30 minutes at a time. Take frequent breaks to walk or stretch. Choose a type of exercise or activity that you enjoy, and set realistic goals. Start slowly, and gradually increase the intensity of your exercise over time. What do I need to know about managing my diabetes? Check your blood glucose before and after exercising. ?If your blood glucose is 240 mg/dL (13.3 mmol/L) or higher before you exercise, check your urine for ketones. If you have ketones in your urine, do not exercise until your blood glucose returns to normal. ?If your blood glucose is 100 mg/dL (5.6 mmol/L) or lower, eat a snack containing 15 20 grams of carbohydrate. Check your blood glucose 15 minutes after the snack to make sure that your level is above 100 mg/dL (5.6 mmol/L) before you start your exercise. Know the symptoms of low blood glucose (hypoglycemia) and how to treat it. Your risk for hypoglycemia increases during and after exercise. Common symptoms of hypoglycemia can include: ?Hunger. ?Anxiety. ?Sweating and feeling clammy. ?Confusion. ?Dizziness or feeling light-headed. ?Increased heart rate or palpitations. ?Blurry vision. ?Tingling or numbness around the mouth, lips, or tongue. ?Tremors or shakes. ?Irritability. Keep a rapid-acting carbohydrate snack available before, during, and after exercise to help prevent or treat hypoglycemia. Avoid injecting insulin into areas of the body that are going to be exercised. For example, avoid injecting insulin into: ?The arms, when playing tennis. ?The legs, when jogging. Keep records of your exercise habits. Doing this can help you and your health care provider adjust your diabetes management plan as needed. Write down: ?Food that you eat before and after you exercise. ?Blood glucose levels before and after you exercise. ?The type and amount of exercise you have done. ?When your insulin is expected to peak, if you use insulin. Avoid exercising at times when your insulin is peaking. When you start a new exercise or activity, work with your health care provider to make sure the activity is safe for you, and to adjust your insulin, medicines, or food intake as needed. Drink plenty of water while you exercise to prevent dehydration or heat stroke. Drink enough fluid to keep your urine clear or pale yellow. Summary Exercising regularly is important for your overall health, especially when you have diabetes (diabetes mellitus). Exercising has many health benefits, such as increasing muscle strength and bone density and reducing body fat and stress. Your health care provider or certified nutritionist can help you make a plan for the type and frequency of exercise (activity plan) that works for you. When you start a new exercise or activity, work with your health care provider to make sure the activity is safe for you, and to adjust your insulin, medicines, or food intake as needed. This information is not intended to replace advice given to you by your health care provider. Make sure you discuss any questions you have with your health care provider. Document Released: 05/14/2004 Document Revised: 09/16/2017 Document Reviewed: 08/03/2016 [employer] Patient Education 2020 [id number]. 02/12/2022 09:02:32 DASH Eating Plan DASH Eating Plan DASH stands for Dietary Approaches to Stop Hypertension. The DASH eating plan is a healthy eating plan that has been shown to reduce high blood pressure (hypertension). It may also reduce your risk for type 2 diabetes, heart disease, and stroke. The DASH eating plan may also help with weight loss. What are tips for following this plan? General guidelines Avoid eating more than 2,300 mg (milligrams) of salt (sodium) a day. If you have hypertension, you may need to reduce your sodium intake to 1,500 mg a day. Limit alcohol intake to no more than 1 drink a day for non women and 2 drinks a day for men. One drink equals 12 oz of beer, 5 oz of wine, or 1 oz of hard liquor. Work with your health care provider to maintain a healthy body weight or to lose weight. Ask what an ideal weight is for you. Get at least 30 minutes of exercise that causes your heart to beat faster (aerobic exercise) most days of the week. Activities may include walking, swimming, or biking. Work with your health care provider or diet and supervisor nutritional yeast (dietitian) to adjust your eating plan to your individual calorie needs. Reading food labels Check food labels for the amount of sodium per serving. Choose foods with less than 5 percent of the Daily Value of sodium. Generally, foods with less than 300 mg of sodium per serving fit into this eating plan. To find whole grains, look for the word whole as the first word in the ingredient list. Shopping Buy products labeled as low-sodium or no salt added. Buy fresh foods. Avoid canned foods and premade or frozen meals. Cooking Avoid adding salt when cooking. Use salt-free seasonings or herbs instead of table salt or sea salt. Check with your health care provider or pharmacist before using salt substitutes. Do not prieto foods. Cook foods using healthy methods such as baking, boiling, grilling, and broiling instead. Cook with heart-healthy oils, such as olive, canola, soybean, or sunflower oil. Meal planning Eat a balanced diet that includes: ?5 or more servings of fruits and vegetables each day. At each meal, try to fill half of your plate with fruits and vegetables. ?Up to 6 8 servings of whole grains each day. ?Less than 6 oz of lean meat, poultry, or fish each day. A 3-oz serving of meat is about the same size as a deck of cards. One egg equals 1 oz. ?2 servings of low-fat dairy each day. ?A serving of nuts, seeds, or beans 5 times each week. ?Heart-healthy fats. Healthy fats called Tatums-3 fatty acids are found in foods such as flaxseeds and coldwater fish, like sardines, salmon, and mackerel. Limit how much you eat of the following: ?Canned or prepackaged foods. ?Food that is high in trans fat, such as fried foods. ?Food that is high in saturated fat, such as fatty meat. ?Sweets, desserts, sugary drinks, and other foods with added sugar. ?Full-fat dairy products. Do not salt foods before eating. Try to eat at least 2 vegetarian meals each week. Eat more home-cooked food and less restaurant, buffet, and fast food. When eating at a restaurant, ask that your food be prepared with less salt or no salt, if possible. What foods are recommended? The items listed may not be a complete list. Talk with your dietitian about what dietary choices are best for you. Grains Whole-grain or whole-wheat bread. Whole-grain or whole-wheat pasta. Brown rice. Oatmeal. Quinoa. Bulgur. Whole-grain and low-sodium cereals. Tawana bread. Low-fat, low-sodium crackers. Whole-wheat flour tortillas. Vegetables Fresh or frozen vegetables (raw, steamed, roasted, or grilled). Low-sodium or reduced-sodium tomato and vegetable juice. Low-sodium or reduced-sodium tomato sauce and tomato paste. Low-sodium or reduced-sodium canned vegetables. Fruits All fresh, dried, or frozen fruit. Canned fruit in natural juice (without added sugar). Meat and other protein foods Skinless chicken or turkey. Ground chicken or turkey. Pork with fat trimmed off. Fish and seafood. Egg whites. Dried beans, peas, or lentils. Unsalted nuts, nut butters, and seeds. Unsalted canned beans. Lean cuts of beef with fat trimmed off. Low-sodium, lean deli meat. Dairy Low-fat (1%) or fat-free (skim) milk. Fat-free, low-fat, or reduced-fat cheeses. Nonfat, low-sodium ricotta or cottage cheese. Low-fat or nonfat yogurt. Low-fat, low-sodium cheese. Fats and oils Soft margarine without trans fats. Vegetable oil. Low-fat, reduced-fat, or light mayonnaise and salad dressings (reduced-sodium). Canola, safflower, olive, soybean, and sunflower oils. Avocado. Seasoning and other foods Herbs. Spices. Seasoning mixes without salt. Unsalted popcorn and pretzels. Fat-free sweets. What foods are not recommended? The items listed may not be a complete list. Talk with your dietitian about what dietary choices are best for you. Grains Baked goods made with fat, such as croissants, muffins, or some breads. Dry pasta or rice meal packs. Vegetables Creamed or fried vegetables. Vegetables in a cheese sauce. Regular canned vegetables (not low-sodium or reduced-sodium). Regular canned tomato sauce and paste (not low-sodium or reduced-sodium). Regular tomato and vegetable juice (not low-sodium or reduced-sodium). Pickles. Olives. Fruits Canned fruit in a light or heavy syrup. Fried fruit. Fruit in cream or butter sauce. Meat and other protein foods Fatty cuts of meat. Ribs. Fried meat. Coulter. Sausage. Bologna and other processed lunch meats. Salami. Fatback. Hotdogs. Bratwurst. Salted nuts and seeds. Canned beans with added salt. Canned or smoked fish. Whole eggs or egg yolks. Chicken or turkey with skin. Dairy Whole or 2% milk, cream, and [id number]-ihft. Whole or full-fat cream cheese. Whole-fat or sweetened yogurt. Full-fat cheese. Nondairy creamers. Whipped toppings. Processed cheese and cheese spreads. Fats and oils Butter. Stick margarine. Lard. Shortening. Ghee. Coulter fat. Tropical oils, such as coconut, palm kernel, or palm oil. Seasoning and other foods Salted popcorn and pretzels. Onion salt, garlic salt, seasoned salt, table salt, and sea salt. Worcestershire sauce. Tartar sauce. Barbecue sauce. Teriyaki sauce. Soy sauce, including reduced-sodium. Steak sauce. Canned and packaged gravies. Fish sauce. Oyster sauce. Cocktail sauce. Horseradish that you find on the shelf. Ketchup. Mustard. Meat flavorings and tenderizers. Bouillon cubes. Hot sauce and Tabasco sauce. Premade or packaged marinades. Premade or packaged taco seasonings. Relishes. Regular salad dressings. Where to find more information: National Heart, Lung, and Blood [place]: www.nhlbi.nih.gov [place] [employer]: www.heart.org Summary The DASH eating plan is a healthy eating plan that has been shown to reduce high blood pressure (hypertension). It may also reduce your risk for type 2 diabetes, heart disease, and stroke. With the DASH eating plan, you should limit salt (sodium) intake to 2,300 mg a day. If you have hypertension, you may need to reduce your sodium intake to 1,500 mg a day. When on the DASH eating plan, aim to eat more fresh fruits and vegetables, whole grains, lean proteins, low-fat dairy, and heart-healthy fats. Work with your health care provider or diet and supervisor nutritional yeast (dietitian) to adjust your eating plan to your individual calorie needs. This information is not intended to replace advice given to you by your health care provider. Make sure you discuss any questions you have with your health care provider. Document Released: 02/11/2012 Document Revised: 02/04/2018 Document Reviewed: 02/15/2017 [employer] Patient Education 2020 [id number]. 02/12/2022 09:02:30 BMI for Adults BMI for Adults Body mass index (BMI) is a number that is calculated from a person's weight and height. BMI may help to estimate how much of a person's weight is composed of fat. BMI can help identify those who may be at higher risk for certain medical problems. How is BMI used with adults? BMI is used as a screening tool to identify possible weight problems. It is used to check whether a person is obese, overweight, healthy weight, or underweight. How is BMI calculated? BMI measures your weight and compares it to your height. This can be done either in [place] ([place] or metric measurements. Note that charts are available to help you find your BMI quickly and easily without having to do these calculations yourself. To calculate your BMI in [place] measurements, your health care provider will: 1.Measure your weight in pounds (lb). 2.Multiply the number of pounds by 703. For example, for a person who weighs 180 lb, multiply that number by 703, which equals 126,540. 3.Measure your height in inches (in). Then multiply that number by itself to get a measurement called inches squared. For example, for a person who is 70 in tall, the inches squared measurement is 70 in x 70 in, which equals 4900 inches squared. 4.Divide the total from Step 2 (number of lb x 703) by the total from Step 3 (inches squared): 126,540 4900 = 25.8. This is your BMI. To calculate your BMI in metric measurements, your health care provider will: 1.Measure your weight in kilograms (kg). 2.Measure your height in meters (m). Then multiply that number by itself to get a measurement called meters squared. For example, for a person who is 1.75 m tall, the meters squared measurement is 1.75 m x 1.75 m, which is equal to 3.1 meters squared. 3.Divide the number of kilograms (your weight) by the meters squared number. In this example: 70 3.1 = 22.6. This is your BMI. How is BMI interpreted? To interpret your results, your health care provider will use BMI charts to identify whether you are underweight, normal weight, overweight, or obese. The following guidelines will be used: Underweight: BMI less than 18.5. Normal weight: BMI between 18.5 and 24.9. Overweight: BMI between 25 and 29.9. Obese: BMI of 30 and above. Please note: Weight includes both fat and muscle, so someone with a muscular build, such as an athlete, may have a BMI that is higher than 24.9. In cases like these, BMI is not an accurate measure of body fat. To determine if excess body fat is the cause of a BMI of 25 or higher, further assessments may need to be done by a health care provider. BMI is usually interpreted in the same way for men and women. Why is BMI a useful tool? BMI is useful in two ways: Identifying a weight problem that may be related to a medical condition, or that may increase the risk for medical problems. Promoting lifestyle and diet changes in order to reach a healthy weight. Summary Body mass index (BMI) is a number that is calculated from a person's weight and height. BMI may help to estimate how much of a person's weight is composed of fat. BMI can help identify those who may be at higher risk for certain medical problems. BMI can be measured using [place] measurements or metric measurements. To interpret your results, your health care provider will use BMI charts to identify whether you are underweight, normal weight, overweight, or obese. This information is not intended to replace advice given to you by your health care provider. Make sure you discuss any questions you have with your health care provider. Document Released: 11/03/2004 Document Revised: 02/04/2018 Document Reviewed: 01/05/2018 [employer] Patient Education 2019 [employer] [facility] [place] 11-27-2021 History of Present illness Narrative VIDEO VISIT PROGRESS NOTE CC Tomas Martinez is a 71 year old male who presents today for blood sugar review, insulin dosing adjust. HPI Diagnosed with diabetes mellitus type II, uncontrolled ~ 2006 Last endocrine OV 05/15/2021 Some elements copied from my note 05/15/2021 which have been updated where appropriate, and all reflect current medical decision making from date of this visit. Sts is doing ok Sugars are high after breakfast If does have a lower number will happen before noon, happens once every 10 days Eats about the same thing daily 30-50 oz of water, 5 oz of juice in the morning or apple juice w bf Has a snack after dinner prior to bed Will have icecream or pretzels Walks 5 morning per week for 1-1/2 miles Reports had to call [employer] for sensor replacement - 'just stopped working or didn't work at all' Energy is fair Weight is stable Denies palpitations/tremors CURRENT DM MEDS LEVEMIR 64-0-0-66 HUMALOG Breakfast 10 units Lunch 14 units Dinner 16 units CURRENT THYROID SYNTHROID 50 mcg 1 tab daily SMBG Type of Monitor: Other FREESTYLE MAKAYLA Frequency of Monitorin-8 times a day BG Values: Breakfast: 140-150 Lunch: 155 Dinner: 82-140 Bed-time: 130-170 Values over past week: Highest ; Lowest Hypoglycemia: Rare if overcompensates Diet: No specific diet regimen - more veggies, no processed/fried foods Exercise: walking 1 mile to 1-1/2 miles daily DM REVIEW OF SYSTEMS Last Eye Exam : 02/2021 due again February, Last Podiatry Exam: Date: 2020 Cardiorespiratory: negative, denies chest pain, pressure Claudication: no Dyslipidemia: Yes, controlled on medication High Blood Pressure: Yes, controlled on medication CURRENT LABS Component Latest Ref Rng & Units 12/02/2020 07/08/2021 11/21/2021 Glucose 74 - 99 mg/dL 154 (H) BUN 9 - 24 mg/dL 25 (H) Creatinine 0.73 - 1.22 mg/dL 0.88 Sodium 136 - 144 mmol/L 142 Potassium 3.7 - 5.1 mmol/L 4.2 Chloride 97 - 105 mmol/L 103 CO2 22 - 30 mmol/L 31 (H) Anion Gap 9 - 18 mmol/L 8 (L) eGFR >=60 mL/min/1.73m 91 Total Cholesterol, Nonfasting <200 mg/dL 90 Triglycerides, Nonfasting <150 mg/dL 83 HDL Cholesterol, Nonfasting >39 mg/dL 28 (L) LDL Cholesterol, Nonfasting <100 mg/dL 45 Non HDL Cholesterol, Nonfasting <130 mg/dL 62 VLDL Cholesterol, Nonfasting <30 mg/dL 17 Total Chol/HDL Ratio, Nonfasting <5.10 mg/dL 3.21 LDL/HDL Ratio, Nonfasting <2.54 mg/dL 1.61 Creatinine, Ur Random (UCRR) 20.0 - 300.0 mg/dL 179.9 Albumin, Urine Random mg/L <12.0 Albumin/Creat Ratio <30 mg/g <7 Hemoglobin A1C 4.3 - 5.6 % 7.7 (H) 7.6 (H) Estimated Average Glucose mg/dL 174 171 TSH 0.270 - 4.200 mIU/L 3.900 3.330 Free T4 0.9 - 1.7 ng/dL 1.0 1.1 PAST MEDICAL HISTORY Diagnosis Date CAD (coronary artery disease) Dr. Checo BEAVERS DM (diabetes mellitus) (HCC) Nocturia frequent urination OA (osteoarthritis) Rt hip Sleep disorder Spinal stenosis Multiple levels PAST SURGICAL HISTORY Procedure Laterality Date ANGIOPLASTY PAST SURGICAL HISTORY OF 1955 tonsil FAMILY HISTORY Problem Relation Age of Onset other (lymphoma) Father Social History Tobacco Use Smoking status: Never Smokeless tobacco: Never Vaping Use Vaping Use: Never used Substance Use Topics Alcohol use: Yes Alcohol/week: 5.0 standard drinks Types: 2 Mixed Drinks per week Comment: 2/week Current Outpatient Medications Medication Sig insulin detemir U-100 (LEVEMIR) 100 unit/mL (3 mL) injection pen Inject 64 units in am and 66 units at night insulin aspart U-100 (NOVOLOG FLEXPEN U-100 INSULIN) 100 unit/mL (3 mL) Inject 10 units breakfast, 14 with lunch 16 with dinner flash glucose sensor ([employer] MAKAYLA 14 DAY SENSOR) kit Change sensor every 14 days E11.9 - multiple insulin injections, checks blood sugar 4x daily flash glucose scanning reader (FREESTYLE MAKAYLA 14 DAY READER) Dispense one reader kit. E11.9 - multiple insulin injections, checks blood sugar 4x daily levothyroxine (SYNTHROID) 50 mcg tablet Take 1 tablet by mouth once daily. Insulin [place], Disposable, (BD ULTRAFINE III MINI PEN) 31 gauge x 3/16 USE WITH INSULIN PENS 5 TIMES DAILY. E11.9 aspirin, enteric coated (ASPIRIN, ENTERIC COATED) 325 mg EC tablet TAKE 1 TABLET BY MOUTH TWICE DAILY. acetaminophen (TYLENOL) 500 mg tablet Take 2 tablets by mouth every 8 hours. vit A/vit C/bioflav/Zn/Herb25 (ECHINACEA ACZ ORAL) Take by mouth. lisinopril-hydrochlorothiazide (PRINZIDE,ZESTORETIC) 20-12.5 mg per tablet Take 1 tablet by mouth once daily. Takes 1 tablet twice a day magnesium oxide 400 mg magnesium cap Take 1 capsule by mouth twice daily. multivit-min/ferrous fumarate (MULTI VITAMIN ORAL) Take by mouth once daily. metoprolol tartrate, short acting, (LOPRESSOR) 50 mg tablet Take by mouth twice daily. cholecalciferol (VITAMIN D-3) 5,000 unit tab Take by mouth once daily. atorvastatin (LIPITOR) 20 mg tablet Take 20 mg by mouth once daily. montelukast (SINGULAIR) 10 mg tablet Take 10 mg by mouth daily at bedtime. nitroglycerin sublingual (NITROQUICK) 0.4 mg SL tablet Dissolve 0.4 mg under the tongue as needed. traZODone (DESYREL) 50 mg tablet Take by mouth daily at bedtime. ibuprofen (ADVIL) 200 mg tablet Take 200 mg by mouth as needed. Take 1-2 tabs 1-2x daily as needed amLODIPine (NORVASC) 5 mg tablet Take 5 mg by mouth twice daily. No current facility-administered medications for this visit. ALLERGIES No Known Allergies REVIEW OF SYSTEMS - POSITIVES IN BOLD GENERAL:No weight loss, malaise or fevers HEENT:Negative for frequent or significant headaches, No changes in hearing or vision, no nose bleeds or other nasal problems NECK:Negative for lumps, goiter, pain and significant neck swelling RESPIRATORY: Negative for cough, hemoptysis, wheezing, COPD, dyspnea or shortness of breath CARDIOVASCULAR: Negative for chest pain, leg swelling, hypertension, CHF or palpitations VIDEO PHYSICAL EXAMINATION: GENERAL: alert and appropriate, in no distress and well-hydrated, well nourished SKIN: no rash noted HEAD: normocephalic, no abnormality or lesion noted EYES: PERRL NECK: full ROM, no cervical LNs noted ACANTHOSIS: none noted EXTREMITIES: not assessed NEUROLOGIC: no obvious deficit ASSESSMENT: (E11.9, Z79.4) Controlled type 2 diabetes mellitus without complication, with long-term current use of insulin (HCC) (primary encounter diagnosis) Comment: FREESTYLE MAKAYLA SHARED BY PATIENT AND REVIEWED FOR VV APPT Recommend keep current prandial and basal dosing however ADD 4 units humalog with night snack of icecream Recommended diet: Low carbohydrate and Low saturated fat, low simple sugar, high fiber diet Exercise minimally 150 minutes per week, increase as tolerated. Adequate hydration - 1/2 body wgt in oz of water daily, unless fluid restriction applies. I instructed the patient to monitor blood sugars 4 times per day If blood sugars are persistently high or low, to call our office. Patient to continue to follow up with his PCP and with other consultants regarding his other medical problems. Plan: COMP METABOLIC PANEL, LIPID PANEL, NONFASTING, ALBUMIN/CREAT RATIO RND UR, HGB A1C, TSH BLD, T4 FREE/FREE THYROX (E03.9) Hypothyroidism, unspecified type Comment: Increase to T4, 1 tabs daily except MON THURS take 2 tablets - recheck labs Plan: TSH BLD, T4 FREE/FREE THYROX Keke Hernandez CNP Images from the original note were not included. documented in this encounter [facility] 10-06-2021 Miscellaneous Notes This is a duplicate request patient should have enough refill referred to pharmacy. Sabrina Huerta MA documented in this encounter [facility] 09-16-2021 Hospital Discharge instructions Patient Education 09/16/2021 11:01:20 Benign Prostatic Hyperplasia Benign Prostatic Hyperplasia Benign prostatic hyperplasia (BPH) is an enlarged prostate gland that is caused by the normal aging process and not by cancer. The prostate is a walnut-sized gland that is involved in the production of semen. It is located in front of the rectum and below the bladder. The bladder stores urine and the urethra is the tube that carries the urine out of the body. The prostate may get bigger as a man gets older. An enlarged prostate can press on the urethra. This can make it harder to pass urine. The build-up of urine in the bladder can cause infection. Back pressure and infection may progress to bladder damage and kidney (renal) failure. What are the causes? This condition is part of a normal aging process. However, not all men develop problems from this condition. If the prostate enlarges away from the urethra, urine flow will not be blocked. If it enlarges toward the urethra and compresses it, there will be problems passing urine. What increases the risk? This condition is more likely to develop in men over the age of 50 years. What are the signs or symptoms? Symptoms of this condition include: Getting up often during the night to urinate. Needing to urinate frequently during the day. Difficulty starting urine flow. Decrease in size and strength of your urine stream. Leaking (dribbling) after urinating. Inability to pass urine. This needs immediate treatment. Inability to completely empty your bladder. Pain when you pass urine. This is more common if there is also an infection. Urinary tract infection (UTI). How is this diagnosed? This condition is diagnosed based on your medical history, a physical exam, and your symptoms. Tests will also be done, such as: A post-void bladder scan. This measures any amount of urine that may remain in your bladder after you finish urinating. A digital rectal exam. In a rectal exam, your health care provider checks your prostate by putting a lubricated, gloved finger into your rectum to feel the back of your prostate gland. This exam detects the size of your gland and any abnormal lumps or growths. An exam of your urine (urinalysis). A prostate specific antigen (PSA) screening. This is a blood test used to screen for prostate cancer. An ultrasound. This test uses sound waves to electronically produce a picture of your prostate gland. Your health care provider may refer you to a specialist in kidney and prostate diseases (urologist). How is this treated? Once symptoms begin, your health care provider will monitor your condition (active surveillance or watchful waiting). Treatment for this condition will depend on the severity of your condition. Treatment may include: Observation and yearly exams. This may be the only treatment needed if your condition and symptoms are mild. Medicines to relieve your symptoms, including: ?Medicines to shrink the prostate. ?Medicines to relax the muscle of the prostate. Surgery in severe cases. Surgery may include: ?Prostatectomy. In this procedure, the prostate tissue is removed completely through an open incision or with a laparoscope or robotics. ?Transurethral resection of the prostate (TURP). In this procedure, a tool is inserted through the opening at the tip of the penis (urethra). It is used to cut away tissue of the inner core of the prostate. The pieces are removed through the same opening of the penis. This removes the blockage. ?Transurethral incision (TUIP). In this procedure, small cuts are made in the prostate. This lessens the prostate's pressure on the urethra. ?Transurethral microwave thermotherapy (TUMT). This procedure uses microwaves to create heat. The heat destroys and removes a small amount of prostate tissue. ?Transurethral needle ablation (TUNA). This procedure uses radio frequencies to destroy and remove a small amount of prostate tissue. ?Interstitial laser coagulation (ILC). This procedure uses a laser to destroy and remove a small amount of prostate tissue. ?Transurethral electrovaporization (TUVP). This procedure uses electrodes to destroy and remove a small amount of prostate tissue. ?Prostatic urethral lift. This procedure inserts an implant to push the lobes of the prostate away from the urethra. Follow these instructions at home: Take [id number] and prescription medicines only as told by your health care provider. Monitor your symptoms for any changes. Contact your health care provider with any changes. Avoid drinking large amounts of liquid before going to bed or out in public. Avoid or reduce how much caffeine or alcohol you drink. Give yourself time when you urinate. Keep all follow-up visits as told by your health care provider. This is important. Contact a health care provider if: You have unexplained back pain. Your symptoms do not get better with treatment. You develop side effects from the medicine you are taking. Your urine becomes very dark or has a bad smell. Your lower abdomen becomes distended and you have trouble passing your urine. Get help right away if: You have a fever or chills. You suddenly cannot urinate. You feel lightheaded, or very dizzy, or you faint. There are large amounts of blood or clots in the urine. Your urinary problems become hard to manage. You develop moderate to severe low back or flank pain. The flank is the side of your body between the ribs and the hip. These symptoms may represent a serious problem that is an emergency. Do not wait to see if the symptoms will go away. Get medical help right away. Call your local emergency services (911 in the [place] Do not drive yourself to the hospital. Summary Benign prostatic hyperplasia (BPH) is an enlarged prostate that is caused by the normal aging process and not by cancer. An enlarged prostate can press on the urethra. This can make it hard to pass urine. This condition is part of a normal aging process and is more likely to develop in men over the age of 50 years. Get help right away if you suddenly cannot urinate. This information is not intended to replace advice given to you by your health care provider. Make sure you discuss any questions you have with your health care provider. Document Released: 02/22/2006 Document Revised: 01/17/2019 Document Reviewed: 03/29/2017 [employer] Patient Education 2020 [id number]. Follow Up Care 02/18/2021 10:55:55 With:MEET AGUILERA, Brayan Hunter, URL Address: [address] [place], [place] [id number]- When:Within 1 Year(s) Comments:w/ free & total [facility] 07-15-2021 Miscellaneous Notes After speaking with patient on sensor refills from [employer] since 07/03/21.patient decoded to change supply companies.I faxed all required signed information to [facility]. Conformation received,placed in file. Sal Smith MA documented in this encounter [facility] 07-14-2021 Miscellaneous Notes Spoke to patient he asked if there is another supply company as [email or web address] is not returning phone calls. I gave him information for [facility], He is going to upload makayla, and a copy of insurance cards so I can submit his order. Sal Smith MA Patient calling in regards to messages below. He states he has reached out to [email or web address] and they are telling him the order for this medication is on hold because they are waiting for orders on [facility]'s end. Please advise. Patient is requesting a return call. [phone] Thank you Verified patient receives his makayla and supplies from [email or web address]. Please close encounter. Printed last distance health notes placed on providers desk for review and signature,Will place in file awaiting order from [employer]. Sal Smith MA documented in this encounter [facility] Evaluation + Plan note Future Appointments Appointment Date:09/16/2021 10:30:00 AM Scheduled Provider:Brayan DSOUZA MD Location:[facility] Appointment Type:URO Office Visit [facility] Evaluation + Plan note Future Appointments Appointment Date:09/22/2022 09:15:00 AM Scheduled Provider:Brayan DSOUZA MD Location:[facility] Appointment Type:URO Office Visit Future Scheduled TestsPSA Free & Total 07/06/22 [facility] Evaluation + Plan note Future Appointments Appointment Date:09/22/2022 09:15:00 AM Scheduled Provider:Brayan DSOUZA MD Location:[facility] Appointment Type:URO Office Visit Appointment Date:02/23/2023 08:00:00 AM Scheduled Provider: Location:[facility] Appointment Type: Medicare Wellness Subsequent Future Scheduled TestsPSA Free & Total 07/06/22 [facility] [place] Evaluation + Plan note Future Appointments Appointment Date:12/28/2022 02:00:00 PM Scheduled Provider:Sabrina Arguello MD Location:[facility] Appointment Type:URO Office Visit Appointment Date:02/23/2023 08:00:00 AM Scheduled Provider: Location:[facility] Appointment Type:FM Medicare Wellness Subsequent [facility] Evaluation + Plan note Future Appointments Appointment Date:10/07/2023 08:00:00 AM Scheduled Provider:Sabrina Arguello MD Location:[facility] Appointment Type:URO Office Visit Future Scheduled TestsPSA Free & Total 08/07/23 [facility] Evaluation + Plan note Future Appointments Appointment Date:10/07/2023 08:00:00 AM Scheduled Provider:Sabrina Arguello MD Location:[facility] Appointment Type:URO Office Visit [facility] Evaluation note Diagnosis Controlled type 2 diabetes mellitus without complication, with long-term current use of insulin (HCC)- Primary Hypothyroidism, unspecified type documented in this encounter [facility] note* Diagnosis Controlled type 2 diabetes mellitus without complication, with long-term current use of insulin (HCC)- Primary Hypothyroidism, unspecified type documented in this encounter [facility] note* Diagnosis Controlled type 2 diabetes mellitus without complication, with long-term current use of insulin (HCC)- Primary documented in this encounter [facility] note* Diagnosis Controlled type 2 diabetes mellitus without complication, with long-term current use of insulin (HCC)- Primary Hypothyroidism, unspecified type documented in this encounter [facility] note* Diagnosis Unspecified hypothyroidism [facility] Diagnosis Unspecified hypothyroidism documented in this encounter [facility] note* Diagnosis Controlled type 2 diabetes mellitus without complication, with long-term current use of insulin (HCC)- Primary Hypothyroidism, unspecified type documented in this encounter [facility] note* Diagnosis Controlled type 2 diabetes mellitus without complication, with long-term current use of insulin (HCC)- Primary documented in this encounter [facility] noteNo assessment information availableK[facility] Work Phone: Hospital course Narrative No data available for this section [facility] No data available for this section [facility] No data available for this section [facility] Summary Purpose Family History No Family History Records FoundUnknown Family Member Name Dates Details No pertinent family history: Mother(V49.89, Z78.9) Status:Active Unknown Family Member Name Dates Details No pertinent family history: Mother(V49.89, Z78.9) Status:Active Unknown Family Member Name Dates Details No pertinent family history: Mother(V49.89, Z78.9) Status:Active Unknown Family Member Name Dates Details No pertinent family history: Mother(V49.89, Z78.9) Status:Active Relationship Condition Age at Onset Recorded Date/T teodora father Hypertension Unknown Type 2 diabetes mellitus Unknown Advance Directives No Advanced Directives Records FoundDocuments on File Type Date Recorded 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 I have examined the patient and reviewed radiographic studies and agree with plan as outlined above. Jim Borrego II, MD May 01, 2019 2:42 PM DISCHARGE SUMMARY Patient Name: Tomas [place] : 1950 ADMISSION DATE: 04/17/2019 DISCHARGE DATE: 04/18/2019 Attending Physician: Jim Borrego Primary Diagnosis: Primary osteoarthritis of right hip [M16.11] Hip arthritis [M16.10] Operations During Hospitalization: Procedure(s) (LRB): ARTHROPLASTY HIP (Right) Procedures During Hospitalizatio (more content not included)... Chief Complaint TOMAS [place] is being seen for an annual follow-up of.* TOMAS [place] is being seen for a 3 month follow-up of. * 71-year-old gentleman returns for follow-up and is doing very well. He had inferior MT back in 1996with revascularization, stress testing last year was normal. He has underlying diabetes and essential hypertension. He remains asymptomatic, with no hospitalizations or nitrate usage. * Recommendations, obtain lipid panel we will follow-up in 1 year Chief Complaint and Reason for Visit Chief Complaint R97.20 Additional Source Comments (unrecognized sect ion and content) No Status Records FoundNo Status Records FoundNo Status Records FoundNo Status Records FoundNo Status Records FoundNo Status Records FoundNo Status Records FoundNo Status Records FoundNo Status Records FoundNo Status Records FoundNo Status Records FoundNo Status Records FoundNo Status Records Found INFORMATION SOURCE (unrecogn ized section and content) DATE CREATED AUTHOR 04/20/2019 [facility] DATE CREATED AUTHOR AUTHOR'S ORGANIZ ATION 05/01/2019 [facility] DATE CREATED AUTHOR AUTHOR'S ORGANIZ ATION 02/06/2021 [facility] DATE CREATED AUTHOR AUTHOR'S ORGANIZ ATION 01/23/2022 [facility] DATE CREATED AUTHOR AUTHOR'S ORGANIZ ATION 01/23/2022 [employer] DATE CREATED AUTHOR AUTHOR'S ORGANIZ ATION 02/20/2023 [facility] DATE CREATED AUTHOR AUTHOR'S ORGANIZ ATION 03/13/2023 [facility] DATE CREATED AUTHOR AUTHOR'S ORGANIZ ATION 07/18/2023 [facility] DATE CREATED AUTHOR AUTHOR'S ORGANIZ ATION 10/02/2023 [facility] DATE CREATED AUTHOR AUTHOR'S ORGANIZ ATION 2023 Lamine Keegan [facility] DATE CREATED AUTHOR AUTHOR'S ORGANIZ ATION 10/13/2023 Raman Keegan [facility] DATE CREATED AUTHOR AUTHOR'S ORGANIZ ATION 10/13/2023 [facility] DATE CREATED AUTHOR AUTHOR'S ORGANIZ ATION 11/01/2023 [facility] Source Comments (unrecognize d section and content) In the event this informatio n is protected by the Federal Confidentiality of Alcohol and Drug Abuse Patient Records regulations: The Federal rules restrict any use of the information to criminally investigate or prosecute any alcohol or drug abuse patient.[facility] the event this information is protected by the Federal Confidentiality of Alcohol and Drug Abuse Patient Records regulations: The Federal rules restrict any use of the information to criminally investigate or prosecute any alcohol or drug abuse patient.[facility] the event this information is protected by the Federal Confidentiality of Alcohol and Drug Abuse Patient Records regulations: The Federal rules restrict any use of the information to criminally investigate or prosecute any alcohol or drug abuse patient.[facility] the event this information is protected by the Federal Confidentiality of Alcohol and Drug Abuse Patient Records regulations: The Federal rules restrict any use of the information to criminally investigate or prosecute any alcohol or drug abuse patient.[facility] Center[facility] the event this information is protected by the Federal Confidentiality of Alcohol and Drug Abuse Patient Records regulations: The Federal rules restrict any use of the information to criminally investigate or prosecute any alcohol or drug abuse patient.[facility] Center[facility] the event this information is protected by the Federal Confidentiality of Alcohol and Drug Abuse Patient Records regulations: The Federal rules restrict any use of the information to criminally investigate or prosecute any alcohol or drug abuse patient.[facility] Center[facility] the event this information is protected by the Federal Confidentiality of Alcohol and Drug Abuse Patient Records regulations: The Federal rules restrict any use of the information to criminally investigate or prosecute any alcohol or drug abuse patient.[facility] Center[facility] the event this information is protected by the Federal Confidentiality of Alcohol and Drug Abuse Patient Records regulations: The Federal rules restrict any use of the information to criminally investigate or prosecute any alcohol or drug abuse patient.[facility] Center[facility] the event this information is protected by the Federal Confidentiality of Alcohol and Drug Abuse Patient Records regulations: The Federal rules restrict any use of the information to criminally investigate or prosecute any alcohol or drug abuse patient.[facility] Center[facility] the event this information is protected by the Federal Confidentiality of Alcohol and Drug Abuse Patient Records regulations: The Federal rules restrict any use of the information to criminally investigate or prosecute any alcohol or drug abuse patient.[facility] Center[facility] the event this information is protected by the Federal Confidentiality of Alcohol and Drug Abuse Patient Records regulations: The Federal rules restrict any use of the information to criminally investigate or prosecute any alcohol or drug abuse patient.[facility] Center[facility] the event this information is protected by the Federal Confidentiality of Alcohol and Drug Abuse Patient Records regulations: The Federal rules restrict any use of the information to criminally investigate or prosecute any alcohol or drug abuse patient.[facility] Center[facility] the event this information is protected by the Federal Confidentiality of Alcohol and Drug Abuse Patient Records regulations: The Federal rules restrict any use of the information to criminally investigate or prosecute any alcohol or drug abuse patient.[facility] Center[facility] the event this information is protected by the Federal Confidentiality of Alcohol and Drug Abuse Patient Records regulations: The Federal rules restrict any use of the information to criminally investigate or prosecute any alcohol or drug abuse patient.[facility] Center[facility] the event this information is protected by the Federal Confidentiality of Alcohol and Drug Abuse Patient Records regulations: The Federal rules restrict any use of the information to criminally investigate or prosecute any alcohol or drug abuse patient.[facility] Center[facility] the event this information is protected by the Federal Confidentiality of Alcohol and Drug Abuse Patient Records regulations: The Federal rules restrict any use of the information to criminally investigate or prosecute any alcohol or drug abuse patient.[facility] Center[facility] the event this information is protected by the Federal Confidentiality of Alcohol and Drug Abuse Patient Records regulations: The Federal rules restrict any use of the information to criminally investigate or prosecute any alcohol or drug abuse patient.[facility] Center[facility] the event this information is protected by the Federal Confidentiality of Alcohol and Drug Abuse Patient Records regulations: The Federal rules restrict any use of the information to criminally investigate or prosecute any alcohol or drug abuse patient.[facility] Reason for Visit (unrecogniz ed section and content) Reason Onset Date Comments Refill Request 07/03/2021 Refill Request 07/11/2021 Reason Comments CGM Order [facility] Makayla Reason Onset Date Comments Refill Request 10/04/2021 levemir Reason Comments Blood Sugar Reading Blood sugar reading, insulin adjust, Reason Onset Date Comments Refill Request 02/13/2022 Reason Onset Date Comments Refill Request 04/04/2022 Reason Comments Blood Sugar Reading Thyroid Problem Reason Comments MSC Request Reason Comments Refill Request Reason Onset Date Comments Refill Request 08/28/2022 Reason Comments MCS Order form Freestyle Makayla 2 Reason Onset Date Comments Refill Request 01/04/2023 Reason Comments Blood Sugar Reading Reason Onset Date Comments Refill Request 06/08/2023 Care Teams (unrecognized sec tion and content) Liquid Yeast Supervisor Relationship Specialty Start Date End Date Teto Shea DO [address] [place] [address] PCP - General Family Practice 12/28/18 Teto Shea DO [address] [place] [address] Referring Family Practice 12/28/18 Liquid Yeast Supervisor Relationship Specialty Start Date End Date Teto Shea DO [address] [place] [address] PCP - General Family Practice 12/28/18 Teto hSea DO [address] [place] [address] Referring Family Practice 12/28/18 Liquid Yeast Supervisor Relationship Specialty Start Date End Date Teto Shea DO [address] [place] [address] PCP - General Family Practice 12/28/18 Teto Shea DO [address] [place] [address] Referring Family Practice 12/28/18 Liquid Yeast Supervisor Relationship Specialty Start Date End Date Teto Shea DO [address] [place] [address] PCP - General Family Medicine 12/28/18 Teto Shea DO [address] [place] [address] Referring Family Medicine 12/28/18 Liquid Yeast Supervisor Relationship Specialty Start Date End Date Teto Shea DO [address] [place] [address] PCP - General Family Medicine 12/28/18 Teto Shea DO [address] [place] [address] Referring Family Medicine 12/28/18 Liquid Yeast Supervisor Relationship Specialty Start Date End Date Teto Shea DO [address] [place] [address] PCP - General Family Medicine 12/28/18 Teto Shea DO [address] [place] [address] Referring Family Medicine 12/28/18 Liquid Yeast Supervisor Relationship Specialty Start Date End Date Teto Shea DO [address] [place] [address] PCP - General Family Medicine 12/28/18 Teto Shea DO [address] [place] [address] Referring Family Medicine 12/28/18 Liquid Yeast Supervisor Relationship Specialty Start Date End Date Teto Shae DO [address] [place] [address] PCP - General Family Medicine 12/28/18 Teto Shea DO [address] [place] [address] Referring Family Medicine 12/28/18 Liquid Yeast Supervisor Relationship Specialty Start Date End Date Teto Shea DO [address] [place] [address] PCP - General Family Medicine 12/28/18 Teto Shea DO [address] [place] [address] Referring Family Medicine 12/28/18 Liquid Yeast Supervisor Relationship Specialty Start Date End Date Teto Shea DO [address] [place] [address] PCP - General Family Medicine 12/28/18 Teto Shea DO [address] [place] [address] Referring Family Medicine 12/28/18 Liquid Yeast Supervisor Relationship Specialty Start Date End Date Teto Shea DO PCP - General Family Medicine 12/28/18 Teto Shea DO Referring Family Medicine 12/28/18 Liquid Yeast Supervisor Relationship Specialty Start Date End Date Teto Shea DO PCP - General Family Medicine 12/28/18 Teto Shea DO Referring Family Medicine 12/28/18 Liquid Yeast Supervisor Relationship Specialty Start Date End Date Teto Shea DO PCP - General Family Medicine 12/28/18 Teto Shea DO Referring Family Medicine 12/28/18 Liquid Yeast Supervisor Relationship Specialty Start Date End Date Teto Shea DO PCP - General Family Medicine 12/28/18 MonseTetoDO Referring Family Medicine 12/28/18 Liquid Yeast Supervisor Relationship Specialty Start Date End Date MonseTetoDO PCP - General Family Medicine 12/28/18 MonseTetoDO Referring Family Medicine 12/28/18 Team Status: Active Member Role Status Dates Teto Shea DO Primary Care Provider Active Team Status: Inactive Member Role Status Dates Teto Shea DO Primary Care Provider Active Start: October 26, 2023 End: October 26, 2023 Sabrina Arguello MD Attending Provider Active Start : October 26, 2023 End: October 26, 2023 Goals (unrecognized section and content) Goals may be documented in a n alternate section FOR RECORDS PERTAINING TO PATIENTS WHO ARE OR HAVE BEEN ENROLLED IN A CHEMICAL DEPENDENCY/SUBSTANCEABUSE PROGRAM, SOME INFORMATION MAY BE OMITTED. This clinical summary was aggregated from multiple sources. Caution should be exercised in using it in the provision of clinical care. This summary normalizes information from multiple sources, and as a consequence, information in this document may materially change the coding, format and clinical context of patient data. In addition, data may be omitted in some cases. CLINICAL DECISIONS SHOULD BE BASED ON THE PRIMARY CLINICAL RECORDS. [facility]. provides no warranty or guarantee of the accuracy or completeness of information in this document.
[2023-11-03 07:09] VITALS: BP 167/69; PULSE 69; TEMP 36.6; O2SAT 94; BMI 32.7
[2023-11-03] MEDS: LACTATED RINGER'S SOLUTION 1,000 ML 50 ML IV (07:40)
[2023-11-03] MEDS: CEFAZOLIN SODIUM 2 GM/50 ML D5W PREMIX IV (08:07)
[2023-11-03] MEDS: LIDOCAINE HCL 1% 100 MG/10 ML MDV INJ (08:24)
[2023-11-03] MEDS: BACITRACIN OINTMENT 28.4 GM TUBE 1 APPLIC TOPICAL (08:41)
[2023-11-03 08:45] VITALS: BP 110/60; PULSE 63; TEMP 36.1; O2SAT 94
[2023-11-03 09:00] VITALS: BP 138/78; PULSE 58; O2SAT 95
--- NOTE | 2023-11-03 09:02 | P.URON_ITS ---
Urology Surgery Operative Note Operative Note Procedure Date: 11/03/23 Time Out Performed: yes Pre-op Diagnosis: 1. Elevated PSA 2. Abnormal MRI Post-op Diagnosis: same as pre-op Procedures performed: 1. MRI fusion prostate biopsy, transperineal approach 2. Ultrasound for needle prostate biopsy, transperineal approach 3. Transrectal ultrasound of prostate and seminal vesicles 4. Nerve block of prostate Anesthesia: MAC Primary Surgeon: Sabrina Arguello Complications: none Estimated blood loss (mL): 1 Findings: Left posterior lateral small hypoechoic lesion. Fusion volume 95.6 ml. SVs wnl. ESTELA benign. Uneventful biopsy per below. Specimens: 1. Right posterior medial (2 cores) 2. Right posterior lateral (2 cores) 3. Right base (2 cores) 4. Right anterior lateral (2 cores) 5. Right anterior medial (2 cores) 6. Left anterior medial (2 cores) 7. Left anterior lateral (2 cores) 8. Left base (2 cores) 9. Left posterior lateral (2 cores) 10. Left posterior medial (2 cores) 11. ANTIONE 1- left peripheral zone, mid gland (3 cores) Indications for Procedures: 73 year old male presents with history of elevated PSA 8.6, 14% free on 10/05/23. MP-MRI prostate 10/26/23 showed PIRADS 4 lesion at left peripheral zone, mid gland. Prostate volume 91 ml. ESTELA benign. After discussion of risks/benefits of management options and biopsy approaches, he elected to proceed with MRI fusion transperineal prostate biopsy. Risks were discussed to include but not limited to bleeding, pain, infection, damage to surrounding structures, hematuria, difficulty urinating, ecchymosis, swelling, injury from positioning, and need for additional procedures. Detailed description of Procedure: After informed consent was obtained, the patient was brought to the operating suite and transferred onto the operating table in supine position. Sequential compression devices were placed on bilateral lower extremities. He received the appropriate dose of preoperative IV antibiotics (Cefazolin 2 g) and MAC anesthesia was induced. He was positioned in the dorsal lithotomy position with scrotum secured out of the perineum with tape, and the appropriate pressure poi nts padded, prepped and draped in the usual fashion for this procedure. An operative timeout was performed confirming the patient's identity, procedure and safety checks. A digital rectal exam was performed noting moderately enlarged prostate, no firm nodules. The [employer]pto UroNav MRI fusion biopsy system was set up over the patient's hip for transperineal approach of prostate biopsy. A well lubricated biplane transrectal ultrasound probe was inserted into the rectum and the prostate was aligned. The gland was visualized fully in axial and sagittal views to allow for identification of anatomy and location of the urethra as noted in findings. The skin followed by periprostatic local anesthetic lidocaine 1% was delivered. The Precision Point device was placed on the ultrasound probe for transperineal approach. After rendering of real-time images with the preoperative MRI prostate, the UroNav fusion biopsy system was used to target the region of interest. Three core needle biopsies were obtained from the region of interest. Thereafter two biopsies were obtained in a systematic fashion from 10 regions of the prostate including the medial and lateral aspects of the anterior and posterior prostate, as well as base of the right and left lobes. The ultrasound probe was removed and the perineum was cleaned and dressed with antibiotic ointment, fluffs and scrotal support. Adequate hemostasis was noted. The patient was awakened from anesthesia and sent to PACU in stable condition. Plan: Void prior to discharge home. Follow up in 1-2 weeks for pathology review. Other Provider present: No Post Operative care instructions: see discharge instructions
[2023-11-03 09:15] VITALS: BP 107/70; PULSE 68; O2SAT 98
[2023-11-03 09:30] VITALS: BP 110/68; PULSE 70; O2SAT 97
== END 2023-11-03 09:30 | disposition home or self-care (01) ==
PROVIDERS: PCP Family Medicine; Visit Provider Urology
PROC: (CPT 55700; principal; 2023-11-03 08:00)
DX: C61 Malignant neoplasm of prostate (principal); N40.1 Benign prostatic hyperplasia with lower urinary tract symptoms; R97.20 Elevated prostate specific antigen [PSA]; I10 Essential (primary) hypertension; I25.10 Atherosclerotic heart disease of native coronary artery without angina pectoris; E11.9 Type 2 diabetes mellitus without complications; Z79.4 Long term (current) use of insulin; E78.5 Hyperlipidemia, unspecified; E07.9 Disorder of thyroid, unspecified; Z95.5 Presence of coronary angioplasty implant and graft
CPT/HCPCS: 55700; 36415; 88305; 88344; J0690; J2704; J3010